=== PATIENT | male | born 1950 | race Caucasian/White ===

== ENCOUNTER 2024-08-18 09:31 | Outpatient (OUT) | payer MEDICARE, SELFPAY ==
--- NOTE | 2024-08-18 10:00 | CA_ITS ---
Patient Name: MINNIE FARIAS MR#: [id number] : 1950 Exam Date: 08/18/2024 Ordering Doctor: DR STEVE MAGALLANES M.D. ECHOCARDIOGRAM REPORT PROCEDURE: CA ECHO DOPPLER COMPLETE INDICATIONS: Atrial fibrillation, CABGx3, cardiac stent,COPD, hypertension, diabetes COMPARISON: None. DESCRIPTION: COMPLETE ECHOCARDIOGRAM Real-time transthoracic echocardiography with 2D, M-mode, spectral and color flow Doppler performed. QUALITY: Technical quality was good. LEFT VENTRICLE: Normal chamber size. Mild concentric left ventricular hypertrophy. Normal systolic function. LV EF: Normal left ventricular ejection fraction, (>55%). DIASTOLIC: Not adequately assessed due to heart rhythm. ATRIAL SEPTUM: Visually appears intact. LEFT ATRIUM: Severe dilatation. RIGHT ATRIUM: Severe dilatation. RIGHT VENTRICLE: Normal chamber size. Normal right ventricular systolic function. TRICUSPID VALVE: Normal mobility and thickness. No stenosis with trivial regurgitation. Doppler studies reveal mildly (35-45) elevated right sided pressures. RVSP 43 mmHg MITRAL VALVE: Normal mobility and thickness. Mild mitral annular calcification. Trivial mitral regurgitation. AORTIC VALVE: Normal trileaflet appearance. Thickened aortic valve. Normal leaflet mobility. No evidence of aortic valve stenosis. Mild aortic regurgitation. AORTIC ROOT: Normal diameter and appearance. Ascending aorta is normal in size. PULMONIC VALVE: Normal thickness and mobility. No stenosis. Trivial regurgitation. PERICARDIUM: No evidence of pericardial effusion. IVC: IVC is mildly dilated with 50% inspiratory collapse. PLEURA: CONCLUSION: 1. Mild concentric left ventricular hypertrophy with normal systolic function. Estimated LVEF is 60 to 65%. 2. Normal right ventricular size and systolic function. 3. Severe biatrial dilatation. 4. No significant valvular dysfunction. 5. Mildly elevated right-sided pressures. Adult Echocardiography Procedure Report Left Ventricle LVEDD (3.7 - 5.6 cm): 4.39 cm LVESD (2.2 - 4.0 cm): 3.10 cm LVIVS thickness (0.6 - 1.2 cm): 1.50 cm LVPW thickness (0.5 - 1.0 cm): 1.16 cm e': 0.98 m/s LVOT Max Gradient: 1.27 mm[Hg], 1.42 mm[Hg] LVOT Area (cm2): 0.58 m/s Peak Velocity (LVOT): 0.56 m/s, 0.60 m/s LVOT Diameter 2.12 cm Left Atrium LA Volume Index (2D A2C): 52.27 ml/m2 Left Atrium Systolic Dimension: 5.39 cm Mitral Valve Right Ventricle Aorta AO Root Diam: 3.50 cm Ascending Ao Diam: 2.90 cm Aortic Valve AoV Area (Peak Chau): 2.01 cm2, 1.83 cm2, 2.21 cm2 Peak Velocity(Antegrade Flow): 1.08 m/s, 0.95 m/s Peak Gradient(Antegrade Flow): 4.70 mm[Hg], 3.58 mm[Hg] Tricuspid Valve Peak Velocity (Regurgitant Flow): 2.90 m/s, 2.73 m/s, 3.24 m/s Pulmonic Valve Peak Velocity: 0.83 m/s Peak Gradient: 3.03 mm[Hg], 2.55 mm[Hg] Right Atrium Right Atrium Systolic Pressure: 73.02 ml, 73.02 ml Dictated by: Steve Magallanes M.D. on 08/18/2024 at 18:30 Approved by: Steve Magallanes M.D. on 08/18/2024 at 18:37
== END 2024-08-18 09:32 | disposition home or self-care (01) ==
LOC: CARD 09:34
PROVIDERS: PCP Internal Medicine; Visit Provider Internal Medicine Interventional Cardiology
DX: I25.10 Atherosclerotic heart disease of native coronary artery without angina pectoris (principal); I48.21 Permanent atrial fibrillation
CPT/HCPCS: 93306

== ENCOUNTER 2024-12-21 11:05 | Inpatient (IN) | payer MEDICARE, SELFPAY ==
[2024-12-21] VITALS (48 sets, daily range): BP systolic 113–149; BP diastolic 43–87; PULSE 71–107; TEMP 36.4–36.6; O2SAT 91–96; BMI 27.4; BMI 27.7
--- OUTSIDE RECORDS SUMMARY | 2024-12-21 11:26 | XMS_ITS | CCD ---
Author Organization [facility] Care Team Providers Care Taping Foreman Name Role Phone Matt Koenig Unavailable MARCUS, DR SLADE Attending Unavailable VALONE, DR SLADE Admitting Unavailable VALONE, DR SLADE Consulting Unavailable VALONE, DR SLADE Primary Care Unavailable KASSIDY, DR KRIS Michaud Consulting Unavailable VALONE, DR SLADE Primary Care Unavailable MARCY, JESUS Admitting Unavailable MARCYJESUS BRANTLEY Attending Unavailable JESUS VIDAL Consulting Unavailable MARCY, JESUS Consulting Unavailable VALONE, DR SLADE Primary Care Unavailable MARCY, JESUS Admitting Unavailable JESUS VIDAL Attending Unavailable HAY, DR RODRIGUEZ Admitting Unavailable VALONE, DR SLADE Primary Care Unavailable HAY, DR RODRIGUEZ Attending Unavailable HAY, DR RODRIGUEZ Consulting Unavailable SCHREIBMAN, FINESSE Consulting Unavailable VALONE, DR SLADE Attending Unavailable VALONE, DR SLADE Consulting Unavailable VALONE, DR SLADE Primary Care Unavailable VALONE, DR SLADE Admitting Unavailable ZIEBER, DR FRANCISCO JAVIER Vaughn Consulting Unavailable MOUKARBRIVERA, DR WILSON Consulting Unavailable VALONE, DR LSADE Primary Care Unavailable KASSIDY, DR KRIS Michaud Consulting Unavailable OLEMYLES, MATT Admitting Unavailable OLEXA, MATT Attending Unavailable OLEXA, MATT Consulting Unavailable MOUKARBSTEVE STAFFORD Attending Unavailable MARCY, JESUS Attending Unavailable Medications Current Medications Medication Drug Class(es) Dates Sig (Normalized) Sig (Original) Albuterol (2 sources) beta2-Adrenergic Agonist ProAir HFA Active amLODIPine 5 mg oral tablet (2 sources) Dihydropyridine Calcium Channel Krzysztof take 1 tablet by mouth every twenty-four hours amLODIPine Besylate 5 MG 1 tablet Orally Once a day Active atorvastatin 40 mg oral tablet (2 sources) HMG-CoA Reductase Inhibitor take 1 tablet by mouth every twenty-four hours Atorvastatin Calcium 40 MG 1 tablet Orally Once a day Active canagliflozin / metFORMIN (2 sources) Biguanide, Sodium-Glucose Cotransporter 2 Inhibitor Invokamet Active carvedilol 12.5 mg oral tablet (2 sources) alpha-Adrenergic Krzysztof, beta-Adrenergic Krzysztof take 1 tablet by mouth every twelve hours Carvedilol 12.5 MG 1 tablet with food Orally Twice a day Active Cinnamon Preparation (2 sources) Non-Standardized Food Allergenic Extract Cinnamon Active clopidogrel 75 mg oral tablet (2 sources) P2Y12 Platelet Inhibitor take 1 tablet by mouth every twenty-four hours Clopidogrel Bisulfate 75 MG 1 tablet Orally Once a day Active Digoxin (2 sources) Cardiac Glycoside Digoxin Active dulaglutide (2 sources) GLP-1 Receptor Agonist Trulicity Active ezetimibe (2 sources) Dietary Cholesterol Absorption Inhibitor Ezetimibe Active guaiFENesin (2 sources) guaiFENesin Acti ve lansoprazole 30 mg delayed release oral capsule (2 sources) Proton Pump Inhibitor take 1 capsule by mouth every twenty-four hours Lansoprazole 30 MG 1 capsule before a meal Orally Once a day Active montelukast 10 mg oral tablet (2 sources) Leukotriene Receptor Antagonist take 1 tablet by mouth every twenty-four hours Montelukast Sodium 10 MG 1 tablet Orally Once a day Active Multi For Him (2 sources) Multi For Him Active Olmesartan Medoxomil-HCTZ (2 sources) Olmesartan Medoxomil-HCTZ Active rivaroxaban 20 mg oral tablet (2 sources) Factor Xa Inhibitor take 1 tablet by mouth every twenty-four hours Xarelto 20 MG 1 tablet with food Orally Once a day Active sildenafil (2 sources) Phosphodiesterase 5 Inhibitor Sildenafil Citrate Active Spiriva HandiHaler (2 sources) Spiriva HandiHal er Active Zinc (2 sources) Zinc Active Problems Active Problems Problem Classification Problem Date Documented Date Episodic/Chronic Cardiac dysrhythmias (1 source) Unspecified atrial fibrillation; Translations: [UNSPECIFIED ATRIAL FIBRILLATION] Onset: 10-02-2021 Chronic Chronic obstructive pulmonary disease and bronchiectasis (1 source) Chronic obstructive pulmonary disease, unspecified; Translations: [COPD UNSPECIFIED] Onset: 10-02-2021 Chronic Congestive heart failure; nonhypertensive (1 source) Chronic systolic (congestive) heart failure; Translations: [CHRONIC SYSTOLIC HEART FAILURE] Onset: 11-09-2021 Chronic Coronary atherosclerosis and other heart disease (3 sources) Atherosclerotic heart disease of [place] coronary artery without angina pectoris; Translations: [ASHD [place] W/O ANGINA PECTORIS] Onset: 10-02-2021 Chronic Coronary atherosclerosis and other heart disease (3 sources) Presence of aortocoronary bypass graft; Translations: [PRESENCE AORTOCORONARY BYPASS GRAFT] Onset: 10-02-2021 Episodic Disorders of lipid metabolism (3 sources) Pure hypercholesterolemia, unspecified; Translations: [Mixed hyperlipidemia] Onset: 10-02-2021 Chronic Essential hypertension (3 sources) Essential (primary) hypertension; Translations: [ESSENTIAL PRIMARY HYPERTENSION] Onset: 10-02-2021 Chronic Heart valve disorders (1 source) Nonrheumatic mitral (valve) insufficiency; Translations: [NONRHEUMATIC MITRAL INSUFFICIENCY] Onset: 04-26-2022 Chronic Other circulatory disease (4 sources) Other specified peripheral vascular diseases; Translations: [OTH SPEC PERIPHERAL VASC DISEASES] Onset: 04-18-2022 Chronic Other circulatory disease (2 sources) Disorder of arteries and arterioles, unspecified; Translations: [Disorder of arteries and arterioles, unspecified] Onset: 03-12-2023 Chronic Other lower respiratory disease (4 sources) Other forms of dyspnea; Translations: [OTHER FORMS OF DYSPNEA] Onset: 04-23-2022 Episodic Unclassified (2 sources) Permanent atrial fibrillation; Translations: [Permanent atrial fibrillation] Onset: 03-12-2023 Past or Other Problems Problem Classification Problem Date Documented Da te Episodic/Chronic Crushing injury or internal injury (2 sources) Crushing injury of left ring finger, initial encounter; Translations: [Crushing injury of left ring finger, subsequent encounter] Onset: 10-03-2021 Resolved: 10-10-2021 Episodic E Codes: Other specified and classifiable (1 source) Caught, crushed, jammed, or pinched between moving objects, initial encounter; Translations: [CAUGHT CRUSH/PINCH BTWN MOV OBJ INT] Onset: 10-02-2021 Episodic Fracture of upper limb (10 sources) Nondisplaced fracture of distal phalanx of right ring finger, initial encounter for closed fracture; Translations: [Nondisplaced fracture of distal phalanx of right ring finger, subsequent encounter for fracture with routine healing] Onset: 09-30-2021 Resolved: 10-10-2021 Episodic Open wounds of extremities (2 sources) Laceration without foreign body of left ring finger with damage to nail, initial encounter; Translations: [Laceration without foreign body of left ring finger with damage to nail, subsequent encounter] Onset: 10-03-2021 Resolved: 10-10-2021 Episodic Other aftercare (1 source) Encounter for removal of sutures Onset: 10-10-2021 Resolved: 10-10-2021 Episodic Other aftercare (1 source) senior care (current) use of anticoagulants; Translations: [[facility] CURRNT USE ANTICOAGULANTS] Onset: 10-02-2021 Episodic Other aftercare (1 source) Other halfway (current) drug therapy; Translations: [OTH RADIO MECHANIC CURRENT DRUG THERAPY] Onset: 10-02-2021 Episodic Other liver diseases (4 sources) Hepatomegaly, not elsewhere classified; Translations: [HEPATOMEGALY NEC] Onset: 11-03-2021 Episodic Screening and history of mental health and substance abuse codes (5 sources) Personal history of nicotine dependence; Translations: [PERSONAL HISTORY OF NICOTINE DEPEND] Onset: 09-19-2021 Episodic Results Test Name Value Interpretation Reference Range Facility 36on 08-21-2024 36 Regarding echo from 08/18/2024: MD Blanca Cueto MA His echo was ok, follow up in 1 year. [facility] Office Visiton 08-10-2024 Follow-up visit [id number] Minnie Jason 1950 M Date Provider Department Center 08/10/2024 367-STEVE BRICEÑO [facility] Family History Problem Relation Age of Onset Atrial fibrillation Brother Heart failure Brother Coronary artery disease Brother Family Status - Relation Status Age at Brother Level of Service:74281 OR OFFICE/OUTPATIENT ESTABLISHED MOD MDM 30 MIN [facility] 37on 04-21-2024 37 *Stop taking ezetimibe (Zetia) - this is a LDL lowering medication. Repeat cholesterol levels in 3 months. *Your blood pressure was elevated today. Goal is <130/90. Start doing routine exercises 2-3 days a week and increase to 5 days a week. Recommend moderate intensity exercise for a goal of 30 minutes. Will see if this helps your blood pressure. Follow-up in 3 months. If no improvement with blood pressure, will further discuss increasing a blood pressure medication. [facility] Follow-Upon 04-21-2024 Follow-Up [id number] Minnie Jason 1950 M Date Provider Department Center 04/21/2024 MargauxJoniJESUS VIDAL SINDY Rasmussen Family History Problem Relation Age of Onset Atrial fibrillation Brother Heart failure Brother Coronary artery disease Brother Family Status - Relation Status Age at Brother Level of Service:73899 OR OFFICE/OUTPATIENT ESTABLISHED MOD MDM 30 MIN Reason for Visit and Comments: Coronary Artery Disease [187] Atrial Fibrillation [80] Hypertension [911584] Hyperlipidemia [182] Peripheral Vascular Disease [458] Normal [facility] ECHOCARDIO M/2D COMPLETEon 0 04-23-2022 ECHOCARDIO M/2D COMPLETE Patient: MINNIE JASON. Exam Date: 04/23/2022 : 1950 Gender:M Ordering : JESUS VIDAL Admission #: [id number] Family : DR YANY VELAZQUEZ D.O. Order #: [id number] CLICK HERE TO VIEW EXAM ECHOCARDIOGRAM REPORT PROCEDURE: CARDIO PULMONARY ECHOCARDIO M/2D COMP INDICATIONS: Dyspnea on exertion, CABG x 3, PTCA, COPD, hypertension COMPARISON: None. DESCRIPTION: COMPLETE ECHOCARDIOGRAM Real-time transthoracic echocardiography with 2D, M-mode, spectral and color flow Doppler performed. QUALITY: Technical quality was good. LEFT VENTRICLE: Normal chamber size. Mild concentric left ventricular hypertrophy. LV EF: Normal left ventricular ejection fraction, (>55%). DIASTOLIC: Not adequately assessed due to heart rhythm. ATRIAL SEPTUM: Visually appears intact. LEFT ATRIUM: Moderate dilatation. RIGHT ATRIUM: Moderate dilatation. RIGHT VENTRICLE: Borderline dilatation. Normal systolic function. TRICUSPID VALVE: Normal mobility and thickness. No stenosis with trivial regurgitation. No evidence of pulmonary hypertension. RVSP 23 mmHg MITRAL VALVE: Normal mobility and thickness. No evidence of mitral valve stenosis. Mild mitral annular calcification. Mild mitral regurgitation. AORTIC VALVE: Normal trileaflet appearance. Mildly calcified aortic valve. Normal leaflet mobility. No evidence of aortic valve stenosis. No aortic regurgitation. AORTIC ROOT: Normal diameter and appearance. Ascending aorta is normal in size. PULMONIC VALVE: Normal thickness and mobility. No stenosis. Trivial regurgitation. PERICARDIUM: No evidence of pericardial effusion. IVC: Collapses with inspirations. PLEURA: CONCLUSION: 1. Mild concentric left ventricular hypertrophy with normal systolic function. LVEF is 55 to 60%. 2. Normal right ventricular systolic function. 3. Mild mitral regurgitation. 4. Normal right-sided pressures. 5. No pericardial effusion. Adult Echocardiography Procedure Report Left Ventricle LVEDD (3.7 - 5.6 cm): 4.43 cm LVESD (2.2 - 4.0 cm): 3.19 cm LVIVS thickness (0.6 - 1.2 cm): 1.29 cm LVPW thickness (0.5 - 1.0 cm): 1.27 cm LVOT Area (cm2): 3.80 cm2 LVOT Diameter 2.20 cm Left Ventricular Ejection Fraction: 55-60 % Left Atrium LA Volume Index (2D A2C): 47.50 ml/m2 Left Atrium Systolic Dimension: 5.10 cm Left Atrium Systolic Area(A2C): 26.10 cm2 Left Atrium Systolic Area(A4C): 25.80 cm2 Left Atrium Systolic Volume(A2C): 14727 mm3 Left Atrium Systolic Volume(A4C): 33162 mm3 Mitral Valve Mitral Valve E-Wave Peak Velocity: 86.40 cm/s Mitral Valve E-Wave Peak Velocity: 111.00 cm/s Right Ventricle Aorta AO Root Diam: 3.20 cm Aortic Valve AoV Area (Peak Chau): 2.07 cm2 Peak Velocity(Antegrade Flow): 98.90 cm/s Peak Gradient(Antegrade Flow): 4 mm[Hg] Tricuspid Valve Pulmonic Valve Peak Velocity: 81.40 cm/s Peak Gradient: 3 mm[Hg] Right Atrium Dictated by: Steve Briceño M.D. on 04/23/2022 at 12:51 Approved by: Steve Briceño M.D. on 04/23/2022 at 12:53 Normal [facility] BUNon 11-03-2021 Urea nitrogen [Mass/Vol] 14.0 mg/dL Normal 9.0-20.0 [facility] Comment on above: Performed By: #### C JACQUELIN BUN #### [facility] [address] [place] [address] Dr. Ruben Caldera CREATININEon 11-03-2021 Creatinine [Mass/Vol] 0.93 mg/dL Normal 0.66-1.25 [facility] Comment on above: Performed By: #### C PA ROPER #### [facility] [address] [place], [place] [address] Dr. Ruben Caldera EGFR-AF CYPRIOT >60 Normal >=60 [facility] Comment on above: Performed By: #### C JACQUELIN, BUN #### [facility] [address] [place], [place] [address] Dr. Ruben Caldera EGFR-NON AF CYPRIOT >60 Normal >=60 [facility] Comment on above: Performed By: #### C JACQUELIN, BUN #### [facility] [address] [place], [place] [address] ABDOMEN WO/W CONon 2021 CT ABDOMEN WO/W CON EXAMINATION: CT ABDOMEN WO/W CON HISTORY: Liver mass COMPARISON: 09/19/2021 CT chest TECHNIQUE: Axial, Coronal, and Sagittal images were created without and with non-ionic intravenous contrast material. Dose reduction techniques were achieved by using automated exposure control and/or adjustment of mA and/or kV according to patient size and/or use of iterative reconstruction technique. Images acquired precontrast, early arterial, portal venous and delayed FINDINGS: LUNG BASES: Stable wedge-shaped opacity identified in the right lung base with associated bronchiectasis and peribronchial thickening. Coronary atherosclerosis LIVER: Innumerable hypodensities scattered throughout both hepatic lobes demonstrate no significant postcontrast enhancement. Cysts are favored. BILIARY: No visible dilatation or calcification. PANCREAS: No lesion, fluid collection, ductal dilatation, or atrophy. SPLEEN: No enlargement or focal lesion. ADRENALS: No mass or enlargement. KIDNEYS: No mass, obstruction, or calcification. BOWEL/MESENTERY: No visible mass, obstruction, or bowel wall thickening. AORTA/VASCULAR: No aortic aneurysm. Extensive atherosclerosis RETROPERITONEUM: No mass or adenopathy. ABDOMINAL WALL: No mass or hernia. BONES: No bony lesion or fracture. OTHER: Negative. IMPRESSION: Innumerable hypodensities scattered throughout the liver, simple cysts are favored Extensive aortic atherosclerosis Electronically authenticated by: KRIS YI Date: 2021-11-03 13:47 Normal [facility] XR FINGER MIN 2 VIEWSon 12-0 XR FINGER MIN 2 VIEWS EXAM: XR FINGER MIN 2 VIEWS HISTORY: The patient is a 71-year-old male with crush injury of the right fourth distal phalanx. COMPARISON: None. FINDINGS: There is a nondisplaced transverse fracture of the midshaft of the ring finger distal phalanx. This fracture does not extend to the articular surface. No other acute or ununited fractures are seen within the ring finger. The widths and alignment of all of the ring finger joints are maintained. IMPRESSION: Nondisplaced extra-articular fracture of the ring finger distal phalanx. Electronically authenticated by: FINESSE AMEZCUA Date: 2021-09-30 22:21 Normal [facility] CT LUNG CANCER SCREENINGon 11-19-2020 CT LUNG CANCER SCREENING EXAMINATION: CT LUNG CANCER SCREENING HISTORY: Nicotine dependence COMPARISON: No relevant comparison available. TECHNIQUE: Axial, Coronal, and Sagittal images were created without the administration of IV contrast material. Dose reduction techniques were achieved by using automated exposure control and/or adjustment of mA and/or kV according to patient size and/or use of iterative reconstruction technique. FINDINGS: LUNGS: Within the medial posterior right costophrenic angle is a 1.9 x 1.8 cm irregular opacity with fibrous stranding versus scarring extending cephalad approximately 13.4 cm on the posterior wall near the level of the major fissure. Small wispy opacity within the anterior aspect of the right lower lobe adjacent the diaphragm. Mild bronchiectasis within the lung bases. PLEURA: No mass, effusion, or pneumothorax. VASCULATURE: No abnormality. CRISTINE: No mass or pathologic adenopathy. MEDIASTINUM: No mass or pathologic adenopathy. CARDIAC: No enlargement, pericardial thickening, or significant calcification. AORTA: No aneurysm or dissection. CHEST WALL: No mass or axillary adenopathy BONES: No bone lesion or fracture. LIMITED ABDOMEN: Numerous approximately 1 cm hypodensities scattered throughout the visible liver. OTHER: Negative. IMPRESSION: 1. LUNG SCREENING: Lung-RADS Category 4A- Suspicious. Findings for which additional diagnostic testing and/ or tissue sampling is recommended. 3 month LDCT; PET/CT may be used when there is a >= 8 mm solid component. 2. Findings within the right lung base may represent scarring, infiltrate/consolidat ion, or neoplasm. 3. Multiple approximately 1 cm liver lesions inadequately evaluated on today's study; hemangiomas versus cysts versus metastatic disease. Consider CT imaging of the abdomen and pelvis without and with IV contrast. Electronically authenticated by: FRANCISCO JAVIER PATEL Date: 2021-09-19 17:18 Normal [facility] Cardiovascular Lab Reporton 05-11-2020 Cardiovascular Lab Report [facility] Patient Name: Minnie Jason MR #: [id number] Department of Physician: Steve Briceño M.D. Division of Service Date: 05/10/2020 Cardiology Birthdate: 1950 Adult Cardiovascular Room #: [address] [place] [address] Cardiovascular Laboratory Report INDICATION: The patient is a 69-year-old man, known to have a complex medical history including peripheral vascular disease with prior angiography confirming complete occlusion of his left common iliac artery. He has lifestyle limiting claudication that have failed conservative management. Because of that, he was referred for intervention after a long discussion with him regarding risks and benefits. PROCEDURES: 1. Access into the right and left common femoral arteries under ultrasound guidance. 2. Limited right and left common femoral angiography. 3. Bilateral lower extremity angiography. 4. Aortoiliac angiography with runoff. 5. Successful crossing of occluded left common iliac artery with reduction of the occlusion to 0% by balloon dilatation and stenting with an Omnilink Elite 7 x 59 mm stent post dilated to 8 mm. 6. Reduction of 80% left external iliac artery stenosis to 0% by balloon angioplasty and covering of the angioplasty segment with the same common iliac artery stent. METHODS: Procedure was explained to the patient with risks and benefits. He signed informed consent. He was brought to recyclable materials sorter in a fasting state. Both groin areas were prepped and draped in usual fashion. Using micropuncture technique and ultrasound guidance, access was obtained in right and left common femoral arteries respectively and inner cannula angiography was performed and access was upsized to a 5-Northern Irish x 11 cm sheath in each of those vessels after confirming adequate location of the access site. Bilateral lower extremity angiography was performed down to the level of the foot on each side through injections via the access catheters. A 5-Northern Irish Uni-Flush catheter was advanced to the distal abdominal aorta and aortoiliac angiography with runoff was performed via power injection of contrast and digital subtraction angiography. Additional angiography was performed in the contra caudal view focusing on the left external and common iliac arteries. Heparin was administered intravenously and therapeutic ACT confirmed during the rest of the procedure and additional heparin given as needed. Over regular wires access was upsized on each side to a 6-Northern Irish x 30 cm flexor sheath on the right and a 6-Northern Irish x 13 cm flexor sheath on the left. The 5-Northern Irish Uni-Flush catheter was advanced again into the distal abdominal aorta. Using an angled Glidewire mounted on a NaviCross catheter, the occlusion in the left common iliac artery was crossed and NaviCross catheter was advanced to the abdominal aorta and intra-aortic position was confirmed by measurement of pressures, retrieval of blood and via injections of contrast in multiple views. The catheter was then used to advance an exchange length Magic Torque wire, which was advanced to the aortic arch. At this time, we advanced a space and storage clerk 6 mm x 80 mm balloon and used to perform balloon angioplasty in the left common iliac artery and left external iliac artery. This was inflated repeatedly at 10 atmospheres. Additional balloon angioplasty in the left common iliac artery was performed using a space and storage clerk 8 x 40 mm balloon inflated at 10 atmospheres. Angiography was performed showing recanalization of the vessel with residual significant stenosis. Therefore, an Omnilink Elite 7 x 59 mm stent was advanced and deployed extending from the ostium of the left common iliac artery and into the proximal segment of the left external iliac artery. This was deployed at 11 atmospheres following which post dilatation was performed using the 8 mm x 40 mm space and storage clerk balloon inflated in the left common iliac artery segment of the stent at 12 atmospheres. Angiography through the left common femoral sheath showed excellent result with reduction of the stenosis in the left common iliac artery and proximal left external iliac artery to 0% with no evidence of dissection or perforation. There was still flow in the left internal iliac artery. However, it was reduced. Measurement of pressures indicated no evidence of gradient from the mid left external iliac artery to the level of the aorta. The left access sheath was pulled back to the level of distal left external iliac artery with measurement of pressures showing evidence of residual 10 to 15 mm gradient. Angiography was performed confirming the previously found moderate stenoses in the left external iliac artery. Those were left for medical management at this time. The procedure was concluded. The access sheaths we (more content not included)... Normal [facility] Vital Signs Date Time Vital Sign Value Performing Clinician Faci lity 10-03-2021 15:30-0500 Body height 172.72 cm Matt Hendricksxa Other [employer] Other 10-03-2021 15:30-0500 Body mass index (BMI) [Ratio] 30.13 kg/m2 Matt Hendricksxa Other [employer] Other 10-03-2021 15:30-0500 Body weight 89.9 kg Matt Hendricksxa Other [employer] Other Encounters Encounter Date Encounter Type Care Provider Facility Start: 08-10-2024 End[facility]-21-[facility]24 End: 04-21-2024 ambulatory [facility] Start: 04-23-2022 End: 04-24-[address] YANY VELAZQUEZ Facility:[facility] Start: 04-18-2022 End: 04-19-2022 ambulatory JESUS VIDAL Facility:[facility] Start: 11-03-2021 End: 11-04-[address] YANY VELAZQUEZ Facility:[facility] Start: 10-10-2021 End: 10-11-[address] YANY VELAZQUEZ [facility] [employer] Other Start: 10-10-2021 Postop follow up vis it related to original px Matt Eladioxa [facility] Start: 10-03-2021 End: 10-03-2021 ambulatory Matt Koenig Other [employer] Other Start: 10-03-2021 [facility] visit new patient Matt Hendricksxa [facility] [place] Start: 09-30-2021 End: 10-01-[address] MICHAEL MIXON Facility:[facility] Start: 09-19-2021 End: 09-20-[address] YANY VELAZQUEZ Facility:[facility] Payers Date Payer Category Payer Medicare [id number] 1961 Medicare [id number] 1950 Unknown [id number] 1950 Unknown [id number] 1950 Unknown [id number] 2.16.84 [id number] 1950 Unknown [id number] 2.16.84 [id number] 1950 Unknown [id number] 2.16.84 [id number] 1950 Unknown [id number] 2.16.84 [id number] Social History Date Type Detail Facility Sex Assigned At [employer] Other Progress note 08-10-2024 Note Date & Type Note Facility 08-10-2024 Note [facility] Subjective Minnie Jason is a 74 y.o. year old male patient being seen for 4 month follow up PAD, CAD, chronic afib, and hypertension. Denies chest pain, palpitations, and bleeding on Xarelto. SOB and claudication remain unchanged. No labs/imaging since last visit in March 2024. 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 (CMS/HCC) Primary cardiomyopathy (CMS/HCC) Pulmonary hypertension, mild (CMS/HCC) Type 2 diabetes mellitus (CMS/HCC) Peripheral vascular disease (CMS/HCC) Hx of CABG Family History Problem Relation Name Age of Onset Atrial fibrillation Brother Heart failure Brother Coronary artery disease Brother Social History Tobacco Use Smoking status: Former Types: Cigarettes Smokeless tobacco: Never Substance Use Topics Alcohol use: Not Currently HPI Minnie is seen in follow up. He is a 74 yo man with history of: 1. Permanent atrial fibrillation on anticoagulation. 2. CAD s/p CABG in 2008 3. Hypertension 4. hyperlipidemia on atorvastatin 5. COPD. 6. PAD s/p Omnilink Elite stent x2 to LLE 04/2020, severe PAD also noted in RLE. Today he reports that his main limitation is from his shortness of breath related to COPD. He has no chest pain. He reports that his lower extremity claudication has been stable over the years and is not significantly limiting him. He is not interested in interventions to his peripheral vascular disease. No bleeding with Xarelto and Plavix. Review of Systems Cardiovascular: Positive for claudication and dyspnea on exertion. All other systems reviewed and are negative. Objective Visit Vitals BP 116/62 (BP Location: Left arm, Patient Position: Sitting) Pulse 80 Ht 1.727 m (5' 8 ) Wt 82.6 kg (182 lb) SpO2 95% BMI 27.67 kg/m??? Smoking Status Former BSA 1.99 m??? Physical Exam Constitutional: Appearance: He is well-developed. He is not ill-appearing. HENT: Head: Normocephalic and atraumatic. Nose: Nose normal. Eyes: General: No scleral icterus. Pupils: Pupils are equal, round, and reactive to light. Neck: Thyroid: No thyromegaly. Vascular: No JVD. Cardiovascular: Rate and Rhythm: Normal rate. Rhythm irregularly irregular. Pulses: Radial pulses are 2+ on the right side and 2+ on the left side. Heart sounds: Normal heart sounds. No murmur heard. No friction rub. No gallop. Pulmonary: Effort: Pulmonary effort is normal. No respiratory distress. Breath sounds: Normal breath sounds. No wheezing or rales. Chest: Chest wall: No tenderness. Abdominal: General: Bowel sounds are normal. There is no distension. Palpations: Abdomen is soft. Tenderness: There is no abdominal tenderness. Musculoskeletal: General: No swelling. Cervical back: Neck supple. Skin: General: Skin is warm and dry. Neurological: General: No focal deficit present. Mental Status: He is alert and oriented to person, place, and time. Psychiatric: Mood and Affect: Mood normal. Behavior: Behavior is cooperative. Judgment: Judgment normal. Allergies No Known Allergies Medications Current Outpatient Medications: albuterol 90 mcg/actuation inhaler, Inhale 2 puffs every 6 (six) hours if needed for wheezing., Disp: , Rfl: amLODIPine (Norvasc) 5 mg tablet, Take 5 mg by mouth in the morning., Disp: , Rfl: atorvastatin (Lipitor) 40 mg tablet, Take 40 mg by mouth at bedtime., Disp: , Rfl: Breztri Aerosphere 160-9-4.8 mcg/actuation HFA aerosol inhaler, , Disp: , Rfl: ktwiczqgpv-egghdcdq-vsloimyita (Breztri Aerosphere) 160-9-4.8 mcg/actuation HFA aerosol inhaler, Inhale., Disp: , Rfl: carvedilol (Coreg) 12.5 mg tablet, Take 25 mg by mouth with breakfast and with evening meal., Disp: , Rfl: clopidogrel (Plavix) 75 mg tablet, TAKE 1 TABLET DAILY, Disp: 90 tablet, Rfl: 3 digoxin (Lanoxin) 250 MCG tab;et, Take 1 tablet (0.25 mg) by mouth in the morning., Disp: 90 tablet, Rfl: 3 dulaglutide (Trulicity) 1.5 mg/0.5 mL pen injector, Trulicity 1.5 mg/0.5 mL subcutaneous pen injector, Disp: , Rfl: ezetimibe (Zetia) 10 mg tablet, Take 5 mg by mouth in the morning., Disp: , Rfl: finasteride (Proscar) 5 mg tablet, , Disp: , Rfl: lansoprazole (Prevacid) [address] capsule, Take 60 mg by mouth before breakfast., Disp: , Rfl: magnesium oxide (Mag-Ox) 400 mg tablet, 400 mg in the morning., Disp: , Rfl: montelukast (Singulair) 10 mg tablet, montelukast 10 mg tablet, Disp: , Rfl: olmesartan (BENIcar) 40 mg tablet, Take 40 mg by mouth in the morning., Disp: , Rfl: rivaroxaban (Xarelto) 20 mg tablet, once daily as direct (more content not included)... [facility] Progress note 04-21-2024 Note Date & Type Note Facility 04-21-2024 Note Patient here for 1 y ear follow up PAD, CAD, permanent afib, and hypertension. He had routine labs w/ lipid panel last month. Denies chest pain, palpitations, lightheadedness/syncope, and bleeding on Xarelto. Says his VALENTIN and claudication are the same as they were at last visit. Says he's been cutting Zetia in half because his cholesterol numbers are low. He's not taking Farxiga, and his carvedilol is double what it was at last visit. Review of Systems Cardiovascular: Positive for claudication and dyspnea on exertion. All other systems reviewed and are negative. [facility] Progress note 04-21-2024 Note Date & Type Note Facility 04-21-2024 Note Cardiovascular Medic [facility] SUBJECTIVE Chief Complaint Patient presents with Coronary Artery Disease Atrial Fibrillation Hypertension Hyperlipidemia Peripheral Vascular Disease Minnie Jason is a 73 y.o. male here for routine follow-up. HPI PMHx: 1. Atrial fibrillation on anticoagulation with Xarelto 2. CAD s/p CABG in 2008 and PCI in 2018 to LAD and OM, [employer] RCA 3. Hypertension 4. Hyperlipidemia on atorvastatin 5. COPD 6. PAD s/p Omnilink Elite stent x2 to LLE 04/2020, severe PAD also noted in RLE 04/21/2024 He states he has been feeling well since last seen. No current routine exercise. BP is mildly elevated today. He gets BLE fatigue and pain with walking longer distances and improves with rest. - This is unchanged for him. His VALENTIN is stable. Denies c/o CP, orthopnea, PND, LE edema, dizziness/LH, palpitations, syncope. 03/12/2023 He had his top teeth pulled 2 weeks ago and still on soft food diet, pending getting a partial denture piece. He denies any changes since last seen. His VALENTIN is unchanged. He gets BLE fatigue and pain with walking longer distances and improves with rest. Planning to go to [place] this summer to visit son. 03/27/22 He is unsure of his BP at home. He was switched from Pradaxa to Xarelto. C/o bilateral leg fatigue with short exertion. His sx's are primarily in his hips and upper thighs. He gets muscle fatigue if he walks more than 100 ft, improves with rest. He c/o worsened VALENTIN compared to a few years ago. He feels this is attributed to his COPD. 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 He recently resumed walking routinely on his treadmill, he had stopped for a period of time d/t bilateral greater toe pain which was thought to be attributed to a fungal infection. He denies CP, dyspnea at rest, orthopnea, PND, LE edema, dizziness/LH, palpitations. 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 (CMS/HCC) Primary cardiomyopathy (CMS/HCC) Pulmonary hypertension, mild (CMS/HCC) Type 2 diabetes mellitus (CMS/HCC) Peripheral vascular disease (CMS/HCC) Hx of CABG Past Medical History: Diagnosis Date Abnormal ECG Arrhythmia Atrial fibrillation ([facility]/HCC) CHF (congestive heart failure) ([facility]/HCC) COPD (chronic obstructive pulmonary disease) (CMS/HCC) Coronary artery disease Diabetes mellitus (CMS/HCC) GERD (gastroesophageal reflux disease) Heart valve disease Hyperlipidemia Hypertension PAD (peripheral artery disease) (CMS/HCC) Primary cardiomyopathy (CMS/HCC) PVD (peripheral vascular disease) ([facility]) Family History Problem Relation Name Age of Onset Atrial fibrillation Brother Heart failure Brother Coronary artery disease Brother Social History Tobacco Use Smoking status: Former Types: Cigarettes Smokeless tobacco: Never Substance Use Topics Alcohol use: Not Currently No Known Allergies ROS Cardiovascular: Positive for claudication and dyspnea on exertion. All other systems reviewed and are negative. OBJECTIVE Visit Vitals BP 140/82 (BP Location: Right arm, Patient Position: Sitting) Pulse 70 Ht 1.727 m (5' 8 ) Wt 83.5 kg (184 lb) SpO2 95% BMI 27.98 kg/m??? Smoking Status Former BSA 2 m??? Medications: Current Outpatient Medications: amLODIPine (Norvasc) 5 mg tablet, Take 5 mg by mouth in the morning., Disp: , Rfl: atorvastatin (Lipitor) 40 mg tablet, Take 40 mg by mouth at bedtime., Disp: , Rfl: Breztri Aerosphere 160-9-4.8 mcg/actuation HFA aerosol inhaler, , Disp: , Rfl: carvedilol (Coreg) 12.5 mg tablet, Take 25 mg by mouth with breakfast and with evening meal., Disp: , Rfl: clopidogrel (Plavix) 75 mg tablet, TAKE 1 TABLET DAILY, Disp: 90 tablet, Rfl: 3 digoxin (Lanoxin) 250 MCG tab;et, Take 1 tablet (250 mcg) by mouth once daily as directed., Disp: 90 tablet, Rfl: 3 dulaglutide (Trulicity) 1.5 mg/0.5 mL pen injector, Trulicity 1.5 mg/0.5 mL subcutaneous pen injector, Disp: , Rfl: ezetimibe (Zetia) 10 mg tablet, Take 5 mg by mouth in the morning., Disp: , Rfl: finasteride (Proscar) 5 mg tablet, , Disp: , Rfl: lansoprazole (Prevacid) [address] capsule, Take 60 mg by mouth before breakfast., Disp: , Rfl: montelukast (Singulair) 10 mg tablet, montelukast 10 mg tablet, Disp: , Rfl: olmesartan (BENIcar) 40 mg tablet, Take 40 mg by mouth in the morning., Disp: , Rfl: rivaroxaban (Xarelto) 20 mg tablet, once daily as directed., Disp: , Rfl: sildenafil (Viagra) 100 mg tablet, , Disp: , Rfl: tamsulosin (Flomax) 0.4 mg 24 hr capsule, , Disp: , Rfl: albuterol 90 mcg/actu (more content not included)... [facility] Clinical Note 10-10-2021 Note Date & Type Note Facility 10-10-2021 Note PROCEDURE: XR HAND R T MIN 3V COMPARISON: 09/30/2021 HISTORY: Fracture of distal phalanx of finger FINDINGS: BONES:Again demonstrated is a complex nondisplaced nonangulated extra-articular fracture at the base and diaphysis of the fourth distal phalanx. No dislocation. The fracture plane is less evident consistent with sclerotic healing. SOFT TISSUES:Soft tissue swelling fourth distal finger EFFUSION:None visible. OTHER: Negative. IMPRESSION: Stable healing extra-articular fracture of the fourth distal phalanx Electronically authenticated by: KRIS YI Date: 2021-10-10 14:09 [facility] Evaluation note 10-10-2021 Note Date & Type Note Facility 10-10-2021 Evaluation note Encounter Date Diagnosis Assessment Notes Sep, Nondisplaced fracture of distal phalanx of right ring finger, subsequent encounter for fracture with routine healing (ICD-10 - S62.664D) Sep, Laceration without foreign body of left ring finger with damage to nail, subsequent encounter (ICD-10 - S61.315D) Sep, Crushing injury of left ring finger, subsequent encounter (ICD-10 - S67.195D) Sep, Encounter for removal of sutures (ICD-10 - Z48.02) Patient is progressing well from injury. Sutures removed today under clean conditions, patient tolerated well. Instructed on gentle motion exercises of the finger. Again discussed that patient will likely lose the nail as time goes. Call with questions/conc erns. [employer] Other Evaluation note 10-03-2021 Note Date & Type Note Facility 10-03-2021 Evaluation note Encounter Date Diagnosis Assessment Notes Sep, Closed nondisplaced fracture of distal phalanx of right ring finger, initial encounter (ICD-10 - S62.664A) Radiographs reviewed with patient and as a distal phalanx fracture of the right ring finger with associated laceration. Instructed on splinting during any activity where it may be bumped, but may remove splint and dressing while at rest. Applied and instructed on nonstick dressing application. Discussed nail will likely fall off due to trauma and may grow back irregular. Instructed on gentle motion of the finger when out of splint to decrease stiffness. We will leave sutures intact for 1 more week. Call with questions/con cerns. Sep, Crushing injury of left ring finger, initial encounter (ICD-10 - S67.195A) Sep, Laceration of left ring finger without foreign body with damage to nail, initial encounter (ICD-10 - S61.315A) [employer] Other History general Narrative - Reported Note Date & Type Note Facility History general Narrative - Reported Type Medical History type II diabetes Medical History COPD Medical History afib Medical History artery disease Surgical History triple bypass 2009 Surgical History hernia repair 2014 Surgical History heart stent 2019 Surgical History illiac stent 2019 Hospitalization History See Above [employer] Other Summary Purpose Family History No Family History Records FoundNo Family History Records FoundNo Family History Records Found Advance Directives No Advanced Directives Records FoundNo Advanced Directives Records FoundNo Advanced Directives Records Found Additional Source Comments (unrecognized sect ion and content) No Status Records FoundNo Status Records FoundNo Status Records Found INFORMATION SOURCE (unrecogn ized section and content) DATE CREATED AUTHOR 02/15/2021 [facility] DATE CREATED AUTHOR AUTHOR'S ORGANIZ ATION 04/27/2022 [facility] DATE CREATED AUTHOR AUTHOR'S ORGANIZ ATION 08/23/2024 [facility] REASON FOR VISIT (unrecogniz ed section and content) Right Ring Finger1 WK RECHEC K SUTURE REMOVAL FOR RECORDS PERTAINING TO PATIENTS WHO ARE OR HAVE BEEN ENROLLED IN A CHEMICAL DEPENDENCY/SUBSTANCEABUSE PROGRAM, SOME INFORMATION MAY BE OMITTED. This clinical summary was aggregated from multiple sources. Caution should be exercised in using it in the provision of clinical care. This summary normalizes information from multiple sources, and as a consequence, information in this document may materially change the coding, format and clinical context of patient data. In addition, data may be omitted in some cases. CLINICAL DECISIONS SHOULD BE BASED ON THE PRIMARY CLINICAL RECORDS. [employer] [facility] provides no warranty or guarantee of the accuracy or completeness of information in this document.
--- NOTE | 2024-12-21 11:34 | ECG_ITS ---
[facility] Test Date: 2024-12-21 Pat Name: MINNIE FARIAS Department: Room: - Gender: Male Case Management Associate: : 1950 Requested By: [id number] Order Number: [id number] Reading MD: MARTHA ARREDONDO Measurements Intervals [place] Rate: 71 P: -[id number] CA: -[id number] QRS: 67 QRSD: 88 T: 68 QT: 360 QTc: 383 Interpretive Statements [id number] Atrial fibrillation with aberrant conduction, or ventricular premature complexes 3433 Septal myocardial infarction, probably old 9150 abnormal ECG No previous ECG available for comparison Electronically Signed On 12-21-2024 20:26:27 EST by MARTHA ARREDONDO
[2024-12-21] MEDS: METHYLPREDNISOLONE SOD SUCC PF 125 MG/2 ML VIAL IVP (11:52)
[2024-12-21 12:15] LABS: Hematocrit 36.8 % (42.0-54.0); Hemoglobin 12.1 g/dL (14.0-18.0); Mean Corpuscular HGB Conc 32.9 g/dL (29.9-35.2); Mean Corpuscular Hemoglobin 28.1 pg (25.9-34.0); Mean Corpuscular Volume 85.6 fL (80.0-94.0); Mean Platelet Volume 9.9 fL (9.5-13.5); Platelet Count 288 10^3/uL (150-450); Red Cell Distribution Width 15.7 % (11.0-15.0); White Blood Count 27.7 10^3/uL (4.0-11.0)
[2024-12-21 12:33] LABS: Alanine Aminotransferase 137 U/L (16-63); Albumin Globulin Ratio 0.5; Alkaline Phosphatase 144 U/L (46-116); Anion Gap 14.5; Aspartate Amino Transferase 59 U/L (15-37); Bilirubin Total 1.1 mg/dL (0.2-1.0); Calcium 8.3 mg/dL (8.5-10.1); Carbon Dioxide 24.7 mmol/L (21.0-32.0); Chloride 96 mmol/L (98-107); Estimated GFR (African America >60 (>=60 mL/min/1.73m^2); Estimated GFR (Non-African Ame >60 (>=60 mL/min/1.73m^2); Globulin 4.4 g/dL; Glucose 174 mg/dL (74-106); Potassium 5.2 mmol/L (3.5-5.1); Sodium 130 mmol/L (136-145); Total Protein 6.4 g/dL (6.4-8.2); Troponin I High Sensitivity 8.4 pg/mL (4.0-76.1)
[2024-12-21 12:56] LABS: Band Neutrophils Absolute 0.8 10^3/uL (0.0-0.3); Lymphocytes Absolute Manual 1.38 10^3/uL (1.20-3.80); Monocytes Absolute Manual 1.93 10^3/uL (0.30-0.80); Segmented Neut Absolute Manual 23.54 10^3/uL (1.4-6.5)
[2024-12-21 13:31] LABS: Lactate/Lactic Acid 1.4 mmol/L (0.4-2.0)
[2024-12-21] MEDS: CEFTRIAXONE 1,000 MG in 0.9 % SODIUM CHLORIDE 50 ML 100 MG IV (14:03)
[2024-12-21 14:11] LABS: Digoxin 1.7 ng/mL (0.9-2.0)
[2024-12-21] MEDS: AZITHROMYCIN 500 MG in 0.9 % SODIUM CHLORIDE 250 ML 250 MG IV (14:32)
--- NOTE | 2024-12-21 14:52 | ED_ITS ---
HPI - SOB/Dyspnea General Chief Complaint: Shortness of Breath/Dyspnea Stated Complaint: SOB SWOLLEN LEGS Time Seen by Provider: 12/21/24 11:32 Source: patient Mode of arrival: Wheelchair Limitations: no limitations History of Present Illness HPI Narrative: The patient have history of A-fib on digoxin in addition to Xarelto is coming to the ER with shortness of breath that been getting worse for the last few weeks although he admits that for the last few days it got worse more than before, also has been dealing with bilateral leg edema that according to him has been evaluated by his primary care and they took him off amlodipine and decrease his digoxin The patient also was provided with steroid and antibiotic mostly doxycycline by his primary care for the last few days with no improvement of his shortness of breath Patient shortness of breath mostly on exertion but also can happen at rest he does have a history of COPD as he recently was placed on nebulizer treatment Related Data Home Medications ?Medication ?Instructions ?Recorded ?Confirmed albuterol sulfate 90 mcg/actuation 2 puff inhalation QID 12/21/24 12/21/24 aerosol inhaler amlodipine 5 mg tablet 5 mg PO DAILY 12/21/24 12/21/24 atorvastatin 40 mg tablet 40 mg PO DAILY 12/21/24 12/21/24 budesonide 160 mcg-glycopyr 9 2 inh inhalation BID 12/21/24 12/21/24 mcg-formot 4.8 mcg/actuation HFA inhaler (Breztri Aerosphere) carvedilol 25 mg tablet 25 mg PO BID 12/21/24 12/21/24 clopidogrel 75 mg tablet 75 mg PO DAILY 12/21/24 12/21/24 digoxin 250 mcg (0.25 mg) tablet 0.25 mg PO DAILY 12/21/24 12/21/24 ezetimibe 10 mg tablet 5 mg PO DAILY 12/21/24 12/21/24 finasteride 5 mg tablet 5 mg PO DAILY 12/21/24 12/21/24 lansoprazole 30 mg capsule,delayed 30 mg PO BID 12/21/24 12/21/24 release montelukast 10 mg tablet 10 mg PO DAILY 12/21/24 12/21/24 olmesartan 40 mg tablet 40 mg PO DAILY 12/21/24 12/21/24 rivaroxaban 20 mg tablet (Xarelto) 20 mg PO DAILY 12/21/24 12/21/24 tamsulosin 0.4 mg capsule 0.4 mg PO DAILY 12/21/24 12/21/24 Allergies Allergy/AdvReac Type Severity Reaction Status Date / Time No Known Drug Allergies Allergy Verified 12/21/24 11:21 Review of Systems ROS Status of ROS 10 or more systems reviewed and unremark able except as noted in history and below Exam Narrative Exam Narrative: Nurses notes and vital signs reviewed and patient is not hypoxic. General: Well-appearing and in no apparent distress. Skin: Warm, dry, no pallor noted. No rash. Head: Normocephalic, atraumatic. Neck: Supple, non-tender. Eye: Pupils are equal, round and EOMI. No scleral icterus. Ears, Nose, Mouth, and Throat: TM are clear, no nasal mucosal hypertrophy. Oral mucosa is moist, no posterior oropharynx erythema, uvula is mid-line Cardiovascular: Regular Rate and Rhythm without murmur, gallop or rub. Respiratory: No accessory muscle use or respiratory distress. Lungs decreased air entry bilaterally Back: No midline thoracic or lumbar vertebral tenderness. No CVA tenderness Musculoskeletal: normal ROM, no calf or popliteal tenderness, 1+ pitting edema although there is some chronic changes GI: Abdomen is soft, non-distended. Normal bowel sounds. No masses appreciated. No tenderness to palpation. No rebound, guarding, or rigidity noted. Constitutional Vital Signs, click to edit/add: Last Vital Signs Temp 97.6 F 12/21/24 11:21 Pulse 87 12/21/24 14:20 Resp 19 12/21/24 14:20 BP 128/57 12/21/24 14:30 Pulse Ox 94 L 12/21/24 14:30 O2 Del Method Room Air, Nasal Cannula 12/21/24 11:45 O2 Flow Rate 2 12/21/24 11:45 Course Vital Signs Vital signs: Vital Signs Temperature 97.6 F 12/21/24 11:21 Pulse Rate 95 H 12/21/24 11:21 Respiratory Rate 22 H 12/21/24 11:21 Blood Pressure 119/43 L 12/21/24 11:21 Pulse Oximetry 91 L 12/21/24 11:21 Oxygen Delivery Method Room Air 12/21/24 11:21 Temperature 97.6 F 12/21/24 11:21 Pulse Rate 87 12/21/24 14:20 Respiratory Rate 19 12/21/24 14:20 Blood Pressure 128/57 12/21/24 14:30 Pulse Oximetry 94 L 12/21/24 14:30 Oxygen Delivery Method Room Air, Nasal Cannula 12/21/24 11:45 Oxygen Delivery Flow Rate 2 12/21/24 11:45 MDM - SOB/Dyspnea MDM Narrative Medical decision making narrative: The patient EKG showing A-fib with a heart rate of [address] elevation or depression CBC shows leukocytosis with a white blood cell of 27 Chemistry showing potassium of 5.2 and it will be repeated to make sure is not hemolyzed No acute kidney injury The patient digoxin level 1.7 The patient BNP was elevated but the chest x-ray showed no pulmonary edema at the moment he had a CT angio of the chest to make sure there is no PE and the patient was found to have multiple cavitating infection although neoplastic amadou gin cannot be ruled out The patient was noted to have hypoxemia with a pulse ox of 90% on room air and he was in 2 L saturating 94% Patient case was discussed with Dr. Horner right now there is pending flu test as the patient did had exposure to his who had influenza The patient will be admitted for further evaluation Lab Data Labs: Lab Results 12/21/24 Range/Units 11:45 WBC 27.7 H (4.0-11.0) 10^3/uL RBC 4.30 L (4.70-6.10) 10^6/uL Hgb 12.1 L (14.0-18.0) g/dL Hct 36.8 L (42.0-54.0) % MCV 85.6 (80.0-94.0) fL MCH 28.1 (25.9-34.0) pg MCHC 32.9 (29.9-35.2) g/dL RDW 15.7 H (11.0-15.0) % Plt Count 288 (150-450) 10^3/uL MPV 9.9 (9.5-13.5) fL Seg Neuts % (Manual) 85.0 H (43.0-75.0) Band Neutrophils % 3.0 (0-5) % Lymphocytes % (Manual) 5.0 L (20.5-60.0) % Monocytes % (Manual) 7.0 (1.7-12.0) % Eosinophils % (Manual) 0.0 L (0.9-7.0) % Basophils % (Manual) 0.0 L (0.2-2.0) % Neutrophils # (Manual) 23.54 H (1.4-6.5) 10^3/uL Band Neutrophils # 0.8 H (0.0-0.3) 10^3/uL Lymphocytes # (Manual) 1.38 (1.20-3.80) 10^3/uL Monocytes # (Manual) 1.93 H (0.30-0.80) 10^3/uL Eosinophils # (Manual) 0.00 (0.00-0.70) 10^3/uL Basophils # (Manual) 0.00 (0.00-0.10) 10^3/uL Sodium 130 L (136-145) mmol/L Potassium 5.2 H (3.5-5.1) mmol/L Chloride 96 L (98-107) mmol/L Carbon Dioxide 24.7 (21.0-32.0) mmol/L Anion Gap 14.5 BUN 30.0 H (7.0-18.0) mg/dL Creatinine 0.91 (0.70-1.30) mg/dL Est GFR ( Amer) >60 (>=60 mL/min/1.73m^2) Est GFR (Non-Af Amer) >60 (>=60 mL/min/1.73m^2) BUN/Creatinine Ratio 33.0 Glucose 174 H (74-106) mg/dL Lactate 1.4 (0.4-2.0) mmol/L Calcium 8.3 L (8.5-10.1) mg/dL Total Bilirubin 1.1 H (0.2-1.0) mg/dL AST 59 H (15-37) U/L ALT 137 H (16-63) U/L Alkaline Phosphatase 144 H (46-116) U/L Troponin I High Sens 8.4 (4.0-76.1) pg/mL NT-Pro-B Natriuret Pep 2063.0 H* (<=1800.0) pg/mL Total Protein 6.4 (6.4-8.2) g/dL Albumin 2.0 L (3.4-5.0) g/dL Globulin 4.4 g/dL Albumin/Globulin Ratio 0.5 Digoxin 1.7 (0.9-2.0) ng/mL Discharge Plan Discharge Chief Complaint: Shortness of Breath/Dyspnea Clinical Impression: Multifocal pneumonia, Hypoxemia Patient Disposition: Admitted As Inpatient Time of Disposition Decision: 14:52
[2024-12-21 15:06] LABS: Influenza Virus A Antigen Negative; Influenza Virus B Antigen Negative; Internal Control Within Normal Limits; SARS-CoV-2 Ag NEGATIVE (NEGATIVE)
[2024-12-21 15:38] LABS: Potassium 4.9 mmol/L (3.5-5.1)
--- NOTE | 2024-12-21 16:01 | US_ITS ---
The [address] [address] Patient Name: MINNIE FARIAS MRN: [id number] date: 1950 Sex: M Assigned Patient Location: MS Current Patient Location: [place] Accession/Order Number: [id number] Exam Date: 12/21/2024 19:04 Report Date: 12/21/2024 19:06 At the request of: MELINDA SWENSON DO Procedure: US right upper quadrant EXAMINATION TYPE: US right upper quadrant DATE OF EXAM ORDERED: 12/21/2024 6:37 PM HISTORY: elevated LFT's COMPARISON: NONE TECHNIQUE: Realtime imaging limited to the right upper quadrant was performed. FINDINGS: The gallbladder appears within normal limits without evidence of cholelithiasis. The gallbladder wall measures 2 mm in thickness. The common bile duct measures 2 mm in diameter. No intrahepatic or extrahepatic biliary dilatation is seen. The liver demonstrates multiple anechoic simple cystic structures are more prominent in the left lobe. Hepatopedal flow is noted in the main portal vein. Partial visualization of the right kidney reveals no gross hydronephrosis. Partial visualization of the pancreas reveals no abnormality. US/US right upper quadrant IMPRESSION: No sonographic evidence of acute cholecystitis. No intrahepatic or extrahepatic biliary ductal dilatation. Multiple hepatic cysts are noted. Impression dictated by: Steve Mejía M.D.12/21/2024 7:06 PM Dictation Location: [place] [address] Electronically authenticated by: [id number] Y Date: 12/21/2024 19:06
--- NOTE | 2024-12-21 16:04 | P.HP_ITS ---
HPI H&P: HPI History of Present Illness Chief complaint: SOB SWOLLEN LEGS Multifocal pneumonia hypoxemia Narrative: Patient is a 74 y.o white male with past medical history of Afib on Xarelto, diastolic heart failure, COPD, BPH, GERD, HTN, who presented to the ER with increased shortness of breath. Worse over the last 2-3 days. He has known COPD and was treated with prednisone and doxycycline by his PCP. He also notes he has been having some bilateral leg swelling and PCP recently decreased amlodipine, and digoxin. His has been sick with the flu. ER findings: WBC's 27, Hb 12.1, K 5.2, Na 130, Cr 0.91, BUN 30, AST 59, ALT 137, Alk phos 144, ProBNP 2063, flu and covid testing negative. CTA of the chest showed Cavitary Pneumonia per ER. Patient was placed on Zithromax and Rocephin and admitted for further plan of care. He reports he does not see a biodiesel processing technician. His PCP prescribes his inhalers. He has been sick for about 2-3 weeks. Has tried and failed outpatient treatment. He denies fever and chills, increased sob and cough that is productive. He also notes slight swelling in his ankles. He follows with [facility] cardiology. He denies having any diagnosed liver issues or lung cancer. I also discussed advanced directives with the patient, he wishes to be a DNRCCA. Paper was signed and order placed to reflect this. Opioid HPI Opioid Management Most Recent Pain and Opioid Data: No Data to Display Review of Systems ROS Narrative ROS: a complete review of systems were reviewed with patient and are positive as below or listed in History of Chief Complaint. General: no fever, chills, night sweats Head: no headache, trauma, visual changes, nausea or vomiting Skin: no reported rashes, itching or sores Eyes: no blurriness of vision Ears: no reported hearing loss, vertigo, earache, or tinnitus Throat: no sore throat, hoarseness, swelling of neck, or tongue pain Heart: no chest pain Lungs: shortness of breath and cough GI: no diarrhea or vomiting/nausea, lack of appetite Urinary: no urinary urgency, frequency or pain Neuro: no numbness or tingling HEM: no bleeding issues or bruising ENDO: no thyroid problems Psych: no anxiety or depression [facility] Medical History (Updated 12/21/24 @ 16:16 by Anastasia Horner DO) Type 2 diabetes mellitus ?E11.9 - Type 2 diabetes mellitus without complications (ICD-10) Hyperlipidemia associated with type 2 diabetes mellitus ?E11.69 - Type 2 diabetes mellitus with other specified complication (ICD-10) ?E78.5 - Hyperlipidemia, unspecified (ICD-10) Primary hypertension ?I10 - Essential (primary) hypertension (ICD-10) COPD (chronic obstructive pulmonary disease) ?J44.9 - Chronic obstructive pulmonary disease, unspecified (ICD-10) Chronic diastolic (congestive) heart failure ?I50.32 - Chronic diastolic (congestive) heart failure (ICD-10) GERD without esophagitis ?K21.9 - Gastro-esophageal reflux disease without esophagitis (ICD-10) Chronic a-fib ?I48.20 - Chronic atrial fibrillation, unspecified (ICD-10) Meds Home Medications and Allergies Home Medications ?Medication ?Instructions ?Recorded ?Confirmed ?Type albuterol sulfate 90 mcg/actuation 2 puff inhalation QID 12/21/24 12/21/24 History aerosol inhaler amlodipine 5 mg tablet 5 mg PO DAILY 12/21/24 12/21/24 History atorvastatin 40 mg tablet 40 mg PO DAILY 12/21/24 12/21/24 History budesonide 160 mcg-glycopyr 9 2 inh inhalation BID 12/21/24 12/21/24 History mcg-formot 4.8 mcg/actuation HFA inhaler (Breztri Aerosphere) carvedilol 12.5 mg tablet 12.5 mg PO BID 12/21/24 12/21/24 History clopidogrel 75 mg tablet 75 mg PO DAILY 12/21/24 12/21/24 History digoxin 250 mcg (0.25 mg) tablet 0.25 mg PO DAILY 12/21/24 12/21/24 History dulaglutide 1.5 mg/0.5 mL 1.5 mg subcut QWEEK 12/21/24 12/21/24 History [facility] ezetimibe 10 mg tablet 5 mg PO DAILY 12/21/24 12/21/24 History finasteride 5 mg tablet 5 mg PO DAILY 12/21/24 12/21/24 History lansoprazole 30 mg capsule,delayed 30 mg PO BID 12/21/24 12/21/24 History release montelukast 10 mg tablet 10 mg PO DAILY 12/21/24 12/21/24 History olmesartan 40 mg tablet 40 mg PO DAILY 12/21/24 12/21/24 History rivaroxaban 20 mg tablet (Xarelto) 20 mg PO DAILY 12/21/24 12/21/24 History tamsulosin 0.4 mg capsule 0.4 mg PO DAILY 12/21/24 12/21/24 History Allergies Allergy/AdvReac Type Severity Reaction Status Date / Time No Known Drug Allergies Allergy Verified 12/21/24 11:21 Exam Narrative Exam Narrative: General: Patient is alert, and oriented to person, place and time with normal affect, proper hygiene Skin: no visible rashes, or ulcers Head: atraumatic, acephalic Eyes: PERRLA, no nystagmus present, conjunctiva clear, no scleral icterus Ears:normal gross auditory acuity Heart: Normal rate and rhythm, no murmurs/rubs/gallops Lungs: audible wheezes bilaterally Abdomen: Normal audible bowel sounds, no distension, No palpable masses, no organomegaly, no rebound/guarding/ or rigidity Musculoskeletal: muscle atrophy noted, ROM is limited due to being in hospital bed, swelling limited to ankles Neuro: CN II-X grossly intact Constitutional Vital Signs, click to edit/add: Last Vital Signs Temp 97.6 F 12/21/24 11:21 Pulse 75 12/21/24 15:20 Resp 18 12/21/24 15:01 BP 134/68 12/21/24 15:16 Pulse Ox 94 L 12/21/24 15:20 O2 Del Method Room Air, Nasal Cannula 12/21/24 11:45 O2 Flow Rate 2 12/21/24 11:45 Results Labs Labs: Short CBC 12/21/24 Range/Units 11:45 WBC 27.7 H (4.0-11.0) 10^3/uL Hgb 12.1 L (14.0-18.0) g/dL Hct 36.8 L (42.0-54.0) % Plt Count 288 (150-450) 10^3/uL BMP 12/21/24 12/21/24 11:45 15:07 Sodium 130 L Potassium 5.2 H 4.9 Chloride 96 L Carbon Dioxide 24.7 BUN 30.0 H Creatinine 0.91 Glucose 174 H Calcium 8.3 L Liver Function 12/21/24 Range/Units 11:45 Total Bilirubin 1.1 H (0.2-1.0) mg/dL AST 59 H (15-37) U/L ALT 137 H (16-63) U/L Alkaline Phosphatase 144 H (46-116) U/L Albumin 2.0 L (3.4-5.0) g/dL Assessment and Plan Assessment and Plan (1) Multifocal pneumonia: Assessment and Plan: flu and covid testing negative, awaiting read from CTA of the chest. Given Azith, and rocephin but given the cavitary nature per ER physician of the CTA, I will start Zosyn and Vancomycin. Blood and sputum cultures pending. Would also consult Dr. James of pulmonary if available tomorrow. start OPEP, duonebs, pulmicort. (2) Acute hypoxic respiratory failure: Assessment and Plan: secondary to #1, currently requiring 2 L NC (3) LFT elevation: Assessment and Plan: will check US of the RUQ. AST 59, ALT 137 (4) Acute on chronic heart failure: Assessment and Plan: last echo from 07/2024 reviewed. continue coreg, will give lasix 20mg IVP daily. monitor I&O's, daily weights and fluid restriction 1.5 L Qualifiers: Heart failure type: diastolic Qualified Code(s): I50.33 - Acute on chronic diastolic (congestive) heart failure (5) COPD (chronic obstructive pulmonary disease): Assessment and Plan: continue duonebs, added Solu Medrol 40mg q6 hours Qualifiers: COPD type: unspecified COPD Qualified Code(s): J44.9 - Chronic obstructive pulmonary disease, unspecified (6) Chronic a-fib: Assessment and Plan: continue coreg, Xarelto (7) GERD without esophagitis: Assessment and Plan: continue PPI (8) Primary hypertension: Assessment and Plan: continue home meds (9) Hyperlipidemia associated with type 2 diabetes mellitus: Assessment and Plan: continue atorvastatin (10) Type 2 diabetes mellitus: Assessment and Plan: accucheck qac, hs with SSI if needed while on steroids. Qualifiers: Diabetes mellitus complication status: without complication Diabetes mellitus prison insulin use: without buttermaker continuous churn use Qualified Code(s): E11.9 - Type 2 diabetes mellitus without complications Plan Patient is a full code continue Xacristianato Patient is inpatient status and is expected to cross 2 midnights for hospital necessary care to treat his pneumonia.
[2024-12-21 16:33] LABS: Bilirubin Urine NEGATIVE (NEGATIVE); Blood Urine NEGATIVE (NEGATIVE); Clarity Urine CLEAR (CLEAR); Color Urine YELLOW (YELLOW); Glucose Urine UA NEGATIVE (NEGATIVE); Ketones Urine TRACE mg/dL (NEGATIVE); Leukocyte Esterase Urine NEGATIVE (NEGATIVE); Nitrite Urine NEGATIVE (NEGATIVE); Protein Urine TRACE mg/dL (NEG/TRACE); Urobilinogen Urine 0.2 EU/dL (0.2-1.0); pH Urine 5.5 (5.0-9.0)
[2024-12-21 16:40] LABS: Bacteria Urine TRACE #/HPF (NONE SEEN); Cast Seen? NONE SEEN #/LPF (NONE SEEN); Crystals Seen? None Seen #/HPF (None Seen); Mucus Urine NONE SEEN (NONE SEEN); RBC Urine 0-2 #/HPF (0-2); Squamous Epithelial Cell Urine FEW #/LPF (NONE/RARE); Urine Culture Indicated NO; WBC Urine 0-2 #/HPF (NONE SEEN)
--- OUTSIDE RECORDS SUMMARY | 2024-12-21 17:13 | XMS_ITS | CCD ---
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 [facility] Office Visiton 08-10-2024 Follow-up visit [id number] Minnie Jason 1950 M Date Provider Department Center 08/10/2024 367-STEVE BRICEÑO [facility] Family History Problem Relation Age of Onset Atrial fibrillation Brother Heart failure Brother Coronary artery disease Brother Family Status - Relation Status Age at Brother Level of Service:82919 [place] OFFICE/OUTPATIENT ESTABLISHED MOD MDM 30 MIN [facility] 37on 04-21-2024 37 *Stop taking ezetimibe (Zetia) [...] further discuss increasing a blood pressure medication. [facility] Follow-Upon 04-21-2024 Follow-Up [id number] Minnie Jason 1950 M Date Provider Department Center 04/21/2024 MargauxJoniJESUS VIDAL SINDY Rasmussen Family History Problem Relation Age of Onset Atrial fibrillation Brother Heart failure Brother Coronary artery disease Brother Family Status - Relation Status Age at Brother Level of Service:82417 NC OFFICE/OUTPATIENT ESTABLISHED MOD MDM 30 MIN Reason for Visit and Comments: Coronary Artery Disease [187] Atrial Fibrillation [80] Hypertension [771042] Hyperlipidemia [182] Peripheral Vascular Disease [458] Normal [facility] ECHOCARDIO M/2D COMPLETEon 0 04-23-2022 ECHOCARDIO M/2D COMPLETE Patient: MINNIE JASON. Exam Date: 04/23/2022 : 1950 Gender:M Ordering : JESUS VIDAL Admission #: [id number] Family : DR YANY VELAZQUEZ D.O. Order #: [id number] CLICK HERE TO VIEW EXAM ECHOCARDIOGRAM REPORT [...] Area(A4C): 25.80 cm2 Left Atrium Systolic Volume(A2C): 20073 mm3 Left Atrium Systolic Volume(A4C): 28554 mm3 Mitral Valve Mitral Valve E-Wave Peak [...] M.D. on 04/23/2022 at 12:53 Normal [facility] BUNon 11-03-2021 Urea nitrogen [Mass/Vol] 14.0 mg/dL Normal 9.0-20.0 [facility] Comment on above: Performed By: #### C JACQUELIN BUN #### [facility] [address] [place] [address] Dr. Ruben Caldera CREATININEon 11-03-2021 Creatinine [Mass/Vol] 0.93 mg/dL Normal 0.66-1.25 [facility] Comment on above: Performed By: #### C PA ROPER #### [facility] [address] [place], [place] [address] Dr. Ruben Caldera EGFR-AF KENYAN >60 Normal >=60 [facility] Comment on above: Performed By: #### C JACQUELIN, BUN #### [facility] [address] [place], [place] [address] Dr. Ruben Caldera EGFR-NON AF KENYAN >60 Normal >=60 [facility] Comment on above: Performed By: #### C JACQEULIN, BUN #### [facility] [address] [place], [place] [address] ABDOMEN WO/W CONon [...] KRIS YI Date: 2021-11-03 13:47 Normal [facility] XR FINGER MIN 2 VIEWSon 12-0 [...] by: FINESSE AMEZCUA Date: 2021-09-30 22:[address] [facility] [address] LUNG CANCER SCREENINGon 11-19-2020 CT [...] JAVIER PATEL Date: 2021-09-19 17:18 Normal [facility] Cardiovascular Lab Reporton 05-11-[address] [facility] Patient Name: Minnie Jason MR #: [id number] Department of Physician: Steve Briceño M.D. Division of Service Date: 05/10/2020 Cardiology Birthdate: 1950 Adult Cardiovascular Room #: [address] [place] [address] Cardiovascular Laboratory Report INDICATION: The patient is [...] signed informed consent. He was brought to receiver/laborer in a fasting state. Both groin areas were prepped and draped in usual fashion. Using micropuncture technique and ultrasound guidance, access was obtained in right and left common femoral arteries respectively and inner cannula angiography was performed and access was upsized to a 5-Liberian x 11 cm sheath in each of those vessels after confirming adequate location of the access site. Bilateral lower extremity angiography was performed down to the level of the foot on each side through injections via the access catheters. A 5-Liberian Uni-Flush catheter was advanced to the distal [...] was upsized on each side to a 6-Liberian x 30 cm flexor sheath on the right and a 6-Liberian x 13 cm flexor sheath on the left. The 5-Liberian Uni-Flush catheter was advanced again into the [...] arch. At this time, we advanced a material flow analyst 6 mm x 80 mm balloon and used to perform balloon angioplasty in the left common iliac artery and left external iliac artery. This was inflated repeatedly at 10 atmospheres. Additional balloon angioplasty in the left common iliac artery was performed using a material flow analyst 8 x 40 mm balloon inflated at [...] using the 8 mm x 40 mm material flow analyst balloon inflated in the left common iliac [...] we (more content not included)... Normal [facility] Vital Signs Date Time Vital Sign Value Performing Clinician Faci lity 10-03-2021 15:30-0500 Body height 172.72 cm Matt Hendricksxa Other [facility] Other 10-03-2021 15:30-0500 Body mass index (BMI) [Ratio] 30.13 kg/m2 Matt Hendricksxa Other [facility] Other 10-03-2021 15:30-0500 Body weight 89.9 kg Matt Hendricksxa Other [facility] Other Encounters Encounter Date Encounter Type Care Provider Facility Start: 08-10-2024 End: [facility]: 04-21-2024 End: 04-21-2024 ambulatory [facility] Start: 04-23-2022 End: 04-24-[address] YANY VELAZQUEZ Facility:[facility] Start: 04-18-2022 End: 04-19-2022 ambulatory JESUS VIDAL Facility:[facility] Start: 11-03-2021 End: 11-04-[address] YANY VELAZQUEZ Facility:[facility] Start: 10-10-2021 End: 10-11-[address] YANY VELAZQUEZ [facility] Other Start: 10-10-2021 Postop follow up vis it related to original px Matt Eladioxa [facility] Start: 10-03-2021 End: 10-03-2021 ambulatory Matt Koenig Other [facility] Other Start: 10-03-2021 [facility] visit new patient Matt Hendricksxa [facility] Start: 09-30-2021 End: 10-01-[address] MICHAEL MIXON Facility:[facility] Start: 09-19-2021 End: 09-20-[address] YANY VELAZQUEZ Facility:[facility] Payers Date Payer Category Payer Medicare [id number] 1961 Medicare [id number] 1950 Unknown [id number] 2.16.84 [id number] 1950 Unknown [id number] 2.16.84 [id number] 1950 Unknown [id number] 2.16.84 [id number] 1950 Unknown [id number] 2.16.84 [id number] 1950 Unknown [id number] 2.16.84 [id number] 1950 Unknown [id number] 2.16.84 [id number] Social History Date Type Detail Facility Sex Assigned At [facility] Other Progress note 08-10-2024 Note Date & Type Note Facility 08-10-2024 Note [place] [facility] Subjective Minnie Jason is a [...] HFA aerosol inhaler, , Disp: , Rfl: [id number] (Breztri Aerosphere) 160-9-4.8 mcg/actuation HFA aerosol inhaler, [...] daily as direct (more content not included)... [facility] Progress note 04-21-2024 Note Date & Type [...] All other systems reviewed and are negative. [facility] Progress note 04-21-2024 Note Date & Type Note Facility 04-21-2024 Note [address] [facility] SUBJECTIVE Chief Complaint Patient presents with Coronary Artery Disease Atrial Fibrillation Hypertension Hyperlipidemia Peripheral Vascular Disease Minnie Jason is a 73 y.o. male here for routine follow-up. HPI PMHx: 1. Atrial fibrillation on anticoagulation with Xarelto 2. 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 Hypertension 4. Hyperlipidemia on atorvastatin [...] improves with rest. Planning to go to [place] this summer to visit son. 03/27/22 He [...] Diagnosis Date Abnormal ECG Arrhythmia Atrial fibrillation ([facility]/HCC) CHF (congestive heart failure) ([facility]/HCC) COPD (chronic obstructive pulmonary disease) (CMS/HCC) Coronary artery disease Diabetes mellitus (CMS/HCC) GERD (gastroesophageal reflux disease) Heart valve disease Hyperlipidemia Hypertension PAD (peripheral artery disease) (CMS/HCC) Primary cardiomyopathy (CMS/HCC) PVD (peripheral vascular disease) ([facility]) Family History Problem Relation Name Age of [...] albuterol 90 mcg/actu (more content not included)... [facility] Clinical Note 10-10-2021 Note Date & Type [...] authenticated by: KRIS YI Date: 2021-10-10 14:09 [facility] Evaluation note 10-10-2021 Note Date & [...] as time goes. Call with questions/conc erns. [facility] Other Evaluation note 10-03-2021 Note Date & [...] to nail, initial encounter (ICD-10 - S61.315A) [facility] Other History general Narrative - Reported Note Date & Type Note Facility History general Narrative - Reported Type Medical History type II diabetes Medical History COPD Medical History afib Medical History artery disease Surgical History triple bypass 2009 Surgical History hernia repair 2014 Surgical History heart stent 2019 Surgical History illiac stent 2019 Hospitalization History See Above [facility] Other Summary Purpose Family History No Family History Records FoundNo Family History Records FoundNo Family History Records Found Advance Directives No Advanced Directives Records FoundNo Advanced Directives Records FoundNo Advanced Directives Records Found Additional Source Comments (unrecognized sect ion and content) No Status Records FoundNo Status Records FoundNo Status Records Found INFORMATION SOURCE (unrecogn ized section and content) DATE CREATED AUTHOR 02/15/2021 [facility] DATE CREATED AUTHOR AUTHOR'S ORGANIZ ATION 04/27/2022 [facility] DATE CREATED AUTHOR AUTHOR'S ORGANIZ ATION 08/23/2024 [facility] REASON FOR VISIT (unrecogniz ed section and [...] BE BASED ON THE PRIMARY CLINICAL RECORDS. [facility]. provides no warranty or guarantee of the accuracy or completeness of information in this document.
[2024-12-21] MEDS: METHYLPREDNISOLONE SOD SUCC PF 40 MG/ML VIAL IVP ×2 (17:29→23:19)
[2024-12-21] MEDS: VANCOMYCIN HCL 1,000 MG in 0.9 % SODIUM CHLORIDE 250 ML 250 MG IV (17:29)
[2024-12-21] MEDS: 0.9 % SODIUM CHLORIDE 250 ML 10 ML IV (17:30)
[2024-12-21] MEDS: IPRATROPIUM/ALBUTEROL SULFATE 3 ML AMPUL.NEB IH ×2 (17:33→22:10)
[2024-12-21] MEDS: PIPERACILLIN SODIUM/TAZOBACTAM 3.375 GM in 0.9 % SODIUM CHLORIDE 50 ML IV (18:54)
[2024-12-21] MEDS: ATORVASTATIN CALCIUM 40 MG TABLET PO (21:53)
[2024-12-21] MEDS: OMEPRAZOLE 40 MG CAPSULE.DR PO (21:53)
[2024-12-21] MEDS: CARVEDILOL 12.5 MG TABLET PO (21:53)
[2024-12-21] MEDS: INSULIN ASPART 300 UNIT/3 ML PEN SUBQ (22:00)
[2024-12-21] MEDS: MONTELUKAST SODIUM 10 MG TABLET PO (22:01)
[2024-12-21 22:08] LABS: Glucometer 276 mg/dL (74-106)
[2024-12-21] MEDS: BUDESONIDE 0.5 MG/2 ML AMPULE NEB IH (22:10)
[2024-12-22] VITALS (23 sets, daily range): BP systolic 121–134; BP diastolic 59–75; PULSE 50–93; TEMP 36.2–36.5; O2SAT 88–97
[2024-12-22] MEDS: PIPERACILLIN SODIUM/TAZOBACTAM 3.375 GM in 0.9 % SODIUM CHLORIDE 50 ML IV ×3 (01:06→18:09)
[2024-12-22] MEDS: IPRATROPIUM/ALBUTEROL SULFATE 3 ML AMPUL.NEB IH ×4 (04:32→23:05)
[2024-12-22] MEDS: VANCOMYCIN HCL 1,000 MG in 0.9 % SODIUM CHLORIDE 250 ML 250 MG IV ×2 (05:01→17:01)
[2024-12-22] MEDS: METHYLPREDNISOLONE SOD SUCC PF 40 MG/ML VIAL IVP ×3 (05:01→21:02)
[2024-12-22 06:46] LABS: Basophils Percent Auto 0.2 % (0.2-2.0); Eosinophils Percent Auto 0.1 % (0.9-7.0); Hematocrit 35.3 % (42.0-54.0); Hemoglobin 11.5 g/dL (14.0-18.0); Immature Granulocytes Abs Auto 1.41 10^3/uL (0.00-0.03); Immature Granulocytes Pct Auto 7.2 % (0.0-0.5); Lymphocytes Absolute Auto 0.7 10^3/uL (1.2-3.8); Lymphocytes Percent Auto 3.8 % (20.5-60.0); Mean Corpuscular HGB Conc 32.6 g/dL (29.9-35.2); Mean Corpuscular Hemoglobin 27.8 pg (25.9-34.0); Mean Corpuscular Volume 85.5 fL (80.0-94.0); Mean Platelet Volume 9.5 fL (9.5-13.5); Monocytes Percent Auto 4.9 % (1.7-12.0); Neutrophils Absolute Auto 16.5 10^3/uL (1.4-6.5); Neutrophils Percent Auto 83.8 % (43.0-75.0); Platelet Count 274 10^3/uL (150-450); Red Blood Count 4.13 10^6/uL (4.70-6.10); Red Cell Distribution Width 15.8 % (11.0-15.0); White Blood Count 19.7 10^3/uL (4.0-11.0)
[2024-12-22 07:12] LABS: Alanine Aminotransferase 112 U/L (16-63); Albumin Globulin Ratio 0.4; Albumin Level 1.7 g/dL (3.4-5.0); Alkaline Phosphatase 121 U/L (46-116); Anion Gap 12.1; Aspartate Amino Transferase 43 U/L (15-37); BUN Creatinine Ratio 36.6; Bilirubin Total 0.8 mg/dL (0.2-1.0); Carbon Dioxide 24.4 mmol/L (21.0-32.0); Chloride 100 mmol/L (98-107); Estimated GFR (African America >60 (>=60 mL/min/1.73m^2); Estimated GFR (Non-African Ame >60 (>=60 mL/min/1.73m^2); Globulin 4.1 g/dL; Glucose 186 mg/dL (74-106); Potassium 4.5 mmol/L (3.5-5.1); Sodium 132 mmol/L (136-145); Total Protein 5.8 g/dL (6.4-8.2)
[2024-12-22] MEDS: EZETIMIBE 10 MG TABLET 5 MG PO (08:18)
[2024-12-22] MEDS: LOSARTAN POTASSIUM 25 MG TABLET 75 MG PO (08:18)
[2024-12-22] MEDS: GUAIFENESIN 200 MG/DEXTROMETHORPHAN 20 MG 10 ML UNIT DOSE CUP PO (08:18)
[2024-12-22] MEDS: FINASTERIDE 5 MG TABLET PO (08:18)
[2024-12-22] MEDS: AMLODIPINE BESYLATE 5 MG TABLET PO (08:18)
[2024-12-22] MEDS: DIGOXIN 125 MCG TABLET 250 MCG PO (08:18)
[2024-12-22] MEDS: TAMSULOSIN HCL 0.4 MG CAPSULE PO (08:19)
[2024-12-22] MEDS: CLOPIDOGREL BISULFATE 75 MG TABLET PO (08:19)
[2024-12-22] MEDS: OMEPRAZOLE 40 MG CAPSULE.DR PO ×2 (08:19→17:01)
[2024-12-22] MEDS: CARVEDILOL 12.5 MG TABLET PO ×2 (08:19→21:02)
[2024-12-22] MEDS: INSULIN ASPART 300 UNIT/3 ML PEN SUBQ ×3 (08:19→21:04)
[2024-12-22] MEDS: RIVAROXABAN 10 MG TABLET 20 MG PO (08:19)
--- NOTE | 2024-12-22 09:13 | P.PN_ITS ---
Progress Note: Subjective Subjective Interval history: Patient resting comfortably in bed this morning. Still short of breath with exertion. Still requiring oxygen 2L via NC to maintain saturations >90%. Discussed RUQ ultrasound findings with patient and at bedside. Dr. James, quality assurance test program manager has already seen and evaluated patient this morning. No other issues or complaints. Exam Narrative Exam Narrative: General: Patient is alert, and oriented to person, place and time with normal affect, proper hygiene Skin: no visible rashes, or ulcers Head: atraumatic, acephalic Eyes: PERRLA, no nystagmus present, conjunctiva clear, no scleral icterus Ears:normal gross auditory acuity Heart: Normal rate and rhythm, no murmurs/rubs/gallops Lungs: audible wheezes bilaterally Abdomen: Normal audible bowel sounds, no distension, No palpable masses, no organomegaly, no rebound/guarding/ or rigidity Musculoskeletal: muscle atrophy noted, ROM is limited due to being in hospital bed, swelling limited to ankles Neuro: CN II-X grossly intact Constitutional Vital Signs, click to edit/add: Last Vital Signs Temp 97.1 F L 12/22/24 08:00 Pulse 78 12/22/24 08:00 Resp 20 12/22/24 08:00 BP 123/59 12/22/24 08:00 Pulse Ox 93 L 12/22/24 08:37 O2 Del Method Nasal Cannula 12/22/24 08:37 O2 Flow Rate 2 12/22/24 08:37 Progress Note: Objective Labs Labs: Short CBC 12/21/24 12/22/24 Range/Units 11:45 06:34 WBC 27.7 H 19.7 H (4.0-11.0) 10^3/uL Hgb 12.1 L 11.5 L (14.0-18.0) g/dL Hct 36.8 L 35.3 L (42.0-54.0) % Plt Count 288 274 (150-450) 10^3/uL BMP 12/21/24 12/21/24 12/22/24 11:45 15:07 06:34 Sodium 130 L 132 L Potassium 5.2 H 4.9 4.5 Chloride 96 L 100 Carbon Dioxide 24.7 24.4 BUN 30.0 H 30.0 H Creatinine 0.91 0.82 Glucose 174 H 186 H Calcium 8.3 L 8.0 L Liver Function 12/21/24 12/22/24 Range/Units 11:45 06:34 Total Bilirubin 1.1 H 0.8 (0.2-1.0) mg/dL AST 59 H 43 H (15-37) U/L ALT 137 H 112 H (16-63) U/L Alkaline Phosphatase 144 H 121 H (46-116) U/L Albumin 2.0 L 1.7 L (3.4-5.0) g/dL Urine 12/21/24 Range/Units 16:00 Urine Color Yellow (YELLOW) Urine Clarity Clear (CLEAR) Urine pH 5.5 (5.0-9.0) Ur Specific [place] 1.010 (1.005-1.025) Urine Protein Trace (NEG/TRACE) mg/dL Urine Glucose (UA) Negative (NEGATIVE) mg/dL Progress Note: A&P Assessment and Plan (1) Multifocal pneumonia: Assessment and Plan: Zosyn and Vancomycin. Blood and sputum cultures pending. I appreciate input from Dr. James of pulmonary continue, OPEP, connie, pulmicort. (2) Severe sepsis: Assessment and Plan: secondary to #1, resolved (3) Acute hypoxic respiratory failure: Assessment and Plan: secondary to #1, continues to require NC oxygen (4) LFT elevation: Assessment and Plan: DMITRI ultrasound negative for acute pathology, LFT s improving, Hepatic cysts present; this finding was discussed with patient and (5) Acute on chronic heart failure: Assessment and Plan: Start lasix 20mg IV daily. Monitor I&O's, recheck ECHO 07/2024, no need to r epeat at this time. Qualifiers: Heart failure type: diastolic Qualified Code(s): I50.33 - Acute on chronic diastolic (congestive) heart failure (6) COPD (chronic obstructive pulmonary disease): Assessment and Plan: continue duonebs, and Solu Medrol 40mg q6 hours Qualifiers: COPD type: unspecified COPD Qualified Code(s): J44.9 - Chronic obstructive pulmonary disease, unspecified (7) Chronic a-fib: Assessment and Plan: continue coreg, Xarelto (8) GERD without esophagitis: Assessment and Plan: continue PPI (9) Primary hypertension: Assessment and Plan: continue home meds (10) Hyperlipidemia associated with type 2 diabetes mellitus: Assessment and Plan: continue atorvastatin (11) Type 2 diabetes mellitus: Assessment and Plan: accucheck qac, hs with SSI if needed while on steroids. Qualifiers: Diabetes mellitus complication status: without complication Diabetes mellitus skilled nursing insulin use: without intermediate project manager use Qualified Code(s): E11.9 - Type 2 diabetes mellitus without complications Plan Patient is a full code continue Xarelto
--- NOTE | 2024-12-22 09:59 | P.PLCN_ITS ---
History of Present Illness History of Present Illness Consult date: 12/22/24 Requesting physician: Anastasia Horner Reason for consult: pneumonia Chief complaint: SOB SWOLLEN LEGS Multifocal pneumonia hypoxemia Narrative: 74yo male presented to [facility] with worsening dyspnea over the past several weeks, markedly increased over the last 2-3 days. Main complaint is SOB, accompanied by edema. He saw his PCP a few days prior with the complaints, who prescribed him prednisone and doxycycline - he did not improve. He denied any fevers, chills, sweats, or hemoptysis. He arrived to the ER with HR 95 and RR 22. Chest CTA noted multifocal pneumonia with several cavitary lesions (RLL & HEAVEN) - I personally reviewed the imaging. He was initially started on Rocephin + Zithromax, but it was changed to Zosyn + Vancomycin by the hospitalist. Today, the patient states his breathing has improved some, though he continues to have VALENTIN. Lower extremity edema has decreased. WBC has also decreased from 27.7k to 19.7k. Nursing attempted to wean him off O2 this AM, but he was 88% on RA at rest. He remains on supplemental O2 @ 2L/min at this time. He is a former smoker, quit ~16 years ago. He is currently on Breztri. He does not have a tattoo identifier. Review of Systems ROS Status of ROS 10 or more systems reviewed and unremark able except as noted in history and below [facility] Medical History (Updated 12/21/24 @ 16:16 by Anastasia Horner, DO) Type 2 diabetes mellitus ?E11.9 - Type 2 diabetes mellitus without complications (ICD-10) Hyperlipidemia associated with type 2 diabetes mellitus ?E11.69 - Type 2 diabetes mellitus with other specified complication (ICD-10) ?E78.5 - Hyperlipidemia, unspecified (ICD-10) Primary hypertension ?I10 - Essential (primary) hypertension (ICD-10) COPD (chronic obstructive pulmonary disease) ?J44.9 - Chronic obstructive pulmonary disease, unspecified (ICD-10) Chronic diastolic (congestive) heart failure ?I50.32 - Chronic diastolic (congestive) heart failure (ICD-10) GERD without esophagitis ?K21.9 - Gastro-esophageal reflux disease without esophagitis (ICD-10) Chronic a-fib ?I48.20 - Chronic atrial fibrillation, unspecified (ICD-10) Social History Highest level of school completed/degree received: Bachelor's degree Little interest or pleasure in doing things: not at all Feeling down, depressed, or hopeless: not at all Meds Home Medications and Allergies Home Medications ?Medication ?Instructions ?Recorded ?Confirmed ?Type albuterol sulfate 90 mcg/actuation 2 puff inhalation QID 12/21/24 12/21/24 History aerosol inhaler amlodipine 5 mg tablet 5 mg PO DAILY 12/21/24 12/21/24 History atorvastatin 40 mg tablet 40 mg PO DAILY 12/21/24 12/21/24 History budesonide 160 mcg-glycopyr 9 2 inh inhalation BID 12/21/24 12/21/24 History mcg-formot 4.8 mcg/actuation HFA inhaler (Breztri Aerosphere) carvedilol 12.5 mg tablet 12.5 mg PO BID 12/21/24 12/21/24 History clopidogrel 75 mg tablet 75 mg PO DAILY 12/21/24 12/21/24 History digoxin 250 mcg (0.25 mg) tablet 0.25 mg PO DAILY 12/21/24 12/21/24 History dulaglutide 1.5 mg/0.5 mL 1.5 mg subcut QWEEK 12/21/24 12/21/24 History subcutaneous pen injector (Trulicity) ezetimibe 10 mg tablet 5 mg PO DAILY 12/21/24 12/21/24 History finasteride 5 mg tablet 5 mg PO DAILY 12/21/24 12/21/24 History lansoprazole 30 mg capsule,delayed 30 mg PO BID 12/21/24 12/21/24 History release montelukast 10 mg tablet 10 mg PO DAILY 12/21/24 12/21/24 History olmesartan 40 mg tablet 40 mg PO DAILY 12/21/24 12/21/24 History rivaroxaban 20 mg tablet (Xarelto) 20 mg PO DAILY 12/21/24 12/21/24 History tamsulosin 0.4 mg capsule 0.4 mg PO DAILY 12/21/24 12/21/24 History Allergies Allergy/AdvReac Type Severity Reaction Status Date / Time No Known Drug Allergies Allergy Verified 12/21/24 11:21 Exam Constitutional Vital Signs, click to edit/add: Last Vital Signs Temp 97.1 F L 12/22/24 08:00 Pulse 79 12/22/24 09:56 Resp 20 12/22/24 08:00 BP 123/59 12/22/24 08:00 Pulse Ox 93 L 12/22/24 08:37 O2 Del Method Nasal Cannula 12/22/24 08:37 O2 Flow Rate 2 12/22/24 08:37 Other: Sitting up in bed, does not have any respiratory distress HENMT Other: Wearing nasal cannula Mallampati III No candidiasis Chest Other: Normal to inspection Respiratory Other: Diminished breath sounds. Mild crackles bilaterally in the mid-posterior thorax. Very faint expiratory wheeze in the bases. Cardio Other: Irregularly irregular GI Other: Normal to inspection Extremity Other: Trace BLE edema Neuro Other: No tremor Psych Other: Alert Results Laboratory Findings Abnormal lab findings: Abnormal Labs 12/21/24 12/21/24 12/21/24 11:45 16:00 21:57 WBC 27.7 H RBC 4.30 L Hgb 12.1 L Hct 36.8 L RDW 15.7 H Neut % (Auto) Lymph % (Auto) Eos % (Auto) Neut # (Auto) Lymph # (Auto) [place] # (Auto) Abs Immat Gran (auto) Seg Neuts % (Manual) 85.0 H Lymphocytes % (Manual) 5.0 L Eosinophils % (Manual) 0.0 L Basophils % (Manual) 0.0 L Imm/Tot Granulo (auto) Neutrophils # (Manual) 23.54 H Band Neutrophils # 0.8 H Monocytes # (Manual) 1.93 H Sodium 130 L Potassium 5.2 H Chloride 96 L BUN 30.0 H Glucose 174 H Calcium 8.3 L Total Bilirubin 1.1 H AST 59 H ALT 137 H Alkaline Phosphatase 144 H NT-Pro-B Natriuret Pep 2063.0 H* Total Protein Albumin 2.0 L Urine Ketones Trace A Urine WBC 0-2 A Ur Squamous Epith Cells Few A Urine Bacteria Trace A POC Glucose 276 H 12/22/24 06:34 WBC 19.7 H RBC 4.13 L Hgb 11.5 L Hct 35.3 L RDW 15.8 H Neut % (Auto) 83.8 H Lymph % (Auto) 3.8 L Eos % (Auto) 0.1 L Neut # (Auto) 16.5 H Lymph # (Auto) 0.7 L [place] # (Auto) 1.0 H Abs Immat Gran (auto) 1.41 H Seg Neuts % (Manual) Lymphocytes % (Manual) Eosinophils % (Manual) Basophils % (Manual) Imm/Tot Granulo (auto) 7.2 H Neutrophils # (Manual) Band Neutrophils # Monocytes # (Manual) Sodium 132 L Potassium Chloride BUN 30.0 H Glucose 186 H Calcium 8.0 L Total Bilirubin AST 43 H ALT 112 H Alkaline Phosphatase 121 H NT-Pro-B Natriuret Pep Total Protein 5.8 L Albumin 1.7 L Urine Ketones Urine WBC Ur Squamous Epith Cells Urine Bacteria POC Glucose Assessment and Plan Assessment and Plan (1) Multifocal pneumonia: Assessment and Plan: 1. Pneumonia, present on admission: Bilateral, with cavitary lesions in the RLL and HEAVEN. Influenza and COVID-19 negative. No risk factors for TB. Sputum sample obtained, but results are pending. Clinical suspicion is for Staph. Patient was originally started on Rocephin & Zithromax, but changed to vancomyc in & Zosyn - I agree with this change and is what I would have recommended to cover Staph. Continue with current antibiotic regimen until C&S are completed. Given the cavitary nature of the nodules, will need to have close F/U with repeat chest CT in ~1 month. He is a former smoker, so there remains the risk of malignancy (though his clinical presentation is that of sepsis). He was counseled that they could either resolve, decrease in size, remain unchanged, or develop into a large cavity. He voiced understanding. 2. Severe sepsis. Secondary to #1. Presented with SIRS (WBC 27.7k, HR 95, RR 22) along with acute respiratory failure with hypoxia. WBC has decreased to 19.7k today despite being on IV Solumedrol - this suggests a response to treatment. Patient also voices improvement, feeling less fatigue. Continue to monitor closely. 3. Acute respiratory failure with hypoxia. Consequence of the above (#1 & #2), along with AECOPD & AECHF. He is not on supplemental O2 @ home. SpO2 88% @ rest on room air this morning. Patient was counseled there is a possibility that he may require supplemental O2 @ discharge; if this is the case, I anticipate it would be short term as this was aggravated by an acute illness (pneumonia). 4. Acute exacerbation of COPD. On Breztri @ home. No tattoo identifier. Currently on DuoNeb and Pulmicort nebs, and SoluMedrol. Continue current regimen for now. 5. Acute exacerbation of chronic diastolic congestive heart failure. Minor contributor to symptoms. Last echocardiogram 08/18/2024 noted EF 60-65% and unable to assess diastology d/t underlying atrial fibrillation. Edema appears to have improved some. Steroids unfortunately can contribute to edema, so will need to monitor. 6. Other secondary pulmonary hypertension. Echocardiogram 08/18/2024 noted RVSP 43mmHg. May be secondary to group II (cardiac) +/- group III (pulmonary). Treatment in this case is treating the underlying conditions. 7. Hypoalbuminemia. Albumin on admission was 2, today is 1.7. Malnutrition? Low albumin decreases intravascular oncotic pressure, increasing leaching of fluid into the interstitium, contributing to edema. Defer further management/treatment to hospitalist. 8. Atrial fibrillation, chronic. On anticoagulation. No evidence of rapid ventricular response so far. 9. History of tobacco abuse. Quit smoking ~16 years ago, outside range of current LDCT screening criteria. Plan Patient is a full code continue Xarelto Patient is inpatient status and is expected to cross 2 midnights for hospital necessary care to treat his pneumonia.
[2024-12-22] MEDS: BUDESONIDE 0.5 MG/2 ML AMPULE NEB IH ×2 (10:34→23:05)
--- NOTE | 2024-12-22 10:36 | SWNOTE1 ---
Important Message from [employer] reviewed and discussed with patient. Pt. verbalized understanding and signed the form. Original given to patient and copy placed in patient?s chart.
--- NOTE | 2024-12-22 10:36 | SWNOTE1 ---
SW met with pt to discuss dc needs. Pt lives at home with his . Pt is active and independent, does not use any DME. Pt still drives. Pt denies any discharge needs at this time. Pt is on oxygen at hospital, no 02 at home. SW to follow as needed.
--- NOTE | 2024-12-22 11:30 | CM.NOTE ---
Rounds made with Dr. Horner, pt requiring oxygen at this time and having SOB with minimal exertion. Dr. James will also consult with pt for further recommendations. No discharge today.
[2024-12-22] MEDS: FUROSEMIDE 20 MG/2 ML VIAL IVP (14:02)
[2024-12-22 17:08] LABS: Glucometer 258 mg/dL (74-106)
[2024-12-22] MEDS: MONTELUKAST SODIUM 10 MG TABLET PO (21:02)
[2024-12-22] MEDS: ATORVASTATIN CALCIUM 40 MG TABLET PO (21:02)
[2024-12-22 21:10] LABS: Glucometer 183 mg/dL (74-106)
[2024-12-23] VITALS (21 sets, daily range): BP systolic 130–170; BP diastolic 68–91; PULSE 48–95; TEMP 36.3–37.1; O2SAT 94–96
[2024-12-23] MEDS: 0.9 % SODIUM CHLORIDE 250 ML 10 ML IV ×2 (01:13→16:54)
[2024-12-23] MEDS: PIPERACILLIN SODIUM/TAZOBACTAM 3.375 GM in 0.9 % SODIUM CHLORIDE 50 ML IV ×3 (01:13→18:06)
[2024-12-23] MEDS: METHYLPREDNISOLONE SOD SUCC PF 40 MG/ML VIAL IVP ×2 (02:55→10:13)
--- NOTE | 2024-12-23 04:40 | ECG_ITS ---
[facility] Test Date: 2024-12-23 Pat Name: MINNIE FARIAS Department: Room: [facility] Gender: Male [employer] Operation: : 1950 Requested By: YANY VELAZQUEZ Order Number: [id number] Reading MD: MARTHA ARREDONDO Measurements Intervals [place] Rate: 83 P: SD: QRS: 23 QRSD: 102 T: 41 QT: 355 QTc: 417 Interpretive Statements Atrial fibrillation with aberrancy or PVC SEPTAL MYOCARDIAL INFARCTION [40+ ms Q WAVE IN V1/V2], OF INDETERMINATE AGE WARNING: DATA QUALITY MAY AFFECT INTERPRETATION Electronically Signed On 12-23-2024 6:52:59 EST by MARTHA ARREDONDO
[2024-12-23] MEDS: VANCOMYCIN HCL 1,000 MG in 0.9 % SODIUM CHLORIDE 250 ML 200 MG IV (04:47)
[2024-12-23] MEDS: IPRATROPIUM/ALBUTEROL SULFATE 3 ML AMPUL.NEB IH ×3 (05:08→22:20)
[2024-12-23 06:11] LABS: Basophils Percent Auto 0.3 % (0.2-2.0); Hematocrit 36.4 % (42.0-54.0); Hemoglobin 11.6 g/dL (14.0-18.0); Immature Granulocytes Abs Auto 1.55 10^3/uL (0.00-0.03); Immature Granulocytes Pct Auto 9.9 % (0.0-0.5); Lymphocytes Absolute Auto 0.7 10^3/uL (1.2-3.8); Lymphocytes Percent Auto 4.3 % (20.5-60.0); Mean Corpuscular HGB Conc 31.9 g/dL (29.9-35.2); Mean Corpuscular Hemoglobin 27.6 pg (25.9-34.0); Mean Corpuscular Volume 86.7 fL (80.0-94.0); Mean Platelet Volume 9.6 fL (9.5-13.5); Monocytes Absolute Auto 0.9 10^3/uL (0.3-0.8); Monocytes Percent Auto 5.4 % (1.7-12.0); Neutrophils Absolute Auto 12.5 10^3/uL (1.4-6.5); Neutrophils Percent Auto 80.1 % (43.0-75.0); Platelet Count 286 10^3/uL (150-450); Red Cell Distribution Width 15.9 % (11.0-15.0); White Blood Count 15.6 10^3/uL (4.0-11.0)
[2024-12-23 06:32] LABS: Troponin I High Sensitivity 6.9 pg/mL (4.0-76.1)
[2024-12-23 06:49] LABS: Alanine Aminotransferase 170 U/L (16-63); Albumin Globulin Ratio 0.5; Alkaline Phosphatase 129 U/L (46-116); Aspartate Amino Transferase 82 U/L (15-37); BUN Creatinine Ratio 32.6; Bilirubin Total 0.7 mg/dL (0.2-1.0); Calcium 8.2 mg/dL (8.5-10.1); Carbon Dioxide 26.2 mmol/L (21.0-32.0); Chloride 100 mmol/L (98-107); Estimated GFR (African America >60 (>=60 mL/min/1.73m^2); Estimated GFR (Non-African Ame >60 (>=60 mL/min/1.73m^2); Globulin 3.9 g/dL; Glucose 243 mg/dL (74-106); Magnesium 2.1 mg/dL (1.8-2.4); Potassium 4.2 mmol/L (3.5-5.1); Sodium 132 mmol/L (136-145); Total Protein 5.9 g/dL (6.4-8.2)
[2024-12-23 07:04] LABS: Vancomycin Random 33.7 ug/mL
--- NOTE | 2024-12-23 07:48 | PM.PN ---
Progress Note: Subjective Subjective Interval history: Patient resting comfortably in bed this morning. Still short of breath with exertion. Still requiring oxygen 2L via NC to maintain saturations >90%. patient's at bedside. No other issues or complaints. Exam Narrative Exam Narrative: General: Patient is alert, and oriented to person, place and time with normal affect, proper hygiene Skin: no visible rashes, or ulcers Head: atraumatic, acephalic Eyes: PERRLA, no nystagmus present, conjunctiva clear, no scleral icterus Ears: normal gross auditory acuity Heart: Normal rate and rhythm, no murmurs/rubs/gallops Lungs: audible wheezes bilaterally, more air movement today Abdomen: Normal audible bowel sounds, no distension, No palpable masses, no organomegaly, no rebound/guarding/ or rigidity Musculoskeletal: muscle atrophy noted, ROM is limited due to being in hospital bed, swelling limited to ankles Neuro: CN II-X grossly intact Constitutional Vital Signs, click to edit/add: Last Vital Signs Temp 97.3 F L 12/23/24 03:27 Pulse 95 H 12/23/24 05:33 Resp 18 12/23/24 05:08 BP 130/76 12/23/24 03:27 Pulse Ox 96 12/23/24 05:08 O2 Del Method Nasal Cannula 12/23/24 05:08 O2 Flow Rate 2 12/23/24 05:08 Progress Note: Objective Labs Labs: Short CBC 12/23/24 Range/Units 05:47 WBC 15.6 H (4.0-11.0) 10^3/uL Hgb 11.6 L (14.0-18.0) g/dL Hct 36.4 L (42.0-54.0) % Plt Count 286 (150-450) 10^3/uL BMP 12/23/24 05:47 Sodium 132 L Potassium 4.2 Chloride 100 Carbon Dioxide 26.2 BUN 31.0 H Creatinine 0.95 Glucose 243 H Calcium 8.2 L Liver Function 12/23/24 Range/Units 05:47 Total Bilirubin 0.7 (0.2-1.0) mg/dL AST 82 H (15-37) U/L ALT 170 H (16-63) U/L Alkaline Phosphatase 129 H (46-116) U/L Albumin 2.0 L (3.4-5.0) g/dL Progress Note: A&P Assessment and Plan (1) Multifocal pneumonia: Assessment and Plan: Zosyn and Vancomycin. Blood and sputum cultures pending;connie CIFUENTES pulmicort (2) Severe sepsis: Assessment and Plan: secondary to #1, resolved (3) Acute hypoxic respiratory failure: Assessment and Plan: secondary to #1, continues to require NC oxygen (4) LFT elevation: Assessment and Plan: LFT s improving, Hepatic cysts present; will check acute hepatitis panel (5) Acute on chronic heart failure: Assessment and Plan: lasix 20mg IV daily. Monitor I&O's, ECHO 07/2024, no need to repeat at this time. Qualifiers: Heart failure type: diastolic Qualified Code(s): I50.33 - Acute on chronic diastolic (congestive) heart failure (6) COPD (chronic obstructive pulmonary disease): Assessment and Plan: continue duonebs, and Solu Medrol 40mg q6 hours will decrease frequency to q8 hours Qualifiers: COPD type: unspecified COPD Qualified Code(s): J44.9 - Chronic obstructive pulmonary disease, unspecified (7) Chronic a-fib: Assessment and Plan: continue coreg, Xarelto (8) GERD without esophagitis: Assessment and Plan: continue PPI (9) Primary hypertension: Assessment and Plan: continue home meds (10) Hyperlipidemia associated with type 2 diabetes mellitus: Assessment and Plan: continue atorvastatin (11) Type 2 diabetes mellitus: Assessment and Plan: accucheck qac, hs with SSI if needed while on steroids. Qualifiers: Diabetes mellitus complication status: without complication Diabetes mellitus care home insulin use: without care home use Qualified Code(s): E11.9 - Type 2 diabetes mellitus without complications Plan Patient is a full code continue Xarelto
[2024-12-23] MEDS: INSULIN ASPART 300 UNIT/3 ML PEN SUBQ ×3 (08:45→21:22)
[2024-12-23] MEDS: FINASTERIDE 5 MG TABLET PO (08:46)
[2024-12-23] MEDS: LOSARTAN POTASSIUM 25 MG TABLET 75 MG PO (08:46)
[2024-12-23] MEDS: FUROSEMIDE 20 MG/2 ML VIAL IVP (08:46)
[2024-12-23] MEDS: OMEPRAZOLE 40 MG CAPSULE.DR PO ×2 (08:46→16:39)
[2024-12-23] MEDS: RIVAROXABAN 10 MG TABLET 20 MG PO (08:46)
[2024-12-23] MEDS: DIGOXIN 125 MCG TABLET 250 MCG PO (08:47)
[2024-12-23] MEDS: EZETIMIBE 10 MG TABLET 5 MG PO (08:47)
[2024-12-23] MEDS: AMLODIPINE BESYLATE 5 MG TABLET PO (08:47)
[2024-12-23] MEDS: CARVEDILOL 12.5 MG TABLET PO ×2 (08:47→20:30)
[2024-12-23] MEDS: CLOPIDOGREL BISULFATE 75 MG TABLET PO (08:47)
[2024-12-23] MEDS: TAMSULOSIN HCL 0.4 MG CAPSULE PO (08:47)
[2024-12-23] MEDS: BUDESONIDE 0.5 MG/2 ML AMPULE NEB IH ×2 (10:05→22:20)
--- NOTE | 2024-12-23 11:00 | CM.NOTE ---
Rounds made with Dr. Horner, no discharge today. Pt remains on oxygen, RN will attempt to wean pt as tolerated. Dr. James also will see pt again today for follow-up. Continue IV antibiotics and breathing tx.
[2024-12-23 11:49] LABS: Glucometer 157 mg/dL (74-106)
--- NOTE | 2024-12-23 13:40 | CM.NOTE ---
Assisted pt with setting up Jeanne on telephone for medical information per request.
[2024-12-23 16:36] LABS: Glucometer 183 mg/dL (74-106)
[2024-12-23] MEDS: VANCOMYCIN HCL 1,000 MG in 0.9 % SODIUM CHLORIDE 250 ML 250 MG IV (16:54)
[2024-12-23] MEDS: METHYLPREDNISOLONE SOD SUCC PF 125 MG/2 ML VIAL 40 MG IVP (18:06)
--- NOTE | 2024-12-23 18:28 | PM.PLPN ---
Progress Note: A&P Assessment and Plan (1) Multifocal pneumonia: Assessment and Plan: 1. Pneumonia, present on admission: Bilateral, with cavitary lesions in the RLL and HEAVEN. No identified agent so far. Still concerned for Staph. Would recommend vancomycin if discharged for total 2 weeks treatment, but no PICC available. Reluctantly would then recommend Zyvox 600mg BID for total 2 weeks treatment along with Augmentin. Will need [address] w/o contrast to document improvement. 2. Severe sepsis. Secondary to #1. Slow improvement. 3. Acute respiratory failure with hypoxia. Remains hypoxic, winded with activity. Discussed likely discharge home on O2 but anticipate he will eventually be weaned to baseline RA. 4. Acute exacerbation of COPD. On Breztri @ home. 5. Acute exacerbation of chronic diastolic congestive heart failure. M 6. Other secondary pulmonary hypertension. Echocardiogram 08/18/2024 noted RVSP 43mmHg. 7. Hypoalbuminemia. 8. Atrial fibrillation, chronic. On anticoagulation. 9. History of tobacco abuse. Quit smoking ~16 years ago, outside range of current LDCT screening criteria. Plan Spoke to both patient and Dr. Clarita Horner about this plan of care. Subjective Subjective Interval history: Patient doing about the same. No significant change. Still VALENTIN to bathroom. Not expectorating much. No cultures resulted yet. Exam Constitutional Vital Signs, click to edit/add: Last Vital Signs Temp 98.8 F 12/23/24 16:00 Pulse 81 12/23/24 18:00 Resp 18 12/23/24 16:00 BP 142/91 H 12/23/24 16:00 Pulse Ox 96 12/23/24 16:00 O2 Del Method Nasal Cannula 12/23/24 16:00 O2 Flow Rate 2 12/23/24 16:00 Other: In bed, no distress HENWV Other: Wearing nasal cannula Mallampati III No candidiasis Chest Other: Normal to inspection Respiratory Other: Diminished breath sounds. Mild crackles posteriorly. No wheezes today. Cardio Other: Irregularly irregular GI Other: Normal to inspection Extremity Other: Trace BLE edema Neuro Other: No tremor Psych Other: Alert
[2024-12-23 20:18] LABS: Glucometer 147 mg/dL (74-106)
[2024-12-23] MEDS: ATORVASTATIN CALCIUM 40 MG TABLET PO (21:17)
[2024-12-23] MEDS: MONTELUKAST SODIUM 10 MG TABLET PO (21:17)
[2024-12-24] VITALS (13 sets, daily range): BP systolic 148–168; BP diastolic 62–99; PULSE 59–98; TEMP 36.3–36.5; O2SAT 92–96
[2024-12-24] MEDS: METHYLPREDNISOLONE SOD SUCC PF 125 MG/2 ML VIAL 40 MG IVP ×2 (01:47→09:59)
[2024-12-24] MEDS: PIPERACILLIN SODIUM/TAZOBACTAM 3.375 GM in 0.9 % SODIUM CHLORIDE 50 ML IV ×2 (02:41→10:04)
[2024-12-24] MEDS: IPRATROPIUM/ALBUTEROL SULFATE 3 ML AMPUL.NEB IH ×2 (04:49→10:46)
[2024-12-24] MEDS: VANCOMYCIN HCL 1,000 MG in 0.9 % SODIUM CHLORIDE 250 ML 250 MG IV (05:36)
[2024-12-24 06:16] LABS: Hematocrit 40.6 % (42.0-54.0); Hemoglobin 12.6 g/dL (14.0-18.0); Mean Corpuscular Hemoglobin 27.2 pg (25.9-34.0); Mean Corpuscular Volume 87.5 fL (80.0-94.0); Mean Platelet Volume 9.7 fL (9.5-13.5); Platelet Count 333 10^3/uL (150-450); Red Blood Count 4.64 10^6/uL (4.70-6.10); Red Cell Distribution Width 15.9 % (11.0-15.0); White Blood Count 16.1 10^3/uL (4.0-11.0)
[2024-12-24 06:35] LABS: Alanine Aminotransferase 175 U/L (16-63); Albumin Globulin Ratio 0.5; Albumin Level 2.2 g/dL (3.4-5.0); Alkaline Phosphatase 122 U/L (46-116); Anion Gap 10.1; Aspartate Amino Transferase 54 U/L (15-37); BUN Creatinine Ratio 30.7; Bilirubin Total 0.9 mg/dL (0.2-1.0); Calcium 8.3 mg/dL (8.5-10.1); Carbon Dioxide 28.3 mmol/L (21.0-32.0); Chloride 98 mmol/L (98-107); Estimated GFR (African America >60 (>=60 mL/min/1.73m^2); Estimated GFR (Non-African Ame >60 (>=60 mL/min/1.73m^2); Globulin 4.2 g/dL; Glucose 202 mg/dL (74-106); Magnesium 1.9 mg/dL (1.8-2.4); Potassium 4.4 mmol/L (3.5-5.1); Sodium 132 mmol/L (136-145); Total Protein 6.4 g/dL (6.4-8.2)
--- NOTE | 2024-12-24 07:01 | P.PLPN_ITS ---
Progress Note: A&P Assessment and Plan (1) Multifocal pneumonia: Assessment and Plan: 1. Pneumonia, present on admission: Bilateral, with cavitary lesions in the RLL and HEAVEN. No growth on any source. I am unable to R/O MRSA. No PICC available, so I would recommend discharge home on Augmentin and Zyvox to complete a total of 14-day course of antibiotics. He needs a non-contrast chest CT to be done in 1 month to document cavitary nodules - whether they have improved, are stable, or worse. There is a risk that one nodule could be neoplasm (especially with smoking history), hence he requires close chest CT F/U. He may F/U with me in the pulmonary clinic after the chest CT is done (in ~1 month or when I have availability after the chest CT is completed). 2. Severe sepsis. Secondary to #1. Improved. 3. Acute respiratory failure with hypoxia. Better this AM - on RA @ rest. Ord ered ambulatory pulse ox evaluation. 4. Acute exacerbation of COPD. Restart home Breztri after discharge. Counseled patient to rinse/gargle after use. 5. Oral candidiasis. Secondary to steroids and antibiotics. Rx nystatin swish & swallow QID x 10 days. 6. Acute exacerbation of chronic diastolic congestive heart failure. 7. Other secondary pulmonary hypertension. Echocardiogram 08/18/2024 noted RVSP 43mmHg. 8. Hypoalbuminemia. 9. Atrial fibrillation, chronic. On anticoagulation. 10. History of tobacco abuse. Quit smoking ~16 years ago, outside range of current LDCT screening criteria. Subjective Subjective Interval history: Patient states he is feeling a little better. He is reclined in bed, on RA with SpO2 92%. Reviewed cultures - no significant growth of anything. Clinically seems to be improving. Discussed discharge planning, such as antibiotics & assessment for home O2. Exam Constitutional Vital Signs, click to edit/add: Last Vital Signs Temp 97.3 F L 12/24/24 04:00 Pulse 94 H 12/24/24 05:45 Resp 18 12/24/24 04:49 BP 158/99 H 12/24/24 04:00 Pulse Ox 92 L 12/24/24 04:49 O2 Del Method Room Air 12/24/24 04:49 O2 Flow Rate 2 12/23/24 23:24 Other: In bed, no distress HENMT Other: Wearing nasal cannula Mallampati III Patient has developed oral candidiasis posterior soft palate and tonsillar fossa Chest Other: Normal to inspection Respiratory Other: Slightly more breath sounds today. Decreased crackles. No wheees. Cardio Other: Irregularly irregular GI Other: Normal to inspection Extremity Other: Trace BLE edema Neuro Other: No tremor Psych Other: Alert
[2024-12-24 07:02] LABS: Band Neutrophils Absolute 0.3 10^3/uL (0.0-0.3); Lymphocytes Absolute Manual 1.28 10^3/uL (1.20-3.80); Monocytes Absolute Manual 0.64 10^3/uL (0.30-0.80); Segmented Neut Absolute Manual 13.84 10^3/uL (1.4-6.5)
[2024-12-24] MEDS: OMEPRAZOLE 40 MG CAPSULE.DR PO (07:50)
[2024-12-24 08:30] LABS: Glucometer 212 mg/dL (74-106)
[2024-12-24] MEDS: INSULIN ASPART 300 UNIT/3 ML PEN SUBQ ×2 (08:43→11:30)
[2024-12-24] MEDS: CARVEDILOL 12.5 MG TABLET PO (08:46)
[2024-12-24] MEDS: AMLODIPINE BESYLATE 5 MG TABLET PO (08:46)
[2024-12-24] MEDS: CLOPIDOGREL BISULFATE 75 MG TABLET PO (08:47)
[2024-12-24] MEDS: DIGOXIN 125 MCG TABLET 250 MCG PO (08:48)
[2024-12-24] MEDS: EZETIMIBE 10 MG TABLET 5 MG PO (08:49)
[2024-12-24] MEDS: FINASTERIDE 5 MG TABLET PO (08:50)
[2024-12-24] MEDS: FUROSEMIDE 20 MG/2 ML VIAL IVP (08:51)
[2024-12-24] MEDS: LOSARTAN POTASSIUM 25 MG TABLET 75 MG PO (08:52)
[2024-12-24] MEDS: RIVAROXABAN 10 MG TABLET 20 MG PO (08:53)
[2024-12-24] MEDS: TAMSULOSIN HCL 0.4 MG CAPSULE PO (08:53)
--- NOTE | 2024-12-24 09:19 | P.DS_ITS ---
DS: Providers Provider Date of admission: 12/21/24 16:47 Primary care physician: YANY VELAZQUEZ DO Attending physician on admission: Anastasia Horner Consults: 12/21/24 15:59 Consult to Pulmonology Routine Consulting Provider: Nicolás James Reason for consultation: Cavitary Pneumonia, hypoxia Has provider been notified: No Discharging clinician: Anastasia Horner DS: Diagnosis Discharge Diagnosis (1) Multifocal pneumonia: DS: Summary Hospital Course Hospital Course: Patient is a 74 y.o white male with past medical history of Afib on Xarelto, diastolic heart failure, COPD, BPH, GERD, HTN, who presented to the ER with i ncreased shortness of breath. Worse over the last 2-3 days. He has known COPD and was treated with prednisone and doxycycline by his PCP. He also notes he has been having some bilateral leg swelling and PCP recently decreased amlodipine, and digoxin. His has been sick with the flu. ER findings: WBC's 27, Hb 12.1, K 5.2, Na 130, Cr 0.91, BUN 30, AST 59, ALT 137, Alk phos 144, ProBNP 2063, flu and covid testing negative. CTA of the chest showed Cavitary Pneumonia. Patient was placed on Zithromax and Rocephin and admitted for further plan of care. He reports he does not see a political research scientist. His PCP prescribes his inhalers. He has been sick for about 2-3 weeks. Has tried and failed outpatient treatment. He denies fever and chills, increased sob and cough that is productive. He also notes slight swelling in his ankles. He follows with [facility] cardiology. He denies having any diagnosed liver issues or lung cancer. I changed antibiotics on morning of admission to Zosyn and Vancomycin given Cavitary pneumonia. Blood and sputum cultures pending are still pending at the time of discharge. Pulmonary was consulted, and Dr. James will follow patient as outpatient and he will have CT chest w/o contrast in 1 month. He had respiratory failure with hypoxia but at the time of discharge was ambulating and saturating well on room air. Patient has a nebulizer machine and I have prescribed duonebs for him. He may continue treatments q6 hours for next 3-4 days then as needed. He has albuterol inhaler to use for break through and he will resume Breztri. For his pneumonia, he will be on Augmentin 875mg BID x 14 days, Zyvox 600mg BID x 14 days; new thrush will be treated with nystatin. Prednisone 20mg BID x 7 days and I have also given him Lasix 20mg daily to take as needed for swelling while on the prednisone. He has follow up's. He is to return to the ER with any worsening signs or symptoms. WBC's 16.1, Cr 0.88. I have also sent for acute hepatitis panel that is pending, LFT's still elevated but feel it's from illness. Ultrasound was negative except for hepatic cysts. Status at Discharge Functional status at discharge: independent ambulation Overall status at discharge: patient is progressing back to baseline Time Spent with Patient Time attestation: Total time spent providing and/or coordinating discharge services: Time spent: greater than 30 minutes Exam Narrative Exam Narrative: General: Patient is alert, and oriented to person, place and time with normal affect, proper hygiene Skin: no visible rashes, or ulcers Head: atraumatic, acephalic Eyes: PERRLA, no nystagmus present, conjunctiva clear, no scleral icterus Ears: normal gross auditory acuity Heart: Normal rate and rhythm, no murmurs/rubs/gallops Lungs: audible wheezes bilaterally, more air movement today Abdomen: Normal audible bowel sounds, no distension, No palpable masses, no organomegaly, no rebound/guarding/ or rigidity Musculoskeletal: muscle atrophy noted, ROM is limited due to being in hospital bed, swelling limited to ankles Neuro: CN II-X grossly intact Constitutional Vital Signs, click to edit/add: Last Vital Signs Temp 97.5 F L 12/24/24 08:04 Pulse 71 12/24/24 08:04 Resp 18 12/24/24 08:04 BP 168/62 H 12/24/24 08:04 Pulse Ox 93 L 12/24/24 08:04 O2 Del Method Room Air 12/24/24 08:04 O2 Flow Rate 2 12/23/24 23:24 DS: Data Data Completed and Pending Labs on day of discharge: Labs from last 24 hours 12/24/24 12/24/24 12/23/24 08:27 05:33 20:11 WBC 16.1 H RBC 4.64 L Hgb 12.6 L Hct 40.6 L MCV 87.5 MCH 27.2 MCHC 31.0 RDW 15.9 H Plt Count 333 MPV 9.7 Seg Neuts % (Manual) 86.0 H Band Neutrophils % 2.0 Lymphocytes % (Manual) 8.0 L Monocytes % (Manual) 4.0 Eosinophils % (Manual) 0.0 L Basophils % (Manual) 0.0 L Neutrophils # (Manual) 13.84 H Band Neutrophils # 0.3 Lymphocytes # (Manual) 1.28 Monocytes # (Manual) 0.64 Eosinophils # (Manual) 0.00 Basophils # (Manual) 0.00 Sodium 132 L Potassium 4.4 Chloride 98 Carbon Dioxide 28.3 Anion Gap 10.1 BUN 27.0 H Creatinine 0.88 Est GFR ( Amer) >60 Est GFR (Non-Af Amer) >60 BUN/Creatinine Ratio 30.7 Glucose 202 H Calcium 8.3 L Magnesium 1.9 Total Bilirubin 0.9 AST 54 H ALT 175 H Alkaline Phosphatase 122 H Total Protein 6.4 Albumin 2.2 L Globulin 4.2 Albumin/Globulin Ratio 0.5 POC Glucose 212 H 147 H 12/23/24 12/23/24 16:34 11:36 WBC RBC Hgb Hct MCV MCH MCHC RDW Plt Count MPV Seg Neuts % (Manual) Band Neutrophils % Lymphocytes % (Manual) Monocytes % (Manual) Eosinophils % (Manual) Basophils % (Manual) Neutrophils # (Manual) Band Neutrophils # Lymphocytes # (Manual) Monocytes # (Manual) Eosinophils # (Manual) Basophils # (Manual) Sodium Potassium Chloride Carbon Dioxide Anion Gap BUN Creatinine Est GFR ( Amer) Est GFR (Non-Af Amer) BUN/Creatinine Ratio Glucose Calcium Magnesium Total Bilirubin AST ALT Alkaline Phosphatase Total Protein Albumin Globulin Albumin/Globulin Ratio POC Glucose 183 H 157 H Preliminary micro results at discharge 12/22/24 05:00 Lower Respiratory Culture - Preliminary Sputum - Expectorated Sputum 12/21/24 14:00 Blood Culture Result 2 - Preliminary Blood - Left Antecubital NO GROWTH AT 36-48 HOURS. FINAL TO FOLLOW. 12/21/24 11:45 Blood Culture Result 1 - Preliminary Blood - Right Antecubital NO GROWTH AT 36-48 HOURS. FINAL TO FOLLOW. Discharge Plan Discharge Disposition: Home, Self-Care Discharge Medications: New nystatin 100,000 unit/mL Suspension 500,000 unit PO QID 14 Days Qty: 280 0RF ipratropium-albuterol 0.5 mg-3 mg(2.5 mg base)/3 mL Solution For Nebulization 3 ml inhalation Q6H 30 Days Qty: 180 0RF Rx Instructions: please dispense 1 box furosemide [Lasix] 20 mg tablet 20 mg PO DAILY PRN (Reason: edema) Qty: 7 0RF Rx Instructions: Take as needed for edema while taking prednisone prednisone 20 mg tablet 20 mg PO BID 7 Days Qty: 14 0RF linezolid [Zyvox] 600 mg tablet 600 mg PO BID 14 Days Qty: 28 0RF amoxicillin-pot clavulanate 875-125 mg tablet 1 tab PO BID 14 Days Qty: 28 0RF Continued amlodipine 5 mg tablet 5 mg PO DAILY atorvastatin 40 mg tablet 40 mg PO DAILY digoxin 250 mcg (0.25 mg) tablet 0.25 mg PO DAILY clopidogrel 75 mg tablet 75 mg PO DAILY ezetimibe 10 mg tablet 5 mg PO DAILY finasteride 5 mg tablet 5 mg PO DAILY lansoprazole 30 mg capsule,delayed release(DR/EC) 30 mg PO BID montelukast 10 mg tablet 10 mg PO DAILY tamsulosin 0.4 mg capsule 0.4 mg PO DAILY olmesartan 40 mg tablet 40 mg PO DAILY Xarelto 20 mg tablet 20 mg PO DAILY Breztri Aerosphere 160-9-4.8 mcg/actuation HFA aerosol inhaler 2 inh INHALATION BID albuterol sulfate 90 mcg/actuation HFA aerosol inhaler 2 puff INHALATION QID carvedilol 12.5 mg tablet 12.5 mg PO BID Trulicity 1.5 mg/0.5 mL pen injector 1.5 mg SUBCUT QWEEK Activity: increase activity as tolerated Diet: advance to your usual diet Print Language: [place] Patient Instructions: Hypoxia (ED), Pneumonia (DC) Forms: Portal Instructions Follow Up Appointments: December 31 @ 3:15pm with Dr. Velazquez [phone] January 20 @ 9:15am with Dr. James at [facility] [phone] Chest Without contrast-Central Scheduling will contact patient about scheduling
--- NOTE | 2024-12-24 10:13 | PC.NURSE ---
Patient tolerated exercise without oxygen. SpO2 did not drop below 92% on room air.
[2024-12-24] MEDS: BUDESONIDE 0.5 MG/2 ML AMPULE NEB IH (10:46)
[2024-12-24 11:26] LABS: Glucometer 157 mg/dL (74-106)
[2024-12-24] MEDS: NYSTATIN 500,000 UNIT/5 ML ORAL.SUSP 500000 UNIT PO (11:36)
--- NOTE | 2024-12-24 12:05 | CM.NOTE ---
Rounds made with Dr. Horner. Dr. Horner reviews plan of care. Plan for discharge today. Follow up with Pulmonlogist-Dr. James in approx one month after CT completed. Follow up with PCP in one week. Verbalizes understanding.
--- NOTE | 2024-12-24 13:28 | SWNOTE1 ---
Pt weaned off oxygen and does not qualify for home 02 at this time. Pt is discharging today.
[2024-12-25 05:07] LABS: HBsAg Screen Negative (Negative); HCV Ab Non Reactive (Non Reactive); Hep A Ab, IgM Negative (Negative); Hep B Core Ab, IgM Negative (Negative)
--- NOTE | 2024-12-25 10:27 | CM.DCFOLLOWU ---
Person spoke with: patient How are you feeling? not too bad, was coughing a lot on phone during assessment on phone How is your pain? none Did you understand your discharge instructions? yes Do you have any questions about your discharge instructions?no Were you given any prescriptions at discharge? yes Were you able to get your prescriptions filled? yes Do you understand how to take your medications as ordered?yes Do you have any questions about your follow up appointment and do you plan to keep your follow up appointment? no questions, reviewed follow ups with patient Is there anything else that you would like to discuss? no Questions/Comments/Concerns/Other: none
--- NOTE | 2024-12-28 11:37 | CM.NOTE ---
Faxed final sputum culture to Dr. Vences.
== END 2024-12-24 14:23 | disposition home or self-care (01) | DRG 871 ==
LOC: ER 14:52 → MS 17:04
PROVIDERS: Internal Medicine; Admitting Provider Family Medicine; Emergency Provider Emergency Medicine; PCP Internal Medicine; Visit Provider Family Medicine
DX: A41.52 Sepsis due to Pseudomonas (principal); I50.33 Acute on chronic diastolic (congestive) heart failure; J18.9 Pneumonia, unspecified organism; J96.00 Acute respiratory failure, unspecified whether with hypoxia or hypercapnia; J44.0 Chronic obstructive pulmonary disease with (acute) lower respiratory infection; J44.1 Chronic obstructive pulmonary disease with (acute) exacerbation; I48.20 Chronic atrial fibrillation, unspecified; B37.0 Candidal stomatitis; R65.20 Severe sepsis without septic shock; Z87.891 Personal history of nicotine dependence; I11.0 Hypertensive heart disease with heart failure; I27.20 Pulmonary hypertension, unspecified; E88.09 Other disorders of plasma-protein metabolism, not elsewhere classified; R91.8 Other nonspecific abnormal finding of lung field; Z79.01 Long term (current) use of anticoagulants; K21.9 Gastro-esophageal reflux disease without esophagitis; N40.0 Benign prostatic hyperplasia without lower urinary tract symptoms; R79.89 Other specified abnormal findings of blood chemistry; E78.5 Hyperlipidemia, unspecified; E11.9 Type 2 diabetes mellitus without complications; Z79.85 Long-term (current) use of injectable non-insulin antidiabetic drugs; Z79.899 Other long term (current) drug therapy; Z66 Do not resuscitate; B37.7 Candidal sepsis
CPT/HCPCS: 36415; 71045; 71275; 76705; 80053; 80074; 80162; 80202; 81001; 82948; 83605; 83735; 83880; 84132; 84484; 85007; 85025; 85027; 87040; 87070; 87106; 87150; 87186; 87205; 87804; 87811; 93005; 94640; 94667; 94668; 94761; 96365; 96367; 96375; 99285; J0456; J0696; J1940; J2543; J2919; J3370; Q9967

== ENCOUNTER 2024-12-26 02:52 | Emergency (ER) | payer MEDICARE, SELFPAY ==
[2024-12-26] VITALS (10 sets, daily range): BP systolic 109–113; BP diastolic 66–67; PULSE 72–82; TEMP 36.3–36.7; O2SAT 93–96; BMI 27.4
--- OUTSIDE RECORDS SUMMARY | 2024-12-26 03:00 | XMS_ITS | CCD ---
Author Organization [facility] Care Team Providers Care Clinical Data Specialist Name Role Phone Matt Koenig Unavailable MARCUS, DR SLADE Attending Unavailable VALONE, DR SLADE Admitting Unavailable VALONE, DR SLADE Consulting Unavailable VALONE, DR SLADE Primary Care Unavailable KASSIDY, DR KRIS Michaud Consulting Unavailable VALONE, DR SLADE Primary Care Unavailable MACRY, JESUS Admitting Unavailable MARCYJESUS BRANTLEY Attending Unavailable [...] disease (3 sources) Atherosclerotic heart disease of [place] coronary artery without angina pectoris; Translations: [ASHD CAPITAN GRANDE BAND CA W/O ANGINA PECTORIS] Onset: 10-02-2021 Chronic [...] senior care (current) use of anticoagulants; Translations: [YARD SPOTTER CURRNT USE ANTICOAGULANTS] Onset: 10-02-2021 Episodic Other aftercare (1 source) Other retirement (current) drug therapy; Translations: [OTH YARD SPOTTER CURRENT DRUG THERAPY] Onset: 10-02-2021 Episodic Other [...] was ok, follow up in 1 year. [facility] Office Visiton 08-10-2024 Follow-up visit [id number] Minnie Jason 1950 M Date Provider Department Center 08/10/2024 367-STEVE BRICEÑO [facility] Family History Problem Relation Age of Onset Atrial fibrillation Brother Heart failure Brother Coronary artery disease Brother Family Status - Relation Status Age at Brother Level of Service:94316 OK OFFICE/OUTPATIENT ESTABLISHED MOD MDM 30 MIN [facility] 37on 04-21-2024 37 *Stop taking ezetimibe (Zetia) [...] further discuss increasing a blood pressure medication. [facility] Follow-Upon 04-21-2024 Follow-Up [id number] Minnie Jason 1950 M Date Provider Department Center 04/21/2024 MargauxJoniJESUS VIDAL SINDY Rasmussen Family History Problem Relation Age of Onset Atrial fibrillation Brother Heart failure Brother Coronary artery disease Brother Family Status - Relation Status Age at Brother Level of Service:33162 OK OFFICE/OUTPATIENT ESTABLISHED MOD MDM 30 MIN Reason for Visit and Comments: Coronary Artery Disease [187] Atrial Fibrillation [80] Hypertension [267722] Hyperlipidemia [182] Peripheral Vascular Disease [458] Normal [facility] ECHOCARDIO M/2D COMPLETEon 0 04-23-2022 ECHOCARDIO M/2D COMPLETE Patient: MINNIE JASON. Exam Date: 04/23/2022 : 1950 Gender:M Ordering : JESUS VIDAL Admission #: [id number] Family : DR YANY VELAZQUEZ D.O. Order #: [id number] CLICK HERE TO VIEW EXAM ECHOCARDIOGRAM REPORT [...] Area(A4C): 25.80 cm2 Left Atrium Systolic Volume(A2C): 64245 mm3 Left Atrium Systolic Volume(A4C): 65795 mm3 Mitral Valve Mitral Valve E-Wave Peak [...] M.D. on 04/23/2022 at 12:53 Normal [facility] BUNon 11-03-2021 Urea nitrogen [Mass/Vol] 14.0 mg/dL Normal 9.0-20.0 [facility] Comment on above: Performed By: #### C JACQUELIN BUN #### [facility] [address] [place] [address] Dr. Ruben Caldera CREATININEon 11-03-2021 Creatinine [Mass/Vol] 0.93 mg/dL Normal 0.66-1.25 [facility] Comment on above: Performed By: #### C PA ROPER #### [facility] [address], [place] [address] Dr. Ruben Caldera EGFR-AF ANGUILLAN >60 Normal >=60 [facility] Comment on above: Performed By: #### C JACQUELIN, BUN #### [facility] [address] [place], [place] [address] Dr. Ruben Caldera EGFR-NON AF ANGUILLAN >60 Normal >=60 [facility] Comment on above: Performed By: #### C JACQUELIN, BUN #### [facility] [address] [place], [place] [address] ABDOMEN WO/W CONon [...] KRIS YI Date: 2021-11-03 13:47 Normal [facility] XR FINGER MIN 2 VIEWSon [...] by: FINESSE AMEZCUA Date: 2021-09-30 22:[address] [facility] [address] LUNG CANCER SCREENINGon 11-19-2020 CT [...] JAVIER PATEL Date: 2021-09-19 17:18 Normal [facility] Cardiovascular Lab Reporton 05-11-2020 Cardiovascular Lab Report [facility] Patient Name: Minnie Jason MR #: [id number] Department of Physician: Steve Briceño M.D. Division of Service Date: 05/10/2020 Cardiology Birthdate: 1950 Adult Cardiovascular Room #: [address] [place] [address] Cardiovascular Laboratory Report INDICATION: The patient is [...] signed informed consent. He was brought to computer lab para professional in a fasting state. Both groin areas were prepped and draped in usual fashion. Using micropuncture technique and ultrasound guidance, access was obtained in right and left common femoral arteries respectively and inner cannula angiography was performed and access was upsized to a 5-Greenlandic x 11 cm sheath in each of those vessels after confirming adequate location of the access site. Bilateral lower extremity angiography was performed down to the level of the foot on each side through injections via the access catheters. A 5-Greenlandic Uni-Flush catheter was advanced to the distal [...] was upsized on each side to a 6-Greenlandic x 30 cm flexor sheath on the right and a 6-Greenlandic x 13 cm flexor sheath on the left. The 5-Greenlandic Uni-Flush catheter was advanced again into the [...] arch. At this time, we advanced a job training supervisor 6 mm x 80 mm balloon and used to perform balloon angioplasty in the left common iliac artery and left external iliac artery. This was inflated repeatedly at 10 atmospheres. Additional balloon angioplasty in the left common iliac artery was performed using a job training supervisor 8 x 40 mm balloon inflated at [...] using the 8 mm x 40 mm job training supervisor balloon inflated in the left common iliac [...] Body height 172.72 cm Matt Hendricksxa Other [facility] Other 10-03-2021 15:30-0500 Body mass index (BMI) [Ratio] 30.13 kg/m2 Matt Hendricksxa Other [facility] Other 10-03-2021 15:30-0500 Body weight 89.9 kg Matt Hendricksxa Other [facility] Other Encounters Encounter Date Encounter Type Care Provider Facility Start: 08-10-2024 End: [facility] Start: 04-21-2024 End: 04-21-2024 ambulatory [facility] Start: 04-23-2022 End: 04-24-[address] YANY VELAZQUEZ Facility:[facility] Start: 04-18-2022 End: 04-19-2022 ambulatory JESUS VIDAL Facility:[facility] Start: 11-03-2021 End: 11-04-[address] YANY VELAZQUEZ Facility:[facility] Start: 10-10-2021 End: 10-11-[address] YANY VELAZQUEZ [facility] [employer] Other Start: 10-10-2021 Postop follow up vis it related to original px Matt Eladioxa [facility] Start: 10-03-2021 End: 10-03-2021 ambulatory Matt Koenig Other [facility] Other Start: 10-03-2021 [facility] visit new patient Matt Hendricksxa [facility] Start: 09-30-2021 End: 10-01-[address] MICHAEL MIXON Facility:[facility] Start: 09-19-2021 End: 09-20-[address] YANY VELAZQUEZ Facility:[facility] Payers Date Payer Category Payer Medicare [id number] 1961 Medicare [id number] 1950 Unknown [id number] 2.16.84 [id number] 1950 Unknown [id number] 2.16.84 [id number] 1950 Unknown [id number] 2.16.84 [id number] 1950 Unknown [id number] 2.16.84 [id number] 1950 Unknown [id number] 2.16.84 [id number] 1950 Unknown [id number] 2.16.84 [id number] Social History Date Type Detail Facility Sex Assigned At [facility] Other Progress note 08-10-2024 Note Date & Type Note Facility 08-10-2024 Note PA Cardiology - [facility] Subjective Minnie Jason is a 74 [...] HFA aerosol inhaler, , Disp: , Rfl: ktuyupnbyx-tkjolxjr-pzlceixqpn (Breztri Aerosphere) 160-9-4.8 mcg/actuation HFA aerosol inhaler, [...] Type Note Facility 04-21-2024 Note Cardiovascular Medic [facility] SUBJECTIVE Chief Complaint Patient presents with Coronary Artery Disease Atrial Fibrillation Hypertension Hyperlipidemia Peripheral Vascular Disease Minnie Jason is a 73 y.o. male here for routine follow-up. HPI PMHx: 1. Atrial fibrillation on anticoagulation with Xarelto 2. CAD s/p CABG in 2008 and PCI in 2018 to LAD and OM, CAKE [employer]ER RCA 3. Hypertension 4. Hyperlipidemia on [...] improves with rest. Planning to go to [place] this summer to visit son. 03/27/22 He [...] Diagnosis Date Abnormal ECG Arrhythmia Atrial fibrillation ([facility]/HCC) CHF (congestive heart failure) ([facility]/HCC) COPD (chronic obstructive pulmonary disease) (CMS/HCC) Coronary artery disease Diabetes mellitus (CMS/HCC) GERD (gastroesophageal reflux disease) Heart valve disease Hyperlipidemia Hypertension PAD (peripheral artery disease) (CMS/HCC) Primary cardiomyopathy (CMS/HCC) PVD (peripheral vascular disease) ([facility]) Family History Problem Relation Name Age of [...] authenticated by: KRIS YI Date: 2021-10-10 14:09 [facility] Evaluation note 10-10-2021 Note Date & [...] as time goes. Call with questions/conc erns. [facility] Other Evaluation note 10-03-2021 Note Date & [...] to nail, initial encounter (ICD-10 - S61.315A) [facility] Other History general Narrative - Reported Note Date & Type Note Facility History general Narrative - Reported Type Medical History type II diabetes Medical History COPD Medical History afib Medical History artery disease Surgical History triple bypass 2009 Surgical History hernia repair 2014 Surgical History heart stent 2019 Surgical History illiac stent 2019 Hospitalization History See Above [facility] Other Summary Purpose Family History No Family History Records FoundNo Family History Records FoundNo Family History Records Found Advance Directives No Advanced Directives Records FoundNo Advanced Directives Records FoundNo Advanced Directives Records Found Additional Source Comments (unrecognized sect ion and content) No Status Records FoundNo Status Records FoundNo Status Records Found INFORMATION SOURCE (unrecogn ized section and content) DATE CREATED AUTHOR 02/15/2021 [facility] DATE CREATED AUTHOR AUTHOR'S ORGANIZ ATION 04/27/2022 [facility] DATE CREATED AUTHOR AUTHOR'S ORGANIZ ATION 08/23/2024 [facility] REASON FOR VISIT (unrecogniz ed section [...] BE BASED ON THE PRIMARY CLINICAL RECORDS. [employer] [facility]. provides no warranty or guarantee of the accuracy or completeness of information in this document.
--- NOTE | 2024-12-26 03:20 | ECG_ITS ---
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
--- NOTE | 2024-12-26 03:20 | ED.SOB1 ---
HPI - SOB/Dyspnea General Chief Complaint: Shortness of Breath/Dyspnea Stated Complaint: sob Time Seen by Provider: 12/26/24 02:55 Source: family Mode of arrival: walk-in Limitations: no limitations History of Present Illness HPI Narrative: The patient is a 74-year-old male who was just admitted to the hospital almost 5 days ago when he was getting evaluated for bilateral cavitary lesions and pneumonia, the patient was discharged home yesterday, he started having some difficulty breathing that he noted when he was at home more than when he was in the hospital, the patient denies any fever or chills he denies any nausea or vomiting but he had no appetite, he denies any chest pain but he feels sometimes he feel tight The patient has been using his nebulizer treatment but not every 6 hours and he does not think that the nebulizer is working that he have at home Related Data Home Medications ?Medication ?Instructions ?Recorded ?Confirmed albuterol sulfate 90 mcg/actuation 2 puff inhalation QID 12/21/24 12/26/24 aerosol inhaler amlodipine 5 mg tablet 5 mg PO DAILY 12/21/24 12/26/24 atorvastatin 40 mg tablet 40 mg PO DAILY 12/21/24 12/26/24 budesonide 160 mcg-glycopyr 9 2 inh inhalation BID 12/21/24 12/26/24 mcg-formot 4.8 mcg/actuation HFA inhaler (Breztri Aerosphere) carvedilol 12.5 mg tablet 12.5 mg PO BID 12/21/24 12/26/24 clopidogrel 75 mg tablet 75 mg PO DAILY 12/21/24 12/26/24 digoxin 250 mcg (0.25 mg) tablet 0.25 mg PO DAILY 12/21/24 12/26/24 dulaglutide 1.5 mg/0.5 mL 1.5 mg subcut QWEEK 12/21/24 12/26/24 subcutaneous pen injector ([facility]) ezetimibe 10 mg tablet 5 mg PO DAILY 12/21/24 12/26/24 finasteride 5 mg tablet 5 mg PO DAILY 12/21/24 12/26/24 lansoprazole 30 mg capsule,delayed 30 mg PO BID 12/21/24 12/26/24 release montelukast 10 mg tablet 10 mg PO DAILY 12/21/24 12/26/24 olmesartan 40 mg tablet 40 mg PO DAILY 12/21/24 12/26/24 rivaroxaban 20 mg tablet (Xarelto) 20 mg PO DAILY 12/21/24 12/26/24 tamsulosin 0.4 mg capsule 0.4 mg PO DAILY 12/21/24 12/26/24 Previous Rx's ?Medication ?Instructions ?Recorded amoxicillin 875 mg-potassium 1 tab PO BID 14 days #28 tabs 12/24/24 clavulanate 125 mg tablet furosemide 20 mg tablet (Lasix) 20 mg PO DAILY PRN edema #7 tabs 12/24/24 ipratropium 0.5 mg-albuterol 3 mg 3 ml inhalation Q6H 30 days #180 mL 12/24/24 (2.5 mg base)/3 mL nebulization soln linezolid 600 mg tablet (Zyvox) 600 mg PO BID 14 days #28 tabs 12/24/24 nystatin 100,000 unit/mL oral 500,000 unit (5 mL) PO QID 14 days 12/24/24 suspension #280 mL prednisone 20 mg tablet 20 mg PO BID 7 days #14 tabs 12/24/24 Allergies Allergy/AdvReac Type Severity Reaction Status Date / Time No Known Drug Allergies Allergy Verified 12/26/24 03:05 Review of Systems ROS Status of ROS 10 or more systems reviewed and unremarkable except as noted in history and below [facility] Medical History (Updated 12/26/24 @ 04:19 by Charlette Prater MD) Type 2 diabetes mellitus ?E11.9 - Type 2 diabetes mellitus without complications (ICD-10) Hyperlipidemia associated with type 2 diabetes mellitus ?E11.69 - Type 2 diabetes mellitus with other specified complication (ICD-10) ?E78.5 - Hyperlipidemia, unspecified (ICD-10) Primary hypertension ?I10 - Essential (primary) hypertension (ICD-10) COPD (chronic obstructive pulmonary disease) ?J44.9 - Chronic obstructive pulmonary disease, unspecified (ICD-10) Chronic diastolic (congestive) heart failure ?I50.32 - Chronic diastolic (congestive) heart failure (ICD-10) GERD without esophagitis ?K21.9 - Gastro-esophageal reflux disease without esophagitis (ICD-10) Chronic a-fib ?I48.20 - Chronic atrial fibrillation, unspecified (ICD-10) Social History Highest level of school completed/degree received: Bachelor's degree Little interest or pleasure in doing things: not at all Feeling down, depressed, or hopeless: not at all Exam Narrative Exam Narrative: Nurses notes and vital signs reviewed and patient is not hypoxic. General: Well-appearing and in no apparent distress. Skin: Warm, dry, no pallor noted. No rash. Head: Normocephalic, atraumatic. Neck: Supple, non-tender. Eye: Pupils are equal, round and EOMI. No scleral icterus. Cardiovascular: Irregular rate and Rhythm without murmur, gallop or rub. Respiratory: Bilateral distant breathing sounds and rhonchi with wheezing heard in the right side. Back: No midline thoracic or lumbar vertebral tenderness. No CVA tenderness Musculoskeletal: normal ROM, no calf or popliteal tenderness, 2+ pitting edema bilaterally to the level of the knee GI: Abdomen is soft, non-distended. Normal bowel sounds. No masses appreciated. No tenderness to palpation. No rebound, guarding, or rigidity noted. Constitutional Vital Signs, click to edit/add: Last Vital Signs Temp 97.4 F L 12/26/24 03:00 Pulse 72 12/26/24 03:40 Resp 15 12/26/24 03:40 BP 113/66 12/26/24 03:02 Pulse Ox 94 L 12/26/24 03:39 O2 Del Method Room Air 12/26/24 03:39 Course Vital Signs Vital signs: Vital Signs Pulse Oximetry 95 12/26/24 02:59 Temperature 97.4 F L 12/26/24 03:00 Pulse Rate 72 12/26/24 03:40 Respiratory Rate 15 12/26/24 03:40 Blood Pressure 113/66 12/26/24 03:02 Pulse Oximetry 94 L 12/26/24 03:39 Oxygen Delivery Method Room Air 12/26/24 03:39 MDM - SOB/Dyspnea MDM Narrative Medical decision making narrative: The patient today does not need any oxygen which is a lot better than the last time he was here as he was here as he was hypoxemic exam and needing oxygen The patient other than wheezing he does have some bilateral edema but that is a chronic issue for him as well that might have increased mildly The patient chest x-ray shows improvement of the infiltrate CBC shows leukocytosis which could be reactive as he is taking steroid The chemistry shows improvement of his symptoms as well and BNP up is much improved with no elevation in the troponin The patient was provided with a breathing treatment after which she was feeling better he was instructed about the fact that he need to use an at least 4 times a day The patient was provided with a new nebulizer machine mask as well as prescription for the new nebulizer machine The patient to come back to the ER in case of any new symptoms of concern The current evaluation showed that the patient improved compared to the last time he was here and that he just need to continue breathing treatment The patient is to follow up with primary care physician in next 2-3 days or to return to the emergency department should any of the signs or symptoms worsen or new symptoms develop. The patient agrees with the following Diagnosis and Treatment plan and the patient will be discharged home. Lab Data Labs: Lab Results 12/26/24 Range/Units 03:10 WBC 19.6 H (4.0-11.0) 10^3/uL RBC 4.43 L (4.70-6.10) 10^6/uL Hgb 12.4 L (14.0-18.0) g/dL Hct 38.4 L (42.0-54.0) % MCV 86.7 (80.0-94.0) fL MCH 28.0 (25.9-34.0) pg MCHC 32.3 (29.9-35.2) g/dL RDW 15.2 H (11.0-15.0) % Plt Count 271 (150-450) 10^3/uL MPV 9.7 (9.5-13.5) fL Seg Neuts % (Manual) 90.0 H (43.0-75.0) Lymphocytes % (Manual) 4.0 L (20.5-60.0) % Monocytes % (Manual) 3.0 (1.7-12.0) % Eosinophils % (Manual) 0.0 L (0.9-7.0) % Basophils % (Manual) 0.0 L (0.2-2.0) % Metamyelocytes % 2.0 Myelocytes % 1.0 Neutrophils # (Manual) 17.64 H (1.4-6.5) 10^3/uL Lymphocytes # (Manual) 0.78 L (1.20-3.80) 10^3/uL Monocytes # (Manual) 0.58 (0.30-0.80) 10^3/uL Eosinophils # (Manual) 0.00 (0.00-0.70) 10^3/uL Basophils # (Manual) 0.00 (0.00-0.10) 10^3/uL Metamyelocytes # 0.39 Myelocytes # 0.19 PT 14.1 H (9.0-11.6) sec INR 1.37 Sodium 132 L (136-145) mmol/L Potassium 4.1 (3.5-5.1) mmol/L Chloride 98 (98-107) mmol/L Carbon Dioxide 27.6 (21.0-32.0) mmol/L Anion Gap 10.5 BUN 23.0 H (7.0-18.0) mg/dL Creatinine 1.01 (0.70-1.30) mg/dL Est GFR ( Amer) >60 (>=60 mL/min/1.73m^2) Est GFR (Non-Af Amer) >60 (>=60 mL/min/1.73m^2) BUN/Creatinine Ratio 22.8 Glucose 158 H (74-106) mg/dL Calcium 8.2 L (8.5-10.1) mg/dL Total Bilirubin 1.2 H (0.2-1.0) mg/dL AST 31 (15-37) U/L ALT 127 H (16-63) U/L Alkaline Phosphatase 103 (46-116) U/L Troponin I High Sens 15.0 (4.0-76.1) pg/mL NT-Pro-B Natriuret Pep 1374.0 (<=1800.0) pg/mL Total Protein 6.0 L (6.4-8.2) g/dL Albumin 2.1 L (3.4-5.0) g/dL Globulin 3.9 g/dL Albumin/Globulin Ratio 0.5 Discharge Plan Discharge Chief Complaint: Shortness of Breath/Dyspnea Clinical Impression: Multifocal pneumonia, COPD exacerbation Patient Disposition: Home, Self-Care Time of Disposition Decision: 04:19 Condition: Good Prescriptions / Home Meds: No Action amlodipine 5 mg tablet 5 mg PO DAILY atorvastatin 40 mg tablet 40 mg PO DAILY digoxin 250 mcg (0.25 mg) tablet 0.25 mg PO DAILY clopidogrel 75 mg tablet 75 mg PO DAILY ezetimibe 10 mg tablet 5 mg PO DAILY finasteride 5 mg tablet 5 mg PO DAILY lansoprazole 30 mg capsule,delayed release(DR/EC) 30 mg PO BID montelukast 10 mg tablet 10 mg PO DAILY tamsulosin 0.4 mg capsule 0.4 mg PO DAILY olmesartan 40 mg tablet 40 mg PO DAILY Xarelto 20 mg tablet 20 mg PO DAILY Breztri Aerosphere 160-9-4.8 mcg/actuation HFA aerosol inhaler 2 inh INHALATION BID albuterol sulfate 90 mcg/actuation HFA aerosol inhaler 2 puff INHALATION QID carvedilol 12.5 mg tablet 12.5 mg PO BID Trulicity 1.5 mg/0.5 mL pen injector 1.5 mg SUBCUT QWEEK nystatin 100,000 unit/mL Suspension 500,000 unit PO QID 14 Days Qty: 280 0RF ipratropium-albuterol 0.5 mg-3 mg(2.5 mg base)/3 mL Solution For Nebulization 3 ml inhalation Q6H 30 Days Qty: 180 0RF Rx Instructions: please dispense 1 box furosemide [Lasix] 20 mg tablet 20 mg PO DAILY PRN (Reason: edema) Qty: 7 0RF Rx Instructions: Take as needed for edema while taking prednisone prednisone 20 mg tablet 20 mg PO BID 7 Days Qty: 14 0RF linezolid [Zyvox] 600 mg tablet 600 mg PO BID 14 Days Qty: 28 0RF amoxicillin-pot clavulanate 875-125 mg tablet 1 tab PO BID 14 Days Qty: 28 0RF Print Language: Portuguese Instructions: COPD (Chronic Obstructive Pulmonary Disease) (DC) Referrals: YANY VELAZQUEZ DO [Primary Care Provider] - 1 week
[2024-12-26 03:35] LABS: Hematocrit 38.4 % (42.0-54.0); Hemoglobin 12.4 g/dL (14.0-18.0); Mean Corpuscular HGB Conc 32.3 g/dL (29.9-35.2); Mean Corpuscular Volume 86.7 fL (80.0-94.0); Mean Platelet Volume 9.7 fL (9.5-13.5); Platelet Count 271 10^3/uL (150-450); Red Blood Count 4.43 10^6/uL (4.70-6.10); Red Cell Distribution Width 15.2 % (11.0-15.0); White Blood Count 19.6 10^3/uL (4.0-11.0)
[2024-12-26] MEDS: IPRATROPIUM/ALBUTEROL SULFATE 3 ML AMPUL.NEB IH ×2 (03:36→04:29)
[2024-12-26 03:48] LABS: INR 1.37; Prothrombin Time 14.1 sec (9.0-11.6)
[2024-12-26 03:57] LABS: Lymphocytes Absolute Manual 0.78 10^3/uL (1.20-3.80); Metamyelocytes Absolute Manual 0.39; Monocytes Absolute Manual 0.58 10^3/uL (0.30-0.80); Myelocytes Absolute Manual 0.19; Segmented Neut Absolute Manual 17.64 10^3/uL (1.4-6.5)
[2024-12-26 03:58] LABS: Alanine Aminotransferase 127 U/L (16-63); Albumin Globulin Ratio 0.5; Albumin Level 2.1 g/dL (3.4-5.0); Alkaline Phosphatase 103 U/L (46-116); Anion Gap 10.5; Aspartate Amino Transferase 31 U/L (15-37); BUN Creatinine Ratio 22.8; Bilirubin Total 1.2 mg/dL (0.2-1.0); Calcium 8.2 mg/dL (8.5-10.1); Carbon Dioxide 27.6 mmol/L (21.0-32.0); Chloride 98 mmol/L (98-107); Estimated GFR (African America >60 (>=60 mL/min/1.73m^2); Estimated GFR (Non-African Ame >60 (>=60 mL/min/1.73m^2); Globulin 3.9 g/dL; Glucose 158 mg/dL (74-106); Potassium 4.1 mmol/L (3.5-5.1); Sodium 132 mmol/L (136-145)
--- NOTE | 2024-12-26 04:03 | PC.NURSE ---
this patient requesting top sit at the edge of the bed, so this patient facing his and talking to her, patient updated that we ar just waitingon aasharad of the test results to com back. this patient voices no concerns and [id number] signs of distress
--- NOTE | 2024-12-26 06:42 | PC.NURSE ---
i gave this patient verbal and written discharge orders along with 1 Rx, and this patient voices yes to understanding these. at time of discharge this patient voices no concerns and shows no signs of distress
== END 2024-12-26 04:15 | disposition home or self-care (01) ==
PROVIDERS: Emergency Provider Emergency Medicine; PCP Internal Medicine
DX: J18.9 Pneumonia, unspecified organism (principal); J44.0 Chronic obstructive pulmonary disease with (acute) lower respiratory infection; J44.1 Chronic obstructive pulmonary disease with (acute) exacerbation; R06.02 Shortness of breath; Z87.01 Personal history of pneumonia (recurrent)
CPT/HCPCS: 36415; 71045; 80053; 83880; 84484; 85007; 85027; 85610; 93005; 94640; 99285

== ENCOUNTER 2025-01-15 12:46 | Outpatient (OUT) | payer MEDICARE, SELFPAY ==
--- NOTE | 2025-01-15 12:54 | CT_ITS ---
The [address] [address] Patient Name: MINNIE FARIAS MRN: [id number] date: 1950 Sex: M Assigned Patient Location: CT Current Patient Location: CT Accession/Order Number: [id number] Exam Date: 01/15/2025 14:26 Report Date: 01/15/2025 14:29 At the request of: MELINDA SWENSON DO Procedure: CT chest wo con CT CHEST WITHOUT IV CONTRAST: CLINICAL HISTORY: cavity lesion, pneumonia COMPARISON: CT chest 11/20/2024 TECHNIQUE: Spiral images were obtained through the chest without IV contrast. This CT exam was performed using one or more following dose reduction techniques: Automated exposure control, adjustment of the mA and/or kV according to patient size, or use of iterative reconstruction technique. FINDINGS: Mediastinum:Thoracic ribs is moderate calcification without aneurysm. Pulmonary trunk appears nondilated. No paravertebral effusion. No lymphadenopathy. The esophagus is grossly unremarkable. Lungs:Trace right-sided pleural effusion with consolidative changes involving the right lower lobe with associated mucous plugging. Emphysema. No pneumothorax or left-sided pleural effusion. Scattered areas of lung scarring. The degree of consolidations involving both lungs appear to have improved since the prior study. Abd:Multiple presumed liver cysts, some of which are too small for accurate characterization. No acute process. Soft tissues/Bones: No acute process. Osseous structures demonstrate degenerative change. CT/CT chest wo con IMPRESSION: The degree of bilateral consolidations have improved since the prior CT study from 11/20/2024 with residual consolidation involving the right lower lobe with mucus plugging. There also appears to be a trace right pleural effusion. Continued CT follow-up is recommended to ensure complete resolution. Impression dictated by: Grayson Morrow Jr., D.O.01/15/2025 2:29 PM Dictation Location: [place] [address] Electronically authenticated by: [id number] Y Date: 01/15/2025 14:29
== END 2025-01-15 12:47 | disposition home or self-care (01) ==
LOC: CT 12:46
PROVIDERS: PCP Internal Medicine; Visit Provider Family Medicine
DX: R91.8 Other nonspecific abnormal finding of lung field (principal); J18.9 Pneumonia, unspecified organism
CPT/HCPCS: 71250

== ENCOUNTER 2025-02-19 08:46 | Outpatient (OUT) | payer MEDICARE, SELFPAY ==
[2025-02-19 09:03] LABS: Hemoglobin 10.5 g/dL (14.0-18.0)
--- NOTE | 2025-02-19 09:40 | RT_ITS ---
[facility] Test Date: 2025-02-19 Pat Name: MINNIE FARIAS Department: Room: - Gender: Male Technical Program Manager: Maurisio Hannah RRT : 1950 Requested By: Nicolás James Order Number: [id number] Reading MD: Nicolás James Interpretive Statements Pulmonary function testing was completed according to ATS criteria. Findings were considered accurate and reproducible. Both pre- and post-bronchodilator values utilized for spirometry. Unable to access reported prior PFT. Spirometry (based on pre-bronchodilator values): -FEV1/FVC: Reduced @ 55% -FEV1: Moderately reduced @ 61% -FVC: Normal @ 80% -There is a positive bronchodilator response in FVC. Lung volumes by plethysmography (based on pre-bronchodilator values): -RV: Increased @ 192% -TLC: Increased @ 122% Diffusion capacity: -DLCO: Mild reduction @ 73% when corrected for Hb 10.5g/dL Impressions: -Spirometry suggests moderate obstruction with a positive bronchodilator response. An elevated RV and TLC suggest air trapping and hyperinflation respectively. There is a mildly reduced diffusion capacity. Overall study is compatible COPD with a bronchodilator response vs. asthma-COPD overlap. Clinical correlation required. Electronically Signed On 02-22-2025 16:02:45 EDT by Nicolás James
[2025-02-19] MEDS: ALBUTEROL SULFATE 2.5 MG/3 ML VIAL NEB IH (09:41)
== END 2025-02-19 08:47 | disposition home or self-care (01) ==
LOC: CARD 08:46
PROVIDERS: PCP Internal Medicine; Visit Provider Internal Medicine
DX: J44.9 Chronic obstructive pulmonary disease, unspecified (principal)
CPT/HCPCS: 36415; 85018; 94060; 94726; 94729

== ENCOUNTER 2025-03-22 16:50 | Inpatient (IN) | payer MEDICARE, SELFPAY ==
--- OUTSIDE RECORDS SUMMARY | 2025-01-27 15:07 | XMS_ITS ---
Author Organization OH[facility] Care Team Providers Care Nutrition Educator Name Role Phone JESUS GREWAL Attending Unavailable STEVE BRICEÑO Attending Unavailable YANY VELAZQUEZ JR Primary Care Unavailable ELLA VÁZQUEZ Admitting Unavailable ELLA VÁZQUEZ Attending Unavailable LETTY TOSCANO Consulting Unavailable JENNIFER DENISE Referring Unavailable YANY VELAZQUEZ JR Primary Care Unavailable YANY VELAZQUEZ JR Referring Unavailable YANY VELAZQUEZ JR Primary Care Unavailable YANY VELAZQUEZ JR Referring Unavailable YANY VELAZQUEZ JR Primary Care Unavailable Purpose PROBLEMS DATE TYPE CONDITION / CODE ATTENDING STATUS [facility] 01/20/2025 Unknown Essential (prima ry) hypertension / I10(ICD-10) NA Active [facility] 01/07/2025 Unknown Other fecal abnormalities / R19.5(ICD-10) ELLA VÁZQUEZ [facility] 01/06/2025 Unknown Pneumonia, unspecified organism / J18.9(ICD-10) ELLA VÁZQUEZ [facility] 01/06/2025 Unknown Iron deficiency anemia, unspecified / D50.9(ICD-10) ELLA VÁZQUEZ [facility] 01/06/2025 Unknown Hemorrhage of an us and rectum / K62.5(ICD-10) ELLA VÁZQUEZ [facility] 01/06/2025 Unknown Other symptoms a nd signs involving emotional state / R45.89(ICD-10) ELLA VÁZQUEZ [facility] 01/06/2025 Unknown Hypomagnesemia / E83.42(ICD-10) ELLA VÁZQUEZ [facility] 01/06/2025 Unknown Weakness / R53.1(ICD-10) ELLA VÁZQUEZ [facility] 01/06/2025 Unknown Fatigue / FREETEXT(AOF) ELLA VÁZQUEZ [facility] 01/06/2025 Unknown EMS / UNK(Unknown) ELLA VÁZQUEZ [facility] 03/12/2023 Admitting Diagnosis Permanent atrial fibrillation / I48.21(ICD-10) [facility] Admitting Diagnosis 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) [facility] 03/12/2023 Admitting Diagnosis Disorder of arteries and arterioles, 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) [facility] 03/12/2023 Admitting Diagnosis Essential (primary) hypertension / I10(ICD-10) [facility] 08/10/2024 Admitting Diagnosis 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) [facility] 03/12/2023 Admitting Diagnosis Mixed hyperlipidemia / E78.2(ICD-10) JESUS GREWAL [facility] PROCEDURES No Procedure Records Found VITAL SIGNS No Vital Signs Records Found RESULTS CBC AND AUTO DIFF Collected: 01/27/2025 3:06 PM Stat us: COMPLETED Source: [facility] TYPE CODE TESTS RESULT OUT OF RANGE REFERENCE UNITS LAB WBC(LOINC) WBC COUNT 13.1 High 4.0-11.0 X10E9/L LAB RBC(LOINC) RBC COUNT 3.57 Low 4.10-5.70 X10E12/L LAB HGB(LOINC) HEMOGLOBIN 10.1 Low 13.0-17.0 g/dL LAB HCT(LOINC) HEMATOCRIT 32.4 Low 39-49 % LAB MCV(LOINC) MCV 91 80-100 fL LAB MCH(LOINC) MCH 28.3 27-34 pg LAB MCHC(LOINC) MCHC 31.2 Low 32-36 g/dL LAB RDW(LOINC) RDW 22.4 High 11.5-15.0 % LAB PLTC(LOINC) PLATELET COUNT 306 150-450 X10E9 /L LAB MPV(LOINC) MPV 7.7 7-12 fL LAB MYEL(LOINC) MYELOCYTE 1.0 % LAB BAND(LOINC) BAND 1.0 % LAB NEUTM(LOINC) SEG NEUTROPHIL 85.0 % LAB LYMM(LOINC) LYMPHOCYTE 4.0 % LAB MONOM(LOINC) MONOCYTE 9.0 % LAB ANEUTM(LOINC) ABSOLUTE NEUTROPHILS 11.3 High 1.5-6.6 X10E9/L LAB ALYMM(LOINC) ABSOLUTE LYMPHOCYTE 0.5 Low 1.0-3.5 X10E9/L LAB AMONOM(LOINC) ABSOLUTE MONOCYTES 1.2 High 0-0.9 X10E9/L LAB ANISO(LOINC) ANISOCYTOSIS 2+ Abnormal NONE LAB POLY(LOINC) POLYCHROMASIA 1+ Abnormal NONE LAB VI(LOINC) VI 2+ Abnormal NONE LAB ELLP(LOINC) OVALOCYTE 1+ Abnormal NONE Performed By: #### CBCA #### [facility] ([id number]) [address] [facility] [address] [address], [address] [place] [address] CBC AND AUTO DIFF Collected: 01/20/2025 10:59 A M Status: COMPLETED Source: [facility] TYPE CODE TESTS RESULT OUT OF RANGE REFERENCE UNITS LAB WBC(LOINC) WBC COUNT 4.4 4.0-11.0 X10E9/L LAB RBC(LOINC) RBC COUNT 3.32 Low 4.10-5.70 X10E12/L LAB HGB(LOINC) HEMOGLOBIN 9.6 Low 13.0-17.0 g/dL LAB HCT(LOINC) HEMATOCRIT 29.5 Low 39-49 % LAB MCV(LOINC) MCV 89 80-100 fL LAB MCH(LOINC) MCH 28.9 27-34 pg LAB MCHC(LOINC) MCHC 32.6 32-36 g/dL LAB RDW(LOINC) RDW 20.7 High 11.5-15.0 % LAB PLTC(LOINC) PLATELET COUNT 491 High 150-450 X10E9 /L LAB MPV(LOINC) MPV 7.1 7-12 fL LAB NEUT(LOINC) % NEUTROPHILS 60.2 % LAB LYMP(LOINC) % LYMPHOCYTES 22.8 % LAB MONO(LOINC) % MONOCYTES 14.1 % LAB EOS(LOINC) % EOSINOPHILS 2.6 % LAB BASO(LOINC) % BASOPHILS 0.3 % LAB ANEUT(LOINC) ABSOLUTE NEUTROPHIL 2.6 1.5-6.6 X10E9/L LAB ALYMP(LOINC) ABSOLUTE LYMPHOCYTE 1.0 1.0-3.5 X10E9/L LAB AMONO(LOINC) ABSOLUTE MONOCYTE 0.6 0-0.9 X10E9/L LAB AEOS(LOINC) ABSOLUTE EOSINOPHIL 0.1 0.0-0.4 X10E9/L LAB ABASO(LOINC) ABSOLUTE BASOPHIL 0.0 0.0-0.2 X10E9/L Performed By: #### CBCA #### [facility] ([id number]) [address] [place] [address], [address] [place] [address] COMPLETE BLOOD COUNT Collected: 01/13/2025 1:19 PM Status: COMPLETED Source: [facility] TYPE CODE TESTS RESULT OUT OF RANGE REFERENCE UNITS LAB WBC(LOINC) WBC COUNT 3.7 Low 4.0-11.0 X10E9/L LAB RBC(LOINC) RBC COUNT 3.48 Low 4.10-5.70 X10E12/L LAB HGB(LOINC) HEMOGLOBIN 9.5 Low 13.0-17.0 g/dL LAB HCT(LOINC) HEMATOCRIT 28.8 Low 39-49 % LAB MCV(LOINC) MCV 83 80-100 fL LAB MCH(LOINC) MCH 27.4 27-34 pg LAB MCHC(LOINC) MCHC 33.1 32-36 g/dL LAB RDW(LOINC) RDW 16.4 High 11.5-15.0 % LAB PLTC(LOINC) PLATELET COUNT 187 150-450 X10E9 /L LAB MPV(LOINC) MPV 7.9 7-12 fL Performed By: #### CBC, 2 3-9 #### [facility] ([id number]) [address] [facility] [address], [address] [place] [address] MAGNESIUM Collected: 01/13/2025 1:19 PM S tatus: COMPLETED Source: [facility] TYPE CODE TESTS RESULT OUT OF RANGE REFERENCE UNITS LAB MG(LOINC) MAGNESIUM 1.6 Low 1.8-2.6 mg/dL Performed By: #### CBC, 1911 3-9 #### [facility] ([id number]) [address] [facility], [address] [place] [address] MAGNESIUM Collected: 01/10/2025 2:04 PM S tatus: COMPLETED Source: [facility] TYPE CODE TESTS RESULT OUT OF RANGE REFERENCE UNITS LAB MG(LOINC) MAGNESIUM 1.9 1.8-2.6 mg/dL Performed By: #### 99600-5 # ### [facility] ([id number]) [address] [place] [address], [place] [address] BEDSIDE GLUCOSE LAB Collected: 01/10/2025 12:41 PM Status: COMPLETED Source: [facility] TYPE CODE TESTS RESULT OUT OF RANGE REFERENCE UNITS LAB BEDG(LOINC) BEDSIDE GLUCOSE LAB 115 High 65-99 mg/dL XR CHEST 1 VW Observed: 01/10/2025 9:09 AM Status: COMPLETED Source: [facility] XR CHEST 1 VW Clinical History: Pneumonia. Portable Upright chest: 01/10/2025 Comparison: 01/06/2025 Findings: A single portable view of the chest was obtained. The cardiac silhouette is enlarged with aortic tortuosity. The patient is post sternotomy. There is strandy density in the retrocardiac lung bases. No pneumothorax or pleural effusion is present. IMPRESSION: Basilar opacities compatible with scarring or atelectasis Finalized by Brendan Rinaldi MD on 01/10/2025 9:13 AM BEDSIDE GLUCOSE LAB Collected: 01/10/2025 8:09 AM Status: COMPLETED Source: [facility] TYPE CODE TESTS RESULT OUT OF RANGE REFERENCE UNITS LAB BEDG(LOINC) BEDSIDE GLUCOSE LAB 102 High 65-99 mg/dL COMPREHENSIVE METABOLIC PANEL Collected: 2024 4:46 AM Status: COMPLETED Source: [facility] TYPE CODE TESTS RESULT OUT OF RANGE REFERENCE UNITS LAB NA(LOINC) SODIUM 131 Low 134-146 mmol/L LAB K(LOINC) POTASSIUM 3.8 3.5-5.0 mmol/L LAB CL(LOINC) CHLORIDE 103 98-109 mmol/L LAB CO2(LOINC) CARBON DIOXIDE 23 22-32 mmol/L LAB AGAP(LOINC) ANION GAP 5 5-15 mmol/L LAB BUN(LOINC) BLOOD UREA NITROGEN 7 5-27 mg/dL LAB CRET(LOINC) CREATININE 0.61 Low 0.70-1.20 mg/dL Result Comment: METHOD TRACE ABLE TO IDMS STANDARD LAB GLU(LOINC) GLUCOSE 105 High 65-99 mg/dL LAB CA(LOINC) CALCIUM 7.7 Low 8.5-10.5 mg/dL LAB TP(LOINC) TOTAL PROTEIN 4.9 Low 6.0-8.0 g/dL LAB ALB(LOINC) ALBUMIN 2.8 Low 3.2-5.3 g/dL LAB ALK(LOINC) ALKALINE PHOSPHATASE 62 39-130 U/L LAB AST(LOINC) AST 27 0-41 U/L LAB ALT1(LOINC) ALT 43 High 0-40 U/L LAB TBIL(LOINC) BILIRUBIN,TOTAL 0.9 0.3-1.2 mg/d L LAB EGFR(LOINC) eGFR (CKD-EPI) NON-RACE DEPENDENT >90 >59 ml/min/1 .73sq.m Result Comment: Reported eGFR is based on the CKD-EPI 2020 equation that does not use a race coefficient. Performed By: #### CMP, CBC, 15989-1 #### [facility] ([id number]) [address] [place] [address], [place] [address] COMPLETE BLOOD COUNT Collected: 01/10/2025 4:46 AM Status: COMPLETED Source: [facility] TYPE CODE TESTS RESULT OUT OF RANGE REFERENCE UNITS LAB WBC(LOINC) WBC COUNT 4.5 4.0-11.0 X10E9/L LAB RBC(LOINC) RBC COUNT 3.11 Low 4.10-5.70 X10E12/L LAB HGB(LOINC) HEMOGLOBIN 8.7 Low 13.0-17.0 g/dL LAB HCT(LOINC) HEMATOCRIT 25.2 Low 39-49 % LAB MCV(LOINC) MCV 81 80-100 fL LAB MCH(LOINC) MCH 28.0 27-34 pg LAB MCHC(LOINC) MCHC 34.6 32-36 g/dL LAB RDW(LOINC) RDW 15.3 High 11.5-15.0 % LAB PLTC(LOINC) PLATELET COUNT 71 Low 150-450 X10E9 /L LAB MPV(LOINC) MPV 7.8 7-12 fL Performed By: #### CMP, CBC, 39116-8 #### [facility] ([id number]) [address] [place] [address] MAGNESIUM Collected: 01/10/2025 4:46 AM S tatus: COMPLETED Source: [facility] TYPE CODE TESTS RESULT OUT OF RANGE REFERENCE UNITS LAB MG(LOINC) MAGNESIUM 1.7 Low 1.8-2.6 mg/dL Performed By: #### CMP, CBC, 45378-0 #### [facility] ([id number]) [address] [place] [address] BEDSIDE GLUCOSE LAB Collected: 01/09/2025 8:56 PM Status: COMPLETED Source: [facility] TYPE CODE TESTS RESULT OUT OF RANGE REFERENCE UNITS LAB BEDG(LOINC) BEDSIDE GLUCOSE LAB 118 High 65-99 mg/dL HGB Collected: 01/09/2025 8:16 PM S tatus: COMPLETED Source: [facility] TYPE CODE TESTS RESULT OUT OF RANGE REFERENCE UNITS LAB HGB(LOINC) HEMOGLOBIN 8.6 Low 13.0-17.0 g/dL LAB HCT(LOINC) HEMATOCRIT 25.2 Low 39-49 % Performed By: #### HH, 90763 -9 #### [facility] ([id number]) [address] [place] [address] MAGNESIUM Collected: 01/09/2025 8:16 PM S tatus: COMPLETED Source: [facility] TYPE CODE TESTS RESULT OUT OF RANGE REFERENCE UNITS LAB MG(LOINC) MAGNESIUM 1.9 1.8-2.6 mg/dL Performed By: #### , 35560 -9 #### [facility] ([id number]) [address] [place] [address] BEDSIDE GLUCOSE LAB Collected: 01/09/2025 5:45 PM Status: COMPLETED Source: [facility] TYPE CODE TESTS RESULT OUT OF RANGE REFERENCE UNITS LAB BEDG(LOINC) BEDSIDE GLUCOSE LAB 151 High 65-99 mg/dL BEDSIDE GLUCOSE LAB Collected: 01/09/2025 12:15 PM Status: COMPLETED Source: [facility] TYPE CODE TESTS RESULT OUT OF RANGE REFERENCE UNITS LAB BEDG(LOINC) BEDSIDE GLUCOSE LAB 118 High 65-99 mg/dL COMPREHENSIVE METABOLIC PANEL Collected: 2024 4:50 AM Status: COMPLETED Source: [facility] TYPE CODE TESTS RESULT OUT OF RANGE REFERENCE UNITS LAB NA(LOINC) SODIUM 130 Low 134-146 mmol/L LAB K(LOINC) POTASSIUM 3.9 3.5-5.0 mmol/L LAB CL(LOINC) CHLORIDE 102 98-109 mmol/L LAB CO2(LOINC) CARBON DIOXIDE 22 22-32 mmol/L LAB AGAP(LOINC) ANION GAP 6 5-15 mmol/L LAB BUN(LOINC) BLOOD UREA NITROGEN 10 5-27 mg/dL LAB CRET(LOINC) CREATININE 0.56 Low 0.70-1.20 mg/dL Result Comment: METHOD TRACE ABLE TO IDMS STANDARD LAB GLU(LOINC) GLUCOSE 116 High 65-99 mg/dL LAB CA(LOINC) CALCIUM 7.4 Low 8.5-10.5 mg/dL LAB TP(LOINC) TOTAL PROTEIN 4.8 Low 6.0-8.0 g/dL LAB ALB(LOINC) ALBUMIN 2.6 Low 3.2-5.3 g/dL LAB ALK(LOINC) ALKALINE PHOSPHATASE 58 39-130 U/L LAB AST(LOINC) AST 23 0-41 U/L LAB ALT1(LOINC) ALT 36 0-40 U/L LAB TBIL(LOINC) BILIRUBIN,TOTAL 0.8 0.3-1.2 mg/d L LAB EGFR(LOINC) eGFR (CKD-EPI) NON-RACE DEPENDENT >90 >59 ml/min/1 .73sq.m Result Comment: Reported eGFR is based on the CKD-EPI 2020 equation that does not use a race coefficient. Performed By: #### JUVENAL, 01-03, CBC #### [facility] ([id number]) [address] [place] [address] MAGNESIUM Collected: 01/09/2025 4:50 AM S tatus: COMPLETED Source: [facility] TYPE CODE TESTS RESULT OUT OF RANGE REFERENCE UNITS LAB MG(LOINC) MAGNESIUM 1.8 1.8-2.6 mg/dL Performed By: #### JUVENAL, 01-03, CBC #### [facility] ([id number]) [address] [place] [address] COMPLETE BLOOD COUNT Collected: 01/09/2025 4:50 AM Status: COMPLETED Source: [facility] TYPE CODE TESTS RESULT OUT OF RANGE REFERENCE UNITS LAB WBC(LOINC) WBC COUNT 3.8 Low 4.0-11.0 X10E9/L LAB RBC(LOINC) RBC COUNT 2.69 Low 4.10-5.70 X10E12/L LAB HGB(LOINC) HEMOGLOBIN 7.6 Low 13.0-17.0 g/dL LAB HCT(LOINC) HEMATOCRIT 22.1 Low 39-49 % LAB MCV(LOINC) MCV 82 80-100 fL LAB MCH(LOINC) MCH 28.3 27-34 pg LAB MCHC(LOINC) MCHC 34.5 32-36 g/dL LAB RDW(LOINC) RDW 15.4 High 11.5-15.0 % LAB PLTC(LOINC) PLATELET COUNT 64 Low 150-450 X10E9 /L LAB MPV(LOINC) MPV 7.7 7-12 fL Performed By: #### JUVENAL, 1912 3-9, CBC #### [facility] ([id number]) [address] [place] [address] POTASSIUM Collected: 01/08/2025 9:25 PM S tatus: COMPLETED Source: [facility] TYPE CODE TESTS RESULT OUT OF RANGE REFERENCE UNITS LAB K(LOINC) POTASSIUM 4.0 3.5-5.0 mmol/L Performed By: #### 2823-3, 1 9123-9 #### [facility] ([id number]) [address] [place] [address] MAGNESIUM Collected: 01/08/2025 9:25 PM S tatus: COMPLETED Source: [facility] TYPE CODE TESTS RESULT OUT OF RANGE REFERENCE UNITS LAB MG(LOINC) MAGNESIUM 1.9 1.8-2.6 mg/dL Performed By: #### 2823-3, 1 9123-9 #### [facility] ([id number]) [address] [place] [address] BEDSIDE GLUCOSE LAB Collected: 01/08/2025 9:12 PM Status: COMPLETED Source: [facility] TYPE CODE TESTS RESULT OUT OF RANGE REFERENCE UNITS LAB BEDG(LOINC) BEDSIDE GLUCOSE LAB 136 High 65-99 mg/dL BEDSIDE GLUCOSE LAB Collected: 01/08/2025 6:39 PM Status: COMPLETED Source: [facility] TYPE CODE TESTS RESULT OUT OF RANGE REFERENCE UNITS LAB BEDG(LOINC) BEDSIDE GLUCOSE LAB 112 High 65-99 mg/dL HGB Collected: 01/08/2025 4:57 PM S tatus: COMPLETED Source: [facility] TYPE CODE TESTS RESULT OUT OF RANGE REFERENCE UNITS LAB HGB(LOINC) HEMOGLOBIN 8.2 Low 13.0-17.0 g/dL LAB HCT(LOINC) HEMATOCRIT 25.2 Low 39-49 % Performed By: #### HH #### [facility] ([id number]) [address] [place] [address] SURGICAL PATHOLOGY Collected: 11:07 AM Status: COMPLETED Source: [facility] TYPE CODE TESTS RESULT OUT OF RANGE REFERENCE UNITS LAB [id number]&rpt Surgical Pathology Result Comment: [facility] [address] [place] [address] Surgical Pathology Consultation Patient Name:MINNIE JASON:1950 (Age: 74)Gender:MTaken:01/08/2025Reported:01/14/2025Physician(s):Letty Toscano D.O. ([phone])Copy To: Rec. #:[id number]: #[id number] Final Pathologic Diagnosis 1. Stomach, prepyloric, biopsy: Junctional mucosa with mild reactive changes. No histological evidence of H. pylori infection on routine stain. 2. Stomach, cardia, biopsy: Gastric mucosa with hyperplastic changes. 3. Transverse colon, polypectomy: Tubular adenoma. Report Electronically Signed Out rg/01/14/2025Ronadwoa Stanton MD Interpretation performed at [facility], [address] [place] [address], License number: [id number]. Clinical History Occult blood positive stool R19.5. Gross Description 1. Received in formalin labeled DINORA, prepyloric biopsy is a light campos soft tissue bit, 0.4 cm. The specimen is filtered and entirely submitted in a single cassette. (1, ns, [id number],m3) DM. 2. Received in formalin labeled DINORA, cardia biopsy are two light campos soft tissue bits, 0.2 cm each. The specimen is filtered and entirely submitted in a single cassette. (1, ns, [id number],m3) DM. 3. Received in formalin labeled DINORA, transverse colon polyp is a light campos soft tissue bit, 0.3 cm. The specimen is filtered and entirely submitted in a single cassette. (1, ns, [id number],m3) DM. dm/01/09/2025GR Specimen(s) Received 1: Pre-pyloric biopsy 2: Cardia biopsy 3: Transverse colon polyp x2 Fee Codes(s): 1; 25265 2; 55949 3; 82737 COMPREHENSIVE METABOLIC PANEL Collected: 2024 4:22 AM Status: COMPLETED Source: [facility] TYPE CODE TESTS RESULT OUT OF RANGE REFERENCE UNITS LAB NA(LOINC) SODIUM 131 Low 134-146 mmol/L LAB K(LOINC) POTASSIUM 3.6 3.5-5.0 mmol/L LAB CL(LOINC) CHLORIDE 102 98-109 mmol/L LAB CO2(LOINC) CARBON DIOXIDE 21 Low 22-32 mmol/L LAB AGAP(LOINC) ANION GAP 8 5-15 mmol/L LAB BUN(LOINC) BLOOD UREA NITROGEN 19 5-27 mg/dL LAB CRET(LOINC) CREATININE 0.54 Low 0.70-1.20 mg/dL Result Comment: METHOD TRACE ABLE TO IDMS STANDARD LAB GLU(LOINC) GLUCOSE 104 High 65-99 mg/dL LAB CA(LOINC) CALCIUM 8.0 Low 8.5-10.5 mg/dL LAB TP(LOINC) TOTAL PROTEIN 5.5 Low 6.0-8.0 g/dL LAB ALB(LOINC) ALBUMIN 3.0 Low 3.2-5.3 g/dL LAB ALK(LOINC) ALKALINE PHOSPHATASE 65 39-130 U/L LAB AST(LOINC) AST 26 0-41 U/L LAB ALT1(LOINC) ALT 45 High 0-40 U/L LAB TBIL(LOINC) BILIRUBIN,TOTAL 1.0 0.3-1.2 mg/d L LAB EGFR(LOINC) eGFR (CKD-EPI) NON-RACE DEPENDENT >90 >59 ml/min/1 .73sq.m Result Comment: Reported eGFR is based on the CKD-EPI 2020 equation that does not use a race coefficient. Performed By: #### CMP, CBC, 35640-1 #### [facility] ([id number]) [address] [place] [address], [place] [address] COMPLETE BLOOD COUNT Collected: 01/08/2025 4:22 AM Status: COMPLETED Source: [facility] TYPE CODE TESTS RESULT OUT OF RANGE REFERENCE UNITS LAB WBC(LOINC) WBC COUNT 5.5 4.0-11.0 X10E9/L LAB RBC(LOINC) RBC COUNT 3.17 Low 4.10-5.70 X10E12/L LAB HGB(LOINC) HEMOGLOBIN 9.0 Low 13.0-17.0 g/dL LAB HCT(LOINC) HEMATOCRIT 25.9 Low 39-49 % LAB MCV(LOINC) MCV 82 80-100 fL LAB MCH(LOINC) MCH 28.4 27-34 pg LAB MCHC(LOINC) MCHC 34.8 32-36 g/dL LAB RDW(LOINC) RDW 15.5 High 11.5-15.0 % LAB PLTC(LOINC) PLATELET COUNT 83 Low 150-450 X10E9 /L LAB MPV(LOINC) MPV 7.6 7-12 fL Performed By: #### CMP, CBC, 28415-3 #### [facility] ([id number]) [address] [place] [address] MAGNESIUM Collected: 01/08/2025 4:22 AM S tatus: COMPLETED Source: [facility] TYPE CODE TESTS RESULT OUT OF RANGE REFERENCE UNITS LAB MG(INC) MAGNESIUM 1.6 Low 1.8-2.6 mg/dL Performed By: #### CMP, CBC, 86745-1 #### [facility] ([id number]) [address] [place] [address] BEDSIDE GLUCOSE LAB Collected: 01/07/2025 9:49 PM Status: COMPLETED Source: [facility] TYPE CODE TESTS RESULT OUT OF RANGE REFERENCE UNITS LAB BEDG([facility]) BEDSIDE GLUCOSE LAB 103 High 65-99 mg/dL BEDSIDE GLUCOSE LAB Collected: 01/07/2025 6:07 PM Status: COMPLETED Source: [facility] TYPE CODE TESTS RESULT OUT OF RANGE REFERENCE UNITS LAB BEDG([facility]) BEDSIDE GLUCOSE LAB 109 High 65-99 mg/dL HGB Collected: 01/07/2025 5:29 PM S tatus: COMPLETED Source: [facility] TYPE CODE TESTS RESULT OUT OF RANGE REFERENCE UNITS LAB HGB(INC) HEMOGLOBIN 9.1 Low 13.0-17.0 g/dL LAB HCT(LOINC) HEMATOCRIT 26.2 Low 39-49 % Performed By: #### HH #### [facility] ([id number]) [address] [place] [address], [place] [address] BEDSIDE GLUCOSE LAB Collected: 01/07/2025 11:55 AM Status: COMPLETED Source: [facility] TYPE CODE TESTS RESULT OUT OF RANGE REFERENCE UNITS LAB BEDG(LOINC) BEDSIDE GLUCOSE LAB 123 High 65-99 mg/dL BEDSIDE GLUCOSE LAB Collected: 01/07/2025 10:22 AM Status: COMPLETED Source: [facility] TYPE CODE TESTS RESULT OUT OF RANGE REFERENCE UNITS LAB BEDG(LOINC) BEDSIDE GLUCOSE LAB 113 High 65-99 mg/dL COMPLETE BLOOD COUNT Collected: 01/07/2025 3:38 AM Status: COMPLETED Source: [facility] TYPE CODE TESTS RESULT OUT OF RANGE REFERENCE UNITS LAB WBC(LOINC) WBC COUNT 4.5 4.0-11.0 X10E9/L LAB RBC(LOINC) RBC COUNT 3.17 Low 4.10-5.70 X10E12/L LAB HGB(LOINC) HEMOGLOBIN 8.9 Low 13.0-17.0 g/dL LAB HCT(LOINC) HEMATOCRIT 26.1 Low 39-49 % LAB MCV(LOINC) MCV 83 80-100 fL LAB MCH(LOINC) MCH 28.0 27-34 pg LAB MCHC(LOINC) MCHC 34.0 32-36 g/dL LAB RDW(LOINC) RDW 15.9 High 11.5-15.0 % LAB PLTC(LOINC) PLATELET COUNT 101 Low 150-450 X10E9 /L LAB MPV(LOINC) MPV 7.5 7-12 fL Performed By: #### CBC, CMP, 89766-0, 05599-4, 1988-5, 51325-6 #### [facility] ([id number]) [address] [place] [address] #### 13328-1, FEPR, 2276-4 #### [facility] ([id number]) [address] [facility], [address] [place] [address] COMPREHENSIVE METABOLIC PANEL Collected: 2024 3:38 AM Status: COMPLETED Source: [facility] TYPE CODE TESTS RESULT OUT OF RANGE REFERENCE UNITS LAB NA(LOINC) SODIUM 132 Low 134-146 mmol/L LAB K(LOINC) POTASSIUM 4.1 3.5-5.0 mmol/L LAB CL(LOINC) CHLORIDE 103 98-109 mmol/L LAB CO2(LOINC) CARBON DIOXIDE 24 22-32 mmol/L LAB AGAP(LOINC) ANION GAP 5 5-15 mmol/L LAB BUN(LOINC) BLOOD UREA NITROGEN 21 5-27 mg/dL LAB CRET(LOINC) CREATININE 0.65 Low 0.70-1.20 mg/dL Result Comment: METHOD TRACE ABLE TO IDMS STANDARD LAB GLU(LOINC) GLUCOSE 95 65-99 mg/dL LAB CA(LOINC) CALCIUM 7.6 Low 8.5-10.5 mg/dL LAB TP(LOINC) TOTAL PROTEIN 5.0 Low 6.0-8.0 g/dL LAB ALB(LOINC) ALBUMIN 2.8 Low 3.2-5.3 g/dL LAB ALK(LOINC) ALKALINE PHOSPHATASE 59 39-130 U/L LAB AST(LOINC) AST 19 0-41 U/L LAB ALT1(LOINC) ALT 40 0-40 U/L LAB TBIL(LOINC) BILIRUBIN,TOTAL 0.8 0.3-1.2 mg/d L LAB EGFR(LOINC) eGFR (CKD-EPI) NON-RACE DEPENDENT >90 >59 ml/min/1 .73sq.m Result Comment: Reported eGFR is based on the CKD-EPI 2020 equation that does not use a race coefficient. Performed By: #### UNIQUE, CMP, 03077-8, 49991-2, 1987-5, 26657-3 #### [facility] ([id number]) [address] [place] [address], [place] [address] #### 00829-4, FEPR, 2276-4 #### [facility] ([id number]) [address] [place] [address], [address] [place] [address] MAGNESIUM Collected: 01/07/2025 3:38 AM S tatus: COMPLETED Source: [facility] TYPE CODE TESTS RESULT OUT OF RANGE REFERENCE UNITS LAB MG(LOINC) MAGNESIUM 1.9 1.8-2.6 mg/dL Performed By: #### CBC, CMP, 76945-4, 90013-4, 1987-, 96326-9 #### [facility] ([id number]) [address] [place] [address] #### 46179-5, FEPR, 6-4 #### [facility] ([id number]) [facility], [address] [address] BRN NATRIURETIC PEP Collected: 01/07/2025 3:38 AM Status: COMPLETED Source: [facility] TYPE CODE TESTS RESULT OUT OF RANGE REFERENCE UNITS LAB BNP(LOINC) BRN NATRIURETIC PEP 86 <100.0 pg/mL Performed By: #### CBC, CMP, 68154-5, 04015-6, 1988-02, 64744-0 #### [facility] ([id number]) [address] [place] [address] #### 31982-4, FEPR, 6-4 #### [facility] ([id number]) [address] [place] [address] C REACTIVE PROTEIN Collected: 01/07/2025 3:38 A M Status: COMPLETED Source: [facility] TYPE CODE TESTS RESULT OUT OF RANGE REFERENCE UNITS LAB CRP(LOINC) C REACTIVE PROTEIN <0.5 0.000-0.744 mg/dL Performed By: #### CBC, CMP, 92030-7, 67667-3, 1988-02, 63519-0 #### [facility] ([id number]) [address] [place] [address] #### 79340-5, FEPR, 2276-4 #### [facility] ([id number]) [address] [place] [address] PROCALCITONIN Collected: 01/07/2025 3:38 AM Status: COMPLETED Source: [facility] TYPE CODE TESTS RESULT OUT OF RANGE REFERENCE UNITS LAB PCAL(LOINC) PROCALCITONIN <0.05 <0.05 ng/mL Result Comment: NOTE <0.50 ng/mL - Low risk of severe sepsis and/or septic shock. <2.00 ng/mL - Recommend retesting within 6-24 hours. >2.00 ng/mL - High risk of sepsis and/or septic shock. Performed By: #### CBC, CMP, 04126-6, 62015-8, 1988-02, 08963-1 #### [facility] ([id number]) [address] [place] [address] #### 21050-4, FEPR, 4 #### [facility] ([id number]) [address] [place] [address], [address] [place] [address] DIGOXIN Collected: 01/07/2025 3:38 AM S tatus: COMPLETED Source: [facility] TYPE CODE TESTS RESULT OUT OF RANGE REFERENCE UNITS LAB DIGO(LOINC) DIGOXIN 1.3 0.8-2.0 ng/mL Performed By: #### UNIQUE, CMP, 32729-1, 88459-9, 1988-02, 51595-3 #### [facility] ([id number]) [address] [place] [address] #### 42135-1, FEPR, 2276-01 #### [facility] ([id number]) [address] [place] [address], [address] [place] [address] IRON PROFILE Collected: 3:38 AM Status: COMPLETED Source: [facility] TYPE CODE TESTS RESULT OUT OF RANGE REFERENCE UNITS LAB FE(LOINC) IRON 196 50-212 ug/dL LAB TIBC(LOINC) IRON BINDING 263 250-425 ug/dL LAB SAT(LOINC) IRON SATURATION 74 High 20-50 % SATURATION Performed By: #### CBC, CMP, 10181-7, 57334-5, 1988-02, 00013-0 #### [facility] ([id number]) [address] [place] [address] #### 40111-1, FEPR, 4 #### [facility] ([id number]) [address] [facility], [address] [place] [address] FERRITIN Collected: 01/07/2025 3:38 AM S tatus: COMPLETED Source: [facility] TYPE CODE TESTS RESULT OUT OF RANGE REFERENCE UNITS LAB FERR(LOINC) FERRITIN 197 24-336 ng/mL Performed By: #### CBC, CMP, 85950-9, 46203-6, 1988-5, 76949-0 #### [facility] ([id number]) [address] [place] [address] #### 26373-5, FEPR, 2276-4 #### [facility] ([id number]) [address] [place] [address], [address] [place] [address] URN MACROSCOPIC CHRISTOPH Collected: 01/06/2025 7:06 PM Status: COMPLETED Source: [facility] TYPE CODE TESTS RESULT OUT OF RANGE REFERENCE UNITS LAB SPGRN(LOINC) SPECIFIC GRAVITY CHRISTOPH 1.020 1.003-1.035 LAB LESTN(LOINC) LEUKOCYTE ESTERASE CHRISTOPH Negative (qualifier value) NEG LAB NITN(LOINC) NITRITE CHRISTOPH Negative (qualifier value) NEG LAB PHURN(LOINC) PH CHRISTOPH 6.5 5.0-8.5 LAB PRURN(LOINC) PROTEIN CHRISTOPH Trace Abnormal NEG mg/dL LAB GLURN(LOINC) GLUCOSE CHRISTOPH >=1000 Abnormal NEG mg/dL LAB KETN(LOINC) KETONES CHRISTOPH 15 Abnormal NEG mg/dL LAB UROBN(LOINC) UROBILINOGEN CHRISTOPH 0.2 <1.1 eu/dL LAB BILEN(LOINC) BILIRUBIN CHRISTOPH Negative (qualifier value) NEG LAB BLURN(LOINC) BLOOD/HGB CHRISTOPH Trace Abnormal NEG Performed By: #### NUM #### [facility] ([id number]) [address] [place] [address] 1 HOUR TROP I, HIGH SENSITIVITY Collected: 12/26 5:34 PM Status: COMPLETED Source: [facility] TYPE CODE TESTS RESULT OUT OF RANGE REFERENCE UNITS LAB TNIHS1(LOINC) 1 HOUR TROP I, HIGH SENSITIVITY 19 <21 ng/L Performed By: #### 83533-9 # ### [facility] ([id number]) [address] [facility] [place], [place] [address] XR CHEST 1 VW Observed: 01/06/2025 5:17 PM Status: COMPLETED Source: [facility] XR CHEST 1 VW XR CHEST 1 VW History: Cough. Weakness One view study. Comparison: None Impression: * Airspace disease or infiltrate has developed in the inferior right lung field. This may represent pneumonia in the appropriate setting. Sternotomy wires are noted. The cardiac silhouette size is at the upper limits of normal. Vasculature suggest pulmonary hypertension. There is no pneumothorax. No large effusion. After treatment follow-up imaging is advised. Finalized by Renetta Meng MD on 01/06/2025 5:56 PM CBC AND AUTO DIFF Collected: 01/06/2025 4:31 PM Status: COMPLETED Source: [facility] TYPE CODE TESTS RESULT OUT OF RANGE REFERENCE UNITS LAB WBC(LOINC) WBC COUNT 7.1 4.0-11.0 X10E9/L LAB RBC(LOINC) RBC COUNT 3.16 Low 4.10-5.70 X10E12/L LAB HGB(LOINC) HEMOGLOBIN 8.9 Low 13.0-17.0 g/dL LAB HCT(LOINC) HEMATOCRIT 26.2 Low 39-49 % LAB MCV(LOINC) MCV 83 80-100 fL LAB MCH(LOINC) MCH 28.1 27-34 pg LAB MCHC(LOINC) MCHC 34.0 32-36 g/dL LAB RDW(LOINC) RDW 15.7 High 11.5-15.0 % LAB PLTC(LOINC) PLATELET COUNT 104 Low 150-450 X10E9 /L LAB MPV(LOINC) MPV 7.3 7-12 fL LAB NEUT(LOINC) % NEUTROPHILS 84.4 % LAB LYMP(LOINC) % LYMPHOCYTES 9.3 % LAB MONO(LOINC) % MONOCYTES 5.4 % LAB EOS(LOINC) % EOSINOPHILS 0.5 % LAB BASO(LOINC) % BASOPHILS 0.4 % LAB ANEUT(LOINC) ABSOLUTE NEUTROPHIL 6.0 1.5-6.6 X10E9/L LAB ALYMP(LOINC) ABSOLUTE LYMPHOCYTE 0.7 Low 1.0-3.5 X10E9/L LAB AMONO(LOINC) ABSOLUTE MONOCYTE 0.4 0-0.9 X10E9/L LAB AEOS(LOINC) ABSOLUTE EOSINOPHIL 0.0 0.0-0.4 X10E9/L LAB ABASO(LOINC) ABSOLUTE BASOPHIL 0.0 0.0-0.2 X10E9/L Performed By: #### CBCA, 895 79-7, [facility], 05858-1 #### [facility] ([id number]) [address] [place] [address] TROPONIN I, HIGH SENSITIVITY Collected: 4:31 PM Status: COMPLETED Source: [facility] TYPE CODE TESTS RESULT OUT OF RANGE REFERENCE UNITS LAB TNIHS(INC) TROPONIN I, HIGH SENSITIVITY 17 <21 ng/L Performed By: #### CBCA, 895 79-7, [facility], 57886-6 #### [facility] ([id number]) [address] [place] [address] COMPREHENSIVE METABOLIC PANEL Collected: 2024 4:31 PM Status: COMPLETED Source: [facility] TYPE CODE TESTS RESULT OUT OF RANGE REFERENCE UNITS LAB NA(LOINC) SODIUM 130 Low 134-146 mmol/L LAB K(LOINC) POTASSIUM 4.5 3.5-5.0 mmol/L LAB CL(LOINC) CHLORIDE 104 98-109 mmol/L LAB CO2(LOINC) CARBON DIOXIDE 23 22-32 mmol/L LAB AGAP(LOINC) ANION GAP 3 Low 5-15 mmol/L LAB BUN(LOINC) BLOOD UREA NITROGEN 21 5-27 mg/dL LAB CRET(LOINC) CREATININE 0.70 0.70-1.20 mg/dL Result Comment: METHOD TRACE ABLE TO IDMS STANDARD LAB GLU(LOINC) GLUCOSE 167 High 65-99 mg/dL LAB CA(LOINC) CALCIUM 7.6 Low 8.5-10.5 mg/dL LAB TP(LOINC) TOTAL PROTEIN 5.2 Low 6.0-8.0 g/dL LAB ALB(LOINC) ALBUMIN 2.7 Low 3.2-5.3 g/dL LAB ALK(LOINC) ALKALINE PHOSPHATASE 61 39-130 U/L LAB AST(LOINC) AST 23 0-41 U/L LAB ALT1(LOINC) ALT 44 High 0-40 U/L LAB TBIL(LOINC) BILIRUBIN,TOTAL 0.9 0.3-1.2 mg/d L LAB EGFR(LOINC) eGFR (CKD-EPI) NON-RACE DEPENDENT >90 >59 ml/min/1 .73sq.m Result Comment: Reported eGFR is based on the CKD-EPI 2020 equation that does not use a race coefficient. Performed By: #### JOAQUIN, 895 79-7, [facility], 13270-5 #### [facility] ([id number]) [address] [place] [address]28[address] MAGNESIUM Collected: 01/06/2025 4:31 PM S tatus: COMPLETED Source: [facility] TYPE CODE TESTS RESULT OUT OF RANGE REFERENCE UNITS LAB MG(LOINC) MAGNESIUM 1.9 1.8-2.6 mg/dL Performed By: #### CBCA, 895 79-7, [facility], 97942-2 #### [facility] ([id number]) [address] [place] [address] SARS/FLU A+B/RSV BY NAAT/MOLECULAR Observed: 01/06/2025 4:30 PM Status: COMPLETED Source: [facility] FLU A PCR Negative (qualifier value) FLU B PCR Negative (qualifier value) RSV by PCR Negative (qualifier value) SARS CoV 2 Not detected (qualifier value) NOTE The Xpert Xpress SARS-CoV-2/Flu/RSV Plus test is a rapid, multiplexed real-time RT-PCR test intended for the simultaneous qualitative detection and differentiation of SARS-CoV-2, influenza A, influenza B and respiratory syncytial virus (RSV) viral RNA from individuals suspected of respiratory viral infection consistent with COVID-19 by their healthcare provider. This test has not been validated in asymptomatic patients. The Xpert Xpress SARS-CoV-2 test is intended for use by qualified and trained operators who are performing tests using either VHT or A.P.Pharmaity systems and is limited to laboratories that meet the CLIA requirements to perform high and moderate complexity tests. The Xpert Xpress SARS-CoV-2/Flu/RSV Plus is only for use under the Food and Drug Administration's Emergency Use Authorization. Results are for the simultaneous detection and differentiation of SARS-CoV-2, influenza A, influenza B and RSV nucleic acids in clinical specimens. SARS-CoV-2, influenza A, influenza B and RSV RNA identified by this test are generally detectable in upper respiratory samples during the acute phase of infection. Positive results are indicative of the presence of the identified virus, but do not rule out bacterial infection or co-infection with other pathogens not detected by this test. Clinical correlation with patient history and other diagnostic information is necessary to determine patient infection status. The agent detected may not be the definite cause of disease. Negative results do not preclude SARS-CoV-2, influenza A, influenza B and RSV infection and should not be used as the sole basis for treatment or other patient management decisions. Negative results must be combined with clinical observations, patient history and epidemiological information. An Invalid result may occur with specimen-associated inhibition unable to be resolved with specimen repeat. Fact Sheet for Healthcare Providers: https://www.fda.gov/media/057219/download Fact Sheet for Patients: https://www.fda.gov/media/842890/download Performed By: #### COVFLR ## ## [facility] ([id number]) [address] [place] [address], [place] [address] 36 Observed: 08/21/2024 12:38 PM Status: COMPLETED Source: [facility] Regarding echo from 08/18/20 24: MD Blanca Cueto MA His echo was ok, follow up in 1 year. PROGRESS Observed: 08/10/2024 11:45 AM Status: COMPLETED Source: [facility] Cardiology - [facility] Subjective Minnie Jason is a 74 y.o. [...] HFA aerosol inhaler, , Disp: , Rfl: ksxbfhtobm-scbiqlre-dpvyxlynfx (Breztri Aerosphere) 160-9-4.8 mcg/actuation HFA aerosol inhaler, [...] once daily as directed., Disp: , Rfl: tamsulosin (Flomax) 0.4 mg 24 hr capsule, , Disp: , Rfl: sildenafil (Viagra) 100 mg tablet, , Disp: , Rfl: Recent Labs No visits with results within 6 Month(s) from this visit. Latest known visit with results is: Legacy Encounter on 06/02/2019 Component Date Value Ventricular Rate 06/02/2019 67 Atrial Rate 06/02/2019 416 QRS DURATION 06/02/2019 84 QT Interval 06/02/2019 380 QTC CALCULATION(BEZET) 06/02/2019 401 R-Delbarton 06/02/2019 85 T Wave [place] 06/02/2019 56 Diagnosis 06/02/2019 Value:Atrial fibrillation Low voltage QRS limb leads Septal infarct (cited on or before 21-APR-2019) Abnormal ECG When compared with ECG of 14-MAY-2019 21:29, No significant change was found Confirmed by Shirin NAZARIO, L.S. (2) on 06/02/2019 4:29:37 PM 03/25/2024 CBC - unremarkable Chol 85, trig 101, HDL 41, LDL 25 AST 22, ALT 29 Cr 0.95, eGFR 83 Hgb A1c 5.8 Labs 02/28/2022: Hemoglobin 15.9, platelets 256, WBC 12.6 lipids: Cholesterol 101, trig 119, HDL 42, LDL 38 creatinine 0.9, GFR 90 BNP 110 Imaging and other tests ABIs 04/19/2022 -significant right inflow (femoral artery or above) arterial disease with moderate hemodynamic impairment of the right lower extremity at rest (right PT 0.66) -significant left femoropopliteal arterial disease with mild hemodynamic impairment of the left lower extremity at rest (left PT 0.80) ECHO (04/23/2022) Mild concentric left ventricular hypertrophy with normal systolic function. LVEF is 55 to 60%. Normal right ventricular systolic function. Mild mitral regurgitation. Normal right-sided pressures. No pericardial effusion. Echocardiogram in December 2013 showed hyperdynamic LV function with akinesia of the basal inferior segment and mildly elevated right sided pressures, with no valvular abnormalities. ECG 06/10/2015 showed AF with controlled rate of 77 bpm. There is an old septal infarct. (comparable to prior ECGs). Stress test 04/21/2019: There is a medium-size moderate intensity perfusion defect seen at stress from mid to basal inferior wall suggestive of mild to moderate ischemia. Normal wall motion with ejection fraction of 69 percent. [address] depression developed in leads 2, 3, aVF, V4, V5 and V6. Cardiac catheterization 04/23/2019: 1. Severe 3-vessel coronary artery disease. 2. Occluded 3/3 bypass grafts (occluded MADRID to LAD, occluded radial to OM, occluded saphenous venous graft to PDA). 3. 90% stenosis in the second obtuse marginal branch. 4. 70% mid LAD stenosis. 5. 100% occlusion of the right coronary artery with retrograde filling of the distal vessel via collateral circulation from the circumflex vessel. 6. Occluded left external iliac artery. 05/14/2019: PCI to OM with a synergy JACQUES 06/02/2019: mid LAD synergy JACQUES with balloon to the ostium of the diagonal branch. Peripheral intervention 05/10/2020: 1. 100% occlusion of the left common iliac artery reduced to 0% by an Omnilink Elite 7 x 59 mm stent. 2. 80% stenosis in the proximal left external iliac artery reduced to 0% by the same Omnilink Elite 7 x 59 mm stent. 3. Patent right common iliac and external iliac arteries. 4. Severe diffuse disease in the right mid to distal superficial femoral artery that is calcific. 5. Wgfw-no-bivvwlpg disease in the left superficial femoral artery. 6. Occluded anterior tibial arteries bilaterally. 7. Patent posterior tibial and peroneal arteries bilaterally. Assessment/Plan Diagnoses and all orders for this visit: Permanent atrial fibrillation (CMS/HCC) - Transthoracic echo (TTE) complete; Future Coronary artery disease involving [place] coronary artery of [place] heart without angina pectoris - Transthoracic echo (TTE) complete; Future Peripheral arterial occlusive disease (CMS/HCC) Essential hypertension Mixed hyperlipidemia History of coronary artery bypass surgery Comments: 2009 His AF is chronic and under rate control. 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 I will check an echocardiogram to follow-up on ventricular function given permanent atrial fibrillation. CAD: Status post bypass surgery, cardiac catheterization in 2019 showed occluded bypass grafts, status post stenting of the OM and LAD. [employer] RCA - medical therapy for now, if in the future he has symptoms then we can consider revascularization. Continue Plavix, statin and ezetimibe. PAD: Status post left iliac stenting. He has chronic claudication. I discussed with him the possibility of intervention. He is not bothered by his chronic claudication and he feels that his main limitation is from COPD. He does not have rest pain or ulcers in the feet. Continue medical therapy with Plavix and statin therapy. His recent lipid profile shows LDL at target. Follow up in about 1 year (around 08/10/2025). Steve Briceño MD OFFICE VISIT Observed: 08/10/2024 11:45 AM Status: COMPLETED Source: [facility] [id number] Minnie Jason M Date Provider Department Center 08/10/2024 [facility]-STEVE BRICEÑO CARD [facility] Family History Problem Relation Age of Onset Atrial fibrillation Brother Heart failure Brother Coronary artery disease Brother Family Status - Relation Status Age at Brother Level of Service:[address] [place] OFFICE/OUTPATIENT ESTABLISHED MOD MDM 30 MIN PROGRESS Observed: 04/21/2024 11:40 AM Status: COMPLETED Source: [facility] Patient here for 1 year foll ow up PAD, CAD, permanent afib, and hypertension. [...] All other systems reviewed and are negative. 37 Observed: 04/21/2024 11:40 AM Status: COMPLETED Source: [facility] *Stop taking ezetimibe (Zeti a) - this is a LDL lowering medication. [...] further discuss increasing a blood pressure medication. FOLLOW-UP Observed: 04/21/2024 11:40 AM Status: COMPLETED Source: [facility] [id number] Minnie Jason M Date Provider Department Center 04/21/2024 JESUS FREEMAN [facility] Family History Problem Relation Age of Onset Atrial fibrillation Brother Heart failure Brother Coronary artery disease Brother Family Status - Relation Status Age at Brother Level of Service:[address]1986 [place] OFFICE/OUTPATIENT ESTABLISHED MOD MDM 30 MIN Reason for Visit and Comments: Coronary Artery Disease [187] Atrial Fibrillation [80] Hypertension [611035] Hyperlipidemia [182] Peripheral Vascular Disease [458] PROGRESS Observed: 04/21/2024 11:40 AM Status: COMPLETED Source: [facility] Cardiovascular Medicine [facility] SUBJECTIVE Chief Complaint Patient presents with Coronary Artery Disease Atrial Fibrillation Hypertension Hyperlipidemia Peripheral Vascular Disease Minnie Jason is a 73 y.o. male here for routine follow-up. HPI PMHx: 1. Atrial fibrillation on anticoagulation with Xarelto 2. CAD s/p CABG in 2008 and PCI in 2018 to LAD and OM, [employer] RCA 3. Hypertension 4. Hyperlipidemia on atorvastatin [...] palpitations. 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 ([facility]/HCC) Primary cardiomyopathy ([facility]/HCC) Pulmonary hypertension, mild ([facility]/HCC) Type 2 diabetes mellitus ([facility]/HCC) Peripheral vascular disease ([facility]/HCC) Hx of CABG Past Medical History: Diagnosis Date Abnormal ECG Arrhythmia Atrial fibrillation ([facility]/HCC) CHF (congestive heart failure) ([facility]/HCC) COPD (chronic obstructive pulmonary disease) ([facility]/HCC) Coronary artery disease Diabetes mellitus ([facility]/HCC) GERD (gastroesophageal reflux disease) Heart valve disease Hyperlipidemia Hypertension PAD (peripheral artery disease) ([facility]/HCC) Primary cardiomyopathy ([facility]/HCC) PVD (peripheral vascular disease) ([facility]) Family History Problem Relation Name Age of [...] capsule, , Disp: , Rfl: albuterol 90 mcg/actuation inhaler, Inhale 2 puffs every 6 (six) hours if needed for wheezing., Disp: , Rfl: beobobpqtb-hhwwxvsr-wjezagfacn (Breztri Aerosphere) 160-9-4.8 mcg/actuation HFA aerosol inhaler, Inhale., Disp: , Rfl: Physical Exam Constitutional: Appearance: Normal appearance. He is normal weight. HENT: Head: Normocephalic and atraumatic. Right Ear: External ear normal. Left Ear: External ear normal. Eyes: Extraocular Movements: Extraocular movements intact. Pupils: Pupils are equal, round, and reactive to light. Neck: Vascular: No carotid bruit. Cardiovascular: Rate and Rhythm: Normal rate and regular rhythm. Pulses: Radial pulses are 2+ on the right side and 2+ on the left side. Posterior tibial pulses are 1+ on the right side and 2+ on the left side. Heart sounds: Normal heart sounds. Pulmonary: Effort: Pulmonary effort is normal. Breath sounds: Normal breath sounds. Abdominal: General: Bowel sounds are normal. Palpations: Abdomen is soft. Musculoskeletal: General: Normal range of motion. Cervical back: Neck supple. Right lower leg: No edema. Left lower leg: No edema. Skin: General: Skin is warm and dry. Neurological: General: No focal deficit present. Mental Status: He is alert and oriented to person, place, and time. Psychiatric: Mood and Affect: Mood normal. Behavior: Behavior normal. Thought Content: Thought content normal. Judgment: Judgment normal. Labs: Legacy Encounter on 06/02/2019 Component Date Value Ref Range Status Ventricular Rate 06/02/2019 67 BPM Final Atrial Rate 06/02/2019 416 BPM Final QRS DURATION 06/02/2019 84 ms Final QT Interval 06/02/2019 380 ms Final QTC CALCULATION(BEZET) 06/02/2019 401 ms Final R-Delbarton 06/02/2019 85 degrees Final T Wave [place] 06/02/2019 56 degrees Final Diagnosis 06/02/2019 Final Value:Atrial fibrillation Low voltage QRS limb leads Septal infarct (cited on or before 21-APR-2019) Abnormal ECG When compared with ECG of 14-MAY-2019 21:29, No significant change was found Confirmed by Shirin NAZARIO, L.S. (2) on 06/02/2019 4:29:37 PM 03/25/2024 CBC - unremarkable Chol 85, trig 101, HDL 41, LDL 25 AST 22, ALT 29 Cr 0.95, eGFR 83 Hgb A1c 5.8 Labs 02/28/2022: Hemoglobin 15.9, platelets 256, WBC 12.6 lipids: Cholesterol 101, trig 119, HDL 42, LDL 38 creatinine 0.9, GFR 90 BNP 110 Testing/Procedures: ABIs 04/19/2022 -significant right inflow (femoral artery or above) arterial disease with moderate hemodynamic impairment of the right lower extremity at rest (right PT 0.66) -significant left femoropopliteal arterial disease with mild hemodynamic impairment of the left lower extremity at rest (left PT 0.80) ECHO (04/23/2022) Peripheral intervention 05/10/2020: 1. 100% occlusion of the left common iliac artery reduced to 0% by an Omnilink Elite 7 x 59 mm stent. 2. 80% stenosis in the proximal left external iliac artery reduced to 0% by the same Omnilink Elite 7 x 59 mm stent. 3. Patent right common iliac and external iliac arteries. 4. Severe diffuse disease in the right mid to distal superficial femoral artery that is calcific. 5. Awgw-gp-virkrkex disease in the left superficial femoral artery. 6. Occluded anterior tibial arteries bilaterally. 7. Patent posterior tibial and peroneal arteries bilaterally. Stress test 04/21/2019: There is a medium-size moderate intensity perfusion defect seen at stress from mid to basal inferior wall suggestive of mild to moderate ischemia. Normal wall motion with ejection fraction of 69 percent. [address] depression developed in leads 2, 3, aVF, V4, V5 and V6. Cardiac catheterization 04/23/2019: 1. Severe 3-vessel coronary artery disease. 2. Occluded 3/3 bypass grafts (occluded MADRID to LAD, occluded radial to OM, occluded saphenous venous graft to PDA). 3. 90% stenosis in the second obtuse marginal branch. 4. 70% mid LAD stenosis. 5. 100% occlusion of the right coronary artery with retrograde filling of the distal vessel via collateral circulation from the circumflex vessel. 6. Occluded left external iliac artery. ASSESSMENT/PLAN: Diagnosis Plan 1. Coronary artery disease involving [place] coronary artery of [place] heart without angina pectoris 2. Mixed hyperlipidemia Lipid panel 3. Essential hypertension 4. Longstanding persistent atrial fibrillation (CMS/HCC) 5. Peripheral arterial occlusive disease (CMS/HCC) 6. Dyspnea on exertion 7. Hx of CABG #PAD -s/p left iliac occlusion crossing and stenting. -He has severe disease in the right SFA. -ABIs 03/2022 showed mild left and moderate right impairment. -His symptoms remain stable. -He is not currently doing routine exercise - I asked him to resume this. -Continue Plavix, Xarelto, statin #CAD s/p CABG in 2008 and PCI in 2018 to LAD and OM, [employer] RCA -He denies angina -Continue statin, plavix, carvedilol #HTN -Mildly elevated today -Discussed increasing medications vs diet/exercise. He would like to try diet/exercise first then will reassess in 3 months. -At this time will continue amlodipine 5mg daily, carvedilol 25mg BID, olmesartan 40mg daily #Chronic a.fib -Rate controlled -Continue BB, digoxin, and Xarelto (denies bleeding issues) #VALENTIN #COPD -Unchanged -ECHO 03/2022 unremarkable -He follows with PCP for management #HLD -LDL (02/2024): 25 -Continue atorvastatin 40mg daily. Will stop Ezetimibe. -Follow-up lipid panel in 3 months. #DM type II -On trulicity -Management per PCP Follow up in about 3 months (around 07/22/2024). Jesus Grewal NP [facility] ALLERGIES DATE TYPE / CODE NAME / CODE REACTION SEVERITY SOURCE Drug Class/[id number](SNO MED CT) NO KNOWN ALLERGIES [facility]/[id number]( SNOMED CT) NO KNOWN ALLERGIES [facility] ENCOUNTERS ADMIT/DISCHARGE ACCOUNT NUMBER ADMITTING ENCOUNTER CLASS LOCATION SOURCE 01/27/2025/01/28/20 [id number] Ambulatory Building:[facility] 01/20/2025/01/21/20 [id number] Ambulatory Building:[facility] 01/13/2025/01/14/20 [id number] Ambulatory Building:[facility] 01/06/2025/01/11/20 [id number] ELLA VÁZQUEZ Inpatient Encounter Building:[facility] : 203Bed: 01 [facility] 08/10/2024/08/10/20 [id number] Ambulatory Building:[facility] 04/21/2024/04/21/20 [id number] Ambulatory Building:[facility] FUNCTIONAL STATUS No Functional Status Records Found EQUIPMENT No Equipment Records Found PAYERS ENCOUNTER GUARANTOR PAYER SUBSCRIBER SOURCE 01/27/2025 MINNIE ESQUEDA: [address] [place], [place] [address]Vss: (HP) Primary Insurance:[employer] MEDICARE PLAN (PPO)Policy Number: [id number] Date:2023-10-28 MINNIE RIOSB: [id number] [place], [place] [address]Rgl: (HP) [facility] 01/20/2025 MINNIE ESQUEDA: [address] [place], [place] [address]Bus: (HP) Primary Insurance:[employer] MEDICARE PLAN (PPO)Policy Number: [id number] Date:2023-10-28 MINNIE ESQUEDA: [id number] [place], [place] [address]Emq: (HP) [facility] 01/13/2025 MINNIE ESQUEDA: [address] [place], [place] [address]Chk: (HP) Primary Insurance:[employer]ETNA MEDICARE PLAN (PPO)Policy Number: [id number] Date:2023-10-28 MINNIE ESQUEDA: [id number] [place], [place] [address]Ise: (HP) [facility] 01/06/2025 MINNIE ESQUEDA: [address] [place], [place] [address]Eky: (HP) Primary Insurance:[employer]ETNA MEDICARE PLAN (PPO)Policy Number: [id number] Date:2023-10-28 MINNIE ESQUEDA: [id number] [place], [place] [address]Spy: (HP) [facility] 08/10/2024 Primary Insuranc e:AETNA MEDICARE ADVANTAGEPolicy Number: [id number] Date:2021-10-28 MINNIE ESQUEDA: [id number] [place] [address] [facility] 04/21/2024 Primary Insuranc e:JAZMÍN MEDICARE ADVANTAGEPoly Number: [id number] Date:2021-10-28 MINNIE ESQUEDA: [id number] [place] [address] [facility] SOCIAL HISTORY No Social History Records Found FAMILY HISTORY No Family History Records Found No Status Records Found ADVANCE DIRECTIVES No Advanced Directives Records Found INFORMATION SOURCE DATE CREATED AUTHOR AUTHOR'S DUANE ATION 03/22/2025 FARAZ
--- OUTSIDE RECORDS SUMMARY | 2025-01-27 15:07 | XMS_ITS ---
Author Organization OHIP Care Team Providers Care Rockboard Lather Name Role Phone JESUS GREWAL Attending Unavailable [...] DATE TYPE CONDITION / CODE ATTENDING STATUS [facility] 01/20/2025 Unknown Essential (prima ry) hypertension / I10(ICD-10) NA Active [facility] 01/07/2025 Unknown Other fecal abnormalities / R19.5(ICD-10) ELLA VÁZQUEZ [facility] 01/06/2025 Unknown Pneumonia, unspecified organism / J18.9(ICD-10) ELLA VÁZQUEZ [facility] 01/06/2025 Unknown Iron deficiency anemia, unspecified / D50.9(ICD-10) ELLA VÁZQUEZ [facility] 01/06/2025 Unknown Hemorrhage of an us and rectum / K62.5(ICD-10) ELLA VÁZQUEZ [facility] 01/06/2025 Unknown Other symptoms a nd signs involving emotional state / R45.89(ICD-10) ELLA VÁZQUEZ [facility] 01/06/2025 Unknown Hypomagnesemia / E83.42(ICD-10) ELLA VÁZQUEZ [facility] 01/06/2025 Unknown Weakness / R53.1(ICD-10) ELLA VÁZQUEZ [facility] 01/06/2025 Unknown Fatigue / FREETEXT(AOF) ELLA VÁZQUEZ [facility] 01/06/2025 Unknown EMS / UNK(Unknown) ELLA VÁZQUEZ [facility] 03/12/2023 Admitting Diagnosis Permanent atrial fibrillation / I48.21(ICD-10) 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 03/12/2023 Admitting Diagnosis Disorder of arteries and arterioles, 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) [facility] 03/12/2023 Admitting Diagnosis Essential (primary) hypertension / I10(ICD-10) [facility] 08/10/2024 Admitting Diagnosis 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) NAVARRO [facility] 03/12/2023 Admitting Diagnosis Mixed hyperlipidemia / E78.2(ICD-10) JESUS GREWAL [facility] PROCEDURES No Procedure Records Found VITAL SIGNS No Vital Signs Records Found RESULTS CBC AND AUTO DIFF Collected: 01/27/2025 3:06 PM Stat us: COMPLETED Source: [facility] TYPE CODE TESTS RESULT OUT OF [...] Abnormal NONE Performed By: #### CBCA #### [facility] ([id number]) [address], [address] [place] [address] CBC AND AUTO DIFF Collected: 01/20/2025 10:59 A M Status: COMPLETED Source: [facility] TYPE CODE TESTS RESULT OUT OF [...] 0.0-0.2 X10E9/L Performed By: #### CBCA #### [facility] ([id number]) [address] [place] [address], [address] [place] [address] COMPLETE BLOOD COUNT Collected: 01/13/2025 1:19 PM Status: COMPLETED Source: [facility] TYPE CODE TESTS RESULT OUT OF [...] Performed By: #### CBC, 2 3-9 #### [facility] ([id number]) [address], [address] [place] [address] MAGNESIUM Collected: 01/13/2025 1:19 PM S tatus: COMPLETED Source: [facility] TYPE CODE TESTS RESULT OUT OF RANGE REFERENCE UNITS LAB MG(LOINC) MAGNESIUM 1.6 Low 1.8-2.6 mg/dL Performed By: #### CBC, 1911 3-9 #### [facility] ([id number]) [address], [address] [place] [address] MAGNESIUM Collected: 01/10/2025 2:04 PM S tatus: COMPLETED Source: [facility] TYPE CODE TESTS RESULT OUT OF RANGE REFERENCE UNITS LAB MG(LOINC) MAGNESIUM 1.9 1.8-2.6 mg/dL Performed By: #### 84675-9 # ### [facility] ([id number]) [address] [place] [address], [place] [address] BEDSIDE GLUCOSE LAB Collected: 01/10/2025 12:41 PM Status: COMPLETED Source: [facility] TYPE CODE TESTS RESULT OUT OF RANGE REFERENCE UNITS LAB BEDG(LOINC) BEDSIDE GLUCOSE LAB 115 High 65-99 mg/dL XR CHEST 1 VW Observed: 01/10/2025 9:09 AM Status: COMPLETED Source: [facility] XR CHEST 1 VW Clinical History: Pneumonia. [...] Collected: 01/10/2025 8:09 AM Status: COMPLETED Source: [facility] TYPE CODE TESTS RESULT OUT OF RANGE REFERENCE UNITS LAB BEDG(LOINC) BEDSIDE GLUCOSE LAB 102 High 65-99 mg/dL COMPREHENSIVE METABOLIC PANEL Collected: 2024 4:46 AM Status: COMPLETED Source: [facility] TYPE CODE TESTS RESULT OUT OF [...] race coefficient. Performed By: #### CMP, CBC, 71677-2 #### [facility] ([id number]) [address] [place] [address], [place] [address] COMPLETE BLOOD COUNT Collected: 01/10/2025 4:46 AM Status: COMPLETED Source: [facility] TYPE CODE TESTS RESULT OUT OF [...] 7-12 fL Performed By: #### CMP, CBC, 79080-3 #### [facility] ([id number]) [address] [place] [address] MAGNESIUM Collected: 01/10/2025 4:46 AM S tatus: COMPLETED Source: [facility] TYPE CODE TESTS RESULT OUT OF RANGE REFERENCE UNITS LAB MG(LOINC) MAGNESIUM 1.7 Low 1.8-2.6 mg/dL Performed By: #### CMP, CBC, 51252-3 #### [facility] ([id number]) [address] [place] [address] BEDSIDE GLUCOSE LAB Collected: 01/09/2025 8:56 PM Status: COMPLETED Source: [facility] TYPE CODE TESTS RESULT OUT OF RANGE REFERENCE UNITS LAB BEDG(LOINC) BEDSIDE GLUCOSE LAB 118 High 65-99 mg/dL HGB Collected: 01/09/2025 8:16 PM S tatus: COMPLETED Source: [facility] TYPE CODE TESTS RESULT OUT OF RANGE REFERENCE UNITS LAB HGB(LOINC) HEMOGLOBIN 8.6 Low 13.0-17.0 g/dL LAB HCT(LOINC) HEMATOCRIT 25.2 Low 39-49 % Performed By: #### HH, 98525 -9 #### [facility] ([id number]) [address] [place] [address] MAGNESIUM Collected: 01/09/2025 8:16 PM S tatus: COMPLETED Source: [facility] TYPE CODE TESTS RESULT OUT OF RANGE REFERENCE UNITS LAB MG(LOINC) MAGNESIUM 1.9 1.8-2.6 mg/dL Performed By: #### , 77835 -9 #### [facility] ([id number]) [address] [place] [address] BEDSIDE GLUCOSE LAB Collected: 01/09/2025 5:45 PM Status: COMPLETED Source: [facility] TYPE CODE TESTS RESULT OUT OF RANGE REFERENCE UNITS LAB BEDG(LOINC) BEDSIDE GLUCOSE LAB 151 High 65-99 mg/dL BEDSIDE GLUCOSE LAB Collected: 01/09/2025 12:15 PM Status: COMPLETED Source: [facility] TYPE CODE TESTS RESULT OUT OF RANGE REFERENCE UNITS LAB BEDG(LOINC) BEDSIDE GLUCOSE LAB 118 High 65-99 mg/dL COMPREHENSIVE METABOLIC PANEL Collected: 2024 4:50 AM Status: COMPLETED Source: [facility] TYPE CODE TESTS RESULT OUT OF [...] Performed By: #### JUVENAL, 01-03, CBC #### [facility] ([id number]) [address] [place] [address] MAGNESIUM Collected: 01/09/2025 4:50 AM S tatus: COMPLETED Source: [facility] TYPE CODE TESTS RESULT OUT OF RANGE REFERENCE UNITS LAB MG(LOINC) MAGNESIUM 1.8 1.8-2.6 mg/dL Performed By: #### JUVENAL, 01-03, CBC #### [facility] ([id number]) [address] [place] [address] COMPLETE BLOOD COUNT Collected: 01/09/2025 4:50 AM Status: COMPLETED Source: [facility] TYPE CODE TESTS RESULT OUT OF [...] By: #### JUVENAL, 1912 3-9, CBC #### [facility] ([id number]) [address] [place] [address] POTASSIUM Collected: 01/08/2025 9:25 PM S tatus: COMPLETED Source: [facility] TYPE CODE TESTS RESULT OUT OF RANGE REFERENCE UNITS LAB K(LOINC) POTASSIUM 4.0 3.5-5.0 mmol/L Performed By: #### 2823-3, 1 9123-9 #### [facility] ([id number]) [address] [place] [address] MAGNESIUM Collected: 01/08/2025 9:25 PM S tatus: COMPLETED Source: [facility] TYPE CODE TESTS RESULT OUT OF RANGE REFERENCE UNITS LAB MG(LOINC) MAGNESIUM 1.9 1.8-2.6 mg/dL Performed By: #### 2823-3, 1 9123-9 #### [facility] ([id number]) [address] [place] [address] BEDSIDE GLUCOSE LAB Collected: 01/08/2025 9:12 PM Status: COMPLETED Source: [facility] TYPE CODE TESTS RESULT OUT OF RANGE REFERENCE UNITS LAB BEDG(LOINC) BEDSIDE GLUCOSE LAB 136 High 65-99 mg/dL BEDSIDE GLUCOSE LAB Collected: 01/08/2025 6:39 PM Status: COMPLETED Source: [facility] TYPE CODE TESTS RESULT OUT OF RANGE REFERENCE UNITS LAB BEDG(LOINC) BEDSIDE GLUCOSE LAB 112 High 65-99 mg/dL HGB Collected: 01/08/2025 4:57 PM S tatus: COMPLETED Source: [facility] TYPE CODE TESTS RESULT OUT OF RANGE REFERENCE UNITS LAB HGB(LOINC) HEMOGLOBIN 8.2 Low 13.0-17.0 g/dL LAB HCT(LOINC) HEMATOCRIT 25.2 Low 39-49 % Performed By: #### HH #### [facility] ([id number]) [address] [place] [address] SURGICAL PATHOLOGY Collected: 11:07 AM Status: COMPLETED Source: [facility] TYPE CODE TESTS RESULT OUT OF RANGE REFERENCE UNITS LAB [id number]&rpt Surgical Pathology Result Comment: [facility] [address] [place] [address] Surgical Pathology Consultation Patient Name:MINNIE JASON:1950 (Age: 74)Gender:MTaken:01/08/2025Reported:01/14/2025Physician(s):Letty Toscano D.O. ([phone])Copy To: Rec. #:[id number]: #[id number] Final Pathologic Diagnosis 1. Stomach, prepyloric, biopsy: Junctional mucosa with mild reactive changes. No histological evidence of H. pylori infection on routine stain. 2. Stomach, cardia, biopsy: Gastric mucosa with hyperplastic changes. 3. Transverse colon, polypectomy: Tubular adenoma. Report Electronically Signed Out rg/01/14/2025Ronadwoa Stanton MD Interpretation performed at [facility], [address] [place] [address], License number: [id number]. Clinical History Occult blood positive stool R19.5. Gross Description 1. Received in formalin labeled DINORA, prepyloric biopsy is a light campos soft tissue bit, 0.4 cm. The specimen is filtered and entirely submitted in a single cassette. (1, ns, [id number],m3) DM. 2. Received in formalin labeled DINORA, cardia biopsy are two light campos soft tissue bits, 0.2 cm each. The specimen is filtered and entirely submitted in a single cassette. (1, ns, [id number],m3) DM. 3. Received in formalin labeled DINORA, transverse colon polyp is a light campos soft tissue bit, 0.3 cm. The specimen is filtered and entirely submitted in a single cassette. (1, ns, [id number],m3) DM. dm/01/09/2025GR Specimen(s) Received 1: Pre-pyloric biopsy 2: Cardia biopsy 3: Transverse colon polyp x2 Fee Codes(s): 1; 47718 2; 77550 3; 97802 COMPREHENSIVE METABOLIC PANEL Collected: 2024 4:22 AM Status: COMPLETED Source: [facility] TYPE CODE TESTS RESULT OUT OF [...] race coefficient. Performed By: #### CMP, CBC, 69725-4 #### [facility] ([id number]) [address] [place] [address], [place] [address] COMPLETE BLOOD COUNT Collected: 01/08/2025 4:22 AM Status: COMPLETED Source: [facility] TYPE CODE TESTS RESULT OUT OF [...] 7-12 fL Performed By: #### CMP, CBC, 04485-3 #### [facility] ([id number]) [address] [place] [address] MAGNESIUM Collected: 01/08/2025 4:22 AM S tatus: COMPLETED Source: [facility] TYPE CODE TESTS RESULT OUT OF RANGE REFERENCE UNITS LAB MG(INC) MAGNESIUM 1.6 Low 1.8-2.6 mg/dL Performed By: #### CMP, CBC, 48798-0 #### [facility] ([id number]) [address] [place] [address] BEDSIDE GLUCOSE LAB Collected: 01/07/2025 9:49 PM Status: COMPLETED Source: [facility] TYPE CODE TESTS RESULT OUT OF RANGE REFERENCE UNITS LAB BEDG([facility]) BEDSIDE GLUCOSE LAB 103 High 65-99 mg/dL BEDSIDE GLUCOSE LAB Collected: 01/07/2025 6:07 PM Status: COMPLETED Source: [facility] TYPE CODE TESTS RESULT OUT OF RANGE REFERENCE UNITS LAB BEDG([facility]) BEDSIDE GLUCOSE LAB 109 High 65-99 mg/dL HGB Collected: 01/07/2025 5:29 PM S tatus: COMPLETED Source: [facility] TYPE CODE TESTS RESULT OUT OF RANGE REFERENCE UNITS LAB HGB(INC) HEMOGLOBIN 9.1 Low 13.0-17.0 g/dL LAB HCT(LOINC) HEMATOCRIT 26.2 Low 39-49 % Performed By: #### HH #### [facility] ([id number]) [address] [place] [address], [place] [address] BEDSIDE GLUCOSE LAB Collected: 01/07/2025 11:55 AM Status: COMPLETED Source: [facility] TYPE CODE TESTS RESULT OUT OF RANGE REFERENCE UNITS LAB BEDG(LOINC) BEDSIDE GLUCOSE LAB 123 High 65-99 mg/dL BEDSIDE GLUCOSE LAB Collected: 01/07/2025 10:22 AM Status: COMPLETED Source: [facility] TYPE CODE TESTS RESULT OUT OF RANGE REFERENCE UNITS LAB BEDG(LOINC) BEDSIDE GLUCOSE LAB 113 High 65-99 mg/dL COMPLETE BLOOD COUNT Collected: 01/07/2025 3:38 AM Status: COMPLETED Source: [facility] TYPE CODE TESTS RESULT OUT OF [...] 7-12 fL Performed By: #### CBC, CMP, 75488-5, 00328-6, 1988-5, 87208-9 #### [facility] ([id number]) [address] [place] [address] #### 08610-9, FEPR, 2276-4 #### [facility] ([id number]) [address] [facility], [address] [place] [address] COMPREHENSIVE METABOLIC PANEL Collected: 2024 3:38 AM Status: COMPLETED Source: [facility] TYPE CODE TESTS RESULT OUT OF [...] race coefficient. Performed By: #### UNIQUE, CMP, 25837-6, 39897-7, 1987-5, 81114-9 #### [facility] ([id number]) [address] [place] [address], [place] [address] #### 38551-4, FEPR, 2276-4 #### [facility] ([id number]) [address] [place] [address], [address] [place] [address] MAGNESIUM Collected: 01/07/2025 3:38 AM S tatus: COMPLETED Source: [facility] TYPE CODE TESTS RESULT OUT OF RANGE REFERENCE UNITS LAB MG(LOINC) MAGNESIUM 1.9 1.8-2.6 mg/dL Performed By: #### CBC, CMP, 21690-6, 23639-4, 1987-, 83195-0 #### [facility] ([id number]) [address] [place] [address] #### 55509-2, FEPR, 6-4 #### [facility] ([id number]) [facility], [address] [address] BRN NATRIURETIC PEP Collected: 01/07/2025 3:38 AM Status: COMPLETED Source: [facility] TYPE CODE TESTS RESULT OUT OF RANGE REFERENCE UNITS LAB BNP(LOINC) BRN NATRIURETIC PEP 86 <100.0 pg/mL Performed By: #### CBC, CMP, 67061-6, 38204-3, 1988-02, 04164-5 #### [facility] ([id number]) [address] [place] [address] #### 73408-6, FEPR, 6-4 #### [facility] ([id number]) [address] [place] [address] C REACTIVE PROTEIN Collected: 01/07/2025 3:38 A M Status: COMPLETED Source: [facility] TYPE CODE TESTS RESULT OUT OF RANGE REFERENCE UNITS LAB CRP(LOINC) C REACTIVE PROTEIN <0.5 0.000-0.744 mg/dL Performed By: #### CBC, CMP, 65727-1, 43743-3, 1988-02, 65064-5 #### [facility] ([id number]) [address] [place] [address] #### 16813-7, FEPR, 2276-4 #### [facility] ([id number]) [address] [place] [address] PROCALCITONIN Collected: 01/07/2025 3:38 AM Status: COMPLETED Source: [facility] TYPE CODE TESTS RESULT OUT OF RANGE REFERENCE UNITS LAB PCAL(LOINC) PROCALCITONIN <0.05 <0.05 ng/mL Result Comment: NOTE <0.50 ng/mL - Low risk of severe sepsis and/or septic shock. <2.00 ng/mL - Recommend retesting within 6-24 hours. >2.00 ng/mL - High risk of sepsis and/or septic shock. Performed By: #### CBC, CMP, 88899-7, 74856-9, 1988-02, 25563-9 #### [facility] ([id number]) [address] [place] [address] #### 00193-0, FEPR, 4 #### [facility] ([id number]) [address] [place] [address], [address] [place] [address] DIGOXIN Collected: 01/07/2025 3:38 AM S tatus: COMPLETED Source: [facility] TYPE CODE TESTS RESULT OUT OF RANGE REFERENCE UNITS LAB DIGO(LOINC) DIGOXIN 1.3 0.8-2.0 ng/mL Performed By: #### UNIQUE, CMP, 88558-6, 47466-4, 1988-02, 71723-8 #### [facility] ([id number]) [address] [place] [address] #### 72081-2, FEPR, 2276-01 #### [facility] ([id number]) [address] [place] [address], [address] [place] [address] IRON PROFILE Collected: 3:38 AM Status: COMPLETED Source: [facility] TYPE CODE TESTS RESULT OUT OF RANGE REFERENCE UNITS LAB FE(LOINC) IRON 196 50-212 ug/dL LAB TIBC(LOINC) IRON BINDING 263 250-425 ug/dL LAB SAT(LOINC) IRON SATURATION 74 High 20-50 % SATURATION Performed By: #### CBC, CMP, 72842-7, 98150-7, 1988-02, 07051-5 #### [facility] ([id number]) [address] [place] [address] #### 41190-2, FEPR, 4 #### [facility] ([id number]) [address] [facility], [address] [place] [address] FERRITIN Collected: 01/07/2025 3:38 AM S tatus: COMPLETED Source: [facility] TYPE CODE TESTS RESULT OUT OF RANGE REFERENCE UNITS LAB FERR(LOINC) FERRITIN 197 24-336 ng/mL Performed By: #### CBC, CMP, 16502-0, 65350-0, 1988-5, 03730-6 #### [facility] ([id number]) [address] [place] [address] #### 41081-4, FEPR, 2276-4 #### [facility] ([id number]) [address] [place] [address], [address] [place] [address] URN MACROSCOPIC CHRISTOPH Collected: 01/06/2025 7:06 PM Status: COMPLETED Source: [facility] TYPE CODE TESTS RESULT OUT OF [...] Abnormal NEG Performed By: #### NUM #### [facility] ([id number]) [address] [place] [address] 1 HOUR TROP I, HIGH SENSITIVITY Collected: 12/26 5:34 PM Status: COMPLETED Source: [facility] TYPE CODE TESTS RESULT OUT OF RANGE REFERENCE UNITS LAB TNIHS1(LOINC) 1 HOUR TROP I, HIGH SENSITIVITY 19 <21 ng/L Performed By: #### 80613-6 # ### [facility] ([id number]) [address] [facility] [place], [place] [address] XR CHEST 1 VW Observed: 01/06/2025 5:17 PM Status: COMPLETED Source: [facility] XR CHEST 1 VW XR CHEST 1 [...] Collected: 01/06/2025 4:31 PM Status: COMPLETED Source: [facility] TYPE CODE TESTS RESULT OUT OF [...] X10E9/L Performed By: #### CBCA, 895 79-7, [facility], 84106-3 #### [facility] ([id number]) [address] [place] [address] TROPONIN I, HIGH SENSITIVITY Collected: 4:31 PM Status: COMPLETED Source: [facility] TYPE CODE TESTS RESULT OUT OF RANGE REFERENCE UNITS LAB TNIHS(INC) TROPONIN I, HIGH SENSITIVITY 17 <21 ng/L Performed By: #### CBCA, 895 79-7, [facility], 36574-0 #### [facility] ([id number]) [address] [place] [address] COMPREHENSIVE METABOLIC PANEL Collected: 2024 4:31 PM Status: COMPLETED Source: [facility] TYPE CODE TESTS RESULT OUT OF [...] coefficient. Performed By: #### JOAQUIN, 895 79-7, [facility], 84263-1 #### [facility] ([id number]) [address] [place] [address] MAGNESIUM Collected: 01/06/2025 4:31 PM S tatus: COMPLETED Source: [facility] TYPE CODE TESTS RESULT OUT OF RANGE REFERENCE UNITS LAB MG(LOINC) MAGNESIUM 1.9 1.8-2.6 mg/dL Performed By: #### CBCA, 895 79-7, [facility], 47408-5 #### [facility] ([id number]) [address] [place] [address] SARS/FLU A+B/RSV BY NAAT/MOLECULAR Observed: 01/06/2025 4:30 PM Status: COMPLETED Source: [facility] FLU A PCR Negative (qualifier value) FLU [...] operators who are performing tests using either [employer] or [employer] Systemsity systems and is limited to laboratories that [...] specimen repeat. Fact Sheet for Healthcare Providers: https://www.fda.gov/media/093405/download Fact Sheet for Patients: https://www.fda.gov/media/145207/download Performed By: #### COVFLR ## ## [facility] ([id number]) [address] [place] [address], [place] [address] 36 Observed: 08/21/2024 12:38 PM Status: COMPLETED Source: [facility] Regarding echo from 08/18/20 24: MD Blanca Cueto MA His echo was ok, follow up in 1 year. PROGRESS Observed: 08/10/2024 11:45 AM Status: COMPLETED Source: [facility] Cardiology - [facility] Subjective Minnie Jason is a 74 [...] HFA aerosol inhaler, , Disp: , Rfl: bcvtlukysj-sazdedfg-gdvxicubhx ([employer]) 160-9-4.8 mcg/actuation HFA aerosol inhaler, [...] Interval 06/02/2019 380 QTC CALCULATION(BEZET) 06/02/2019 401 R-[place] 06/02/2019 85 T Wave [place] 06/02/2019 56 Diagnosis 06/02/2019 Value:Atrial fibrillation Low [...] superficial femoral artery that is calcific. 5. Ozqd-lf-eyhggplc disease in the left superficial femoral artery. 6. Occluded anterior tibial arteries bilaterally. 7. Patent posterior tibial and peroneal arteries bilaterally. Assessment/Plan Diagnoses and all orders for this visit: Permanent atrial fibrillation (CMS/HCC) - Transthoracic echo (TTE) complete; Future Coronary artery disease involving nome coronary artery of nome heart without angina pectoris - Transthoracic echo (TTE) complete; Future Peripheral arterial occlusive disease (CMS/HCC) Essential hypertension Mixed hyperlipidemia History of coronary artery bypass surgery Comments: 2009 His AF is chronic and under rate control. 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 I will check an echocardiogram to follow-up on ventricular function given permanent atrial fibrillation. CAD: Status post bypass surgery, cardiac catheterization in 2019 showed occluded bypass grafts, status post stenting of the OM and LAD. 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, if [...] Observed: 08/10/2024 11:45 AM Status: COMPLETED Source: [facility] [id number] Minnie Jason M Date Provider Department Center 08/10/2024 [facility]-STEVE BRICEÑO CARD [facility] Family History Problem Relation Age of Onset Atrial fibrillation Brother Heart failure Brother Coronary artery disease Brother Family Status - Relation Status Age at Brother Level of Service:[id number] [place] OFFICE/OUTPATIENT ESTABLISHED MOD MDM 30 MIN PROGRESS Observed: 04/21/2024 11:40 AM Status: COMPLETED Source: [facility] Patient here for 1 year foll ow [...] Observed: 04/21/2024 11:40 AM Status: COMPLETED Source: [facility] *Stop taking ezetimibe (Zeti a) - this [...] Observed: 04/21/2024 11:40 AM Status: COMPLETED Source: [facility] [id number] Minnie Jason M Date Provider Department Center 04/21/2024 EJSUS FREEMAN [facility] Family History Problem Relation Age of Onset Atrial fibrillation Brother Heart failure Brother Coronary artery disease Brother Family Status - Relation Status Age at Brother Level of Service:[id number] [place] OFFICE/OUTPATIENT ESTABLISHED MOD MDM 30 MIN Reason for Visit and Comments: Coronary Artery Disease [187] Atrial Fibrillation [80] Hypertension [332254] Hyperlipidemia [182] Peripheral Vascular Disease [458] PROGRESS Observed: 04/21/2024 11:40 AM Status: COMPLETED Source: [facility] Cardiovascular Medicine [facility] SUBJECTIVE Chief Complaint Patient presents with Coronary Artery Disease Atrial Fibrillation Hypertension Hyperlipidemia Peripheral Vascular Disease Minnie Jason is a 73 y.o. male here for routine follow-up. HPI PMHx: 1. Atrial fibrillation on anticoagulation with Xarelto 2. 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 Hypertension 4. Hyperlipidemia on atorvastatin [...] improves with rest. Planning to go to [place] this summer to visit son. 03/27/22 He [...] palpitations. 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 ([facility]/HCC) Primary cardiomyopathy ([facility]/HCC) Pulmonary hypertension, mild ([facility]/HCC) Type 2 diabetes mellitus ([facility]/HCC) Peripheral vascular disease ([facility]/HCC) Hx of CABG Past Medical History: Diagnosis Date Abnormal ECG Arrhythmia Atrial fibrillation ([facility]/HCC) CHF (congestive heart failure) ([facility]/HCC) COPD (chronic obstructive pulmonary disease) ([facility]/HCC) Coronary artery disease Diabetes mellitus ([facility]/HCC) GERD (gastroesophageal reflux disease) Heart valve disease Hyperlipidemia Hypertension PAD (peripheral artery disease) ([facility]/HCC) Primary cardiomyopathy ([facility]/HCC) PVD (peripheral vascular disease) ([facility]) Family History Problem Relation Name Age of [...] if needed for wheezing., Disp: , Rfl: sgcmedgurv-waaodflq-pjcuxtfdjy (Breztri Aerosphere) 160-9-4.8 mcg/actuation HFA aerosol inhaler, [...] Final QTC CALCULATION(BEZET) 06/02/2019 401 ms Final R-[place] 06/02/2019 85 degrees Final T Wave [place] 06/02/2019 56 degrees Final Diagnosis 06/02/2019 Final [...] superficial femoral artery that is calcific. 5. Czht-ls-vmczmbrz disease in the left superficial femoral artery. [...] Diagnosis Plan 1. Coronary artery disease involving nome coronary artery of nome heart without angina pectoris 2. 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 He would like to try diet/exercise first then will reassess in 3 months. -At this time will continue amlodipine 5mg daily, carvedilol 25mg BID, olmesartan 40mg daily #Chronic a.fib -Rate controlled -Continue BB, digoxin, and Xarelto (denies bleeding issues) #VAELNTIN #COPD -Unchanged -ECHO 03/2022 unremarkable -He follows with PCP for management #HLD -LDL (02/2024): 25 -Continue atorvastatin 40mg daily. Will stop Ezetimibe. -Follow-up lipid panel in 3 months. #DM type II -On trulicity -Management per PCP Follow up in about 3 months (around 07/22/2024). Jesus Grewal NP [facility] ALLERGIES DATE TYPE / CODE NAME / CODE REACTION SEVERITY SOURCE Drug Class/064719422(SNO MED CT) NO KNOWN ALLERGIES [facility] SYSTEMIC/008257660( SNOMED CT) NO KNOWN ALLERGIES [facility] ENCOUNTERS ADMIT/DISCHARGE ACCOUNT NUMBER ADMITTING ENCOUNTER CLASS LOCATION SOURCE 01/27/2025/01/28/20 [id number] Ambulatory Building:[facility] 01/20/2025/01/21/20 [id number] Ambulatory Building:[facility] 01/13/2025/01/14/20 [id number] Ambulatory Building:[facility] 01/06/2025/01/11/20 [id number] ELLA VÁZQUEZ Inpatient Encounter Building[facility] 203Bed: 01 [facility] 08/10/2024/08/10/20 [id number] Ambulatory Building:[facility] 04/21/2024/04/21/20 [id number] Ambulatory Building:[facility] FUNCTIONAL STATUS No Functional Status Records Found EQUIPMENT No Equipment Records Found PAYERS ENCOUNTER GUARANTOR PAYER SUBSCRIBER SOURCE 01/27/2025 MINNIE ESQUEDA: [address] [place], [place] [address]Gyz: (HP) Primary Insurance:[employer] MEDICARE PLAN (PPO)Policy Number: [id number] Date:2023-10-28 MINNIE RIOSB: [id number] [place], [place] [address]Wjw: (HP) [facility] 01/20/2025 MINNIE ESQUEDA: [address] [place], [place] [address]Lvy: (HP) Primary Insurance:AETNA MEDICARE PLAN (PPO)Policy Number: [id number] Date:2023-10-28 MINNIE ESQUEDA: [id number] [place], [place] [address]Yey: (HP) [facility] 01/13/2025 MINNIE ESQUEDA: [address] [place], [place] [address]Gtw: (HP) Primary Insurance:AETNA MEDICARE PLAN (PPO)Policy Number: [id number] Date:2023-10-28 MINNIE ESQUEDA: [id number] [place], [place] [address]Iur: (HP) [facility] 01/06/2025 MINNIE ESQUEDA: [address] [place], [place] [address]Fkx: (HP) Primary Insurance:AETNA MEDICARE PLAN (PPO)Policy Number: [id number] Date:2023-10-28 MINNIE ESQUEDA: [id number] [place], [place] [address]Hdy: (HP) [facility] 08/10/2024 Primary Insuranc e:AETNA MEDICARE ADVANTAGEPolicy Number: [id number] Date:2021-10-28 MINNIE ESQUEDA: [id number] [place] [address] [facility] 04/21/2024 Primary Insuranc e:JAZMÍN MEDICARE ADVANTAGEPoly Number: [id number] Date:2021-10-28 MINNIE ESQUEDA: [id number] [place] [address] [facility] SOCIAL HISTORY No Social History Records Found FAMILY HISTORY No Family History Records Found No Status Records Found ADVANCE DIRECTIVES No Advanced Directives Records Found INFORMATION SOURCE DATE CREATED AUTHOR AUTHOR'S DUANE ATION 03/22/2025 FARAZ
[2025-03-22] VITALS (19 sets, daily range): BP systolic 77–145; BP diastolic 50–77; PULSE 63–150; TEMP 36.9; O2SAT 87–97; BMI 25.8
--- NOTE | 2025-03-22 | XR_ITS ---
The [address] [address] Patient Name: MINNIE FARIAS MRN: [id number] date: 1950 Sex: M Assigned Patient Location: ER Current Patient Location: ER Accession/Order Number: [id number] Exam Date: 03/22/2025 17:50 Report Date: 03/22/2025 17:51 At the request of: CECILE CHAN MD Procedure: XR chest 1V XR chest 1V 03/22/2025 5:39 PM SIGNS AND SYMPTOMS: ^SOB ^Y PROTOCOL: Frontal radiograph of the chest COMPARISON: 01/15/2025 FINDINGS: The trachea is midline. Sternotomy wires overlie the mediastinum. Atherosclerotic changes are present in the thoracic aorta. The heart and mediastinal structures are within normal limits. Right perihilar airspace opacity is noted. There is also subtle opacity near the left heart border. The bony thorax is intact. XR/XR chest 1V IMPRESSION: Right perihilar airspace opacity is noted. There is also subtle opacity near the left heart border. This may represent pneumonia. Impression dictated by: Steve Mejía M.D. 03/22/2025 5:51 PM Dictation Location: [place] [address] Electronically authenticated by: [id number] Y Date: 03/22/2025 17:51
--- NOTE | 2025-03-22 17:16 | ECG_ITS ---
[facility] Test Date: 2025-03-22 Pat Name: MINNIE FARIAS Department: Room: - Gender: Male Patient Partner: : 1950 Requested By: 1030 Order Number: [id number] Reading MD: STEVE BRICEÑO M.D. Measurements Intervals [place] Rate: 109 P: -19225 MI: -83176 QRS: 32 QRSD: 76 T: 56 QT: 316 QTc: 380 Interpretive Statements 31896 Atrial fibrillation with rapid ventricular response with aberrant conduction, or ventricular premature complexes 2420 RSR (QR) in lead V1/V2, consistent with right ventricular conduction delay 7300 Indeterminate axis 9140 abnormal rhythm ECG Compared to ECG 12/26/2024 03:01:50 Ventricular premature complex(es) now present Myocardial infarct finding no longer present ST (T wave) deviation no longer present Electronically Signed On 03-22-2025 22:19:03 EDT by STEVE BRICEÑO M.D.
--- NOTE | 2025-03-22 17:16 | ED.GENADUL1 ---
HPI HPI - General Adult General Chief complaint: Shortness of Breath/Dyspnea Stated complaint: SOB Time Seen by Provider: 03/22/25 17:14 Source: patient and family Mode of arrival: Wheelchair Limitations: no limitations History of Present Illness HPI narrative: 74-year-old male presents for difficulty breathing. He has been coughing up some yellow phlegm and his symptoms started last night he says. Earlier in the year he had pneumonia. No fever or vomiting. He has a history of COPD and quit smoking about 10 years ago. Related Data Home Medications ?Medication ?Instructions ?Recorded ?Confirmed albuterol sulfate 90 mcg/actuation 2 puff inhalation QID 12/21/24 12/26/24 aerosol inhaler amlodipine 5 mg tablet 5 mg PO DAILY 12/21/24 12/26/24 atorvastatin 40 mg tablet 40 mg PO DAILY 12/21/24 12/26/24 budesonide 160 mcg-glycopyr 9 2 inh inhalation BID 12/21/24 12/26/24 mcg-formot 4.8 mcg/actuation HFA inhaler (Breztri Aerosphere) carvedilol 12.5 mg tablet 12.5 mg PO BID 12/21/24 12/26/24 clopidogrel 75 mg tablet 75 mg PO DAILY 12/21/24 12/26/24 digoxin 250 mcg (0.25 mg) tablet 0.25 mg PO DAILY 12/21/24 12/26/24 dulaglutide 1.5 mg/0.5 mL 1.5 mg subcut QWEEK 12/21/24 12/26/24 subcutaneous pen injector (Trulicity) ezetimibe 10 mg tablet 5 mg PO DAILY 12/21/24 12/26/24 finasteride 5 mg tablet 5 mg PO DAILY 12/21/24 12/26/24 lansoprazole 30 mg capsule,delayed 30 mg PO BID 12/21/24 12/26/24 release montelukast 10 mg tablet 10 mg PO DAILY 12/21/24 12/26/24 olmesartan 40 mg tablet 40 mg PO DAILY 12/21/24 12/26/24 rivaroxaban 20 mg tablet (Xarelto) 20 mg PO DAILY 12/21/24 12/26/24 tamsulosin 0.4 mg capsule 0.4 mg PO DAILY 12/21/24 12/26/24 Previous Rx's ?Medication ?Instructions ?Recorded amoxicillin 875 mg-potassium 1 tab PO BID 14 days #28 tabs 12/24/24 clavulanate 125 mg tablet furosemide 20 mg tablet (Lasix) 20 mg PO DAILY PRN edema #7 tabs 12/24/24 ipratropium 0.5 mg-albuterol 3 mg 3 ml inhalation Q6H 30 days #180 mL 12/24/24 (2.5 mg base)/3 mL nebulization soln linezolid 600 mg tablet (Zyvox) 600 mg PO BID 14 days #28 tabs 12/24/24 nystatin 100,000 unit/mL oral 500,000 unit (5 mL) PO QID 14 days 12/24/24 suspension #280 mL prednisone 20 mg tablet 20 mg PO BID 7 days #14 tabs 12/24/24 Allergies Allergy/AdvReac Type Severity Reaction Status Date / Time No Known Drug Allergies Allergy Verified 03/22/25 17:12 Opioid HPI Opioid Management Most Recent Opioid Data: Last ORT Total Score 3 12/21/24, 17:19 Last ORT Risk Category Low Risk 12/21/24, 17:19 Review of Systems ROS Narrative A ten point review of systems is negative except as noted above. [facility] Medical History (Updated 03/22/25 @ 18:44 by Angelito Taylor MD) Type 2 diabetes mellitus ?E11.9 - Type 2 diabetes mellitus without complications (ICD-10) Hyperlipidemia associated with type 2 diabetes mellitus ?E11.69 - Type 2 diabetes mellitus with other specified complication (ICD-10) ?E78.5 - Hyperlipidemia, unspecified (ICD-10) Primary hypertension ?I10 - Essential (primary) hypertension (ICD-10) COPD (chronic obstructive pulmonary disease) ?J44.9 - Chronic obstructive pulmonary disease, unspecified (ICD-10) Chronic diastolic (congestive) heart failure ?I50.32 - Chronic diastolic (congestive) heart failure (ICD-10) GERD without esophagitis ?K21.9 - Gastro-esophageal reflux disease without esophagitis (ICD-10) Chronic a-fib ?I48.20 - Chronic atrial fibrillation, unspecified (ICD-10) Social History Highest level of school completed/degree received: Bachelor's degree Little interest or pleasure in doing things: not at all Feeling down, depressed, or hopeless: not at all Exam Narrative Exam Narrative: Nurses note and vital signs reviewed and patient is not hypoxic. General: The patient appears somewhat dyspneic. Skin: Warm, dry, no pallor noted. There is no rash noted. Head: Normocephalic, atraumatic Eye: Normal conjunctiva, no drainage Ears, Nose, Mouth, and Throat: oral mucosa is moist. Nares patent. Cardiovascular: Regular Rate and Rhythm Respiratory: Bilateral rhonchi present with upper airway noises well. Back: non-tender GI: Soft and nontender Musculoskeletal: The patient has no evidence of calf tenderness, no pitting edema, symmetrical pulses noted bilaterally Neurological: A&O, normal speech Psychiatric: Cooperative Constitutional Vital Signs, click to edit/add: Last Vital Signs Pulse 103 H 03/22/25 18:00 Resp 34 H 03/22/25 18:00 BP 102/50 03/22/25 17:34 Pulse Ox 96 03/22/25 18:00 O2 Del Method Nasal Cannula 03/22/25 17:25 O2 Flow Rate 3 03/22/25 17:25 Course Vital Signs Vital signs: Vital Signs Pulse Rate 150 H 03/22/25 17:06 Respiratory Rate 32 H 03/22/25 17:06 Blood Pressure 145/77 H 03/22/25 17:06 Pulse Oximetry 87 L 03/22/25 17:06 Oxygen Delivery Method Room Air 03/22/25 17:06 Pulse Rate 103 H 03/22/25 18:00 Respiratory Rate 34 H 03/22/25 18:00 Blood Pressure 102/50 03/22/25 17:34 Pulse Oximetry 96 03/22/25 18:00 Oxygen Delivery Method Nasal Cannula 03/22/25 17:25 Oxygen Delivery Flow Rate 3 03/22/25 17:25 Medical Decision Making MDM Narrative Medical decision making narrative: Right middle lobe pneumonia is identified with elevated WBC. COVID and influenza are negative. Lactic acid is elevated and repeat is pending. He was given IV antibiotics after blood cultures were obtained and he is being admitted. Treatment diagnosis and disposition were discussed with the patient and his family. Differential Diagnosis Differential Diagnosis: Pneumonia, URI, COVID, influenza, COPD exacerbation Lab Data Lab results reviewed: Yes I reviewed the patient's lab results Labs: Lab Results 03/22/25 03/22/25 Range/Units 17:16 17:25 WBC 27.8 H (4.0-11.0) 10^3/uL RBC 4.22 L (4.70-6.10) 10^6/uL Hgb 11.6 L (14.0-18.0) g/dL Hct 37.0 L (42.0-54.0) % MCV 87.7 (80.0-94.0) fL MCH 27.5 (25.9-34.0) pg MCHC 31.4 (29.9-35.2) g/dL RDW 15.3 H (11.0-15.0) % Plt Count 264 (150-450) 10^3/uL MPV 9.2 L (9.5-13.5) fL Seg Neuts % (Manual) 72.0 (43.0-75.0) Band Neutrophils % 23.0 H (0-5) % Lymphocytes % (Manual) 2.0 L (20.5-60.0) % Monocytes % (Manual) 3.0 (1.7-12.0) % Eosinophils % (Manual) 0.0 L (0.9-7.0) % Basophils % (Manual) 0.0 L (0.2-2.0) % Neutrophils # (Manual) 20.01 H (1.4-6.5) 10^3/uL Band Neutrophils # 6.4 H (0.0-0.3) 10^3/uL Lymphocytes # (Manual) 0.55 L (1.20-3.80) 10^3/uL Monocytes # (Manual) 0.83 H (0.30-0.80) 10^3/uL Eosinophils # (Manual) 0.00 (0.00-0.70) 10^3/uL Basophils # (Manual) 0.00 (0.00-0.10) 10^3/uL Anisocytosis 1+ Ovalocytes 1+ Sodium 140 (136-145) mmol/L Potassium 4.2 (3.5-5.1) mmol/L Chloride 100 (98-107) mmol/L Carbon Dioxide 23.1 (21.0-32.0) mmol/L Anion Gap 21.1 BUN 27.0 H (7.0-18.0) mg/dL Creatinine 2.08 H (0.70-1.30) mg/dL Est GFR ( Amer) 38 L (>=60 mL/min/1.73m^2) Est GFR (Non-Af Amer) 31 L (>=60 mL/min/1.73m^2) BUN/Creatinine Ratio 13.0 Glucose 107 H (74-106) mg/dL Lactate 5.5 H* (0.4-2.0) mmol/L Calcium 8.4 L (8.5-10.1) mg/dL Total Bilirubin 1.4 H (0.2-1.0) mg/dL Direct Bilirubin 0.3 H (0.0-0.2) mg/dL AST 27 (15-37) U/L ALT 27 (16-63) U/L Alkaline Phosphatase 50 (46-116) U/L Troponin I High Sens 28.7 (4.0-76.1) pg/mL Total Protein 6.6 (6.4-8.2) g/dL Albumin 3.1 L (3.4-5.0) g/dL Globulin 3.5 g/dL Albumin/Globulin Ratio 0.9 Influenza Type A Ag Negative Influenza Type B Ag Negative Imaging Data Chest x-ray: Radiologist's impression: ITS Impressions Chest X-Ray 03/22/25 00:00 IMPRESSION: Right perihilar airspace opacity is noted. There is also subtle opacity near the left heart border. This may represent pneumonia. Impression dictated by: Steve Mejía M.D. 03/22/2025 5:51 PM Dictation Location: [place] [address] Electronically authenticated by: [id number] Y Date: 03/22/2025 17:51 ECG Data Attestation: I personally reviewed and interpreted this ECG as follows: (EKG on my interpretation shows atrial fibrillation with artifact) Discharge Plan Discharge Chief Complaint: Shortness of Breath/Dyspnea Clinical Impression: Right middle lobe pneumonia Patient Disposition: Admitted As Inpatient Time of Disposition Decision: 18:44 Condition: Fair
[2025-03-22] MEDS: ALBUTEROL SULFATE 2.5 MG/3 ML VIAL NEB IH (17:25)
[2025-03-22 17:30] LABS: Hemoglobin 11.6 g/dL (14.0-18.0); Mean Corpuscular HGB Conc 31.4 g/dL (29.9-35.2); Mean Corpuscular Hemoglobin 27.5 pg (25.9-34.0); Mean Corpuscular Volume 87.7 fL (80.0-94.0); Mean Platelet Volume 9.2 fL (9.5-13.5); Platelet Count 264 10^3/uL (150-450); Red Blood Count 4.22 10^6/uL (4.70-6.10); Red Cell Distribution Width 15.3 % (11.0-15.0); White Blood Count 27.8 10^3/uL (4.0-11.0)
[2025-03-22] MEDS: METHYLPREDNISOLONE SOD SUCC PF 125 MG/2 ML VIAL IVP (17:43)
[2025-03-22 17:46] LABS: Anion Gap 21.1
[2025-03-22 17:47] LABS: Influenza Virus A Antigen Negative; Influenza Virus B Antigen Negative; Internal Control Within Normal Limits
[2025-03-22 17:48] LABS: Alanine Aminotransferase 27 U/L (16-63); Albumin Globulin Ratio 0.9; Albumin Level 3.1 g/dL (3.4-5.0); Alkaline Phosphatase 50 U/L (46-116); Aspartate Amino Transferase 27 U/L (15-37); Bilirubin Direct 0.3 mg/dL (0.0-0.2); Bilirubin Total 1.4 mg/dL (0.2-1.0); Calcium 8.4 mg/dL (8.5-10.1); Carbon Dioxide 23.1 mmol/L (21.0-32.0); Chloride 100 mmol/L (98-107); Estimated GFR (African America 38 (>=60 mL/min/1.73m^2); Estimated GFR (Non-African Ame 31 (>=60 mL/min/1.73m^2); Globulin 3.5 g/dL; Glucose 107 mg/dL (74-106); Potassium 4.2 mmol/L (3.5-5.1); Sodium 140 mmol/L (136-145); Total Protein 6.6 g/dL (6.4-8.2); Troponin I High Sensitivity 28.7 pg/mL (4.0-76.1)
[2025-03-22 17:50] LABS: Anisocytosis 1+; Band Neutrophils Absolute 6.4 10^3/uL (0.0-0.3); Lymphocytes Absolute Manual 0.55 10^3/uL (1.20-3.80); Monocytes Absolute Manual 0.83 10^3/uL (0.30-0.80); Segmented Neut Absolute Manual 20.01 10^3/uL (1.4-6.5)
[2025-03-22 17:51] LABS: Ovalocytes 1+
[2025-03-22] MEDS: CEFTRIAXONE 1,000 MG in 0.9 % SODIUM CHLORIDE 50 ML 100 MG IV (17:58)
--- NOTE | 2025-03-22 18:11 | PC.NURSE ---
Pulse ox. on arrival 87% on room air. Oxygen applied at 2 LPM/NC. and pulse ox. up to 93%.
[2025-03-22 18:21] LABS: Lactate/Lactic Acid 5.5 mmol/L (0.4-2.0)
[2025-03-22] MEDS: AZITHROMYCIN 500 MG in 0.9 % SODIUM CHLORIDE 250 ML 250 MG IV (18:50)
[2025-03-22 20:36] LABS: Lactate/Lactic Acid 3.7 mmol/L (0.4-2.0)
[2025-03-22 21:06] LABS: Digoxin 0.4 ng/mL (0.9-2.0)
[2025-03-23] VITALS (22 sets, daily range): BP systolic 94–123; BP diastolic 55–80; PULSE 61–103; TEMP 36.5–37.3; O2SAT 91–99
[2025-03-23 00:04] LABS: Glucometer 128 mg/dL (74-106)
[2025-03-23] MEDS: 0.9 % SODIUM CHLORIDE 1,000 ML 125 ML IV (01:26)
[2025-03-23 05:15] LABS: Hematocrit 34.9 % (42.0-54.0); Hemoglobin 10.9 g/dL (14.0-18.0); Mean Corpuscular HGB Conc 31.2 g/dL (29.9-35.2); Mean Corpuscular Hemoglobin 27.1 pg (25.9-34.0); Mean Corpuscular Volume 86.8 fL (80.0-94.0); Mean Platelet Volume 9.4 fL (9.5-13.5); Platelet Count 241 10^3/uL (150-450); Red Blood Count 4.02 10^6/uL (4.70-6.10); Red Cell Distribution Width 15.2 % (11.0-15.0); White Blood Count 23.2 10^3/uL (4.0-11.0)
[2025-03-23 05:35] LABS: Alanine Aminotransferase 26 U/L (16-63); Albumin Globulin Ratio 0.8; Albumin Level 2.8 g/dL (3.4-5.0); Alkaline Phosphatase 46 U/L (46-116); Anion Gap 16.1; Aspartate Amino Transferase 20 U/L (15-37); BUN Creatinine Ratio 20.9; Bilirubin Total 0.8 mg/dL (0.2-1.0); Calcium 8.1 mg/dL (8.5-10.1); Carbon Dioxide 25.9 mmol/L (21.0-32.0); Chloride 100 mmol/L (98-107); Estimated GFR (African America 43 (>=60 mL/min/1.73m^2); Estimated GFR (Non-African Ame 35 (>=60 mL/min/1.73m^2); Globulin 3.4 g/dL; Glucose 122 mg/dL (74-106); Sodium 138 mmol/L (136-145); Total Protein 6.2 g/dL (6.4-8.2)
[2025-03-23] MEDS: CARVEDILOL 12.5 MG TABLET PO ×2 (08:08→22:12)
[2025-03-23] MEDS: ATORVASTATIN CALCIUM 40 MG TABLET PO (08:08)
[2025-03-23] MEDS: TAMSULOSIN HCL 0.4 MG CAPSULE PO (08:08)
[2025-03-23] MEDS: FINASTERIDE 5 MG TABLET PO (08:08)
[2025-03-23] MEDS: EZETIMIBE 10 MG TABLET 5 MG PO (08:08)
[2025-03-23] MEDS: PANTOPRAZOLE SODIUM 40 MG TABLET.DR PO (08:08)
[2025-03-23] MEDS: MONTELUKAST SODIUM 10 MG TABLET PO (08:09)
[2025-03-23] MEDS: CLOPIDOGREL BISULFATE 75 MG TABLET PO (08:09)
[2025-03-23] MEDS: METHYLPREDNISOLONE SOD SUCC PF 40 MG/ML VIAL 60 MG IVP (08:09)
[2025-03-23] MEDS: DIGOXIN 125 MCG TABLET PO (09:17)
--- NOTE | 2025-03-23 10:23 | SWNOTE1 ---
SW met with pt in room. Pt is independent at home with . Does not use oxygen or have any services coming into home. Pt is on oxygen at hospital and there is possible need for home oxygen. SW to follow as needed.
--- NOTE | 2025-03-23 10:25 | SWNOTE1 ---
Important Message from [employer] reviewed and discussed with patient. Pt. verbalized understanding and signed the form. Original given to patient and copy placed in patient?s chart.
[2025-03-23] MEDS: BUDESONIDE 0.5 MG/2 ML AMPULE NEB IH ×2 (10:57→20:00)
[2025-03-23] MEDS: ALBUTEROL SULFATE 2.5 MG/3 ML VIAL NEB IH ×3 (10:57→20:00)
--- NOTE | 2025-03-23 11:12 | PM.HP ---
HPI H&P: HPI History of Present Illness Chief complaint: SOB, RML PNEUMONIA Narrative: 74 y/o male with history of COPD to ER with SOB and cough for several days. Chest tight and hard to take deep breath. SOB with minimal exertion. Frequent cough productive yellow sputum. To ER and SpO2 87% on room air. WBC elevated at 27.8 and lactate elevated. Chest x-ray with RML pneumonia. Started IV fluids and antibiotics then admitted for treatment. Initially on rocephin and zithromax but changed to rocephin and levaquin due to history of pseudomonas pneumonia. Opioid HPI Opioid Management Most Recent Pain and Opioid Data: Last Pain Assessment 03/22/25, 21:51 Last ORT Total Score 0 03/22/25, 20:17 Last ORT Risk Category Low Risk 03/22/25, 20:17 Review of Systems ROS Constitutional Denies: fever, chills or fatigue Cardiovascular Denies: chest pain, palpitations or edema Respiratory Reports: shortness of breath, cough, wheezing and change in phlegm color Gastrointestinal Denies: abdominal pain, nausea, vomiting or diarrhea Genitourinary Denies: painful urination PFSH PFS Medical History (Updated 03/23/25 @ 11:20 by Joaquin Ruby MD) Multifocal pneumonia ?J18.9 - Pneumonia, unspecified organism (ICD-10) LFT elevation ?R79.89 - Other specified abnormal findings of blood chemistry (ICD-10) Type 2 diabetes mellitus ?E11.9 - Type 2 diabetes mellitus without complications (ICD-10) Hyperlipidemia associated with type 2 diabetes mellitus ?E11.69 - Type 2 diabetes mellitus with other specified complication (ICD-10) ?E78.5 - Hyperlipidemia, unspecified (ICD-10) COPD (chronic obstructive pulmonary disease) ?J44.9 - Chronic obstructive pulmonary disease, unspecified (ICD-10) GERD without esophagitis ?K21.9 - Gastro-esophageal reflux disease without esophagitis (ICD-10) Surgical History (Updated 03/22/25 @ 20:08 by Lori Moore) H/O heart bypass surgery ?Z95.1 - Presence of aortocoronary bypass graft (ICD-10) Family History (Updated 03/22/25 @ 20:09 by Lori Moore) Father Family history of CHF (congestive heart failure) Family history of myocardial infarction Mother Family history of hypertension Brother Family history of hypertension Social History (Updated 03/22/25 @ 20:10 by Lori Moore) Within the past year, how often did you have a drink containing alcohol: never Score interpretation: A score less than 4 is consistent with normal alcohol consumption. Smoking status: Former smoker Non-prescribed substance use: denies use Previous occupational history: Retried Highest level of school completed/degree received: Bachelor's degree Are you now , , , , never or living with a partner: In a typical week, how many times do you talk on the telephone with family, friends, or neighbors: 3 or more times per week How often do you get together with friends or relatives: 3 or more times per week How often do you attend lutheran or mosque services: 4 or more times per year Little interest or pleasure in doing things: not at all Feeling down, depressed, or hopeless: not at all Feel stressed/tense/nervous/anxious/difficulty sleeping: not at all Meds Home Medications and Allergies Home Medications ?Medication ?Instructions ?Recorded ?Confirmed ?Type albuterol sulfate 90 mcg/actuation 2 puff inhalation QID PRN 12/21/24 03/23/25 History aerosol inhaler shortness of breath or wheezing atorvastatin 40 mg tablet 40 mg PO DAILY 12/21/24 03/22/25 History budesonide 160 mcg-glycopyr 9 2 inh inhalation BID 12/21/24 03/22/25 History mcg-formot 4.8 mcg/actuation HFA inhaler (Breztri Aerosphere) clopidogrel 75 mg tablet 75 mg PO DAILY 12/21/24 03/22/25 History ezetimibe 10 mg tablet 5 mg PO DAILY 12/21/24 03/22/25 History finasteride 5 mg tablet 5 mg PO DAILY 12/21/24 03/22/25 History lansoprazole 30 mg capsule,delayed 30 mg PO BID 12/21/24 03/22/25 History release montelukast 10 mg tablet 10 mg PO DAILY 12/21/24 03/22/25 History rivaroxaban 20 mg tablet (Xarelto) 20 mg PO DAILY 12/21/24 03/22/25 History tamsulosin 0.4 mg capsule 0.4 mg PO DAILY 12/21/24 03/22/25 History ammonium lactate 12 % topical cream 1 applic topical HS PRN dry skin 03/22/25 03/22/25 History carvedilol 12.5 mg tablet 12.5 mg PO BID 03/22/25 03/22/25 History dapagliflozin propanediol 10 mg 10 mg PO DAILY 03/22/25 03/22/25 History tablet (Farxiga) dexamethasone 2 mg tablet 2 mg PO Q24H 03/22/25 03/22/25 History digoxin 250 mcg (0.25 mg) tablet 0.125 mg PO DAILY 03/22/25 03/22/25 History doxycycline monohydrate 100 mg 100 mg PO Q12H 03/22/25 03/22/25 History tablet ensifentrine 3 mg/2.5 mL 2.5 ml inhalation BID 03/22/25 03/22/25 History suspension for nebulization (Ohtuvayre) ferrous sulfate PO 03/22/25 History ketoconazole 2 % topical cream 1 applic topical BID 03/22/25 03/22/25 History olmesartan 40 mg tablet 20 mg PO DAILY 03/22/25 03/22/25 History pantoprazole 40 mg tablet,delayed 40 mg PO DAILY 03/22/25 03/22/25 History release Allergies Allergy/AdvReac Type Severity Reaction Status Date / Time No Known Drug Allergies Allergy Verified 03/22/25 17:12 Exam Constitutional Vital Signs, click to edit/add: Last Vital Signs Temp 98.0 F 03/23/25 07:52 Pulse 75 03/23/25 11:11 Resp 16 03/23/25 11:11 BP 123/80 03/23/25 07:52 Pulse Ox 93 L 03/23/25 11:11 O2 Del Method Nasal Cannula 03/23/25 11:11 O2 Flow Rate 1 03/23/25 11:11 Documenting provider has reviewed patient's vital signs: yes Common normals: no apparent distress, oriented x3 and alert HENMT Common normals: normocephalic Eye Common normals: PERRL and EOMs intact bilaterally Respiratory Effort & inspection: labored Auscultation: wheezes expiratory wheezes and diminished lung sounds Cardio Common normals: regular rate, no gallops, no murmurs and no rub Rhythm: abnormal rhythm irregularly irregular GI Common normals: Normal to inspection, nondistended, normoactive bowel sounds present and non-tender Extremity Common normals: no pedal edema Results Labs Labs: Short CBC 03/22/25 03/23/25 Range/Units 17:16 04:53 WBC 27.8 H 23.2 H (4.0-11.0) 10^3/uL Hgb 11.6 L 10.9 L (14.0-18.0) g/dL Hct 37.0 L 34.9 L (42.0-54.0) % Plt Count 264 241 (150-450) 10^3/uL BMP 03/22/25 03/23/25 17:16 04:53 Sodium 140 138 Potassium 4.2 4.0 Chloride 100 100 Carbon Dioxide 23.1 25.9 BUN 27.0 H 39.0 H Creatinine 2.08 H 1.87 H Glucose 107 H 122 H Calcium 8.4 L 8.1 L Liver Function 03/22/25 03/23/25 Range/Units 17:16 04:53 Total Bilirubin 1.4 H 0.8 (0.2-1.0) mg/dL Direct Bilirubin 0.3 H (0.0-0.2) mg/dL AST 27 20 (15-37) U/L ALT 27 26 (16-63) U/L Alkaline Phosphatase 50 46 (46-116) U/L Albumin 3.1 L 2.8 L (3.4-5.0) g/dL Assessment and Plan Assessment and Plan (1) Right middle lobe pneumonia: Qualifiers: Pneumonia type: due to unspecified organism Qualified Code(s): J18.9 - Pneumonia, unspecified organism (2) Sepsis: Qualifiers: Sepsis type: sepsis due to unspecified organism Sepsis acute organ dysfunction status: with acute organ dysfunction Severe sepsis acute organ dysfunction type: acute respiratory failure Acute respiratory failure type: with hypoxia Severe sepsis shock status: without septic shock Qualified Code(s): A41.9 - Sepsis, unspecified organism; R65.20 - Severe sepsis without septic shock; J96.01 - Acute respiratory failure with hypoxia (3) COPD exacerbation: (4) Acute hypoxic respiratory failure: (5) History of Pseudomonas pneumonia: (6) Type 2 diabetes mellitus with hyperglycemia: Qualifiers: Diabetes mellitus penitentiary insulin use: without long wall shear operator use Qualified Code(s): E11.65 - Type 2 diabetes mellitus with hyperglycemia (7) Primary hypertension: (8) Chronic diastolic (congestive) heart failure: (9) Chronic a-fib: Plan Presented with pneumonia and had sepsis on admission as evidenced by elevated WBC, lactic acidosis, hypoxia, and source of infection. Did not give 30mL/Kg fluid bolus due to history of CHF but gave IV fluids overnight. Saline lock IV and encourage oral intake. Continue antibiotics, steroids, and breathing treatments. Wean O2 as tolerated. Start PT/OT for weakness. Plan on at least a 2 mignight stay for inpatient medically necessary services.
--- NOTE | 2025-03-23 11:19 | CM.NOTE ---
Rounds made with Dr. Ruby. Dr. Ruby reviews changes to plan of care with Melody Eren. No plan for discharge today.
[2025-03-23] MEDS: INSULIN ASPART 300 UNIT/3 ML PEN SUBQ ×3 (12:31→22:13)
[2025-03-23] MEDS: LEVOFLOXACIN IN DEXTROSE 5 % 750 MG/150 ML PREMIX 100 MG IV (12:31)
[2025-03-23 12:40] LABS: Glucometer 160 mg/dL (74-106)
--- NOTE | 2025-03-23 15:03 | SWNOTE1 ---
SW looked over PT/OT notes and recommendation of home health. SW spoke to pt and in room about home health recommendation. SW explained what home health is and how it works. Pt voiced he would like to think about it. SW advised that this can be set up prior to discharge from hospital. If pt decides to go home without home health, SW advised he will have to reach out to his PCP for set up. Pt voiced understanding.
[2025-03-23] MEDS: RIVAROXABAN 10 MG TABLET 20 MG PO (16:38)
[2025-03-23 16:44] LABS: Glucometer 197 mg/dL (74-106)
[2025-03-23] MEDS: CEFTRIAXONE 1,000 MG in 0.9 % SODIUM CHLORIDE 50 ML 100 MG IV (17:07)
[2025-03-23 22:12] LABS: Glucometer 174 mg/dL (74-106)
[2025-03-24] VITALS (21 sets, daily range): BP systolic 119–153; BP diastolic 65–77; PULSE 53–105; TEMP 36.3–36.6; O2SAT 91–97
[2025-03-24] MEDS: ALBUTEROL SULFATE 2.5 MG/3 ML VIAL NEB IH ×4 (04:00→20:01)
[2025-03-24 05:23] LABS: Basophils Percent Auto 0.1 % (0.2-2.0); Hemoglobin 10.9 g/dL (14.0-18.0); Immature Granulocytes Pct Auto 1.6 % (0.0-0.5); Lymphocytes Absolute Auto 0.3 10^3/uL (1.2-3.8); Lymphocytes Percent Auto 1.7 % (20.5-60.0); Mean Corpuscular HGB Conc 32.1 g/dL (29.9-35.2); Mean Corpuscular Hemoglobin 27.1 pg (25.9-34.0); Mean Corpuscular Volume 84.6 fL (80.0-94.0); Mean Platelet Volume 9.6 fL (9.5-13.5); Monocytes Absolute Auto 1.2 10^3/uL (0.3-0.8); Monocytes Percent Auto 6.3 % (1.7-12.0); Neutrophils Absolute Auto 16.7 10^3/uL (1.4-6.5); Neutrophils Percent Auto 90.3 % (43.0-75.0); Platelet Count 219 10^3/uL (150-450); Red Blood Count 4.02 10^6/uL (4.70-6.10); Red Cell Distribution Width 14.9 % (11.0-15.0); White Blood Count 18.5 10^3/uL (4.0-11.0)
[2025-03-24 05:38] LABS: Alanine Aminotransferase 25 U/L (16-63); Albumin Globulin Ratio 0.7; Albumin Level 2.4 g/dL (3.4-5.0); Alkaline Phosphatase 58 U/L (46-116); Anion Gap 14.9; Aspartate Amino Transferase 17 U/L (15-37); BUN Creatinine Ratio 52.6; Bilirubin Total 0.5 mg/dL (0.2-1.0); Calcium 8.4 mg/dL (8.5-10.1); Carbon Dioxide 24.8 mmol/L (21.0-32.0); Chloride 102 mmol/L (98-107); Estimated GFR (African America >60 (>=60 mL/min/1.73m^2); Estimated GFR (Non-African Ame >60 (>=60 mL/min/1.73m^2); Globulin 3.6 g/dL; Glucose 168 mg/dL (74-106); Potassium 3.7 mmol/L (3.5-5.1); Sodium 138 mmol/L (136-145)
[2025-03-24] MEDS: METHYLPREDNISOLONE SOD SUCC PF 40 MG/ML VIAL 60 MG IVP (09:49)
[2025-03-24] MEDS: ATORVASTATIN CALCIUM 40 MG TABLET PO (09:49)
[2025-03-24] MEDS: MONTELUKAST SODIUM 10 MG TABLET PO (09:49)
[2025-03-24] MEDS: TAMSULOSIN HCL 0.4 MG CAPSULE PO (09:49)
[2025-03-24] MEDS: PANTOPRAZOLE SODIUM 40 MG TABLET.DR PO (09:49)
[2025-03-24] MEDS: EZETIMIBE 10 MG TABLET 5 MG PO (09:49)
[2025-03-24] MEDS: FINASTERIDE 5 MG TABLET PO (09:50)
[2025-03-24] MEDS: INSULIN ASPART 300 UNIT/3 ML PEN SUBQ ×4 (09:50→22:23)
[2025-03-24] MEDS: CARVEDILOL 12.5 MG TABLET PO ×2 (09:50→22:21)
[2025-03-24] MEDS: DIGOXIN 125 MCG TABLET PO (09:50)
[2025-03-24] MEDS: CLOPIDOGREL BISULFATE 75 MG TABLET PO (09:51)
--- NOTE | 2025-03-24 10:26 | PM.PN ---
Progress Note: Subjective Subjective Interval history: Patient improved this am. Weaned off oxygen and normal SpO2 on room air. Less SOB with exertion. Mild cough and sputum. Strength improving and ambulating around room. Mild SOB with exertion but overall improved. WBC decreased and afebrile. Normal appetite and no emesis or diarrhea. No chest pain or palpitations. Exam Constitutional Vital Signs, click to edit/add: Last Vital Signs Temp 97.4 F L 03/24/25 08:09 Pulse 105 H 03/24/25 10:00 Resp 17 03/24/25 08:09 BP 129/76 03/24/25 08:09 Pulse Ox 93 L 03/24/25 08:09 O2 Del Method Room Air 03/24/25 08:09 O2 Flow Rate 2 03/23/25 20:32 Documenting provider has reviewed patient's vital signs: yes Common normals: no apparent distress, oriented x3 and alert HENMT Common normals: normocephalic Eye Common normals: PERRL and EOMs intact bilaterally Respiratory Auscultation: crackles (Bibasilar crackles ) Cardio Common normals: regular rate, regular rhythm, no gallops, no murmurs and no rub GI Common normals: Normal to inspection, nondistended, normoactive bowel sounds present and non-tender Extremity Common normals: no pedal edema Progress Note: Objective Labs Labs: Short CBC 03/24/25 Range/Units 05:18 WBC 18.5 H (4.0-11.0) 10^3/uL Hgb 10.9 L (14.0-18.0) g/dL Hct 34.0 L (42.0-54.0) % Plt Count 219 (150-450) 10^3/uL BMP 03/24/25 05:18 Sodium 138 Potassium 3.7 Chloride 102 Carbon Dioxide 24.8 BUN 60.0 H Creatinine 1.14 Glucose 168 H Calcium 8.4 L Liver Function 03/24/25 Range/Units 05:18 Total Bilirubin 0.5 (0.2-1.0) mg/dL AST 17 (15-37) U/L ALT 25 (16-63) U/L Alkaline Phosphatase 58 (46-116) U/L Albumin 2.4 L (3.4-5.0) g/dL Progress Note: A&P Assessment and Plan (1) Right middle lobe pneumonia: Qualifiers: Pneumonia type: due to unspecified organism Qualified Code(s): J18.9 - Pneumonia, unspecified organism (2) Sepsis: Qualifiers: Sepsis type: sepsis due to unspecified organism Sepsis acute organ dysfunction status: with acute organ dysfunction Severe sepsis acute organ dysfunction type: acute respiratory failure Acute respiratory failure type: with hypoxia Severe sepsis shock status: without septic shock Qualified Code(s): A41.9 - Sepsis, unspecified organism; R65.20 - Severe sepsis without septic shock; J96.01 - Acute respiratory failure with hypoxia (3) COPD exacerbation: (4) Acute hypoxic respiratory failure: (5) Acute kidney injury: (6) History of Pseudomonas pneumonia: (7) Type 2 diabetes mellitus with hyperglycemia: Qualifiers: Diabetes mellitus halfway insulin use: 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 Continue PT/OT for weakness. Monitor labs and vitals. If continues to improve likely home in next 1-2 days.
--- NOTE | 2025-03-24 10:28 | CM.NOTE ---
Rounds made with Dr. Ruby, no discharge today. Continues antibiotics, IV steroids, and breathing tx. Possible discharge to home tomorrow.
[2025-03-24] MEDS: BUDESONIDE 0.5 MG/2 ML AMPULE NEB IH ×2 (10:46→20:01)
[2025-03-24 11:10] LABS: Glucometer 149 mg/dL (74-106)
--- NOTE | 2025-03-24 11:46 | PT.DAILY ---
Physical Therapy Daily Note PT Daily Note/Assess Start: 03/24/25 11:43 Freq: Status: Active Protocol: Document 03/24/25 11:43 ISAURA (Rec: 03/24/25 11:46 ISAURA [id number]) Physical Therapy Daily Note/Assessment Time In/Time Out Time In 10:50 Time Out 11:00 Pain In Pain N/A Pain Out Pain N/A Subjective Subjective Pt sitting in BS chair upon arrival. On 2L O2. Agrees to PT. Therapeutic Exercise Time Therapeutic Exercise 5 Minutes (minutes) Therapeutic Exercise 0 Units Therapeutic Exercise Treatment Therapeutic Exercise Standing ex complete at sink with Bilat UE support - Treatment HR, marches, HS curls, hip abduction, and hip flexion 10x ea. Seated therapeutic rest break after completion. Therapeutic Activity Time Therapeutic Activity 5 Minutes (minutes) Therapeutic Activity 1 Units Therapeutic Activity Treatment Chair Transfer Modified Independent Ability Therapeutic Activity Sit>stand Elisabeth with O2 lines. Pt amb 15'x2 to and from Comments sink for standing ex without AD, SUP. Seated rest between standing ex and amb. Spo2 95% after standing ex . Pt amb 120' without AD, SUP. Spo2 93% upon completion . Total Physical Therapy Time Total Therapy 10 Minutes Total Physical 1 Therapy Units Summary Daily Note Summary Improved gait endurance. Min drop in sats with amb to 93%.
--- NOTE | 2025-03-24 11:55 | CM.NOTE ---
Discussed with pt about HH services, pt still unsure about HH services. Pt still awaiting to speak with his .
--- NOTE | 2025-03-24 13:59 | CM.NOTE ---
Talked with pt and regarding HH services, at this time pt requests for outpatient PT. Pt is not home bound.
[2025-03-24 16:32] LABS: Glucometer 155 mg/dL (74-106)
[2025-03-24] MEDS: RIVAROXABAN 10 MG TABLET 20 MG PO (17:40)
[2025-03-24] MEDS: CEFTRIAXONE 1,000 MG in 0.9 % SODIUM CHLORIDE 50 ML 100 MG IV (17:41)
[2025-03-24] MEDS: KETOCONAZOLE 15 APPLIC TUBE TOPICAL (22:22)
[2025-03-24 22:24] LABS: Glucometer 218 mg/dL (74-106)
[2025-03-25] VITALS (9 sets, daily range): BP systolic 110–152; BP diastolic 51–82; PULSE 53–93; TEMP 36.3–36.9; O2SAT 93–95
[2025-03-25] MEDS: ALBUTEROL SULFATE 2.5 MG/3 ML VIAL NEB IH (05:17)
[2025-03-25 05:22] LABS: Basophils Percent Auto 0.1 % (0.2-2.0); Hematocrit 33.4 % (42.0-54.0); Hemoglobin 10.4 g/dL (14.0-18.0); Immature Granulocytes Abs Auto 0.04 10^3/uL (0.00-0.03); Immature Granulocytes Pct Auto 0.3 % (0.0-0.5); Lymphocytes Absolute Auto 0.4 10^3/uL (1.2-3.8); Lymphocytes Percent Auto 2.7 % (20.5-60.0); Mean Corpuscular HGB Conc 31.1 g/dL (29.9-35.2); Mean Corpuscular Hemoglobin 26.5 pg (25.9-34.0); Mean Platelet Volume 9.4 fL (9.5-13.5); Monocytes Absolute Auto 0.8 10^3/uL (0.3-0.8); Monocytes Percent Auto 5.9 % (1.7-12.0); Neutrophils Absolute Auto 12.9 10^3/uL (1.4-6.5); Platelet Count 233 10^3/uL (150-450); Red Blood Count 3.93 10^6/uL (4.70-6.10); Red Cell Distribution Width 14.9 % (11.0-15.0); White Blood Count 14.2 10^3/uL (4.0-11.0)
[2025-03-25 05:51] LABS: Alanine Aminotransferase 32 U/L (16-63); Albumin Globulin Ratio 0.6; Albumin Level 2.4 g/dL (3.4-5.0); Alkaline Phosphatase 65 U/L (46-116); Anion Gap 13.9; Aspartate Amino Transferase 20 U/L (15-37); BUN Creatinine Ratio 57.7; Bilirubin Total 0.4 mg/dL (0.2-1.0); Calcium 9.1 mg/dL (8.5-10.1); Chloride 101 mmol/L (98-107); Estimated GFR (African America >60 (>=60 mL/min/1.73m^2); Estimated GFR (Non-African Ame >60 (>=60 mL/min/1.73m^2); Globulin 3.7 g/dL; Glucose 180 mg/dL (74-106); Potassium 3.9 mmol/L (3.5-5.1); Sodium 137 mmol/L (136-145); Total Protein 6.1 g/dL (6.4-8.2)
[2025-03-25 07:45] LABS: Glucometer 194 mg/dL (74-106)
[2025-03-25] MEDS: DIGOXIN 125 MCG TABLET PO (08:16)
[2025-03-25] MEDS: METHYLPREDNISOLONE SOD SUCC PF 40 MG/ML VIAL 60 MG IVP (08:16)
[2025-03-25] MEDS: ATORVASTATIN CALCIUM 40 MG TABLET PO (08:16)
[2025-03-25] MEDS: MONTELUKAST SODIUM 10 MG TABLET PO (08:16)
[2025-03-25] MEDS: PANTOPRAZOLE SODIUM 40 MG TABLET.DR PO (08:17)
[2025-03-25] MEDS: CLOPIDOGREL BISULFATE 75 MG TABLET PO (08:17)
[2025-03-25] MEDS: KETOCONAZOLE 15 APPLIC TUBE TOPICAL (08:17)
[2025-03-25] MEDS: EZETIMIBE 10 MG TABLET 5 MG PO (08:17)
[2025-03-25] MEDS: TAMSULOSIN HCL 0.4 MG CAPSULE PO (08:17)
[2025-03-25] MEDS: CARVEDILOL 12.5 MG TABLET PO (08:17)
[2025-03-25] MEDS: INSULIN ASPART 300 UNIT/3 ML PEN SUBQ (08:17)
[2025-03-25] MEDS: FINASTERIDE 5 MG TABLET PO (08:17)
--- NOTE | 2025-03-25 10:56 | P.DS_ITS ---
DS: Providers Provider Date of admission: 03/22/25 19:56 Primary care physician: YANY VELAZQUEZ DO Consults: 03/23/25 09:00 Occupational Therapy Eval and Treat Routine Reason for consultation: Weakness Has provider been notified: No Physical Therapy Eval and Treat Routine Reason for consultation: Weakness Has provider been notified: No DS: Diagnosis Discharge Diagnosis (1) Right middle lobe pneumonia: Qualifiers: Pneumonia type: due to unspecified organism Qualified Code(s): J18.9 - Pneumonia, unspecified organism (2) Sepsis: Qualifiers: Sepsis type: sepsis due to unspecified organism Sepsis acute organ dysfunction status: with acute organ dysfunction Severe sepsis acute organ dysfunction type: acute respiratory failure Acute respiratory failure type: with hypoxia Severe sepsis shock status: without septic shock Qualified Code(s): A41.9 - Sepsis, unspecified organism; R65.20 - Severe sepsis without septic shock; J96.01 - Acute respiratory failure with hypoxia (3) COPD exacerbation: (4) Acute hypoxic respiratory failure: (5) Acute kidney injury: (6) History of Pseudomonas pneumonia: (7) Type 2 diabetes mellitus with hyperglycemia: Qualifiers: Diabetes mellitus fpc insulin use: 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 74 y/o male with history of COPD to ER with SOB and cough for several days. Chest tight and hard to take deep breath. SOB with minimal exertion. Frequent cough productive yellow sputum. To ER and SpO2 87% on room air. WBC elevated at 27.8 and lactate elevated. Chest x-ray with RML pneumonia. Started IV fluids and antibiotics then admitted for treatment. Hospital course: Initially on rocephin and zithromax but changed to rocephin and levaquin due to history of pseudomonas pneumonia. Started solu-medrol and duoneb for COPD. Resumed home medication. Initially with hypoxia but able to wean off of oxygen. Gradually improved. Maintained normal SpO2 on room air. Started PT/OT for weakness. Breathing improved and less SOB with exertion. Mild cough. Ambulating around room without difficulty. Discharged home in stable condition. Will complete antibiotics and steroids as directed. Resume home medication without change. Arranged for outpatient PT. Follow up with PCP in 1-2 weeks. Time Spent with Patient Time attestation: Total time spent providing and/or coordinating discharge services: Time spent: greater than 30 minutes Exam Constitutional Vital Signs, click to edit/add: Last Vital Signs Temp 97.4 F L 03/25/25 07:46 Pulse 84 03/25/25 09:54 Resp 17 03/25/25 07:46 BP 144/82 H 03/25/25 07:46 Pulse Ox 93 L 03/25/25 07:46 O2 Del Method Room Air 03/25/25 07:46 O2 Flow Rate 1 03/25/25 00:00 Documenting provider has reviewed patient's vital signs: yes Common normals: no apparent distress, oriented x3 and alert HENMT Common normals: normocephalic Eye Common normals: PERRL and EOMs intact bilaterally Respiratory Common normals: normal respiratory effort and clear to auscultation bilaterally Cardio Common normals: regular rate, no gallops, no murmurs and no rub Rhythm: abnormal rhythm irregularly irregular GI Common normals: Normal to inspection, nondistended, normoactive bowel sounds present and non-tender Extremity Common normals: no pedal edema DS: Data Data Completed and Pending Labs on day of discharge: Labs from last 24 hours 03/25/25 03/25/25 03/24/25 07:43 05:06 22:22 WBC 14.2 H RBC 3.93 L Hgb 10.4 L Hct 33.4 L MCV 85.0 MCH 26.5 MCHC 31.1 RDW 14.9 Plt Count 233 MPV 9.4 L Neut % (Auto) 91.0 H Lymph % (Auto) 2.7 L Esmeralda % (Auto) 5.9 Eos % (Auto) 0.0 L Baso % (Auto) 0.1 L Neut # (Auto) 12.9 H Lymph # (Auto) 0.4 L Esmeralda # (Auto) 0.8 Eos # (Auto) 0.0 Baso # (Auto) 0.0 Abs Immat Gran (auto) 0.04 H Imm/Tot Granulo (auto) 0.3 Sodium 137 Potassium 3.9 Chloride 101 Carbon Dioxide 26.0 Anion Gap 13.9 BUN 45.0 H Creatinine 0.78 Est GFR ( Amer) >60 Est GFR (Non-Af Amer) >60 BUN/Creatinine Ratio 57.7 Glucose 180 H Calcium 9.1 Total Bilirubin 0.4 AST 20 ALT 32 Alkaline Phosphatase 65 Total Protein 6.1 L Albumin 2.4 L Globulin 3.7 Albumin/Globulin Ratio 0.6 POC Glucose 194 H 218 H 03/24/25 03/24/25 16:31 11:09 WBC RBC Hgb Hct MCV MCH MCHC RDW Plt Count MPV Neut % (Auto) Lymph % (Auto) Esmeralda % (Auto) Eos % (Auto) Baso % (Auto) Neut # (Auto) Lymph # (Auto) Esmeralda # (Auto) Eos # (Auto) Baso # (Auto) Abs Immat Gran (auto) Imm/Tot Granulo (auto) Sodium Potassium Chloride Carbon Dioxide Anion Gap BUN Creatinine Est GFR ( Amer) Est GFR (Non-Af Amer) BUN/Creatinine Ratio Glucose Calcium Total Bilirubin AST ALT Alkaline Phosphatase Total Protein Albumin Globulin Albumin/Globulin Ratio POC Glucose 155 H 149 H Preliminary micro results at discharge 03/22/25 17:16 Blood Culture Result 2 - Preliminary Blood NO GROWTH AT 36-48 HOURS. FINAL TO FOLLOW. 03/22/25 17:15 Blood Culture Result 1 - Preliminary Blood NO GROWTH AT 36-48 HOURS. FINAL TO FOLLOW. Discharge Plan Discharge Disposition: Home, Self-Care Condition: Fair Discharge Medications: New levofloxacin 750 mg tablet 750 mg PO DAILY 7 Days Qty: 7 0RF cefdinir 300 mg capsule 300 mg PO BID 10 Days Qty: 20 0RF prednisone 10 mg tablet See Rx Instructions .ROUTE .COMPLEX Qty: 39 0RF Rx Instructions: 6 PO daily x 3 days, then 4 PO daily x 3 days, then 2 PO daily x 3 days, then 1 PO daily x 3 days Continued ammonium lactate 12 % cream 1 applic TOPICAL HS PRN (Reason: dry skin) dapagliflozin propanediol [Farxiga] 10 mg tablet 10 mg PO DAILY ketoconazole 2 % cream 1 applic TOPICAL BID pantoprazole 40 mg tablet,delayed release (DR/EC) 40 mg PO DAILY olmesartan 40 mg tablet 20 mg PO DAILY carvedilol 12.5 mg tablet 12.5 mg PO BID digoxin 250 mcg (0.25 mg) tablet 0.125 mg PO DAILY Ohtuvayre 3 mg/2.5 mL suspension for nebulization 2.5 ml inhalation BID ferrous sulfate [Iron (ferrous sulfate)] PO atorvastatin 40 mg tablet 40 mg PO DAILY clopidogrel 75 mg tablet 75 mg PO DAILY ezetimibe 10 mg tablet 5 mg PO DAILY finasteride 5 mg tablet 5 mg PO DAILY lansoprazole 30 mg capsule,delayed release(DR/EC) 30 mg PO BID montelukast 10 mg tablet 10 mg PO DAILY tamsulosin 0.4 mg capsule 0.4 mg PO DAILY Xarelto 20 mg tablet 20 mg PO DAILY Breztri Aerosphere 160-9-4.8 mcg/actuation HFA aerosol inhaler 2 inh INHALATION BID albuterol sulfate 90 mcg/actuation HFA aerosol inhaler 2 puff INHALATION QID PRN (Reason: shortness of breath or wheezing) Held dexamethasone 2 mg tablet 2 mg PO Q24H Hold Instructions: Hold until done with prednisone Discontinued doxycycline monohydrate 100 mg tablet 100 mg PO Q12H Activity: resume usual activities as tolerated Diet: advance to your usual diet Print Language: Malaysian Forms: Portal Instructions Follow Up Appointments: March 29 @ 4:15pm with Dr. Velazquez [phone]
--- NOTE | 2025-03-25 11:23 | CM.NOTE ---
Called Dr. Vences's office for telephone order confirmation for outpatient PT. Dr. Ruby will not sign d/t not being PCP. Message left awaiting call back.
--- NOTE | 2025-03-25 11:31 | PT.DAILY ---
Physical Therapy Daily Note PT Daily Note/Assess Start: 03/24/25 11:43 Freq: Status: Active Protocol: Document 03/25/25 11:28 ISAURA (Rec: 03/25/25 11:31 ISAURA [id number]) Physical Therapy Daily Note/Assessment Time In/Time Out Time In 10:45 Time Out 11:00 Pain In Pain N/A Pain Out Pain N/A Subjective Subjective Sitting in BS chair upon arrival. Agrees to PT. Planned dc for today home with OP PT. Therapeutic Exercise Time Therapeutic Exercise 4 Minutes (minutes) Therapeutic Exercise 0 Units Therapeutic Exercise Treatment Therapeutic Exercise Standing sink ex complete 10x ea with SBA. SpO2 93% on Treatment room air. Therapeutic Activity Time Therapeutic Activity 5 Minutes (minutes) Therapeutic Activity 1 Units Therapeutic Activity Treatment Chair Transfer Independent Ability Therapeutic Activity Sit>stand IND. Pt amb 200' without AD, SUP. Pt returned Comments to room for standing ex .SPo2 93% with excretion on room air. Returned to BS chair upon completion with call light within reach and needs met. Total Physical Therapy Time Total Therapy 9 Minutes Total Physical 1 Therapy Units Summary Daily Note Summary Improved endurance and oxygen levels with activity today on room air. Planned dc home with orders for OP PT.
--- NOTE | 2025-03-25 11:38 | PT.DAILY ---
Physical Therapy Daily Note PT Daily Note/Assess Start: 03/24/25 11:43 Freq: Status: Active Protocol: Document 03/25/25 11:28 ISAURA (Rec: 03/25/25 11:31 ISAURA [id number]) Physical Therapy Daily Note/Assessment Time In/Time Out Time In 10:45 Time Out 11:00 Pain In Pain N/A Pain Out Pain N/A Subjective Subjective Sitting in BS chair upon arrival. Agrees to PT. Planned dc for today home with OP PT. Therapeutic Exercise Time Therapeutic Exercise 4 Minutes (minutes) Therapeutic Exercise 0 Units Therapeutic Exercise Treatment Therapeutic Exercise Standing sink ex complete 10x ea with SBA. SpO2 93% on Treatment room air. Therapeutic Activity Time Therapeutic Activity 5 Minutes (minutes) Therapeutic Activity 1 Units Therapeutic Activity Treatment Chair Transfer Independent Ability Therapeutic Activity Sit>stand IND. Pt amb 200' without AD, SUP. Pt returned Comments to room for standing ex .SPo2 93% with excretion on room air. Returned to BS chair upon completion with call light within reach and needs met. Total Physical Therapy Time Total Therapy 9 Minutes Total Physical 1 Therapy Units Summary Daily Note Summary Improved endurance and oxygen levels with activity today on room air. Planned dc home with orders for OP PT. Edit Result 03/25/25 11:28 ISAURA (Rec: 03/25/25 11:38 ISAURA [id number]) Physical Therapy Daily Note/Assessment Therapeutic Activity Treatment Therapeutic Activity Sit>stand IND. Pt amb 200' without AD, SUP. Pt returned Comments to room for standing ex .SPo2 93% with exertion on room air. Returned to BS chair upon completion with call light within reach and needs met.
--- NOTE | 2025-03-25 12:31 | CM.NOTE ---
No call back from Dr. Vences's office for outpatient PT order, updated pt and on outpatient PT order. states she will attempt to contact office when they arrive home, f/u appointment made for pt to see Dr. Vences. If unable to obtain outpatient PT order, pt will clarify at f/u appointment. Pt and both verbalize understanding.
--- NOTE | 2025-03-29 13:39 | CM.DCFOLLOWU ---
Person spoke with: Dillon How are you feeling? Much better How is your pain? No pain Did you understand your discharge instructions? Yes Do you have any questions about your discharge instructions? No Were you given any prescriptions at discharge? Yes Were you able to get your prescriptions filled? Yes Do you understand how to take your medications as ordered? Yes Do you have any questions about your follow up appointment and do you plan to keep your follow up appointment? I see Dr. Vences today, discussed with pt regarding outpatient PT. He will get order today from Dr. Vences instead of picking up order from hospital. Dr. Cottrell office returned call for outpt PT after pt discharged home. Is there anything else that you would like to discuss? No Questions/Comments/Concerns/Other:
== END 2025-03-25 11:44 | disposition home or self-care (01) | DRG 871 ==
LOC: ER 18:46 → MS 20:13
PROVIDERS: Registered Nurse; Admitting Provider Family Medicine; Emergency Provider Emergency Medicine; PCP Internal Medicine; Visit Provider Family Medicine
DX: A41.9 Sepsis, unspecified organism (principal); J18.9 Pneumonia, unspecified organism; J96.01 Acute respiratory failure with hypoxia; J44.0 Chronic obstructive pulmonary disease with (acute) lower respiratory infection; J44.1 Chronic obstructive pulmonary disease with (acute) exacerbation; N17.9 Acute kidney failure, unspecified; I50.32 Chronic diastolic (congestive) heart failure; I48.20 Chronic atrial fibrillation, unspecified; R65.20 Severe sepsis without septic shock; Z87.01 Personal history of pneumonia (recurrent); E11.65 Type 2 diabetes mellitus with hyperglycemia; I11.0 Hypertensive heart disease with heart failure; Z79.01 Long term (current) use of anticoagulants; E78.5 Hyperlipidemia, unspecified; K21.9 Gastro-esophageal reflux disease without esophagitis; Z95.1 Presence of aortocoronary bypass graft; Z87.891 Personal history of nicotine dependence; Z79.899 Other long term (current) drug therapy; Z79.85 Long-term (current) use of injectable non-insulin antidiabetic drugs
CPT/HCPCS: 36415; 71045; 80048; 80053; 80076; 80162; 82948; 83605; 84484; 85007; 85025; 85027; 87040; 87804; 93005; 94640; 94667; 94668; 94761; 96365; 96367; 96375; 97161; 97165; 97530; 97535; 99285; J0456; J0696; J2919

== ENCOUNTER 2025-04-12 15:26 | Outpatient (RCR) | payer MEDICARE, SELFPAY | END 2025-05-21 10:15 | disposition home or self-care (01) | LOC: PT 15:26 | PROVIDERS: PCP Internal Medicine; Visit Provider Internal Medicine | DX: R53.1 Weakness (principal); R42 Dizziness and giddiness | CPT/HCPCS: 97110; 97161 ==

== ENCOUNTER 2025-07-28 09:18 | Outpatient (OUT) | payer MEDICARE, SELFPAY ==
--- OUTSIDE RECORDS SUMMARY | 2025-07-28 09:20 | XMS_ITS | Clinical Summary ---
Author Organization [facility] Address [address] [place] [address] Care Team Providers Care Junk Dealer Name Role Phone Ronan Vences MD Primary Care Provider Social History Tobacco Use Types Packs/Day Years Used Date Smoking Tobacco: Never Assessed Sex and Gender Information Value Date Recorded Sex Assigned at Not on file Legal Sex Male 7:26 PM EDT Gender Identity Not on file Sexual Orientation Not on file Plan of Treatment Upcoming Encounters Date Type Department Care Team (Late st Contact Info) Description 07/28/2025 11:00 AM EDT Office Visit [facility] [address] [facility] [address] [place] [address] Horacio Satnana MD [address] [facility] [address] [place] [address] Health Maintenance Due Date Last Done Comments Pneumococcal Vaccine: 65+ Ye ars (1 of 1 - PCV) 1998 Influenza Vaccine (#1) 2025 Colonoscopy Discontinued 01/08/2025, 01/08/2025 Colorectal Cancer Screening Discontinued CT Colonography Discontinued FIT-DNA Discontinued FIT Discontinued FOBT Discontinued Sigmoidoscopy Discontinued Insurance [employer] MEDICARE ADVANTAGE Care Teams Junk Dealer Relationship Specialty Start Date End Date Ronan Vences MD [facility] [place] [address] PCP - General Internal Medicine 04/13/25
--- OUTSIDE RECORDS SUMMARY | 2025-07-28 09:20 | XMS_ITS | Clinical Summary ---
Author Organization [facility] Address [address] [place] [address] Care Team Providers Care Museum Registrar Name Role Phone Santos Rosales DO Primary Care Provider [phone] Allergies No known active allergies Medications aspirin 81 MG PO TABS take 1 Tab by mouth daily. Active rosuvastatin (CRESTOR) 5 MG PO TABS take 1 Tab by mouth daily. Active Ramipril 5 MG PO TABS take 1 Tab by mouth daily. Active Warfarin Sodium (COUMADIN PO) As directed. Act roberto carvedilol (COREG) 12.5 MG PO TABS take 1 Tab by mouth 2 times daily. Active digoxin 0.25 MG PO TABS take 1 Tab by mouth daily. Active montelukast (SINGULAIR) 10 MG PO TABSIndications :A-fib take 1 Tab by mouth daily. Active lansoprazole (PREVACID) 30 MG PO cap DRIndications:A -fib take 1 Cap by mouth daily. Active albuterol (VENTOLIN HFA) 108 (90 BASE) MCG/ACT IN AERSIndications :A-fib take 1 Puff by inhalation 2 times daily. Occasionally three times day Active B Complex Vitamins (VITAMIN B COMPLEX PO) take 1 Tab by mouth daily. Active Glucosamine-Cho ndroit-Vit C-Mn (GLUCOSAMINE CHONDR 1500 COMPLX PO) take 2 Tabs by mouth daily. Active Cinnamon 500 MG PO TABS take 3 Tabs by mouth daily. Active Vitamin E 1000 UNIT PO CAPS take 1 Cap by mouth daily. Active Calcium Carbonate-Vitam in D (CALCIUM + D) 600-200 MG-UNIT PO TABS take 1 Tab by mouth daily. Active Ascorbic Acid (VITAMIN C) 1000 MG PO TABS take 2 Tabs by mouth daily. Active Mcnabb-3 Fatty Acids (FISH OIL) 1000 MG PO CAPS take 3 Caps by mouth daily. Active Multiple Vitamin (MULTIVITAMIN PO) take 1 Tab by mouth daily. Active aspirin 81 MG PO TABS take 2 Tabs by mouth daily. Active Cholecalciferol (VITAMIN D3 PO) take 5,000 Units by mouth daily. Active Coenzyme Q10 (COQ-10) 200 MG PO CAPS take 2 Caps by mouth daily. Active Doxylamine Succinate, Sleep, (SLEEP AID PO) take 1 Tab by mouth At bedtime. Active Active Problems Problem Noted Date Diagnosed Date A-fib Overview (03/08/2010): ECHO 01/20/09 EF 58%, LA 3.8cm CAD (coronary artery disease) Mitral regurgitation Overview (03/08/2010): mild Pulmonary hypertension, mild Family History Medical History Relation Name Comments Heart Disease - Other Father Heart Disease - Other Mother Hypertension Mother Other - Specify Mother hx of migrai noah Heart Disease - Other Sister Relation Name Status Comments Father Mother Sister Social History Tobacco Use Types Packs/Day Years Used Date Smoking Tobacco: Former Cigarettes 0 02/25/1974 - 02/25/2009 Alcohol Use Standard Drinks/Week Comments No 0 (1 standard drink = 0.6 oz pur e alcohol) Sex and Gender Information Value Date Recorded Sex Assigned at Not on file Legal Sex Male 6:13 PM EST Gender Identity Not on file Sexual Orientation Not on file Last Filed Vital Signs Vital Sign Reading Time Taken Comments Blood Pressure 120/84 03/20/2010 12:50 PM EDT Pulse 73 03/20/2010 12:50 PM EDT Temperature - - Respiratory Rate 16 03/20/2010 12:50 PM EDT Oxygen Saturation - - Inhaled Oxygen Concentration - - Weight 82.1 kg (181 lb) 03/20/2010 12:50 PM EDT Height 172.7 cm (5' 8 ) 03/20/2010 12:50 PM EDT Body Mass Index 27.52 03/20/2010 12:50 PM EDT Plan of Treatment Health Maintenance Due Date Last Done Comments HEPATITIS C VIRUS SCREENING 1950 TETANUS 1950 TDAP (ADULT) 1967 COLORECTAL CANCER SCREENING DISCUSSION 1993 PNEUMOCOCCAL VACCINE SERIES (1 of 1 - PCV) 1998 ZOSTER (SHINGLES) VACCINE (1 of 2) 1998 RSV VACCINE (1 - 1-dose 75+ series) 2023 COVID-19 VACCINE (1 - 2023-2 5 season) 2025 INFLUENZA VACCINE (#1) 2025 HEP B VACCINE Aged Out No longer elig ible based on patient's age to complete this topic Care Teams Museum Registrar Relationship Specialty Start Date End Date Santos Rosales DO PCP - General 02/13/10
--- OUTSIDE RECORDS SUMMARY | 2025-07-28 09:20 | XMS_ITS | Patient Health Record ---
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 Name Role Phone Ronan Vences DO Primary Care Provider Unavail Nicolás Villafana Unavailable [phone] Allergies No Known Allergies Results Component Value Reference Range Notes [id number] SCREENIN G SWAB Reviewed date:01/28/2025 03:35:39 PM Interpretation: Performing Lab: Notes/Report: HEMOGLOBIN Reviewed date:02/22/2025 06:59:02 AM Interpretation: Performing Lab: Notes/Report: [facility] , Hemoglobin 10.5 14.0-18.0 g/dL Performing Lab: see note ML - [facility] LB RT pulmonary function test Reviewed date:02/23/2025 07:15:21 AM Interpretation: Performing Lab: Notes/Report: Source Facility: [facility]-[address] [place] [address] [place] [address] Respiratory Report Signed Patient: MINNIE JASON MR#: [id number] : 1950 Acct:[id number] Age/Sex: 74 / M ADM Date: 02/19/25 Loc: CARD Attending Dr: Nicolás James D.O. Ordering Physician: Nicolás James D.O. 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 Findings were considered accurate and reproducible. Both pre- and post-bronchodilator values utilized for spirometry. Unable to access reported prior PFT. Spirometry (based on pre-bronchodilator values): -FEV1/FVC: Reduced @ 55% -FEV1: Moderately reduced @ 61% -FVC: Normal @ 80% -There is a positive bronchodilator response in FVC. Lung volumes by plethysmography (based on pre-bronchodilator values): -RV: Increased @ 192% -TLC: Increased @ 122% Diffusion capacity: -DLCO: Mild reduction @ 73% when corrected for Hb 10.5g/dL Impressions: -Spirometry suggests moderate obstruction with a positive bronchodilator response. An elevated RV and TLC suggest air trapping and hyperinflation respectively. There is a mildly reduced diffusion capacity. Overall study is compatible COPD with a bronchodilator response vs. asthma-COPD overlap. Clinical correlation required. Electronically Signed On 02-22-2025 16:02:45 EDT by Nicolás James Dictated By: Nicolás James D.O. 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: Reason For Referral No Information Medications Medication SIG (Take, Route, Frequency, Duration) Notes Start Date End Date Status Clopidogrel Bisulfate 75 MG TAKE 1 TABLET DAILY Oral; Duration: 90 Days Active Pantoprazole Sodium 40 MG Oral; Duration: 30 Days Active dexAMETHasone 2 MG Oral; Duration: 20 Days Active Tamsulosin HCl 0.4 MG Oral; Duration: 90 Days Active Digoxin 250 MCG TAKE 1 TABLET EVERY MORNING Oral; Duration: 90 Days Active Xarelto 20 MG TAKE 1 TABLET DAILY DIRECTED Oral; Duration: 90 Days Active Doxycycline Monohydrate 100 MG Oral; Duration: 15 Days Acti ve Atorvastatin Calcium 40 MG TAKE 1 TABLET DAILY Oral; Duration: 90 Days Active Ipratropium-Albuterol 0.5-2.5 (3) MG/3ML Inhalation; Duration: 15 Days Active Breztri Aerosphere 160-9-4.8 MCG/ACT USE 2 INHALATIONS ORALLY TWICE DAILY Inhalation; Duration: 90 Days Active Linezolid 600 MG Oral; Duration: 14 Days Active Budesonide 0.5 MG/2ML 1 mL Inhalation Tw ice a day Active Montelukast Sodium 10 MG TAKE 1 TABLET D AILY Oral; Duration: 90 Days Active Carvedilol 12.5 MG TAKE 1 TABLET TWICE A DAY Oral; Duration: 90 Days Active Olmesartan Medoxomil 40 MG TAKE 1 TABLET DAILY Oral; Duration: 90 Days Active amLODIPine Besylate 5 MG TAKE 1 TABLET D AILY Oral; Duration: 90 Days Not-Taki ng Ezetimibe 10 MG Oral; Duration: 90 Days Active Nystatin 519708 UNIT/ML Mouth/Throat; Du ration: 21 Days Not-Taking Finasteride 5 MG TAKE 1 TABLET DAILY Oral; Duration: 90 Days Active Albuterol Sulfate HFA 108 (90 Base) MCG/ACT USE 2 INHALATIONS ORALLY 4 TIMES DAILY DIRECTED Inhalation; Duration: 90 Days Active hydrOXYzine HCl 25 MG Oral; Duration: 10 Days Active Immunizations Vaccine Route Administration Date Status Comme nts Arexvy Unknown 08/20/2023 Administered Flu, -historic- Novel H1N1-0 9, preservative free Unknown 11/28/2009 Administered Spikevax Moderna Syringe Pre -Filled 50 mcg/0.5 mL Unknown 08/04/2024 Administered ZOSTER (SHINGLES) VACCINE (HZV) Unknown 09/28/2020 Admi nistered Social History Tobacco Use: Social History Observation Description Date Details (start date - stop date) Former Smoker NA - NA Tobacco Control (Standard) Question Answer Notes Tobacco use: Former smoker How long has it been since y ou last smoked? Greater than 10 years Additional Findings: Tobacco non-user Ex -very heavy cigarette smoker (40+/day) Problems Problem Type SNOMED Code ICD Code Onset Dates Problem Status W/U Status Risk Notes Problem Chronic obstructive pulmonary disease (15270123) Chronic obstructive pulmonary disease, unspecified (J44.9) Active confirmed Problem Pneumonia (543589676) Other pneumonia, unspecified organism (J18.8) Active confirmed Problem Long-term current use of inhaled steroid (278023472) senior care (current) use of inhaled steroids (Z79.51) Active confirmed Problem COPD - Chronic obstructive pulmonary disease (69250175) COPD (chronic obstructive pulmonary disease) (J44.9) Active confirmed Problem Gastroesophageal reflux disease (790424005) GERD (gastroesophage al reflux disease) (K21.9) Active confirmed Problem Diabetes mellitus type 2 (disorder) (92133642) DM2 (diabetes mellitus, type 2) (E11.9) Active confirmed Problem Ex-tobacco user (finding) (338141515) History of tobacco abuse (Z87.891) Active confirmed Problem Primary hypertension (66751575) Primary hypertension (I10) Active confirmed Problem Secondary pulmonary hypertension (33830499) Other secondary pulmonary hypertension (I27.29) Active confirmed Vital Signs Heart Rate 80 /min 04/20/2025 Temperature 97.0 degrees Fahrenheit 04/20/2025 Respiratory Rate 18 /min 04/20/2025 Blood pressure diastolic 72 mm Hg 04/20/2025 Oximetry 97 % 04/20/2025 Height 68.0 in 04/20/2025 Blood pressure systolic 159 mm Hg 04/20/2025 Weight 167.6 lbs 04/20/2025 BMI 25.48 kg/m2 04/20/2025 Procedures Procedure Date Ordered Date Performed Result Body Sit e PFT (00745, 29003, 87292) 01/20/2025 02/19/2025 N/A Encounters Encounter Location Date Provider Diagnosis Pulmonary Medicine [place] [address] [place] [address] 12/24/2024 [facility] Pulmonary Medicine [place] [address] [place] [address] 04/20/2025 Nicolás [facility] Other pneumonia, unspecified organism J18.8 ; COPD (chronic obstructive pulmonary disease) J44.9 ; Candidal stomatitis B37.0 ; Other secondary pulmonary hypertension I27.29 ; History of tobacco abuse Z87.891 and senior care (current) use of inhaled steroids Z79.51 Pulmonary Medicine [place] [address] [place] [address] 01/20/2025 Nicolás James Other pneumonia, unspecified organism J18.8 ; COPD (chronic obstructive pulmonary disease) J44.9 ; Other secondary pulmonary hypertension I27.29 ; History of tobacco abuse Z87.891 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 However, there remains scattered areas that have not completely resolved, in addition to development of a new trace right pleural effusion. I recommended a 6-month chest CT F/U to document resolution of the above findings -he is a high risk patient for lung cancer given his history of tobacco abuse. Patient voiced agreement to the plan of care. 01/20/2025 COPD (chronic obstructive pulmonary disease) (ICD-10 - J44.9) Patient has been on Breztri long-term. He voices benefit from use, but remains symptomatic. He still has cough and dyspnea. He continues to use albuterol 3x/day. As he is already on triple inhaled therapy per disease ICS/LABA/LAMA), there are few additional options at this point. I feel that he would be a good candidate for Ohtuvayre. Explained that this is a novel fourth class of inhaled medication for COPD. Discussed that it is twice daily via nebulizer. Counseled patient on adverse effects including psychiatric. Patient voiced would like to proceed with this. He states he already has a nebulizer. Sjot-jv-posa was performed today regarding need for nebulizer and supplies. He requires a nebulizer to for administration of Ohtuvayre. Given ongoing symptoms, will check for alpha-1 antitrypsin (AAT) deficiency. Pamphlet discussing AAT causes, testing, and potential treatment was provided to the patient. Appropriate follow-up is dependent on identified genotype. As it has been nearly 15 years since his last PFT, I recommended repeating a PFT at this time. Explained that parison with prior study can indicate whether or not dyspnea is more pulmonary versus cardiac. Additionally, they can help qualify him for certain programs if deemed necessary such as pulmonary rehabilitation or referral to interventional pulmonology. 04/20/2025 Other pneumonia, unspecified organism (ICD-10 - J18.8) Recurrent RML pneumonia? (12/21/2024, 03/22/2025) Etiology unclear - immunodeficiency, chronic aspiration, DANILO? If it happens again, may require bronchoscopy for further evaluation. 04/20/2025 COPD (chronic obstructive pulmonary disease) (ICD-10 - J44.9) PFT 02/19/2025 notes marked decline across all parameters compared to 04/21/2025. AAT normal genotype. Ohtuvayre started, but stopped after hospitalization. Now on double dose of budesonide and developing candidiasis. Plan: -Stop budesonide -Use DuoNeb PRN -Restart Ohtuvayre BID (This is NOT a duplicate therapy, this is a brand new class of medication that is not in Breztri) -Continue Breztri 2 puffs BID -Continue using PEP Strongly recommend pulmonary rehabilitation, but cannot participate until he is done with physical therapy. Possible endobronchial valve candidate in the future. 04/20/2025 Candidal stomatitis (ICD-10 - B37.0) Stop budesonide nebs. Start nystatin swish & swallow. 01/20/2025 Other secondary pulmonary hypertension (ICD-10 - I27.29) Echocardiogram 08/18/2024 noted mildly elevated RVSP of 43 mmHg. This is likely a combination or group 2 and group 3. Treatment is generally treating underlying disorder. 01/20/2025 History of tobacco abuse (ICD-10 - Z87.891) Patient quit smoking in 2008. Has been to be on 15 years since stopping smoking, so he does not meet the current LDCT screening criteria. 04/20/2025 Other secondary pulmonary hypertension (ICD-10 - I27.29) Echocardiogram 08/18/2024 noted mildly elevated RVSP of 43 mmHg. This is likely a combination or group 2 and group 3. Treatment is generally treating underlying disorder. 04/20/2025 History of tobacco abuse (ICD-10 - Z87.891) This patient does not meet current LDCT criteria (e.g. age, time from cessation, # pack-years). 01/20/2025 senior care (current) use of inhaled steroids (ICD-10 - Z79.51) Patient was counseled to rinse & gargle with water after inhaled corticosteroid use. 04/20/2025 senior care (current) use of inhaled steroids (ICD-10 - Z79.51) Patient was counseled to rinse & gargle with water after inhaled corticosteroid use. Plan Of Treatment Future Test Test Name Order Date CT Chest w/o contrast 07/27/2025 Insurance Providers Payer Name Payer Address Payer Phone Subscriber Number Group Number Insured Name Patient Relationship to Insured Coverage Start Date Coverage End Date [employer] MEDICARE [address] EDDI BLANTON [id number] Minnie Jason Self - patient is the insured Medical (General) History Medical History History ICD Code Other pneumonia, unspecified organism J1 8.8 COPD (chronic obstructive pulmonary dise ase) J44.9 Chronic diastolic CHF (congestive heart failure) I50.32 Other secondary pulmonary hypertension I 27.29 Chronic atrial fibrillation I48.20 History of tobacco abuse Z87.891 Surgical History Surgery Date(Month/Year) cardiac catheterization vascular stents coronary artery bypass graft Hospitalization History Reason Date(Month/Year) Pneumonia-[facility] 01/06/2025 Multifocal Pneumonia[facility] 12/26/2024 Pneumonia[facility] 03/22/2025
--- NOTE | 2025-07-28 09:22 | CT_ITS ---
The [address] [address] Patient Name: MINNIE FARIAS MRN: [id number] date: 1950 Sex: M Assigned Patient Location: CT Current Patient Location: CT Accession/Order Number: [id number] Exam Date: 07/28/2025 09:23 Report Date: 07/28/2025 11:11 At the request of: KYLEE NATHAN DO Procedure: CT chest wo con CT CHEST WITHOUT CONTRAST COMPARISON: 01/15/2025 CLINICAL DATA: Shortness of breath. Follow-up pneumonia. Spiral images were obtained through the chest without contrast. Images were reviewed using both narrow and wide window settings. This CT exam was performed using one or more following dose reduction techniques: Automated exposure control, adjustment of the mA and/or kV according to patient size, or use of iterative reconstruction technique. There is prior median sternotomy. The heart is top normal in size. No pericardial effusion is present. Coronary disease is seen. There is atherosclerotic plaque at the aorta and proximal imaged great vessels. No aneurysm is noted. No enlarged lymph nodes are seen. There is mild degenerative change at the spine, predominantly in the cervicothoracic region. There is minor apical scarring. There are airspace lucencies and tiny subpleural blebs compatible with obstructive lung disease. There is a new small irregular pleural-based opacity at the posterior medial superior segment of the right lower lobe. There is also a small developing irregular opacity in the right infrahilar region extending anteriorly. Emanating from the right hilum to the posterior lateral right lower lobe is still an area of consolidation which is adjacent to an elevated right hemidiaphragm. This area is slightly smaller. There is a developing nodular component (axial image 62) measuring 12 mm in size. Additional tiny pulmonary nodules are present, greater on the right. Most are unchanged though there are a couple 3 and 4 mm nodules at the right lower lobe (axial images 71 and 73) which may be new. The right pleural effusion has resolved. There is no pneumothorax. Limited cuts through the upper abdomen again show multiple small hepatic hypodensities suggesting cysts. There is continued thickening of the right adrenal limbs and nodularity at the jose on the left. Additional atherosclerotic disease is present. CT/CT chest wo con IMPRESSION: OBSTRUCTIVE LUNG DISEASE. CHANGING PARENCHYMAL CHANGES AT THE RIGHT LOWER LOBE WITH IMPROVEMENT OF THE DOMINANT AREA ADJACENT TO THE HEMIDIAPHRAGM THOUGH THERE ARE A COUPLE AREAS WHICH ARE DEVELOPING. PULMONARY NODULARITY WITH POTENTIAL NEW AREAS AT THE RIGHT LOWER LOBE. RESOLUTION OF RIGHT PLEURAL EFFUSION SEEN ON THE PRIOR. MODERATE ATHEROSCLEROTIC DISEASE. Impression dictated by: Pattie Vazquez M.D. 07/28/2025 11:11 AM Dictation Location: [place] [address] Electronically authenticated by: [id number] Date: 07/28/2025 11:11
--- OUTSIDE RECORDS SUMMARY | 2025-07-28 10:48 | XMS_ITS ---
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 Name Role Phone CHANTE PRATHER Attending Unavailable YANY VELAZQUEZ JR Primary Care Unavailable ELLA VÁZQUEZ Admitting Unavailable ELLA VÁZQUEZ Attending Unavailable LETTY TOSCANO Consulting Unavailable JENNIFER DENISE Referring Unavailable YANY VELAZQUEZ JR Primary Care Unavailable YANY VELAZQUEZ JR Referring Unavailable YANY VELAZQUEZ JR Primary Care Unavailable YANY VELAZQUEZ JR Referring Unavailable YANY VELAZQUEZ JR Primary Care Unavailable STEVE BRICEÑO Attending Unavailable PROBLEMS DATE TYPE CONDITION / CODE ATTENDING STATUS [facility] 01/20/2025 Unknown Essential (prima ry) hypertension / I10(ICD-10) NA Active [facility] 01/07/2025 Unknown Other fecal abnormalities / R19.5(ICD-10) ELLA VÁZQUEZ [facility] 01/06/2025 Unknown Pneumonia, unspecified organism / J18.9(ICD-10) ELLA VÁZQUEZ [facility] 01/06/2025 Unknown Iron deficiency anemia, unspecified / D50.9(ICD-10) ELLA VÁZQUEZ [facility] 01/06/2025 Unknown Hemorrhage of an us and rectum / K62.5(ICD-10) ELLA VÁZQUEZ [facility] 01/06/2025 Unknown Other symptoms a nd signs involving emotional state / R45.89(ICD-10) [facility] Hypomagnesemia / E83.42(ICD-10) [facility] 01/06/2025 Unknown Weakness / R53.1(ICD-10) [facility] 01/06/2025 Unknown Fatigue / FREETEXT(AOF) [facility] 01/06/2025 Unknown EMS / UNK(Unknown) [facility] 03/12/2023 Admitting Diagnosis Permanent atrial fibrillation / I48.21(ICD-10) [facility] Admitting Diagnosis Atherosclerotic heart disease of [place] coronary artery without angina pectoris / I25.10(ICD-10) [facility] 03/12/2023 Admitting Diagnosis Disorder of arteries and arterioles, 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) [facility] 03/12/2023 Admitting Diagnosis Essential (primary) hypertension / I10(ICD-10) [facility] 03/12/2023 Admitting Diagnosis Mixed hyperlipidemia / E78.2(ICD-10) [facility] 08/10/2024 Admitting Diagnosis 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) [facility] PROCEDURES No Procedure Records Found RESULTS CBC AND AUTO DIFF Collected: 01/27/2025 3:06 PM Stat us: COMPLETED Source: [facility] TYPE CODE TESTS RESULT OUT OF RANGE [...] Abnormal NONE Performed By: #### CBCA #### [facility] ([id number]) [address] [facility], [address] [place] [address] CBC AND AUTO DIFF Collected: 01/20/2025 10:59 A M Status: COMPLETED Source: [facility] TYPE CODE TESTS RESULT OUT OF RANGE [...] 0.0-0.2 X10E9/L Performed By: #### CBCA #### [facility] ([id number]) [address] [place] [address], [address] [place] [address] COMPLETE BLOOD COUNT Collected: 01/13/2025 1:19 PM Status: COMPLETED Source: [facility] TYPE CODE TESTS RESULT OUT OF RANGE [...] 7.9 7-12 fL Performed By: #### CBC, 1911 3-9 #### [facility] ([id number]) [address] [place] [address], [address] [place] [address] MAGNESIUM Collected: 01/13/2025 1:19 PM S tatus: COMPLETED Source: [facility] TYPE CODE TESTS RESULT OUT OF RANGE REFERENCE UNITS LAB MG(LOINC) MAGNESIUM 1.6 Low 1.8-2.6 mg/dL Performed By: #### CBC, 1911 3-9 #### [facility] ([id number]) [address] [place] [address], [address] [place] [address] MAGNESIUM Collected: 01/10/2025 2:04 PM S tatus: COMPLETED Source: [facility] TYPE CODE TESTS RESULT OUT OF RANGE REFERENCE UNITS LAB MG(INC) MAGNESIUM 1.9 1.8-2.6 mg/dL Performed By: #### 98167-6 # ### [facility] ([id number]) [address] [place] [address], [place] [address] BEDSIDE GLUCOSE LAB Collected: 01/10/2025 12:41 PM Status: COMPLETED Source: [facility] TYPE CODE TESTS RESULT OUT OF RANGE REFERENCE UNITS LAB BEDG(INC) BEDSIDE GLUCOSE LAB 115 High 65-99 mg/dL XR CHEST 1 VW Observed: 01/10/2025 9:09 AM Status: COMPLETED Source: [facility] XR CHEST 1 VW Clinical History: Pneumonia. [...] Collected: 01/10/2025 8:09 AM Status: COMPLETED Source: [facility] TYPE CODE TESTS RESULT OUT OF RANGE REFERENCE UNITS LAB BEDG(LOINC) BEDSIDE GLUCOSE LAB 102 High 65-99 mg/dL COMPREHENSIVE METABOLIC PANEL Collected: 2024 4:46 AM Status: COMPLETED Source: [facility] TYPE CODE TESTS RESULT OUT OF RANGE [...] race coefficient. Performed By: #### CMP, CBC, 93417-7 #### [facility] ([id number]) [address] [place] [address] COMPLETE BLOOD COUNT Collected: 01/10/2025 4:46 AM Status: COMPLETED Source: [facility] TYPE CODE TESTS RESULT OUT OF RANGE [...] 7-12 fL Performed By: #### CMP, CBC, 32562-2 #### [facility] ([id number]) [address] [place] [address] MAGNESIUM Collected: 01/10/2025 4:46 AM S tatus: COMPLETED Source: [facility] TYPE CODE TESTS RESULT OUT OF RANGE REFERENCE UNITS LAB MG(LOINC) MAGNESIUM 1.7 Low 1.8-2.6 mg/dL Performed By: #### CMP, CBC, 56937-9 #### [facility] ([id number]) [address] [place] [address] BEDSIDE GLUCOSE LAB Collected: 01/09/2025 8:56 PM Status: COMPLETED Source: [facility] TYPE CODE TESTS RESULT OUT OF RANGE REFERENCE UNITS LAB BEDG(LOINC) BEDSIDE GLUCOSE LAB 118 High 65-99 mg/dL HGB Collected: 01/09/2025 8:16 PM S tatus: COMPLETED Source: [facility] TYPE CODE TESTS RESULT OUT OF RANGE REFERENCE UNITS LAB HGB(LOINC) HEMOGLOBIN 8.6 Low 13.0-17.0 g/dL LAB HCT(LOINC) HEMATOCRIT 25.2 Low 39-49 % Performed By: #### , 35056 -9 #### [facility] ([id number]) [address] [place] [address] MAGNESIUM Collected: 01/09/2025 8:16 PM S tatus: COMPLETED Source: [facility] TYPE CODE TESTS RESULT OUT OF RANGE REFERENCE UNITS LAB MG(LOINC) MAGNESIUM 1.9 1.8-2.6 mg/dL Performed By: #### , 93690 -9 #### [facility] ([id number]) [address] [place] [address] BEDSIDE GLUCOSE LAB Collected: 01/09/2025 5:45 PM Status: COMPLETED Source: [facility] TYPE CODE TESTS RESULT OUT OF RANGE REFERENCE UNITS LAB BEDG(LOINC) BEDSIDE GLUCOSE LAB 151 High 65-99 mg/dL BEDSIDE GLUCOSE LAB Collected: 01/09/2025 12:15 PM Status: COMPLETED Source: [facility] TYPE CODE TESTS RESULT OUT OF RANGE REFERENCE UNITS LAB BEDG(INC) BEDSIDE GLUCOSE LAB 118 High 65-99 mg/dL COMPREHENSIVE METABOLIC PANEL Collected: 2024 4:50 AM Status: COMPLETED Source: [facility] TYPE CODE TESTS RESULT OUT OF RANGE [...] a race coefficient. Performed By: #### CMP, 1912 3-9, CBC #### [facility] ([id number]) [address] [place] [address] MAGNESIUM Collected: 01/09/2025 4:50 AM S tatus: COMPLETED Source: [facility] TYPE CODE TESTS RESULT OUT OF RANGE REFERENCE UNITS LAB MG(INC) MAGNESIUM 1.8 1.8-2.6 mg/dL Performed By: #### CMP, 1912 3-9, CBC #### [facility] ([id number]) [address] [place] [address] COMPLETE BLOOD COUNT Collected: 01/09/2025 4:50 AM Status: COMPLETED Source: [facility] TYPE CODE TESTS RESULT OUT OF RANGE [...] MPV 7.7 7-12 fL Performed By: #### CMP, 1912 3-9, CBC #### [facility] ([id number]) [address] [place] [address] POTASSIUM Collected: 01/08/2025 9:25 PM S tatus: COMPLETED Source: [facility] TYPE CODE TESTS RESULT OUT OF RANGE REFERENCE UNITS LAB K(LOINC) POTASSIUM 4.0 3.5-5.0 mmol/L Performed By: #### 2823-3, 1 9123-9 #### [facility] ([id number]) [address] [place] [address] MAGNESIUM Collected: 01/08/2025 9:25 PM S tatus: COMPLETED Source: [facility] TYPE CODE TESTS RESULT OUT OF RANGE REFERENCE UNITS LAB MG(LOINC) MAGNESIUM 1.9 1.8-2.6 mg/dL Performed By: #### 2823-3, 1 9123-9 #### [facility] ([id number]) [address] [place] [address] BEDSIDE GLUCOSE LAB Collected: 01/08/2025 9:12 PM Status: COMPLETED Source: [facility] TYPE CODE TESTS RESULT OUT OF RANGE REFERENCE UNITS LAB BEDG(INC) BEDSIDE GLUCOSE LAB 136 High 65-99 mg/dL BEDSIDE GLUCOSE LAB Collected: 01/08/2025 6:39 PM Status: COMPLETED Source: [facility] TYPE CODE TESTS RESULT OUT OF RANGE REFERENCE UNITS LAB BEDG(LOINC) BEDSIDE GLUCOSE LAB 112 High 65-99 mg/dL HGB Collected: 01/08/2025 4:57 PM S tatus: COMPLETED Source: [facility] TYPE CODE TESTS RESULT OUT OF RANGE REFERENCE UNITS LAB HGB(LOINC) HEMOGLOBIN 8.2 Low 13.0-17.0 g/dL LAB HCT(LOINC) HEMATOCRIT 25.2 Low 39-49 % Performed By: #### HH #### [facility] ([id number]) [address] [place] [address] SURGICAL PATHOLOGY Collected: 11:07 AM Status: COMPLETED Source: [facility] TYPE CODE TESTS RESULT OUT OF RANGE REFERENCE UNITS LAB [id number]&rpt Surgical Pathology Result Comment: [facility] [address] [place] [address] Surgical Pathology Consultation Patient Name:MINNIE JASON:1950 (Age: 74)Gender:MTaken:01/08/2025Reported:01/14/2025Physician(s):Letty Toscano D.O. ([phone])Copy To: Rec. #:[id number]: #[id number] Final Pathologic Diagnosis 1. Stomach, prepyloric, biopsy: Junctional mucosa with mild reactive changes. No histological evidence of H. pylori infection on routine stain. 2. Stomach, cardia, biopsy: Gastric mucosa with hyperplastic changes. 3. Transverse colon, polypectomy: Tubular adenoma. Report Electronically Signed Out rg/01/14/2025Dennise Stanton MD Interpretation performed at [facility], [address] [place] [address], License number: [id number]. Clinical History Occult blood positive stool R19.5. Gross Description 1. Received in formalin labeled [place], prepyloric biopsy is a light campos soft tissue bit, 0.4 cm. The specimen is filtered and entirely submitted in a single cassette. (1, ns, [id number],m3) DM. 2. Received in formalin labeled [place], cardia biopsy are two light campos soft tissue bits, 0.2 cm each. The specimen is filtered and entirely submitted in a single cassette. (1, ns, [id number],m3) DM. 3. Received in formalin labeled [place], transverse colon polyp is a light campos soft tissue bit, 0.3 cm. The specimen is filtered and entirely submitted in a single cassette. (1, ns, [id number],m3) DM. dm/01/09/2025GR Specimen(s) Received 1: Pre-pyloric biopsy 2: Cardia biopsy 3: Transverse colon polyp x2 Fee Codes(s): 1; 93758 2; 40996 3; 73471 COMPREHENSIVE METABOLIC PANEL Collected: 2024 4:22 AM Status: COMPLETED Source: [facility] TYPE CODE TESTS RESULT OUT OF RANGE [...] Reported eGFR is based on the CKD-EPI 202 equation that does not use a race coefficient. Performed By: #### CMP, CBC, 12001-2 #### [facility] ([id number]) [address] [place] [address] [place] [address] COMPLETE BLOOD COUNT Collected: 01/08/2025 4:22 AM Status: COMPLETED Source: [facility] TYPE CODE TESTS RESULT OUT OF RANGE [...] RDW(LOINC) RDW 15.5 High 11.5-15.0 % LAB PLTC(INC) PLATELET COUNT 83 Low 150-450 X10E9 /L LAB MPV(INC) MPV 7.6 7-12 fL Performed By: #### CMP, CBC, 20239-4 #### [facility] ([id number]) [address] [place] [address] MAGNESIUM Collected: 01/08/2025 4:22 AM S tatus: COMPLETED Source: [facility] TYPE CODE TESTS RESULT OUT OF RANGE REFERENCE UNITS LAB MG([facility]) MAGNESIUM 1.6 Low 1.8-2.6 mg/dL Performed By: #### CMP, CBC, 51179-9 #### [facility] ([id number]) [address] [place] [address] BEDSIDE GLUCOSE LAB Collected: 01/07/2025 9:49 PM Status: COMPLETED Source: [facility] TYPE CODE TESTS RESULT OUT OF RANGE REFERENCE UNITS LAB BEDG([facility]) BEDSIDE GLUCOSE LAB 103 High 65-99 mg/dL BEDSIDE GLUCOSE LAB Collected: 01/07/2025 6:07 PM Status: COMPLETED Source: [facility] TYPE CODE TESTS RESULT OUT OF RANGE REFERENCE UNITS LAB BEDG([facility]) BEDSIDE GLUCOSE LAB 109 High 65-99 mg/dL HGB Collected: 01/07/2025 5:29 PM S tatus: COMPLETED Source: [facility] TYPE CODE TESTS RESULT OUT OF RANGE REFERENCE UNITS LAB HGB(INC) HEMOGLOBIN 9.1 Low 13.0-17.0 g/dL LAB HCT(LOINC) HEMATOCRIT 26.2 Low 39-49 % Performed By: #### HH #### [facility] ([id number]) [address] [place] [address] BEDSIDE GLUCOSE LAB Collected: 01/07/2025 11:55 AM Status: COMPLETED Source: [facility] TYPE CODE TESTS RESULT OUT OF RANGE REFERENCE UNITS LAB BEDG(LOINC) BEDSIDE GLUCOSE LAB 123 High 65-99 mg/dL BEDSIDE GLUCOSE LAB Collected: 01/07/2025 10:22 AM Status: COMPLETED Source: [facility] TYPE CODE TESTS RESULT OUT OF RANGE REFERENCE UNITS LAB BEDG(LOINC) BEDSIDE GLUCOSE LAB 113 High 65-99 mg/dL COMPLETE BLOOD COUNT Collected: 01/07/2025 3:38 AM Status: COMPLETED Source: [facility] TYPE CODE TESTS RESULT OUT OF RANGE [...] 7-12 fL Performed By: #### CBC, CMP, 48293-9, 77355-1, 1988-5, 74214-4 #### [facility] ([id number]) [address] [place] [address] #### 89113-8, FEPR, 2276-4 #### [facility] ([id number]) [address] [facility], [address] [place] [address] COMPREHENSIVE METABOLIC PANEL Collected: 2024 3:38 AM Status: COMPLETED Source: [facility] TYPE CODE TESTS RESULT OUT OF RANGE [...] use a race coefficient. Performed By: #### CBC, CMP, 15273-0, 67079-8, 1988-5, 81377-6 #### [facility] ([id number]) [address] [facility], [place] [address] #### 41494-7, FEPR, 2276-4 #### [facility] ([id number]) [address] [facility], [address] [place] [address] MAGNESIUM Collected: 01/07/2025 3:38 AM S tatus: COMPLETED Source: [facility] TYPE CODE TESTS RESULT OUT OF RANGE REFERENCE UNITS LAB MG(LOINC) MAGNESIUM 1.9 1.8-2.6 mg/dL Performed By: #### CBC, CMP, 60702-7, 72628-4, 1987-5, 76355-5 #### [facility] ([id number]) [address] [place] [address] #### 22544-1, FEPR, 2276-4 #### [facility] ([id number]) [address] [place] [address], [address] [place] [address] BRN NATRIURETIC PEP Collected: 01/07/2025 3:38 AM Status: COMPLETED Source: [facility] TYPE CODE TESTS RESULT OUT OF RANGE REFERENCE UNITS LAB BNP(LOINC) BRN NATRIURETIC PEP 86 <100.0 pg/mL Performed By: #### CBC, CMP, 11412-8, 01465-0, 1987-, 97211-8 #### [facility] ([id number]) [address] [place] [address] #### 10380-7, FEPR, 6-4 #### [facility] ([id number]) [address] [place] [address], [address] [address] C REACTIVE PROTEIN Collected: 01/07/2025 3:38 A M Status: COMPLETED Source: [facility] TYPE CODE TESTS RESULT OUT OF RANGE REFERENCE UNITS LAB CRP(LOINC) C REACTIVE PROTEIN <0.5 0.000-0.744 mg/dL Performed By: #### CBC, CMP, 70532-1, 67060-8, 1987-, 99154-7 #### [facility] ([id number]) [address] [place] [address] #### 36507-8, FEPR, 2276-4 #### [facility] ([id number]) [address] [place] [address], [address] [place] [address] PROCALCITONIN Collected: 01/07/2025 3:38 AM Status: COMPLETED Source: [facility] TYPE CODE TESTS RESULT OUT OF RANGE REFERENCE UNITS LAB PCAL(LOINC) PROCALCITONIN <0.05 <0.05 ng/mL Result Comment: NOTE <0.50 ng/mL - Low risk of severe sepsis and/or septic shock. <2.00 ng/mL - Recommend retesting within 6-24 hours. >2.00 ng/mL - High risk of sepsis and/or septic shock. Performed By: #### CBC, CMP, 02933-3, 61531-9, 1988-02, 72909-5 #### [facility] ([id number]) [address] [place] [address] #### 75894-6, FEPR, 2276-4 #### [facility] ([id number]) [address] [place] [address], [address] [place], [place] [address] DIGOXIN Collected: 01/07/2025 3:38 AM S tatus: COMPLETED Source: [facility] TYPE CODE TESTS RESULT OUT OF RANGE REFERENCE UNITS LAB DIGO(LOINC) DIGOXIN 1.3 0.8-2.0 ng/mL Performed By: #### CBC, CMP, 51797-2, 22682-2, 1988-02, 74210-9 #### [facility] ([id number]) [address] [place], [place] [address] #### 82577-1, FEPR, 6-4 #### [facility] ([id number]) [address] [place] [address], [address] [place] [address] IRON PROFILE Collected: 3:38 AM Status: COMPLETED Source: [facility] TYPE CODE TESTS RESULT OUT OF RANGE REFERENCE UNITS LAB FE(LOINC) IRON 196 50-212 ug/dL LAB TIBC(LOINC) IRON BINDING 263 250-425 ug/dL LAB SAT(LOINC) IRON SATURATION 74 High 20-50 % SATURATION Performed By: #### CBC, CMP, 34829-3, 51753-6, 1988-02, 04732-3 #### [facility] ([id number]) [address] [place] [address] #### 12824-1, FEPR, 6-4 #### [facility] ([id number]) [address] [facility], [address] [place] [address] FERRITIN Collected: 01/07/2025 3:38 AM S tatus: COMPLETED Source: [facility] TYPE CODE TESTS RESULT OUT OF RANGE REFERENCE UNITS LAB FERR(LOINC) FERRITIN 197 24-336 ng/mL Performed By: #### CBC, CMP, 06273-5, 47968-1, 1988-5, 78421-4 #### [facility] ([id number]) [address] [place] [address] #### 38142-9, FEPR, 2275- #### [facility] ([id number]) [facility] [facility], [address] [place] [address] URN MACROSCOPIC CHRISTOPH Collected: 01/06/2025 7:06 PM Status: COMPLETED Source: [facility] TYPE CODE TESTS RESULT OUT OF RANGE [...] Abnormal NEG Performed By: #### NUM #### [facility] ([id number]) [address] [place] [address] 1 HOUR TROP I, HIGH SENSITIVITY Collected: 12/26 5:34 PM Status: COMPLETED Source: [facility] TYPE CODE TESTS RESULT OUT OF RANGE REFERENCE UNITS LAB TNIHS1(LOINC) 1 HOUR TROP I, HIGH SENSITIVITY 19 <21 ng/L Performed By: #### 78210-5 # ### [facility] ([id number]) [address] [facility], [place] [address] XR CHEST 1 VW Observed: 01/06/2025 5:17 PM Status: COMPLETED Source: [facility] XR CHEST 1 VW XR CHEST 1 [...] Collected: 01/06/2025 4:31 PM Status: COMPLETED Source: [facility] TYPE CODE TESTS RESULT OUT OF RANGE [...] X10E9/L Performed By: #### CBCA, 895 79-7, CMP, 42869-6 #### [facility] ([id number]) [address] [place], [place] [address] TROPONIN I, HIGH SENSITIVITY Collected: 4:31 PM Status: COMPLETED Source: [facility] TYPE CODE TESTS RESULT OUT OF RANGE REFERENCE UNITS LAB TNIHS(LOINC) TROPONIN I, HIGH SENSITIVITY 17 <21 ng/L Performed By: #### CBCA, 895 79-7, CMP, 80159-9 #### [facility] ([id number]) [address] [place] [address] COMPREHENSIVE METABOLIC PANEL Collected: 2024 4:31 PM Status: COMPLETED Source: [facility] TYPE CODE TESTS RESULT OUT OF RANGE [...] coefficient. Performed By: #### JOAQUIN, 895 79-7, [facility], 65709-1 #### [facility] ([id number]) [address] [place] [address] MAGNESIUM Collected: 01/06/2025 4:31 PM S tatus: COMPLETED Source: [facility] TYPE CODE TESTS RESULT OUT OF RANGE REFERENCE UNITS LAB MG(LOINC) MAGNESIUM 1.9 1.8-2.6 mg/dL Performed By: #### JOAQUIN, 895 79-7, [facility], 44923-8 #### [facility] ([id number]) [address] [place] [address] SARS/FLU A+B/RSV BY NAAT/MOLECULAR Observed: 01/06/2025 4:30 PM Status: COMPLETED Source: [facility] FLU A PCR Negative (qualifier value) FLU [...] operators who are performing tests using either [employer] DX or [employer] Insight systems and is limited to laboratories that [...] specimen repeat. Fact Sheet for Healthcare Providers: https://www.fda.gov/media/496739/download Fact Sheet for Patients: https://www.fda.gov/media/356170/download Performed By: #### COVFLR ## ## [facility] ([id number]) [address] [place] [address] 36 Observed: 08/21/2024 12:38 PM Status: COMPLETED Source: [facility] Regarding echo from 08/18/20 24: MD Blanca Cueto MA His echo was ok, follow up in 1 year. OFFICE VISIT Observed: 08/10/2024 11:45 AM Status: COMPLETED Source: [facility] [id number] Minnie Jason M Date Provider Department Center 08/10/2024 [facility] Family History Problem Relation Age of Onset Atrial fibrillation Brother Heart failure Brother Coronary artery disease Brother Family Status - Relation Status Age at Brother Level of Service:22719 [place] OFFICE/OUTPATIENT ESTABLISHED MOD MDM 30 MIN PROGRESS Observed: 08/10/2024 11:45 AM Status: COMPLETED Source: [facility] Cardiology - [facility] Subjective Minnie Jason is a [...] HFA aerosol inhaler, , Disp: , Rfl: ipsgbzzwrl-uqtzdnqf-fqzysmdxvz ([employer]) 160-9-4.8 mcg/actuation HFA aerosol inhaler, [...] Interval 06/02/2019 380 QTC CALCULATION(BEZET) 06/02/2019 401 R-[place] 06/02/2019 85 T Wave [place] 06/02/2019 56 Diagnosis 06/02/2019 Value:Atrial fibrillation Low [...] superficial femoral artery that is calcific. 5. Vjcz-aq-sbgtnymo disease in the left superficial femoral artery. 6. Occluded anterior tibial arteries bilaterally. 7. Patent posterior tibial and peroneal arteries bilaterally. Assessment/Plan Diagnoses and all orders for this visit: Permanent atrial fibrillation (CMS/HCC) - Transthoracic echo (TTE) complete; Future Coronary artery disease involving [place] coronary artery of stockbridge heart without angina pectoris - Transthoracic echo (TTE) complete; Future Peripheral arterial occlusive disease (CMS/HCC) Essential hypertension Mixed hyperlipidemia History of coronary artery bypass surgery Comments: 2009 His AF is chronic and under rate control. 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 I will check an echocardiogram to follow-up on ventricular function given permanent atrial fibrillation. CAD: Status post bypass surgery, cardiac catheterization in 2019 showed occluded bypass grafts, status post stenting of the OM and LAD. [employer] RCA - medical therapy for now, if [...] 1 year (around 08/10/2025). Steve Briceño MD ALLERGIES DATE TYPE / CODE NAME / CODE REACTION SEVERITY SOURCE Drug Class/490862663(SNO MED CT) NO KNOWN ALLERGIES [facility] SYSTEMIC/782524294( SNOMED CT) NO KNOWN ALLERGIES [facility] ENCOUNTERS ADMIT/DISCHARGE ACCOUNT NUMBER ADMITTING ENCOUNTER CLASS LOCATION SOURCE 07/28/2025/07/28/20 [id number] Ambulatory Building:NO MS SWS ALL [facility] 01/27/2025/01/28/20 [id number] Ambulatory Building: M_LAB [facility] 01/20/2025/01/21/20 [id number] [facility] 01/13/2025/01/14/20 [id number] Ambulatory Building: M_[facility] 01/06/2025/01/11/20 [id number] ELLA VÁZQUEZ Inpatient Encounter Building:[facility] 203[facility] Center 08/10/2024/08/10/20 [id number] Ambulatory Building: [facility] PAYERS ENCOUNTER GUARANTOR PAYER SUBSCRIBER SOURCE 07/28/2025 MINNIE ESQUEDA: [address] [place], [place] [address]Der: (HP) Primary Insurance:[facility] MEDICARE ADVANTAGEPolicy Number: [id number] Date:2023-10-28 MINNIE ESQUEDA: [id number] [place] [address] [facility] 01/27/2025 MINNIE ESQUEDA: [address] [place] [place], [place] [address]Npx: (HP) Primary Insurance:[employer] MEDICARE PLAN (PPO)Policy Number: [id number] Date:2023-10-28 MINNIE ESQUEDA: [id number] [place], [place] [address]Hii: (HP) [facility] 01/20/2025 MINNIE RIOSB: [address] [place], [place] [address]Rsj: (HP) Primary Insurance:[employer] MEDICARE PLAN (PPO)Policy Number: [id number] Date:2023-10-28 MINNIE ESQUEDA: [id number] [place], [place] [address]Tla: (HP) [facility] 01/13/2025 MINNIE RIOSB: [address] [place] [address]Jtm: (HP) Primary Insurance:[employer] MEDICARE PLAN (PPO)Policy Number: [id number] Date:2023-10-28 MINNIE ESQUEDA: [id number] [facility] [place] [address]Cgj: () [facility] 01/06/2025 MINNIE ESQUEDA: [facility] [place] [address]Mbh: (HP) Primary Insurance:[facility] MEDICARE PLAN (PPO)Policy Number: [id number] Date:2023-10-28 MINNIE ESQUEDA: [id number] [facility], [place] [address]Fnh: () [facility] 08/10/2024 Primary Insurance:[facility] MEDICARE ADVANTAGEPolicy Number: [id number] Date:2021-10-28 MINNIE ESQUEDA: [id number] [place] [place] [address] [facility]
== END 2025-07-28 09:19 | disposition home or self-care (01) ==
LOC: CT 09:18
PROVIDERS: PCP Internal Medicine; Visit Provider Internal Medicine
DX: J18.8 Other pneumonia, unspecified organism (principal); J44.9 Chronic obstructive pulmonary disease, unspecified; R91.8 Other nonspecific abnormal finding of lung field
CPT/HCPCS: 71250

== ENCOUNTER 2025-07-28 12:05 | Outpatient (OUT) | payer MEDICARE, SELFPAY ==
[2025-07-28 12:43] LABS: Hematocrit 37.6 % (42.0-54.0); Hemoglobin 11.4 g/dL (14.0-18.0); Immature Granulocytes Abs Auto 0.06 10^3/uL (0.00-0.03); Immature Granulocytes Pct Auto 0.7 % (0.0-0.5); Lymphocytes Absolute Auto 1.2 10^3/uL (1.2-3.8); Mean Corpuscular HGB Conc 30.3 g/dL (29.9-35.2); Mean Corpuscular Hemoglobin 26.0 pg (25.9-34.0); Mean Corpuscular Volume 85.8 fL (80.0-94.0); Platelet Count 260 10^3/uL (150-450); Red Blood Count 4.38 10^6/uL (4.70-6.10); White Blood Count 8.2 10^3/uL (4.0-11.0)
[2025-08-02 19:08] LABS: Immunoglobulin A, Qn, Serum 255 mg/dL (61-437)
== END 2025-07-28 12:06 | disposition home or self-care (01) ==
LOC: LAB 12:07
PROVIDERS: PCP Internal Medicine
DX: J18.9 Pneumonia, unspecified organism (principal); J32.9 Chronic sinusitis, unspecified
CPT/HCPCS: 36415; 82784; 82785; 85025; 86317; 86581

== ENCOUNTER 2025-09-13 09:48 | Outpatient (OUT) | payer MEDICARE, SELFPAY ==
--- OUTSIDE RECORDS SUMMARY | 2025-09-13 09:59 | XMS_ITS | CCD ---
Author Organization [facility] Care Team Providers Care Laboratory Clerk Name Role Phone Matt Koenig Unavailable MARCUS, DR SLADE Attending Unavailable VALONE, DR SLADE Admitting Unavailable VALONE, DR SLADE Consulting Unavailable VALONE, DR SLADE Primary Care Unavailable KASSIDY, DR KRIS Michaud Consulting Unavailable VALONE, DR SLADE Primary Care Unavailable MARCY, JESUS Admitting Unavailable JESUS VIDAL Attending Unavailable JESUS VIDAL Consulting Unavailable JESUS VIDAL Consulting Unavailable VALONE, DR SLADE Primary Care Unavailable MARCY, JESUS Admitting Unavailable JESUS VIDAL Attending Unavailable ORLA, DR RODRIGUEZ Admitting Unavailable VALONE, DR SLADE Primary Care Unavailable ORAL, DR RODRIGUEZ Attending Unavailable HAY, DR RODRIGUEZ Consulting Unavailable SCHREIBMANFINESSE Consulting Unavailable VALONE, DR SLADE Attending Unavailable VALONE, DR SLADE Consulting Unavailable VALONE, DR SLADE Primary Care Unavailable VALONE, DR SLADE Admitting Unavailable ZIEBER, DR FRANCISCO JAVIER Vaughn Consulting Unavailable MOUKARBRIVERA, DR WILSON Consulting Unavailable VALONE, DR SLADE Primary Care Unavailable KASSIDY, DR KRIS Michaud Consulting Unavailable SAI, MATT Admitting Unavailable OLEXA, MATT Attending Unavailable OLEMYLES, MATT Consulting Unavailable Marcus Bojorquez DO, Charles L Primary Care Provider RONAN VELAZQUEZ JR Primary Care Unavailable ELLA VÁZQUEZ Admitting Unavailable ELLA VÁZQUEZ Attending Unavailable LETTY TOSCANO Consulting Unavailable JENNIFER DENISE Referring Unavailable RONAN VELAZQUEZ JR Primary Care Unavailable RONAN VELAZQUEZ JR Referring Unavailable RONAN VELAZQUEZ JR Primary Care Unavailable RONAN VELAZQUEZ JR Referring Unavailable RONAN VELAZQUEZ JR Primary Care Unavailable Ronan Velazquez MD Primary Care Provider [phone] Ronan Velazquez MD Primary Care Provider CHANTE SANTANA Attending Unavailable CHANTE SANTANA Attending Unavailable JESUS VIDAL Attending Unavailable Medications Current Medications MedicationDrug Class(es)DatesSig (Normalized)Sig (Original)[id number] 200 actuat albuterol 0.09 mg/actuat metered dose inhaler (8 sources)beta2-Adrenergic Agonistalbuterol HFA 90 mcg/act inhaler USE 2 INHALATIONS ORALLY 4 TIMES DAILY DIRECTED Inhalation; Duration: 90 Days ActiveProAir HFA ActiveamLODIPine 5 mg oral tablet (9 sources)Dihydropyridine Calcium Channel Blockertake 1 tablet by mouth once dailyamLODIPine (Norvasc) 5 MG tablet TAKE 1 TABLET DAILY Oral; Duration: 90 Days Activeatorvastatin 40 mg oral tablet (9 sources)HMG-CoA Reductase Inhibitoratorvastatin (Lipitor) 40 MG tablet 40 mg Activebenzonatate 100 mg oral capsule (1 source)Non-narcotic AntitussiveStart: 03-39-8768iqed 1 capsule by mouth three times daily as needed for coughbenzonatate (TESSALON PERLES) 100 mg capsule Take 1 capsule (100 mg total) by mouth 3 (three) timesa day as needed for cough. 20 capsule 01/10/2025 Sluzsl129 actuat budesonide 0.16 mg/actuat / formoterol fumarate 0.0048 mg/actuat / glycopyrrolate 0.009 mg/actuat metered dose inhaler (6 sources)Corticosteroid, beta2-Adrenergic AgonistBreztri Aerosphere 160-9-4.8 MCG/ACT aerosol USE 2 INHALATIONS ORALLY TWICE DAILY Activecanagliflozin / metFORMIN (2 sources)Biguanide, Sodium-Glucose Cotransporter 2 InhibitorInvokamet Active carvedilol 12.5 mg oral tablet (9 sources)alpha-Adrenergic Krzysztof, beta-Adrenergic Blockertake 1 tablet by mouth in the morningcarvedilol (Coreg) 12.5 MG tablet Take 12.5 mg by mouth in the morning and 12.5 mg in the evening. Take with meals. ActiveCinnamon Preparation (2 sources)Non-Standardized Food Allergenic ExtractCinnamon Activeclopidogrel 75 mg oral tablet (9 sources)P2Y12 Platelet Inhibitortake 1 tablet by mouth once dailyclopidogrel (Plavix) 75 MG tablet Take 75 mg by mouth Daily Activedigoxin 0.25 mg oral tablet (3 sources)Cardiac Glycosidetake 1 tablet by mouth in the morningdigoxin (LANOXIN) 250 mcg tablet Take 1 tablet (250 mcg total) by mouth in the morning. ActiveDigoxin Active0.5 ml dulaglutide 3 mg/ml auto-injector (3 sources)GLP-1 Receptor Agonistinject 1.5 mg by subcutaneous injection every weekdulaglutide (TRULICITY) 1.5 mg/0.5 mL pen injector Inject 1.5 mg under the skin once a week. ActiveTrulicity Activeezetimibe 10 mg oral tablet (9 sources)Dietary Cholesterol Absorption Inhibitortake 1 tablet by mouth once dailyezetimibe (Zetia) 10 MG tablet Take 10 mg by mouth Daily ActiveEzetimibe Activefinasteride 5 mg oral tablet (7 sources)5-alpha Reductase Inhibitortake 1 tablet by mouth once daily finasteride (Proscar) 5 MG tablet Take 5 mg by mouth Daily Activefurosemide 20 mg oral tablet (1 source)Loop Diuretictake 1 tablet by mouth twice dailyfurosemide (LASIX) 20 mg tablet Take 1 tablet (20 mg total) by mouth 2 (two) times a day. Active guaiFENesin (2 sources)guaiFENesin ActivehydrOXYzine hydrochloride 25 mg oral tablet (1 source)AntihistamineStart: 43-82-0895rtal 1 tablet by mouth three times daily as needed for anxietyhydrOXYzine (ATARAX) 25 mg tablet Indications: Anxiety about health Take 1 tablet (25 mg total) by mouth 3 (three) times a day as needed for anxiety. 30 tablet 01/10/2025 Activelansoprazole 30 mg delayed release oral capsule (8 sources)Proton Pump Inhibitortake 2 capsules by mouth before mealtime lansoprazole (Prevacid) [address] capsule Take 60 mg by mouth in the morning. Take before meals. Activetake 1 capsule by mouth every twenty-four hours Lansoprazole 30 MG 1 capsule before a meal Orally Once a day Activelinezolid 600 mg oral tablet (1 source)Oxazolidinone Antibacterialtake 1 tablet by mouth in the morning, then take 1 tablet by mouth at bedtimelinezolid (ZYVOX) 600 mg tablet Take 1 tablet (600 mg total) by mouth in the morning and 1 tablet (600 mg total) before bedtime. Activemagnesium oxide 400 mg oral tablet (1 source)Start: 56-00-4522htpg 1 tablet by mouth in the morningmagnesium oxide (MAGOX) 400 mg tablet Take 1 tablet (400 mg total) by mouth in the morning. 10 tablet 01/10/2025 Activemontelukast 10 mg oral tablet (9 sources)Leukotriene Receptor Antagonisttake 1 tablet by mouth in the morning montelukast (Singulair) 10 MG tablet Take 1 tablet by mouth in the morning. ActiveMulti For Him (2 sources)Multi For Him Activenystatin 589766 unt/ml oral suspension (1 source)Polyene Antifungalnystatin (MYCOSTATIN) 100,000 unit/mL suspension Take 5 mL (500,000 Units total) by mouth in the morning and 5 mL (500,000 Units total) at noon and 5 mL (500,000 Units total) in the evening and 5 mL (500,000 Units total) before bedtime. Activeolmesartan medoxomil 40 mg oral tablet (7 sources)Angiotensin 2 Receptor Blockertake 1 tablet by mouth once daily olmesartan (BENIcar) 40 MG tablet Take 40 mg by mouth Daily ActiveOlmesartan Medoxomil-HCTZ (2 sources)Olmesartan Medoxomil-HCTZ Activepantoprazole 40 mg delayed release oral tablet (1 source)Proton Pump InhibitorStart: 92-44-4310pzdk 1 tablet by mouth twice dailypantoprazole (PROTONIX) 40 mg EC tablet Take 1 tablet (40 mg total) by mouth 2 (two) times daily xx9549 and 1500. 60 tablet 1 01/10/2025 Active predniSONE 20 mg oral tablet (1 source)take 1 tablet by mouth in the morningpredniSONE (DELTASONE) 20 mg tablet Take 1 tablet (20 mg total) by mouth in the morning. Activerivaroxaban 20 mg oral tablet (9 sources)Factor Xa Inhibitortake 1 tablet by mouth once dailyXarelto 20 MG tablet Take 20 mg by mouth Daily Activesildenafil (2 sources)Phosphodiesterase 5 InhibitorSildenafil Citrate ActiveSpiriva HandiHaler (2 sources)Spiriva HandiHaler Activetamsulosin hydrochloride 0.4 mg oral capsule (7 sources)alpha-Adrenergic Blockertake 1 capsule by mouth every twenty-four hours at bedtimetamsulosin (Flomax) 0.4 MG 24 hr capsule Take 0.4 mg by mouth at bedtime Activetake 1 capsule by mouth once dailytamsulosin (FLOMAX) 0.4 mg capsule Take 1 capsule (0.4 mg total) by mouth nightly. ActiveZinc (2 sources)Zinc Active Problems Active Problems Problem ClassificationProblemDateDocumented DateEpisodic/ChronicCardiac dysrhythmias (2 sources)Unspecified atrial fibrillation; Translations: [Atrial fibrillation] Onset: 928854-01-6508VzbhmghHjxhxam obstructive pulmonary disease and bronchiectasis (1 source)Chronic obstructive pulmonary disease, unspecified; Translations: [COPD UNSPECIFIED]Onset: 96-50-7150QnyjjibWuhpupauaf heart failure; nonhypertensive (2 sources)Chronic systolic (congestive) heart failure; Translations: [Congestive heart failure]Onset: 852583-63-4312HbnokziHartjkex atherosclerosis and other heart disease (4 sources)Atherosclerotic heart disease of [place] coronary artery without angina pectoris; Translations: [Coronary atherosclerosis]Onset: 12-11-2012 91-50-2965GdynmaeKuibtcqzld and other anemia (1 source)Iron deficiency anemia, unspecified; Translations: [Iron deficiency anemia, unspecified]Onset: 35-48-6961NxniepmtBnockvvb mellitus without complication (2 sources)Type 2 diabetes mellitus; Translations: [Type 2 diabetes mellitus without complications]Onset: 169191-19-1148IsenijyIdotjywyy of lipid metabolism (2 sources)Pure hypercholesterolemia, unspecified; Translations: [Hyperlipidemia]Onset: 541485-27-8143FtapcwxFqmjccyqo hypertension (3 sources)Essential (primary) hypertension; Translations: [Essential hypertension]Onset: 934751-09-8056FsaobkcCveoezthadoycthy hemorrhage (1 source)Hemorrhage of anus and rectum; Translations: [Hemorrhage of anus and rectum]Onset: 84-21-4795HrefydriBgibr valve disorders (2 sources)Nonrheumatic mitral (valve) insufficiency; Translations: [Mitral valve disorder]Onset: 26-79-842651697727-89-4174AqajzaiVovisxkfmipr with complications and secondary hypertension (2 sources)Hypertensive heart disease without heart failure; Translations: [Hypertensive heart disease withoutheart failure]Onset: 91-03-6067KyliqvjRuggxaa and fatigue (3 sources)Asthenia; Translations: [Weakness]Onset: 083601-27-1306Jebwfoyf Miscellaneous mental health disorders (1 source)Other symptoms and signs involving emotional state; Translations: [Other symptoms and signs involving emotional state]Onset: 06-51-1374Bgnpayhu Other circulatory disease (4 sources)Other specified peripheral vascular diseases; Translations: [OTH SPEC PERIPHERAL VASC DISEASES]Onset: 62-31-7769RcmiiuiDaqwa circulatory disease (1 source)Peripheral arterial occlusive disease; Translations: [Disorder of arteries and arterioles, unspecified]Onset: 842479-08-5060OcvzocvZbclo gastrointestinal disorders (1 source)Occult blood in stools; Translations: [Other fecal abnormalities] Onset: 040388-47-6791ZuimusyvDmsjr gastrointestinal disorders (1 source)Other fecal abnormalities; Translations: [Other fecal abnormalities] Onset: 96-59-7450JtnohyvnCleic lower respiratory disease (6 sources)Other forms of dyspnea; Translations: [OTHER FORMS OF DYSPNEA]Onset: 30-26-7650SjpyzsfcVthzl nutritional; endocrine; and metabolic disorders (1 source)Hypoalbuminemia; Translations: [Other disorders of plasma-protein metabolism, not elsewhere classified]Onset: 827428-19-8579CvmszpkZclyv nutritional; endocrine; and metabolic disorders (1 source)Hypomagnesemia; Translations: [Hypomagnesemia]Onset: 4807Loglvcn Other nutritional; endocrine; and metabolic disorders (1 source)Decrease in appetite; Translations: [Anorexia]Onset: 01-07-2025 46-04-9972GhqqugyqSmbor nutritional; endocrine; and metabolic disorders (1 source)Weight decreased; Translations: [Abnormal weight loss]Onset: 000971-01-1071MkctwwykOmnut upper respiratory infections (4 sources)Recurrent sinusitis; Translations: [Chronic sinusitis, unspecified] 50-05-9006SugikfsKjbh-; endo-; and myocarditis; cardiomyopathy (except that caused by tuberculosis or sexually transmitted disease) (1 source)Primary cardiomyopathy; Translations: [Cardiomyopathy, unspecified] Onset: 109115-97-0981QybrhkuRhybjigdcm and visceral atherosclerosis (1 source)Peripheral vascular disease; Translations: [Peripheral vascular disease, unspecified]Onset: 385863-22-5649BvukuyaZzcwvgvyt (except that caused by tuberculosis or sexually transmitted disease) (6 sources)Pneumonia; Translations: [Pneumonia, unspecified organism]Onset: 300337-75-3032GnpczfgcViaaigsgo heart disease (1 source)Pulmonary hypertension, unspecified; Translations: [Other chronic pulmonary heart diseases]Onset: 765528-34-1517KhdicycYijffebt codes; unclassified (1 source)Other specified health status; Translations: [Other specified conditions influencing health status]Onset: 068550-32-4543Nvmazpmk Screening and history of mental health and substance abuse codes (6 sources)Personal history of nicotine dependence; Translations: [Ex-smoker] Onset: 38-84-6831UmlpdnitRxclmcjkwzpd (1 source)EMSOnset: 01-06-2025 Past or Other Problems Problem ClassificationProblemDateDocumented DateEpisodic/ChronicCoronary atherosclerosis and other heart disease (1 source)Presence of aortocoronary bypass graft; Translations: [PRESENCE AORTOCORONARY BYPASS GRAFT]Onset: 54-84-0979CmnzjjwmDboabgrj injury or internal injury (2 sources)Crushing injury of left ring finger, initial encounter; Translations: [Crushing injury of left ringfinger, subsequent encounter]Onset: 10-03-2021 Resolved: 70-12-5470GopvhcfxK Codes: Other specified and classifiable (1 source)Caught, crushed, jammed, or pinched between moving objects, initial encounter; Translations: [CAUGHT CRUSH/PINCH BTWN MOV OBJ INT]Onset: 10-02-2021 EpisodicFracture of upper limb (10 sources)Nondisplaced fracture of distal phalanx of right ring finger, initial encounter for closed fracture; Translations: [Nondisplaced fracture of distal phalanx of right ring finger, subsequent encounter for fracture with routine healing]Onset: 09-30-2021 Resolved: 58-87-1252TvxqxwbqOxta wounds of extremities (2 sources)Laceration without foreign body of left ring finger with damage to nail, initial encounter; Translations: [Laceration without foreign body of left ring finger with damage to nail, subsequent encounter]Onset: 10-03-2021 Resolved: 17-11-2427FwmwysamAxbtg aftercare (1 source)Encounter for removal of suturesOnset: 10-10-2021 Resolved: 07-05-5630XqrmdkcmSaams aftercare (1 source)detention (current) use of anticoagulants; Translations: [MAIL AGENT CURRNT USE ANTICOAGULANTS]Onset: 18-14-7441YrhglxgbXrfsp aftercare (1 source)Other ocean transportation intermediary (current) drug therapy; Translations: [OTH HALFWAY CURRENT DRUG THERAPY]Onset: 34-71-6217QgepdacvLfbxi liver diseases (4 sources)Hepatomegaly, not elsewhere classified; Translations: [HEPATOMEGALY NEC]Onset: 53-38-9512Ekbgerkn Results Test NameValueInterpretationReference KqnauKevrsebn27af 76-47-467520NT is above goal, like him to average less than 130/90. He is on the maximum doses of coreg and olmesartan. Recommend we add hydralazine 25mg BID. He should continue to monitor and let us know if it doesn't improve as we can go up on this dose. Follow-up as planned and bring in BP readings to his follow-up appt. Thank you![facility]37on *We will increase carvedilol to 25mg twice daily to help with better blood pressure control. *Check you blood pressure twice a day, 2 hours after medications and write down your readings. We will call you in able 2 weeks for these readings. *[facility] will call you to schedule your testing - stress test + echocardiogramNormalUniProMedica Defiance Regional HospitalOffice Visiton 08-17-2025 Follow-up [id number] Minnie Jason 1950 M Date Provider Department Center 08/17/2025 JESUS FREEMAN [facility] CARD [facility] Family History Problem Relation Age of Onset Atrial fibrillation Brother Heart failure Brother Coronary artery disease Brother Family Status - Relation Status Age at Mother Father Brother Level of Service:05208 MT OFFICE/OUTPATIENT ESTABLISHED MOD MDM 30 MIN Reason for Visit and Comments: Follow-up [712946] - 1 year Patient denies chest pain, Patient states he had pneumonia in [place] and is still recovering from it which is what is causing his rivero/sob. Atrial Fibrillation [80] Coronary Artery Disease [187] Congestive Heart Failure [127] Hypertension [767512] Hyperlipidemia [182] Valve Disorder [3372] - Mitral regurgitation Peripheral arterial occlusive disease [Other] Cardiomyopathy [104] Edema [[id number]] - Bilateral, more left than right Fatigue [46]NormalGuernsey Memorial HospitalTelephoneon 08-17-2025 [id number] Minnie Jason 1950 M Date Provider Department Center 08/17/2025 895-SERGE SANCHEZ SINDY Rasmussen Family History Problem Relation Age of Onset Atrial fibrillation Brother Heart failure Brother Coronary artery disease Brother Family Status - Relation Status Age at Mother Father BrotherNormParkwood HospitalOrders Onlyon 36-89-7935Afuaez [id number] Minnie Jason 1950 M Date Provider Department Center 08/16/2025 [id number], HISTORICAL SINDY Rasmussen Family History Problem Relation Age of Onset Atrial fibrillation Brother Heart failure Brother Coronary artery disease Brother Family Status - Relation Status Age at Mother Father BrotherUniversity Hospitals Geauga Medical CenterCBC AND AUTO DIFFon 01-27-2025 Anisocytosis Ql (Bld)2+AbnormalNONEProMedica Whittier Hospital Medical CenterComment on above: Performed By: #### COVFLR #### [facility] ([id number]) [address] [place] [address] 19799Mayd form neutrophils/100 WBC (Bld)1.0 %NormalProMedica Whittier Hospital Medical CenterComment on above:Performed By: #### COVFLR #### [facility] ([id number]) [address] [place] [address] 14951CMHU0+AbnormalNONEPLutheran HospitalComment on above: Performed By: #### COVFLR #### [facility] ([id number]) [address] [place] [address] 23125Lvhgcnheczs distribution width (RBC) [Ratio]22.4 %High11.5-15.0 Pro[facility] Hospital Medical CenterComment on above:Performed By: #### COVFLR #### [facility] ([id number]) [address] [place] [address] 89200Ozditgintf (Bld) [Volume fraction]32.4 %Ejg15-27MvmUlkeixMission Regional Medical CenterComment on above:Performed By: #### COVFLR #### [facility] ([id number]) [address] [place] [address] 76664Oijdsnrjaw (Bld) [Mass/Vol]10.1 g/dLLow13.0-17.0Marymount HospitalComment on above:Performed By: #### COVFLR #### [facility] ([id number]) [address] [place] [address] 64420Vmtkicmzxgi (Bld) [#/Vol]0.5 10*3/uLLow1.0-3.5PLutheran HospitalComment on above:Performed By: #### COVFLR #### [facility] ([id number]) [address] [place] [address] 90687Fpyllsckspq/100 WBC (Bld)4.0 %NormalProMission Regional Medical Center Comment on above:Performed By: #### COVFLR #### [facility] ([id number]) [address] [place] [address] 04434TGI (RBC) [Entitic mass]28.3 vnDuxsrd13-24OzqQsgluzMission Regional Medical CenterComment on above:Performed By: #### COVFLR #### [facility] ([id number]) [address] [place] [address] 73921RMJC (RBC) [Mass/Vol]31.2 g/aPQst70-41HgsElaopuMission Regional Medical CenterComment on above:Performed By: #### COVFLR #### [facility] ([id number]) [address] [place] [address] 79341EKX (RBC) [Entitic vol]91 zPEpjazb20-086ClsDuzjwa [facility]remont HospitalComment on above:Performed By: #### COVFLR #### [facility] ([id number]) [address] [place] [address] 54983Swklqmpcf (Bld) [#/Vol]1.2 10*3/uLHigh0-0.9ProMission Regional Medical CenterComment on above:Performed By: #### COVFLR #### [facility] ([id number]) [address] [place] [address] 91145Fnvwkzqlx/100 WBC (Bld)9.0 %NormalMarymount Hospital Comment on above:Performed By: #### COVFLR #### [facility] ([id number]) [address] [place] [address] 65966VMLGUKNDC2.0 %NormalMarymount HospitalComment on above: Performed By: #### COVFLR #### [facility] ([id number]) [address] [place] [address] 39229Wuoagoapyls (Bld) [#/Vol]11.3 10*3/uLHigh1.5-6.6ProMission Regional Medical CenterComment on above:Performed By: #### COVFLR #### [facility] ([id number]) [address] [place] [address] 36650MGVCVTGHX9+AbnormalNONEProMedica Whittier Hospital Medical CenterComment on above:Performed By: #### COVFLR #### [facility] ([id number]) [address] [place] [address], [place] [address]Qfljdcwi mean volume (Bld) [Entitic vol]7.7 fLNormal7-12 ProMedicMiller Children's HospitalComment on above:Performed By: #### COVFLR #### [facility] ([id number]) [address] [place] [address], [place] [address]Nbgkgagrh (Bld) [#/Vol]306 10*3/sYSxlsbj510-238ZdzWcoopv [facility] HospitalComment on above:Performed By: #### COVFLR #### [facility] ([id number]) [address] [place] [address], [place] [address]SILQOBKLXHHSW6+AbnormalNONEProMedica [facility]ittier Hospital Medical CenterComment on above:Performed By: #### COVFLR #### [facility] ([id number]) [address] [place] [address] 36736AGN COUNT3.57 X10E12/LLow4.10-5.70[facility] Comment on above:Performed By: #### COVFLR #### [facility] ([id number]) [address] [place] [address], [place] [address]NTN QCPYYTZWYD36.0 %NormalProMission Regional Medical CenterComment on above:Performed By: #### COVFLR #### [facility] ([id number]) [address] [place] [address], [place] [address]AUA (Bld) [#/Vol]13.1 10*3/uLHigh4.0-11.0Marymount HospitalComment on above:Performed By: #### COVFLR #### [facility] ([id number]) [address] [place] [address], [place] [address]XZO AND AUTO DIFFon 20-19-3990YGCOIGDZ BASOPHIL0.0 X10E9/L Normal0.0-0.2ProMedSharp Coronado HospitalComment on above:Performed By: #### COVFLR #### [facility] ([id number]) [address] [place] [address] 76993ORLBANCO NEUTROPHIL2.6 X10E9/LNormal1.5-6.6ProMission Regional Medical CenterComment on above:Performed By: #### COVFLR #### [facility] ([id number]) [address] [place] [address] 07387Bjphetsbx/100 WBC (Bld)0.3 %NormalMarymount Hospital Comment on above:Performed By: #### COVFLR #### [facility] ([id number]) [address] [place] [address] 40991Xkupplpaduf (Bld) [#/Vol]0.1 10*3/uLNormal0.0-0.4Marymount HospitalComment on above:Performed By: #### COVFLR #### [facility] ([id number]) [address] [place] [address] 91259Nfnzctcrshy/100 WBC (Bld)2.6 %NormalMarymount Hospital Comment on above:Performed By: #### COVFLR #### [facility] ([id number]) [address] [place] [address] 10464Rnxtvtnjpqd distribution width (RBC) [Ratio]20.7 %High11.5-15.0 ProMcrenshaw community hospitala [facility] Medical CenterComment on above:Performed By: #### COVFLR #### [facility] ([id number]) [address] [place] [address] 05904Ggmiqsbbdb (Bld) [Volume fraction]29.5 %Pmf13-35RdoNsggqlMission Regional Medical CenterComment on above:Performed By: #### COVFLR #### [facility] ([id number]) [address] [place] [address] 73492Zayhwgrxzq (Bld) [Mass/Vol]9.6 g/dLLow13.0-17.0Marymount HospitalComment on above:Performed By: #### COVFLR #### [facility] ([id number]) [address] [place] [address] 38098Eiaytgsigwl (Bld) [#/Vol]1.0 10*3/uLNormal1.0-3.5PLutheran HospitalComment on above:Performed By: #### COVFLR #### [facility] ([id number]) [address] [place] [address] 24308Jwyvlewolwh/100 WBC (Bld)22.8 %NormalProMission Regional Medical Center Comment on above:Performed By: #### COVFLR #### [facility] ([id number]) [address] [place] [address] 82771EUO (RBC) [Entitic mass]28.9 koJaysws31-17JarVmqsltMission Regional Medical CenterComment on above:Performed By: #### COVFLR #### [facility] ([id number]) [address] [place] [address] 50388JLYU (RBC) [Mass/Vol]32.6 g/yTQsioxt34-05OneRyzuplMission Regional Medical CenterComment on above:Performed By: #### COVFLR #### [facility] ([id number]) [address] [place] [address] 97473KZA (RBC) [Entitic vol]89 pKSesfbu96-074KnbGwysosMarymount HospitalComment on above:Performed By: #### COVFLR #### [facility] ([id number]) [address] [place] [address] 98387Hlqqiaigy (Bld) [#/Vol]0.6 10*3/uLNormal0-0.9Marymount HospitalComment on above:Performed By: #### COVFLR #### [facility] ([id number]) [address] [place] [address] 40895Jfhkowuym/100 WBC (Bld)14.1 %NormalMarymount Hospital Comment on above:Performed By: #### COVFLR #### [facility] ([id number]) [address] [place] [address] 35583Hhymitlywtq/100 WBC (Bld)60.2 %[facility] Comment on above:Performed By: #### COVFLR #### [facility] ([id number]) [address] [place] [address] 76940Pkwxzaxw mean volume (Bld) [Entitic vol]7.1 fLNormal7-12 Marymount HospitalComment on above:Performed By: #### COVFLR #### [facility] ([id number]) [address] [place] [address] 06010Gyjqdlfdh (Bld) [#/Vol]491 10*3/sFQqzd459-380JboOdvvdbMarymount HospitalComment on above:Performed By: #### COVFLR #### [facility] ([id number]) [address] [place] [address] 26134KBI COUNT3.32 X10E12/LLow4.10-5.70[facility] Comment on above:Performed By: #### COVFLR #### [facility] ([id number]) [address] [place] [address] 99989UMB (Bld) [#/Vol]4.4 10*3/uLNormal4.0-11.0Marymount HospitalComment on above:Performed By: #### COVFLR #### [facility] ([id number]) [address] [place] [address] 05562UBDNBXBI BLOOD COUNTon 69-09-1933Nvkccsetyvw distribution width (RBC) [Ratio]16.4 %High11.5-15.0Marymount HospitalComment on above: Performed By: #### COVFLR #### [facility] ([id number]) [address] [place] [address] 89082Wcgvckpgzw (Bld) [Volume fraction]28.8 %Wzq52-54QufGhpsllMarymount HospitalComment on above:Performed By: #### COVFLR #### [facility] ([id number]) [address] [place] [address] 28833Kezwespghj (Bld) [Mass/Vol]9.5 g/dLLow13.0-17.0Marymount HospitalComment on above:Performed By: #### COVFLR #### [facility] ([id number]) [address] [place] [address] 32601SIN (RBC) [Entitic mass]27.4 iiZurajc24-29XfmWxoqzwMarymount HospitalComment on above:Performed By: #### COVFLR #### [facility] ([id number]) [address] [place] [address] 45108YXAB (RBC) [Mass/Vol]33.1 g/bZTuuksy49-31TyvDqzqprMarymount HospitalComment on above:Performed By: #### COVFLR #### [facility] ([id number]) [address] [place] [address] 31844BMD (RBC) [Entitic vol]83 gKIggtog43-420RxiLgizjtMarymount HospitalComment on above:Performed By: #### COVFLR #### [facility] ([id number]) [address] [place] [address] 13431Nlwdjjaz mean volume (Bld) [Entitic vol]7.9 fLNormal7-12 Marymount HospitalComment on above:Performed By: #### COVFLR #### [facility] ([id number]) [address] [place] [address] 60722Mvejroibr (Bld) [#/Vol]187 10*3/aEFxhmmx096-597DwySrcdrb [facility]ont HospitalComment on above:Performed By: #### COVFLR #### [facility] ([id number]) [address] [place] [address] 58179FYM COUNT3.48 X10E12/LLow4.10-5.70[facility] Comment on above:Performed By: #### COVFLR #### [facility] ([id number]) [address] [place] [address] 85395LUT (Bld) [#/Vol]3.7 10*3/uLLow4.0-11.0Marymount HospitalComment on above:Performed By: #### COVFLR #### [facility] ([id number]) [address] [place] [address] 83335BYXZIGXNLdl 97-71-3712Wcgdpfwns [Mass/Vol]1.6 mg/dLLow1.8-2.6 Mary[facility] HospitalComment on above:Performed By: #### COVFLR #### [facility] ([id number]) [address] [place] [address] 11147QWOHOGGC BLOOD COUNTon 38-21-1865Oqvogtymdbu distribution width (RBC) [Ratio]15.3 %High11.5-15.0Marymount HospitalComment on above: Performed By: #### CBCA, 87914-4, CMP, 62649-4 #### [facility] ([id number]) [address] [place] [address] 11128Rxwimufkxe (Bld) [Volume fraction]25.2 %Sls30-10LgsXypxodMarymount HospitalComment on above:Performed By: #### JOAQUIN, , CMP, 43325-3 #### [facility] ([id number]) [address] [place] [address] 73467Efnhzyquox (Bld) [Mass/Vol]8.7 g/dLLow13.0-17.0Marymount HospitalComment on above:Performed By: #### JOAQUIN, , CMP, 47508-7 #### [facility] ([id number]) [address] [place] [address] 25833HMK (RBC) [Entitic mass]28.0 vwLvjdqc12-41TcvVwnstuMission Regional Medical CenterComment on above:Performed By: #### JOAQUIN, , CMP, 74325-5 #### [facility] ([id number]) [address] [place] [address] 03568HPIZ (RBC) [Mass/Vol]34.6 g/bRKnkbfq01-97UptQwbcgxMission Regional Medical CenterComment on above:Performed By: #### JOAQUIN, , CMP, 21654-9 #### [facility] ([id number]) [address] [place] [address] 87541IHF (RBC) [Entitic vol]81 lXVwvkca69-555NfcFtciue [facility] HospitalComment on above:Performed By: #### JOAQUIN, , CMP, 29136-5 #### [facility] ([id number]) [address] [place] [address] 01222Lopsxjgc mean volume (Bld) [Entitic vol]7.8 fLNormal7-12 Marymount HospitalComment on above:Performed By: #### JOAQUIN, , CMP, 81549-1 #### [facility] ([id number]) [address] [place] [address] 21164Xwgawdvkw (Bld) [#/Vol]71 10*3/xNCdn187-676ZfpZjfwwxMission Regional Medical CenterComment on above:Performed By: #### JOAQUIN, 59155-7, CMP, 35891-0 #### [facility] ([id number]) [address] [place] [address] 03844XGS COUNT3.11 X10E12/LLow4.10-5.70ProMission Regional Medical Center Comment on above:Performed By: #### JOAQUIN, 48711-1, CMP, 21298-2 #### [facility] ([id number]) [address] [place] [address] 39361WQE (Bld) [#/Vol]4.5 10*3/uLNormal4.0-11.0ProMission Regional Medical CenterComment on above:Performed By: #### JOAQUIN, 43707-8, CMP, 38721-0 #### [facility] ([id number]) [address] [place] [address] 05810EGVGSQYAGHYJQ METABOLIC PANELon 25-71-6684Aypuskw [Mass/Vol]2.8 g/dLLow3.2-5.3PLutheran HospitalComment on above:Performed By: #### JOAQUIN, 34806-5, CMP, 71420-4 #### [facility] ([id number]) [address] [place] [address] 87793IJH [Catalytic activity/Vol]62 U/OIhdaet89-299ExuZknhokMission Regional Medical CenterComment on above:Performed By: #### JOAQUIN, 19570-9, CMP, 08681-7 #### [facility] ([id number]) [address] [place] [address] 13087MKY [Catalytic activity/Vol]43 U/LHigh0-40ProMission Regional Medical CenterComment on above:Performed By: #### JOAQUIN, 82317-9, CMP, 53436-0 #### [facility] ([id number]) [address] [place] [address], [place] [address]Fnxph gap [Moles/Vol]5 mmol/LNormal5-15ProMission Regional Medical CenterComment on above:Performed By: #### JOAQUIN, , CMP, 37774-8 #### [facility] ([id number]) [address] [place] [address], [place] 76238GXM [Catalytic activity/Vol]27 U/LNormal0-41ProMission Regional Medical CenterComment on above:Performed By: #### JOAQUIN, , CMP, 57172-7 #### [facility] ([id number]) [address] [place] [address], [place] 58[address]Mzpozvnim [Mass/Vol]0.9 mg/dLNormal0.3-1.2PLutheran HospitalComment on above:Performed By: #### JOAQUIN, , CMP, 62100-7 #### [facility] ([id number]) [address] [place] [address], [place] 57[address]Rweztar [Mass/Vol]7.7 mg/dLLow8.5-10.5PLutheran HospitalComment on above:Performed By: #### JOAQUIN, , CMP, 22058-6 #### [facility] ([id number]) [address] [place] [address], [place] 96[address]Btsuctmb [Moles/Vol]103 mmol/LKxiwst88-145BjoYraxdxMission Regional Medical CenterComment on above:Performed By: #### JOAQUIN, , CMP, 39329-3 #### [facility] ([id number]) [address] [place] [address], [place] 467[address]LX4 [Moles/Vol]23 mmol/JHqwizt87-02HcqFfnrkdLutheran Hospital Comment on above:Performed By: #### JOAQUIN, 89114-6, CMP, 46467-1 #### [facility] ([id number]) [address] [place] [address] 51876Zewsgeoqre [Mass/Vol]0.61 mg/dLLow0.70-1.20ProMission Regional Medical CenterComment on above:Result Comment: METHOD TRACEABLE TO IDMS STANDARD Performed By: #### JOAQUIN, 58702-0, CMP, 18831-0 #### [facility] ([id number]) [address] [place] [address] 50148vTLR (CKD-EPI) NON-RACE DEPENDENT>90Normal>59ProMission Regional Medical CenterComment on above:Result Comment: Reported eGFR is based on the CKD-EPI 2020 equation that does not use a race coefficient.Performed By: #### JOAQUIN, 74343-3, JUVENAL, 27365-8 #### [facility] ([id number]) [address] [place] [address] 07966Tlcrprp [Mass/Vol]105 mg/zOWnnk85-18UkcNdmtzzMission Regional Medical Center Comment on above:Performed By: #### JOAQUIN, 17351-5, CMP, 73991-1 #### [facility] ([id number]) [address] [place] [address] 19589Ndjtxocte [Moles/Vol]3.8 mmol/LNormal3.5-5.0ProMission Regional Medical CenterComment on above:Performed By: #### JOAQUIN, 32626-2, CMP, 16046-4 #### [facility] ([id number]) [address] [place] [address] 56520Ltqeltg [Mass/Vol]4.9 g/dLLow6.0-8.0[facility] Comment on above:Performed By: #### JOAQUIN, 95748-1, CMP, 20767-3 #### [facility] ([id number]) [address] [place], [place] [address]Tjdckn [Moles/Vol]131 mmol/BEqc826-036CqjZbbmvtMission Regional Medical CenterComment on above:Performed By: #### JOAQUIN, 18515-1, CMP, 34209-2 #### [facility] ([id number]) [address] [place] [address] 73518Tyrj nitrogen [Mass/Vol]7 mg/dLNormal5-27ProMission Regional Medical CenterComment on above:Performed By: #### JOAQUIN, 73691-9, CMP, 28179-7 #### [facility] ([id number]) [address] [place] [address] 04182Qnpkfmq Glucometer (BldC) [Mass/Vol]on 11-47-5413Ekyfaiq [Mass/Vol]115 mg/yZEtgc72-58YsmXvsteyMarymount HospitalGlucose [Mass/Vol]102 mg/eZWixp10-07WhuThhbsaMission Regional Medical CenterMAGNESIUMon 11-60-7782Gpkkmrbru [Mass/Vol]1.9 mg/dLNormal1.8-2.6ProMission Regional Medical CenterComment on above: Performed By: #### COVFLR #### [facility] ([id number]) [address] [place] [address] 74171Zoylleuwa [Mass/Vol]1.7 mg/dLLow1.8-2.6ProMission Regional Medical CenterComment on above:Performed By: #### COVFLR #### [facility] ([id number]) [address] [place] [address] 06829CC CHEST 1 VWon 77-60-4435AC CHEST 1 VWXR CHEST 1 VW Clinical History: Pneumonia. Portable [...] by Brendan Rinaldi MD on 01/10/2025 9:13 AMNormalMarymount HospitalCOMPLETE BLOOD COUNTon 51-19-3604Lnvpkshygsv distribution width (RBC) [Ratio]15.4 %High11.5-15.0Marymount HospitalComment on above:Performed By: #### JOAQUIN, , CMP, 31154-2 #### [facility] ([id number]) [address] [place] [address] 63245Nrokikderb (Bld) [Volume fraction]22.1 %Lpb94-59GmfVdqvbsMarymount HospitalComment on above:Performed By: #### JOAQUIN, , CMP, 31330-7 #### [facility] ([id number]) [address] [place] [address] 80197Goxiupgxxw (Bld) [Mass/Vol]7.6 g/dLLow13.0-17.0Marymount HospitalComment on above:Performed By: #### JOAQUIN, , CMP, 27139-8 #### [facility] ([id number]) [address] [place] [address] 92230WAR (RBC) [Entitic mass]28.3 hjTpilzl52-98MvdGrwevoMarymount HospitalComment on above:Performed By: #### CBCHallie, 95134-5, CMP, 03475-5 #### [facility] ([id number]) [address] [place] [address] 44103HBYS (RBC) [Mass/Vol]34.5 g/aSOwcioz81-10RgkHmshbmMarymount HospitalComment on above:Performed By: #### JOAQUIN, 74495-3, CMP, 13494-0 #### [facility] ([id number]) [address] [place] [address] [place] [address]SGU (RBC) [Entitic vol]82 cHPynyhb82-176AviOtzqrb [facility] HospitalComment on above:Performed By: #### JOAQUIN, , CMP, 05474-7 #### [facility] ([id number]) [address] [place] [address] 21834Tlwjekvx mean volume (Bld) [Entitic vol]7.7 fLNormal7-12 ProMPomona Valley Hospital Medical CenterComment on above:Performed By: #### JOAQUIN, , CMP, 33531-5 #### [facility] ([id number]) [address] [place] [address] 94948Eyqyqvwzt (Bld) [#/Vol]64 10*3/jIKbp141-584DgsHnvvqdMission Regional Medical CenterComment on above:Performed By: #### JOAQUIN, , CMP, 94712-4 #### [facility] ([id number]) [address] [place] [address] 70207XPV COUNT2.69 X10E12/LLow4.10-5.70[facility] Comment on above:Performed By: #### JOAQUIN, , CMP, 48445-8 #### [facility] ([id number]) [address] [place] [address] 90954YXK (Bld) [#/Vol]3.8 10*3/uLLow4.0-11.0Marymount HospitalComment on above:Performed By: #### JOAQUIN, , CMP, 03994-6 #### [facility] ([id number]) [address] [place] [address] 74957ZAZFRPVBTTZTA METABOLIC PANELon 47-32-0510Wjngifj [Mass/Vol]2.6 g/dLLow3.2-5.3PLutheran HospitalComment on above:Performed By: #### JOAQUIN, 54439-4, CMP, 50282-7 #### [facility] ([id number]) [address] [place] [address], [place] [address]WIJ [Catalytic activity/Vol]58 U/UTzuyso42-691ZbxActczuMission Regional Medical CenterComment on above:Performed By: #### JOAQUIN, 99340-4, CMP, 72464-1 #### [facility] ([id number]) [address] [place] [address], [place] [address]55[address]ZEG [Catalytic activity/Vol]36 U/LNormal0-40ProMission Regional Medical CenterComment on above:Performed By: #### JOAQUIN, 34579-8, CMP, 41859-4 #### [facility] ([id number]) [address] [place] [address], [place] [address]Didky gap [Moles/Vol]6 mmol/LNormal5-15ProMission Regional Medical CenterComment on above:Performed By: #### JOAQUIN, 53640-1, CMP, 20701-2 #### [facility] ([id number]) [address] [place] [address], [place] 448[address]EMM [Catalytic activity/Vol]23 U/LNormal0-41ProMission Regional Medical CenterComment on above:Performed By: #### JOAQUIN, 42979-9, CMP, 71197-4 #### [facility] ([id number]) [address] [place] [address], [place] [address]Lcrllksgw [Mass/Vol]0.8 mg/dLNormal0.3-1.2PMemorial Hospital Central HospitalComment on above:Performed By: #### JOAQUIN, 59711-4, CMP, 14940-0 #### [facility] ([id number]) [address] [place] [address], [place] [address]Rfyatoe [Mass/Vol]7.4 mg/dLLow8.5-10.5ProMedica Lajas HospitalComment on above:Performed By: #### JOAQUIN, 20284-8, CMP, 64337-8 #### [facility] ([id number]) [address] [place] [address], [place] 00[address]Knqsesbr [Moles/Vol]102 mmol/HTqvzoa76-490HgbSjrlwuMarymount HospitalComment on above:Performed By: #### JOAQUIN, 92203-8, CMP, 79415-2 #### [facility] ([id number]) [address] [place] [address], [place] [address]LG7 [Moles/Vol]22 mmol/JShdnso23-06KcfWklqulLutheran Hospital Comment on above:Performed By: #### JOAQUIN, 54952-2, CMP, 73939-4 #### [facility] ([id number]) [address] [place] [address], [place] [address]Sbetocxnwc [Mass/Vol]0.56 mg/dLLow0.70-1.20Marymount HospitalComment on above:Result Comment: METHOD TRACEABLE TO IDMS STANDARD Performed By: #### JOAQUIN, , CMP, 54198-0 #### [facility] ([id number]) [address] [place] [address], [place] 56868zOGQ (CKD-EPI) NON-RACE DEPENDENT>90Normal>59ProMission Regional Medical CenterComment on above:Result Comment: Reported eGFR is based on the CKD-EPI 2021 equation that does not use a race coefficient.Performed By: #### JOAQUIN, 84592-7, CMP, 25671-8 #### [facility] ([id number]) [address] [place] [address], [place] [address]Vevlccq [Mass/Vol]116 mg/lGTndj56-95QejXeccdqMarymount Hospital Comment on above:Performed By: #### JOAQUIN, 57834-9, CMP, 98090-5 #### [facility] ([id number]) [address] [place] [address] 00295Tykhghxdh [Moles/Vol]3.9 mmol/LNormal3.5-5.0ProMission Regional Medical CenterComment on above:Performed By: #### JOAQUIN, , CMP, 20343-1 #### [facility] ([id number]) [address] [place] [address] 11642Fkcjnbc [Mass/Vol]4.8 g/dLLow6.0-8.0[facility] Comment on above:Performed By: #### JOAQUIN, , CMP, 83409-9 #### [facility] ([id number]) [address] [place] [address] 35433Nmbccv [Moles/Vol]130 mmol/NMvo158-012BugGgfhbyMission Regional Medical CenterComment on above:Performed By: #### JOAQUIN, , CMP, 74428-8 #### [facility] ([id number]) [address] [place] [address] 49097Mvih nitrogen [Mass/Vol]10 mg/dLNormal5-27Marymount HospitalComment on above:Performed By: #### JOAQUIN, , CMP, 99951-8 #### [facility] ([id number]) [address] [place] [address] 07927Evprhka Glucometer (BldC) [Mass/Vol]on 81-58-9948Tpjinlr [Mass/Vol]118 mg/oTFbjk00-91DldCarqbzMarymount HospitalGlucose [Mass/Vol]151 mg/dAUhcc78-62IewUhhglbMission Regional Medical CenterGlucose [Mass/Vol]118 mg/fBNhwa66-79 ProMPomona Valley Hospital Medical CenterHGBon 29-90-1081Ujixnndwad (Bld) [Volume fraction]25.2 %Qix13-95EoeGjoeemMarymount HospitalComment on above:Performed By: #### JOAQUIN, , CMP, 90001-7 #### [facility] ([id number]) [address] [place] [address] 30801Twljbmzqhc (Bld) [Mass/Vol]8.6 g/dLLow13.0-17.0Marymount HospitalComment on above:Performed By: #### JOAQUIN, , CMP, 20584-6 #### [facility] ([id number]) [address] [place] [address] 02119DUKTKQSFNny 84-97-0890Lrerqsjti [Mass/Vol]1.9 mg/dLNormal 1.8-2.6ProMission Regional Medical CenterComment on above:Performed By: #### JOAQUIN, , CMP, 70555-6 #### [facility] ([id number]) [address] [place] [address] 44821Kvpsmrzpi [Mass/Vol]1.8 mg/dLNormal1.8-2.6ProMission Regional Medical CenterComment on above:Performed By: #### JOAQUIN, , CMP, 00176-9 #### [facility] ([id number]) [address] [place] [address] 56105BIGETIXS BLOOD COUNTon 60-34-1010Xeahhowbybm distribution width (RBC) [Ratio]15.5 %High11.5-15.0ProMission Regional Medical CenterComment on above: Performed By: #### JOAQUIN, , CMP, 10502-4 #### [facility] ([id number]) [address] [place] [address] 42370Cwjsanbvqk (Bld) [Volume fraction]25.9 %Avd22-77JwlQtoaubMission Regional Medical CenterComment on above:Performed By: #### JOAQUIN, , CMP, 84296-1 #### [facility] ([id number]) [address] [place] [address] 25671Efjuuydqsl (Bld) [Mass/Vol]9.0 g/dLLow13.0-17.0Marymount HospitalComment on above:Performed By: #### JOAQUIN, , CMP, 53389-2 #### [facility] ([id number]) [address] [place] [address] 88724FJE (RBC) [Entitic mass]28.4 fjQpturb11-69FiqQrnlctMission Regional Medical CenterComment on above:Performed By: #### JOAQUIN, , CMP, 94357-1 #### [facility] ([id number]) [address] [place] [address] 88928VJRZ (RBC) [Mass/Vol]34.8 g/nYFcdxfn01-16DvzGrjvrzMission Regional Medical CenterComment on above:Performed By: #### JOAQUIN, , CMP, 11335-8 #### [facility] ([id number]) [address] [place] [address] 00190CLN (RBC) [Entitic vol]82 wHFimgge82-541OzdUmjlelMarymount HospitalComment on above:Performed By: #### JOAQUIN, , CMP, 93505-1 #### [facility] ([id number]) [address] [place] [address] 54229Qwxdwdpp mean volume (Bld) [Entitic vol]7.6 fLNormal7-12 [facility] HospitalComment on above:Performed By: #### JOAQUIN, , CMP, 57234-5 #### [facility] ([id number]) [address] [place] [address] 21610Etexnafhr (Bld) [#/Vol]83 10*3/eHNjh263-798ZpjBmnhrqMission Regional Medical CenterComment on above:Performed By: #### JOAQUIN, 15156-7, CMP, 66067-2 #### [facility] ([id number]) [address] [place] [address] 57011ZZZ COUNT3.17 X10E12/LLow4.10-5.70[facility] Comment on above:Performed By: #### JOAQUIN, , CMP, 10022-2 #### [facility] ([id number]) [address] [place] [address] 79470ZSA (Bld) [#/Vol]5.5 10*3/uLNormal4.0-11.0ProMission Regional Medical CenterComment on above:Performed By: #### JOAQUIN, , CMP, 53130-7 #### [facility] ([id number]) [address] [place] [address] 23836UZIZTRVXHMPDF METABOLIC PANELon 20-42-6422Zhcckbe [Mass/Vol]3.0 g/dLLow3.2-5.3PLutheran HospitalComment on above:Performed By: #### JOAQUIN, , CMP, 70873-3 #### [facility] ([id number]) [address] [place] [address] 30412BHF [Catalytic activity/Vol]65 U/WQflfmz48-250TsgLccjiwMission Regional Medical CenterComment on above:Performed By: #### JOAQUIN, , CMP, 51474-1 #### [facility] ([id number]) [address] [place] [address] 81514AAM [Catalytic activity/Vol]45 U/LHigh0-40ProMission Regional Medical CenterComment on above:Performed By: #### JOAQUIN, , CMP, 69360-3 #### [facility] ([id number]) [address] [place] [address] 50278Tolnz gap [Moles/Vol]8 mmol/LNormal5-15ProMission Regional Medical CenterComment on above:Performed By: #### JOAQUIN, , CMP, 43656-4 #### [facility] ([id number]) [address] [place] [address] 07342XZM [Catalytic activity/Vol]26 U/LNormal0-41ProMission Regional Medical CenterComment on above:Performed By: #### JOAQUIN, , CMP, 08805-4 #### [facility] ([id number]) [address] [place] [address], [place] [address]Jqvjlffgv [Mass/Vol]1.0 mg/dLNormal0.3-1.2PLutheran HospitalComment on above:Performed By: #### JOAQUIN, , CMP, 64131-2 #### [facility] ([id number]) [address] [place] [address], [place] [address]Vagibff [Mass/Vol]8.0 mg/dLLow8.5-10.5PLutheran HospitalComment on above:Performed By: #### JOAQUIN, , CMP, 17099-6 #### [facility] ([id number]) [address] [place] [address], [place] [address]Zlxrkvqw [Moles/Vol]102 mmol/QVuewda02-333OwlDtulblMission Regional Medical CenterComment on above:Performed By: #### JOAQUIN, , CMP, 85758-4 #### [facility] ([id number]) [address] [place] [address], [place] [address]ZN7 [Moles/Vol]21 mmol/HMxa13-77DkpHhrlqbLutheran Hospital Comment on above:Performed By: #### JOAQUIN, , CMP, 50277-3 #### [facility] ([id number]) [address] [place] [address], [place] [address]Gvluaolazf [Mass/Vol]0.54 mg/dLLow0.70-1.20ProMission Regional Medical CenterComment on above:Result Comment: METHOD TRACEABLE TO IDMS STANDARD Performed By: #### JOAQUIN, 81105-9, JUVENAL, 43435-5 #### [facility] ([id number]) [address] [place] [address] 17125bITF (CKD-EPI) NON-RACE DEPENDENT>90Normal>59ProMission Regional Medical CenterComment on above:Result Comment: Reported eGFR is based on the CKD-EPI 1 equation that does not use a race coefficient.Performed By: #### JOAQUIN , JUVENAL, 43790-6 #### [facility] ([id number]) [address] [place] [address] 07049Uirzdpj [Mass/Vol]104 mg/nBQjzv76-42XznAgbprzMarymount Hospital Comment on above:Performed By: #### JOAQUIN , JUVENAL, 94035-3 #### [facility] ([id number]) [address] [place] [address] 19848Qxysmvpfw [Moles/Vol]3.6 mmol/LNormal3.5-5.0ProMission Regional Medical CenterComment on above:Performed By: #### JOAQUIN , JUVENAL, 70946-0 #### [facility] ([id number]) [address] [place] [address] 12213Illhraq [Mass/Vol]5.5 g/dLLow6.0-8.0[facility] Comment on above:Performed By: #### JOAQUIN, 45252-7, JUVENAL, 07650-7 #### [facility] ([id number]) [address] [place] [address] 61272Vvhnbg [Moles/Vol]131 mmol/WKwm632-235IbxKpkivlMission Regional Medical CenterComment on above:Performed By: #### JOAQUIN 74032-7, JUVENAL, 54073-7 #### [facility] ([id number]) [address] [place] [address] 23621Fcum nitrogen [Mass/Vol]19 mg/dLNormal5-27Marymount HospitalComment on above:Performed By: #### JOAQUIN, , CMP, 36303-0 #### [facility] ([id number]) [address] [place] [address] 37472Cfxhivs Glucometer (BldC) [Mass/Vol]on 89-43-9736Wtfhmpb [Mass/Vol]136 mg/gCPxub11-08WwqXkwrtnMarymount HospitalGlucose [Mass/Vol]112 mg/sRNhuj51-94FziAjeqlnMarymount HospitalHGHonorhealth Scottsd[facility] 83-36-7955Tpxejuzhyd (Bld) [Volume fraction]25.2 %Qzn11-77UhiWcruviMission Regional Medical CenterComment on above:Performed By: #### JOAQUIN, , CMP, 58624-6 #### [facility] ([id number]) [address] [place] [address] 37883Glytglzrqb (Bld) [Mass/Vol]8.2 g/dLLow13.0-17.0Marymount HospitalComment on above:Performed By: #### JOAQUIN, , CMP, 50620-2 #### [facility] ([id number]) [address] [place] [address] 34455VBOYFMEQRfg 76-10-4106Leuqojpwy [Mass/Vol]1.9 mg/dLNormal 1.8-2.6Marymount HospitalComment on above:Performed By: #### JOAQUIN, , CMP, 94168-6 #### [facility] ([id number]) [address] [place] [address] 07175Kvdhyiuqb [Mass/Vol]1.6 mg/dLLow1.8-2.6ProMission Regional Medical CenterComment on above:Performed By: #### CBCA, 97402-3, CMP, 96026-0 #### [facility] ([id number]) [address] [place] [address] 99464XRCOBSCPIip 87-54-1303Idarmwqzq [Moles/Vol]4.0 mmol/LNormal 3.5-5.0ProMission Regional Medical CenterComment on above:Performed By: #### CBCA, 40675-1, CMP, 60197-8 #### [facility] ([id number]) [address] [place] [address] 77412Vxgwelcr Pathologyon 19-43-9578Spafjwnw PathologyNormal Marymount HospitalComment on above:Result Comment: [facility] [address] [place] [address] Surgical Pathology Consultation Patient Name:MINNIE JASON:1950 (Age: 74)Gender:MTaken:01/08/2025Reported:01/14/2025Physician(s):Letty Toscano D.O. ([phone])Copy To: Rec. #:[id number]: #[id number] Final Pathologic Diagnosis 1. Stomach, prepyloric, biopsy: Junctional mucosa with mild reactive changes. No histological evidence of H. pylori infection on routine stain. 2. Stomach, cardia, biopsy: Gastric mucosa with hyperplastic changes. 3. Transverse colon, polypectomy: Tubular adenoma. Report Electronically Signed Out rg/01/14/2025Dennise Stanton MD Interpretation performed at [facility], [address] [place] [address], License number: [id number]. Clinical History Occult blood positive stool R19.5. Gross Description 1. Received in formalin labeled JASON, prepyloric biopsy is a light campos soft tissue bit, 0.4 cm.The specimen is filtered and entirely submitted in a single cassette. (1, ns, [id number],m3) DM. 2. Received in formalin labeled JASON, cardia biopsy are two light campos soft tissue bits, 0.2 cm each. The specimen is filtered and entirely submitted in a single cassette. (1, ns, [id number],m3) DM. 3. Received in formalin labeled JASON, transverse colon polyp is a light campos soft tissue bit, 0.3 cm. The specimen is filtered and entirely submitted in a single cassette. (1, ns, [id number],m3) DM. dm//GR Specimen(s) Received 1: Pre-pyloric biopsy 2: Cardia biopsy 3: Transverse colon polyp x2 Fee Codes(s): 1; 21213 2; 59678 3; 73078S REACTIVE PROTEINon 06-34-2367HTX [Mass/Vol]mg/LNormal0.000-0.744 ProMPomona Valley Hospital Medical CenterComment on above:Performed By: #### CBCA, , CMP, 60248-3 #### [facility] ([id number]) [address] [place] [address] 68000IDNVMOXR BLOOD COUNTon 97-30-9672Zfbivhywkgc distribution width (RBC) [Ratio]15.9 %High11.5-15.0ProMission Regional Medical CenterComment on above: Performed By: #### CMP, , 43137-1, CBC, 1988-02, 42932-1 #### [facility] ([id number]) [address] [place] [address] 85803 #### 2276-4, 34905-7, FEPR #### [facility] ([id number]) [address] [place] [address], [address] [place], [place] [address]Pzkcuaxhyi (Bld) [Volume fraction]26.1 %Rfs40-28JvuMzjklgMission Regional Medical CenterComment on above:Performed By: #### CMP, , 94608-9, CBC, 1988-02, 19092-1 #### [facility] ([id number]) [address] [place] [address] 11038 #### 2276-4, 34234-8, FEPR #### [facility] ([id number]) [address], [address] [place], [place] [address]Uadjmghgpf (Bld) [Mass/Vol]8.9 g/dLLow13.0-17.0ProMission Regional Medical CenterComment on above:Performed By: #### CMP, 02636-8, 16015-8, CBC, 1988-02, 38961-5 #### [facility] ([id number]) [address] [place] [address] 18401 #### 2276-4, 17187-9, FEPR #### [facility] ([id number]) [address], [address] [place], [place] [address]QOQ (RBC) [Entitic mass]28.0 etQkaifn74-48LgwToqsnfMission Regional Medical CenterComment on above:Performed By: #### CMP, 56786-3, 59841-0, CBC, 1988-02, 90706-0 #### [facility] ([id number]) [address] [place] [address] 97912 #### 2276-4, 59243-2, FEPR #### [facility] ([id number]) [address], [address] [place], [place] [address]ZPNZ (RBC) [Mass/Vol]34.0 g/dXPawgfj82-63EshIcnjemMission Regional Medical CenterComment on above:Performed By: #### CMP, 95418-8, 54461-9, CBC, 1988-02, 97784-6 #### [facility] ([id number]) [address] [place] [address] 95209 #### 2276-4, 59787-7, FEPR #### [facility] ([id number]) [address], [address] [place], [place] [address]SNY (RBC) [Entitic vol]83 hUZmfbqr85-480LvgNjsnfe Fremont HospitalComment on above:Performed By: #### JUVENAL, 90200-2, 52203-2, CBC, 1988-02, 79581-8 #### [facility] ([id number]) [address] [place] [address] 56646 #### 2276-4, 40333-5, FEPR #### [facility] ([id number]) [address], [address] [place], [place] [address]Oasalzeh mean volume (Bld) [Entitic vol]7.5 fLNormal7-12 Pro[facility] Hospital Medical CenterComment on above:Performed By: #### JUVENAL, , 60085-9, CBC, 1988-02, 83330-6 #### [facility] ([id number]) [address] [place] [address] 05858 #### 2276-4, 31405-2, FEPR #### [facility] ([id number]) [address], [address] [place], [place] [address]Rnlvyaefv (Bld) [#/Vol]101 10*3/xHWhb419-464XumPruqnhMission Regional Medical CenterComment on above:Performed By: #### JUVENAL, , 35582-6, CBC, 1988-02, 95199-2 #### [facility] ([id number]) [address] [place] [address] 86471 #### 2276-4, 70011-5, FEPR #### [facility] ([id number]) [address], [address] [place], [place] [address]FUG COUNT3.17 X10E12/LLow4.10-5.70[facility] Comment on above:Performed By: #### CMP, , 60234-8, CBC, 1988-02, 20890-6 #### [facility] ([id number]) [address] [place] [address] 63405 #### 2276-4, 34191-1, FEPR #### [facility] ([id number]) [address], [address] [place], [place] [address]BGJ (Bld) [#/Vol]4.5 10*3/uLNormal4.0-11.0ProMission Regional Medical CenterComment on above:Performed By: #### CMP, 22226-0, 45326-5, CBC, 1988-02, 59750-7 #### [facility] ([id number]) [address] [place] [address] 70208 #### 2276-4, 85591-2, FEPR #### [facility] ([id number]) [address], [address] [place], [place] [address]TTOIMMFSRFCYN METABOLIC PANELon 97-96-0483Iztchou [Mass/Vol]2.8 g/dLLow3.2-5.3ProMedica [facility] Hospital Medical CenterComment on above:Performed By: #### CMP, , 14518-6, CBC, 1988-02, 78950-4 #### [facility] ([id number]) [address] [place] [address] 94971 #### 2276-4, 40818-2, FEPR #### [facility] ([id number]) [address], [address] [place], [place] [address]NAF [Catalytic activity/Vol]59 U/IAwtlko61-164ZfcLolqowMission Regional Medical CenterComment on above:Performed By: #### CMP, 75218-9, 62694-8, CBC, 1988-02, 51040-6 #### [facility] ([id number]) [address] [place] [address] 41305 #### 2276-4, 64534-7, FEPR #### [facility] ([id number]) [address], [address] [place], [place] [address]FSS [Catalytic activity/Vol]40 U/LNormal0-40ProMission Regional Medical CenterComment on above:Performed By: #### JUVENAL, 51541-4, 96535-8, CBC, 1988-02, 01018-4 #### [facility] ([id number]) [address] [place] [address] #### 2276-4, 56135-0, FEPR #### [facility] ([id number]) [address], [address] [place], [place] [address]Ihmny gap [Moles/Vol]5 mmol/LNormal5-15ProMission Regional Medical CenterComment on above:Performed By: #### JUVENAL, 68092-8, 26988-3, CBC, 1988-02, 37556-4 #### [facility] ([id number]) [address] [place] [address] 83249 #### 2276-4, 40029-4, FEPR #### [facility] ([id number]) [address], [address] [place], [place] [address]IZS [Catalytic activity/Vol]19 U/LNormal0-41ProMission Regional Medical CenterComment on above:Performed By: #### JUVENAL, 39296-4, 51253-3, CBC, 1988-02, 10828-5 #### [facility] ([id number]) [address] [place] [address] 58491 #### 2276-4, 92071-7, FEPR #### [facility] ([id number]) [address], [address] [place], [place] [address]Hbwagbmsi [Mass/Vol]0.8 mg/dLNormal0.3-1.2Pro[facility] Medical CenterComment on above:Performed By: #### CMP, 31864-3, 22641-6, CBC, 1988-02, 20262-8 #### [facility] ([id number]) [address] [place] [address] 22144 #### 2276-4, 40431-9, FEPR #### [facility] ([id number]) [address], [address] [place], [place] [address]Bkfrmys [Mass/Vol]7.6 mg/dLLow8.5-10.5PLutheran Hospital Comment on above:Performed By: #### CMP, , 29447-5, CBC, 1988-02, 63183-2 #### [facility] ([id number]) [address] [place] [address] 73166 #### 2276-4, 27551-2, FEPR #### [facility] ([id number]) [address], [address] [place], [place] [address]Xtlyocrx [Moles/Vol]103 mmol/FXgnlgq73-313EfuZedglv [facility] Medical CenterComment on above:Performed By: #### CMP, , 13019-3, CBC, 1988-02, 36099-8 #### [facility] ([id number]) [address] [place] [address] 07044 #### 2276-4, 66147-6, FEPR #### [facility] ([id number]) [address], [address] [place], [place] [address]XH6 [Moles/Vol]24 mmol/UKcfkbi45-58RxrPyxbtmLutheran Hospital Comment on above:Performed By: #### CMP, , 18354-2, CBC, 1988-02, 89871-8 #### [facility] ([id number]) [address] [place] [address] 07404 #### 2276-4, 38603-7, FEPR #### [facility] ([id number]) [address], [address] [place], [place] [address]Jrxhfnywxo [Mass/Vol]0.65 mg/dLLow0.70-1.20Marymount HospitalComment on above:Result Comment: METHOD TRACEABLE TO IDMS STANDARD Performed By: #### JUVENAL, 68181-2, 92174-7, CBC, 1988-02, 42880-3 #### [facility] ([id number]) [address] [place] [address] 58243 #### 2276-4, 41168-4, FEPR #### [facility] ([id number]) [address], [address] [place], [place] [address]vABN (CKD-EPI) NON-RACE DEPENDENT>90Normal>59ProMission Regional Medical CenterComment on above:Result Comment: Reported eGFR is based on the CKD-EPI 2020 equation that does not use a race coefficient.Performed By: #### JUVENAL, 76734-9, 00718-8, CBC, , 51145-7 #### [facility] ([id number]) [address] [place] [address] 79813 #### 2276-4, 50838-9, FEPR #### [facility] ([id number]) [address], [address] [place], [place] [address]Mgntzta [Mass/Vol]95 mg/lSXahifw21-63QozMbhluwMission Regional Medical Center Comment on above:Performed By: #### CMP, 06009-4, 08396-5, CBC, 1988-02, 80511-5 #### [facility] ([id number]) [address] [place] [address] 95112 #### 2276-4, 20010-9, FEPR #### [facility] ([id number]) [address], [address] [place], [place] [address]Umlbcdlpg [Moles/Vol]4.1 mmol/LNormal3.5-5.0ProMission Regional Medical CenterComment on above:Performed By: #### JUVENAL, , 62258-7, CBC, 1988-02, 74408-9 #### [facility] ([id number]) [address] [place] [address] 81988 #### 2276-4, 71654-2, FEPR #### [facility] ([id number]) [address], [address] [place], [place] [address]Nabpdsf [Mass/Vol]5.0 g/dLLow6.0-8.0[facility] Comment on above:Performed By: #### JUVENAL, , 34398-1, CBC, 1988-02, 81169-8 #### [facility] ([id number]) [address] [place] [address] 42327 #### 2276-4, 39680-6, FEPR #### [facility] ([id number]) [address] [facility] [address] [place], [place] [address]Dftxkm [Moles/Vol]132 mmol/MTmv410-397LnpWhvgglMarymount Hospital Comment on above:Performed By: #### JUVENAL, , 52117-3, CBC, 1988-02, 17906-9 #### [facility] ([id number]) [address] [place] [address] 60413 #### 2276-4, 89942-4, FEPR #### [facility] ([id number]) [address], [address] [place] [address]Xfmy nitrogen [Mass/Vol]21 mg/dLNormal5-27ProMission Regional Medical CenterComment on above:Performed By: #### JUVENAL, , 88919-8, CBC, 1988-02, 36163-6 #### [facility] ([id number]) [address] [place] [address] 78781 #### 2276-4, 94559-9, FEPR #### [facility] ([id number]) [address] [place] [address], [address] [place], [place] [address]DHFUTYTxm 19-59-1429Qtuxoxe [Mass/Vol]1.3 ng/mLNormal0.8-2.0 Mary[facility] HospitalComment on above:Performed By: #### JOAQUIN, 60971-5, CMP, 72648-6 #### [facility] ([id number]) [address] [place] [address] 21523UVFYBQQGto 00-50-6450Koiqouxi [Mass/Vol]197 ng/yVWanhnm67-301 [facility] HospitalComment on above:Performed By: #### JOAQUIN, 83598-7, CMP, 58900-2 #### [facility] ([id number]) [address] [place] [address] 40779Kgpagnb Glucometer (BldC) [Mass/Vol]on 79-32-8756Lreznzl [Mass/Vol]103 mg/iTKpoe98-60EfdWdsfkfMarymount HospitalGlucose [Mass/Vol]109 mg/wUQkca68-31ZrxXhypovMarymount HospitalGlucose [Mass/Vol]123 mg/eOEpxp27-77 [facility] HospitalGlucose [Mass/Vol]113 mg/jXPoyj36-49LiwSwjebmMarymount HospitalHGBon 72-30-1180Ftnfgdapdd (Bld) [Volume fraction]26.2 %Yax41-50 Mary[facility] HospitalComment on above:Performed By: #### JOAQUIN, 57888-6, CMP, 93081-2 #### [facility] ([id number]) [address] [place] [address] 49[address]Ljlwnqzqon (Bld) [Mass/Vol]9.1 g/dLLow13.0-17.0Marymount HospitalComment on above:Performed By: #### JOAQUIN, 50588-9, CMP, 31838-3 #### [facility] ([id number]) [address] [place] [address] 36737FCCR PROFILEon 72-94-7161Esai [Mass/Vol]196 ug/rROwlifu21-924 ProMPomona Valley Hospital Medical CenterComment on above:Performed By: #### JOAQUIN, 37535-8, CMP, 51359-5 #### [facility] ([id number]) [address] [place] [address] 03882SFKT HLGZJZT710 ug/sZLiwwcu206-705QxzCwyvfyMarymount Hospital Comment on above:Performed By: #### JOAQUIN, 46833-9, CMP, 33892-0 #### [facility] ([id number]) [address] [place] [address] 09080FHUZ FFABGNFIIJ78 % NIUHFGWOEYXpdd54-75YkySmdeqm [facility]ont HospitalComment on above:Performed By: #### JOAQUIN, , CMP, 99824-7 #### [facility] ([id number]) [address] [place] [address] 698[address]FURPIFJMEcb 06-68-0459Mvjmqyzwo [Mass/Vol]1.9 mg/dLNormal 1.8-2.6Marymount HospitalComment on above:Performed By: #### JOAQUIN, , CMP, 20064-5 #### [facility] ([id number]) [address] [place] [address] 76401Xlkzdafvzdr peptide B [Mass/Vol]on 78-22-3125Yfwnnouuqle peptide B (Bld) [Mass/Vol]86 pg/mLNormal<100.0ProMission Regional Medical CenterComment on above:Performed By: #### JOAQUIN, 76775-8, CMP, 42169-0 #### [facility] ([id number]) [address] [place] [address] 26984Uwaaturlnbemf [place] [Mass/Vol]on 07-05-0960SHVCUWZPMGKHD<0.05 Normal<0.05Marymount HospitalComment on above:Result Comment: NOTE <0.50 ng/mL - Low risk of severe sepsis and/or septic shock. <2.00 ng/mL - Recommend retesting within 6-24 hours. >2.00 ng/mL - High risk of sepsis and/or septic shock.Performed By: #### CBCHallie, , CMP, 55862-3 #### [facility] ([id number]) [address] [place] [address] 26973HVR AND AUTO DIFFon 96-60-3849HRWDUYLB BASOPHIL0.0 X10E9/L Normal0.0-0.2ProMedSharp Coronado HospitalComment on above:Performed By: #### CBCHallie, , CMP, 79651-2 #### [facility] ([id number]) [address] [place] [address] 93467QHYCDVKU NEUTROPHIL6.0 X10E9/LNormal1.5-6.6ProMission Regional Medical CenterComment on above:Performed By: #### JOAQUIN, , CMP, 13264-8 #### [facility] ([id number]) [address] [place] [address] 92338Almouupir/100 WBC (Bld)0.4 %NormalProMission Regional Medical Center Comment on above:Performed By: #### CBCHallie, , CMP, 91566-1 #### [facility] ([id number]) [address] [place] [address] 27573Yjqnbjnkquk (Bld) [#/Vol]0.0 10*3/uLNormal0.0-0.4ProMission Regional Medical CenterComment on above:Performed By: #### CBCHallie, , CMP, 00578-2 #### [facility] ([id number]) [address] [place] [address] 46515Rusaayyjvpr/100 WBC (Bld)0.5 %NormalMarymount Hospital Comment on above:Performed By: #### JOAQUIN, , CMP, 90751-9 #### [facility] ([id number]) [address] [place] [address] 86964Hajjparfqyr distribution width (RBC) [Ratio]15.7 %High11.5-15.0 [facility] HospitaledicMiller Children's HospitalComment on above:Performed By: #### JOAQUIN, , CMP, 97730-2 #### [facility] ([id number]) [address] [place] [address] 85439Jyjjhufxhu (Bld) [Volume fraction]26.2 %Laa19-40FqnCertbjMission Regional Medical CenterComment on above:Performed By: #### JOAQUIN, , CMP, 30164-9 #### [facility] ([id number]) [address] [place] [address] 29121Svqclaijza (Bld) [Mass/Vol]8.9 g/dLLow13.0-17.0Mary[facility] HospitalComment on above:Performed By: #### JOAQUIN, , CMP, 32481-9 #### [facility] ([id number]) [address] [place] [address] 88621Qfsxpeehzux (Bld) [#/Vol]0.7 10*3/uLLow1.0-3.5PLutheran HospitalComment on above:Performed By: #### JOAQUIN, , CMP, 17843-3 #### [facility] ([id number]) [address] [place] [address] 53965Tyvmpxvbqvz/100 WBC (Bld)9.3 %[facility] Comment on above:Performed By: #### CBCHallie, 84020-8, CMP, 10811-7 #### [facility] ([id number]) [address] [place] [address] 00208RWL (RBC) [Entitic mass]28.1 ccShbdle20-63DfyEacmgwMission Regional Medical CenterComment on above:Performed By: #### CBCHallie, 76470-3, CMP, 13621-3 #### [facility] ([id number]) [address] [place] [address] 80224OTUZ (RBC) [Mass/Vol]34.0 g/yNVgrrtq97-15BiqYmwtiqMarymount HospitalComment on above:Performed By: #### CBCHallie, 27747-7, CMP, 92871-9 #### [facility] ([id number]) [address] [place] [address] 10855KZG (RBC) [Entitic vol]83 lSPjludq23-449EnrAuqefuMarymount HospitalComment on above:Performed By: #### CBCHallie, 90187-6, CMP, 32600-2 #### [facility] ([id number]) [address] [place] [address] 55790Wwffhupiu (Bld) [#/Vol]0.4 10*3/uLNormal0-0.9Marymount HospitalComment on above:Performed By: #### CBCA, 21139-6, CMP, 75477-7 #### [facility] ([id number]) [address] [place] [address] 31152Gdphscmcm/100 WBC (Bld)5.4 %[facility] Comment on above:Performed By: #### CBCA, 78064-8, CMP, 16373-8 #### [facility] ([id number]) [address] [place] [address], [place] [address]Hdjfzndemvm/100 WBC (Bld)84.4 %NormalMarymount Hospital Comment on above:Performed By: #### JOAQUIN, , CMP, 38032-7 #### [facility] ([id number]) [address] [place] [address] 73794Qgkxxisl mean volume (Bld) [Entitic vol]7.3 fLNormal7-12 ProMPomona Valley Hospital Medical CenterComment on above:Performed By: #### JAOQUIN, , CMP, 92788-8 #### [facility] ([id number]) [address] [place] [address] 19735Lzbivbcbt (Bld) [#/Vol]104 10*3/qKQhy229-192JlmHabgeoMarymount HospitalComment on above:Performed By: #### JOAQUIN, , CMP, 51123-5 #### [facility] ([id number]) [address] [place] [address] 32426ZKX COUNT3.16 X10E12/LLow4.10-5.70[facility] Comment on above:Performed By: #### JOAQUIN, , CMP, 64022-2 #### [facility] ([id number]) [address] [place] [address] 86988RDP (Bld) [#/Vol]7.1 10*3/uLNormal4.0-11.0Marymount HospitalComment on above:Performed By: #### JOAQUIN, 73883-7, CMP, 47975-8 #### [facility] ([id number]) [address] [place] [address] 17043NEKEARJDYUFEQ METABOLIC PANELon 37-97-3408Qzkwmsg [Mass/Vol]2.7 g/dLLow3.2-5.3PLutheran HospitalComment on above:Performed By: #### JOAQUIN, 40930-7, CMP, 76980-6 #### [facility] ([id number]) [address] [place] [address], [place] [address]BFU [Catalytic activity/Vol]61 U/TMnjhvy81-962CyrNmtpugMission Regional Medical CenterComment on above:Performed By: #### JOAQUIN, 80256-6, CMP, 59476-7 #### [facility] ([id number]) [address] [place] [address], [place] [address]AVX [Catalytic activity/Vol]44 U/LHigh0-40ProMission Regional Medical CenterComment on above:Performed By: #### JOAQUIN, 62383-7, CMP, 54554-5 #### [facility] ([id number]) [address] [place] [address] 27161Cclzm gap [Moles/Vol]3 mmol/LLow5-15ProMission Regional Medical Center Comment on above:Performed By: #### JOAQUIN, 33835-6, CMP, 97130-1 #### [facility] ([id number]) [address] [place] [address], [place] [address]UOS [Catalytic activity/Vol]23 U/LNormal0-41ProMission Regional Medical CenterComment on above:Performed By: #### JOAQUIN, 06720-5, CMP, 63733-0 #### [facility] ([id number]) [address] [place] [address] 82284Rwsaluode [Mass/Vol]0.9 mg/dLNormal0.3-1.2PLutheran HospitalComment on above:Performed By: #### JOAQUIN, 08350-4, CMP, 43560-0 #### [facility] ([id number]) [address] [place] [address], [place] [address]Afzgcrz [Mass/Vol]7.6 mg/dLLow8.5-10.5PLutheran HospitalComment on above:Performed By: #### JOAQUIN, 15138-2, CMP, 99000-1 #### [facility] ([id number]) [address] [place] [address], [place] [address]Drvpkuqc [Moles/Vol]104 mmol/ZWjzgtt08-076LjiPjtghsMarymount HospitalComment on above:Performed By: #### JOAQUIN, 68037-2, CMP, 96998-2 #### [facility] ([id number]) [address] [place] [address], [place] [address]TC9 [Moles/Vol]23 mmol/CMxgkpz59-26YqxBznjmhLutheran Hospital Comment on above:Performed By: #### JOAQUIN, 50813-2, CMP, 37524-4 #### [facility] ([id number]) [address] [place] [address], [place] [address]Yoajsbiorq [Mass/Vol]0.70 mg/dLNormal0.70-1.20Marymount HospitalComment on above:Result Comment: METHOD TRACEABLE TO IDMS STANDARD Performed By: #### JOAQUIN, , CMP, 55393-2 #### [facility] ([id number]) [address] [place] [address], [place] [address]oVMH (CKD-EPI) NON-RACE DEPENDENT>90Normal>59ProMission Regional Medical CenterComment on above:Result Comment: Reported eGFR is based on the CKD-EPI 2021 equation that does not use a race coefficient.Performed By: #### JOAQUIN, 63738-4, CMP, 28802-0 #### [facility] ([id number]) [address] [place] [address], [place] [address]Reojxiw [Mass/Vol]167 mg/vUDhse38-52WkmWydbkuMarymount Hospital Comment on above:Performed By: #### JOAQUIN, 54240-5, CMP, 41856-3 #### [facility] ([id number]) [address] [place] [address]Buuabdgjt [Moles/Vol]4.5 mmol/LNormal3.5-5.0ProMission Regional Medical CenterComment on above:Performed By: #### JOAQUIN, , CMP, 93893-9 #### [facility] ([id number]) [address] [place] [address]Vogbgjz [Mass/Vol]5.2 g/dLLow6.0-8.0[facility] Comment on above:Performed By: #### JOAQUIN, , [facility], 96573-7 #### [facility] ([id number]) [address] [place] [address]Cmpmac [Moles/Vol]130 mmol/LQco868-589IzzJceplnMission Regional Medical CenterComment on above:Performed By: #### JOAQUIN, , [facility], 07664-2 #### [facility] ([id number]) [address] [place] [address]Vjwf nitrogen [Mass/Vol]21 mg/dLNormal5-27ProMission Regional Medical CenterComment on above:Performed By: #### JOAQUIN, , [facility], 97048-3 #### [facility] ([id number]) [address] [place] [address] 29798EZQHZVUYJao 36-51-5994Pgvpkgpuq [Mass/Vol]1.9 mg/dLNormal 1.8-2.6ProMission Regional Medical CenterComment on above:Performed By: #### JOAQUIN, , CMP, 54332-1 #### [facility] ([id number]) [address] [place] [address]UQWW/FLU A+B/RSV by NAAT/Molecularon 99-30-4722MAOK/FLU A+B/RSV by NAAT/MolecularFLU A PCR Negative (qualifier value) FLU B [...] operators who are performing tests using either Echelon or Hoard systems and is limited to laboratories that [...] specimen repeat. Fact Sheet for Healthcare Providers: https://www.fda.gov/media/244525/download Fact Sheet for Patients: https://www.fda.gov/media/863456/downloadNormalProMedica Whittier Hospital Medical CenterComment on above:Performed By: #### COVFLR #### [facility] ([id number]) [address] [place] [address], FIRST FLOOR [place], [place] [address]Venuqbsb I.cardiac High sensitivity method [Mass/Vol]on 51 HOUR TROP I, HIGH ZNEOYELTHOK51 ng/LNormal<21ProHolzer Health System HospitalComment on above:Performed By: #### 11177-1 #### [facility] ([id number]) [address] [place] [address], [place] [address]HUIKCYKA I, HIGH FINBPCKYILJ77 ng/LNormal<21ProHolzer Health System HospitalComment on above:Performed By: #### CBCA, 24488-8, CMP, 10379-5 #### [facility] ([id number]) [address] [place] [address]LTB MACROSCOPIC NURon 58-78-2409NMQJSWUVC NURNegativeNormalNEG ProMPomona Valley Hospital Medical CenterComment on above:Performed By: #### NUM #### [facility] ([id number]) [address] [place] [address] [place] [address]SAFVD/HGB NURTraceAbnormalNEGProMission Regional Medical CenterComment on above:Performed By: #### NUM #### [facility] ([id number]) [address] [place] [address] [place] [address]QICFUWZ CHRISTOPH>=1000AbnormalNEGProMission Regional Medical CenterComment on above:Performed By: #### NUM #### [facility] ([id number]) [address] [place] [address], [place] [address]EUQZGMU NUR15 mg/dLAbnormalNEGProMission Regional Medical CenterComment on above:Performed By: #### NUM #### [facility] ([id number]) [address] [place] [address] [place] [address]HJZNGZFZT ESTERASE NURNegativeNormalNEGProMission Regional Medical CenterComment on above:Performed By: #### NUM #### [facility] ([id number]) [address] [place] [address]YDCJJLN NURNegativeNormalNEGMarymount HospitalComment on above:Performed By: #### NUM #### [facility] ([id number]) [address] [place] [address], [place] [address]WH NUR6.7Qcasys8.0-8.5PLutheran HospitalComment on above:Performed By: #### NUM #### [facility] ([id number]) [address] [place] [address] [place] [address]XOFPDGX NURTraceAbnormalNEGMarymount HospitalComment on above:Performed By: #### NUM #### [facility] ([id number]) [address] [place] [address]IUEUXGDI GRAVITY NUR1.669Hvidiw7.003-1.035ProMission Regional Medical CenterComment on above:Performed By: #### NUM #### [facility] ([id number]) [address] [place] [address], [place] [address]ETFCRWAGGNTO NUR0.2 eu/dLNormal<1.1PLutheran Hospital Comment on above:Performed By: #### NUM #### [facility] ([id number]) [address] [place] [address]JQ CHEST 1 VWon 71-62-5036OH CHEST 1 VWXR CHEST 1 VW XR CHEST 1 VW History: Cough. Weakness One view study. Comparison: None Impression: * Airspace disease or infiltrate has developed in the inferior right lung field. This may representpneumonia in the appropriate setting. Sternotomy wires are noted. The cardiac silhouette size is atthe upper limits of normal. Vasculature suggest pulmonary hypertension. There is no pneumothorax. No large effusion. After treatment follow-up imaging is advised. Finalized by Renetta Meng MD on 01/06/2025 5:56 PMNormalMarymount Hospital ECHOCARDIO M/2D COMPLETEon 58-62-5549XISVQKCFEA M/2D COMPLETEPatient: MINNIE JASON Exam Date: 04/23/2022 : 1950 Gender:M Ordering : JESUS VIDAL Admission #: [id number] Family : RONAN Candis VELAZQUEZ D.O. Order #: [id number] CLICK HERE TO VIEW EXAM ECHOCARDIOGRAM REPORT [...] Area(A4C): 25.80 cm2 Left Atrium Systolic Volume(A2C): 10774 mm3 Left Atrium Systolic Volume(A4C): 98098 mm3 Mitral Valve Mitral Valve E-Wave Peak Velocity: 86.40 cm/s Mitral Valve E-Wave Peak Velocity: 111.00 cm/s Right Ventricle Aorta AO Root Diam: 3.20 cm Aortic Valve AoV Area (Peak Chau): 2.07 cm2 Peak Velocity(Antegrade Flow): 98.90 cm/s Peak Gradient(Antegrade Flow): 4 mm[Hg] Tricuspid Valve Pulmonic Valve Peak Velocity: 81.40 cm/s Peak Gradient: 3 mm[Hg] Right Atrium Dictated by: Michael Magallanes M.D. on 04/23/2022 at 12:51 Approved by: Michael Magallanes M.D. on 04/23/2022 at 12:53NormalThSelect Medical Cleveland Clinic Rehabilitation Hospital, Edwin ShawBUNon 70-86-2496Bktj nitrogen [Mass/Vol]14.0 mg/dLNormal9.0-20.0W[facility]-Patterson Medical CenterComment on above:Performed By: #### CREA, BUN #### [facility] [address] [place] [address] Dr. Ruben HicksATININEheriberto 04-61-0895Igpbncjqci [Mass/Vol]0.93 mg/dLNormal 0.66-1.25The [facility] Hospital, Edwin ShawComment on above:Performed By: #### CREA, BUN #### [facility] [address] [place] [address] Dr. Ruben AndersonGFR-AF TURKMEN>60Normal>=60The [facility] Hospital, Edwin ShawComment on above:Performed By: #### CREA, BUN #### [facility] [address] [place] [address] Dr. Ruben AndersonGFR-NON AF TURKMEN>60Normal>=60The [facility]ult[facility] County Health Centerment on above:Performed By: #### CREA, BUN #### [facility] [address] [place] [address] Dr. Ruben CalderaCT ABDOMEN WO/W CONon 57-31-4612IN ABDOMEN WO/W CONEXAMINATION: CT ABDOMEN WO/W CON HISTORY: Liver mass [...] Electronically authenticated by: KRIS YI Date: 2021-11-03 13:47[facility] HospitalXR FINGER MIN 2 VIEWSon 70-01-3369YA FINGER MIN 2 VIEWSEXAM: XR FINGER MIN 2 VIEWS HISTORY: The [...] Electronically authenticated by: FINESSE AMEZCUA Date: 2021-09-30 22:21[facility] HospitalCT LUNG CANCER SCREENINGon 75-09-3055DG LUNG CANCER SCREENING EXAMINATION: CT LUNG CANCER [...] the right lung base may represent scarring, infiltrate/consolidation, or neoplasm. 3. Multiple approximately 1 cm liver lesions inadequately evaluated on today's study; hemangiomas versus cysts versus metastatic disease. Consider CT imaging of the abdomen and pelvis without and with IV contrast. Electronically authenticated by: FRANCISCO JAVIER PATEL Date: 2021-09-19 17:[address] [place], [place] [address]Cardiovascular Lab Reporton 66-54-8256Cgqkgnatyrhdic Lab Report [facility] Patient Name: Minnie Jason [facility] [place] MR #: [id number] Department of Physician: Michael Magallanes M.D. Division of Service Date: 05/10/2020 Cardiology Birthdate: 1950 Adult Cardiovascular Room #: [place] [address] Cardiovascular Laboratory Report INDICATION: The patient is [...] signed informed consent. He was brought to laboratory director in a fasting state. Both groin areas were prepped and draped in usual fashion. Using micropuncture technique and ultrasound guidance, access was obtained in right and left common femoral arteries respectively and inner cannula angiography was performed and access was upsized to a 5-Croatian x 11 cm sheath in each of those vessels after confirming adequate location of the access site. Bilateral lower extremity angiography was performed down to the level of the foot on each side through injections via the access catheters. A 5-Croatian Uni-Flush catheter was advanced to the distal [...] was upsized on each side to a 6-Croatian x 30 cm flexor sheath on the right and a 6-Croatian x 13 cm flexor sheath on the left. The 5-Croatian Uni-Flush catheter was advanced again into the [...] arch. At this time, we advanced a multilith operator 6 mm x 80 mm balloon and used to perform balloon angioplasty in the left common iliac artery and left external iliac artery. This was inflated repeatedly at 10 atmospheres. Additional balloon angioplasty in the left common iliac artery was performed using a multilith operator 8 x 40 mm balloon inflated at [...] using the 8 mm x 40 mm multilith operator balloon inflated in the left common iliac [...] The access sheaths we (more content not included)...NormalThe [facility] Vital Signs Date TimeVital SignValuePerforming MkhpauyqoRwjxtkux64-78-6543 11:46-0400Body mass index (BMI) [Ratio]28.04 kg/m2Tomisha Santana MD Work Phone: noAnne Fogarty Znqhopzpwv63-44-4482 11:46-0400Body gcboyc17.19 kgTomisha Santana MD Work Phone: noms Inbqiookxh39-16-9621 11:02-0400Body .2 cmTekaterina Santana MD Work Phone: noAnne Fogarty Fyvdaxzlte88-72-5056 11:02-0400Body mass index (BMI) [Ratio]27.72 kg/m2Tomisha Santana MD Work Phone: noms Wgyvuparvq13-80-6080 11:02-0400Body njebkl70.29 kgTomisha Santana MD Work Phone: NOJH Ubtaqjfikf83-01-8079 15:30-0500Body wcvhri035.72 cmThomas Olexa Other [employer] Other 12-07-2021 15:30-0500Body mass index (BMI) [Ratio] 30.13 kg/l8Opwtnx Olexa Other [employer] Other 12-07-2021 15:30-0500Body jpglsi73.9 kgThomas Olexa Other [employer] Other Encounters Encounter DateEncounter TypeCare ProviderFacilityStart: 08-30-2025 End: 53-46-3253Zovptxpdw encounterTomisha Santana MD Work Phone: [facility]idget AllergyStart: 08-25-2025 End: 61-38-5053Grjiae flowsheetChante Santana MD Work Phone: [facility] AllergyStart: 08-25-2025 End: 47-38-5145Admwjr flowsJaja Santana MD Work Phone: [facility] AllergyStart: 08-25-2025 End: 41-98-4331enanhoamiiLPZQ E RAMBASEKNot AvailableStart: 08-25-2025 End: 50-96-0894Osgnqz outpatient visit 15 minutesTomisha Santana MD Work Phone: [facility] AllergyComment on above:Recurrent sinus infections (Primary Dx); Recurrent pneumoniaStart: 08-17-2025 End: 45-13-3843otrzvnnrlfWSQSBZY [facility] Hospitaltart: 07-28-2025 End: 52-97-9568Lekmas flowsheetChante Santana MD Work Phone: [facility] AllergyStart: 07-28-2025 End: 21-56-1398Fdhfnj flowsheetChante Santana MD Work Phone: [facility] AllergyStart: 07-28-2025 End: 75-28-6042Uwenvg outpatient new 30 minutesTomisha Santana MD Work Phone: [facility] Bridget AllergyComment on above:Recurrent pneumonia (Primary Dx); Recurrent sinus infectionsStart: 07-28-2025 End: 41-31-6851wiseerxgmzKLRZAtul Mendiola AvailableStart: 01-27-2025 End: 59-12-0207cgbkontbyrYCOEDFE Darius VELAZQUEZ [facility] Hospitaltart: 01-20-2025 End: 91-64-9892wldsedphsnUWELXHZ Darius VELAZQUEZ [facility] Hospitaltart: 01-18-2025 End: 76-64-3062Bgynrrevo encounterLauren Carlosia CMAProMedica Physicians General SurgeryStart: 01-13-2025 End: 13-27-4125cepklbvfwnACLE Anna QUICKOTZERSumma Health Akron Campustart: 01-06-2025 End: 35-15-4446Hsrmmrfqji and management of inpatientCHARLES Darius VELAZQUEZ JR [facility] Campustart: 04-23-2022 End: 10-92-5989pgvqewpnxdVP CHARLES VALONEFacility:C8Sarba: 04-18-2022 End: 94-59-9909kogjnpkdbjKTRBXVW TUCKERFacility:R8Tavnf: 11-03-2021 End: 90-33-1221wxourxfditQT CHARLES VALONEFacility:E3Unpxt: 10-10-2021 End: 60-51-7567kjgqngswlrOS CHARLES VALONENort [employer] Other Start: 49-94-2199Cxsnwi follow up visit related to original pxThomas OlexaFPG [facility] BellevueStart: 10-03-2021 End: 50-04-2648sjxsnxeywdNildyi Olexa Other [facility] [employer] Other Start: 49-65-7882ZIXR visit new patientMatt Gill Ara BellevueStart: 09-30-2021 End: 95-07-0678zysxspobgxBS MICHAEL HAYFacility:Z8Gewqq: 09-19-2021 End: 92-14-3618ofsujijwyyHH RONAN VALONEFacility:H1 Procedures DateProcedureProcedure DetailPerforming ClinicianStart: 45-44-7590Bosrtyfphuv Arlette Porter CMA Plan of Treatment DateCare ActivityDetailAuthorStart: 77-44-9588Jcxejlihx for malignant neoplasm of colonColonoscopyProSt. Vincent Hospital SystemStart: 38-46-8921Yinimnvkiqtw Vaccine: 65+ Years (2 of 2 - PCV)Pneumococcal Vaccine: 65+ Years (2 of 2 - PCV)[facility]OMS HealthcareStart: 99-30-8491Sszfoez ScreeningTobacco ScreeningProSt. Vincent Hospital SystemStart: 10-14-2025 End: 00-82-9074Hjoywdk encounter whsvleeos89/18/2025 11:20 AM EST Office Visit [facility]Ad[facility] [address] [phone] Chante Santana MD [address] [address] NOMAdrien Gill AllergyStart: 08-25-2025 End: 29-62-0663FFBWHNUCDEZYA PNEUMONIA AB (IGG) (23 SEROTYPES)STREPTOCOCCUS PNEUMONIA AB (IGG) (23 SEROTYPES) Lab Routine Recurrent sinus infections Expected: 08/25/2025 (Approximate), Expires: 08/25/2026[facility] Work Phone: Comment on above:Expected: 08/25/2025 (Approximate), Expires: 08/25/2026Start: 08-25-2025 End: 42-67-7197Zjdmizd encounter tytguvtdb44/29/2025 11:40 AM EDT Office Visit [facility] [address] [facility] [address] [place] [phone] Chante Santana MD [address] [facility] [address] [place] [address] NOMAdrien Gill AllergyStart: 07-28-2025 End: 43-04-6762HUK W Auto Differential panel - BloodCBC and differential Lab Routine Recurrent pneumonia Recurrent sinus infections Expected: 07/28/2025 (Approximate), Expires: 07/28/2026NOUT HealthcareComment on above:Expected: 07/28/2025 (Approximate), Expires: 07/28/2026Start: 07-28-2025 End: 65-03-3989Qbjnhprtui / Tetanus Antibody PanelDiphtheria / Tetanus Antibody Panel Lab Routine Recurrent pneumonia Recurrent sinus infections Expected: 07/28/2025 (Approximate), Expires: 07/28/2026NOUT HealthcareComment on above: Expected: 07/28/2025 (Approximate), Expires: 07/28/2026Start: 07-28-2025 End: 09-92-3004AbV [Mass/volume] in Serum or PlasmaIgA Lab Routine Recurrent pneumonia Recurrent sinus infections Expected: 07/28/2025 (Approximate), E xpires: 07/28/2026[facility] HealthcareComment on above:Expected: 07/28/2025 (Approximate), Expires: 07/28/2026Start: 07-28-2025 End: 42-22-2791AcE [Units/volume] in Serum or PlasmaIgE Lab Routine Recurrent pneumonia Recurrent sinus infections Expected: 07/28/2025 (Approximate), E xpires: 07/28/2026N[facility] HealthcareComment on above:Expected: 07/28/2025 (Approximate), Expires: 07/28/2026Start: 07-28-2025 End: 19-20-7801KmO [Mass/volume] in Serum or PlasmaIgG Lab Routine Recurrent pneumonia Recurrent sinus infections Expected: 07/28/2025 (Approximate), E xpires: 07/28/2026[facility] Work Phone: Comment on above:Expected: 07/28/2025 (Approximate), Expires: 07/28/2026Start: 07-28-2025 End: 71-26-4024IeE [Mass/volume] in Serum or PlasmaIgM Lab Routine Recurrent pneumonia Recurrent sinus infections Expected: 07/28/2025 (Approximate), E xpires: 07/28/2026NOMS HealthcareComment on above:Expected: 07/28/2025 (Approximate), Expires: 07/28/2026Start: 07-28-2025 End: 49-66-4801Fgkscei toxoid, IgGTetanus toxoid, IgG Lab Routine Recurrent pneumonia Recurrent sinus infections Expected: 07/28/2025(Approximate), Expires: 07/28/2026N[facility] HealthcareComment on above:Expected: 07/28/2025 (Approximate), Expires: 07/28/2026Start: 07-28-2025 End: 97-77-8767Dypqjnt encounter mpkaoyezt51/01/2025 11:00 AM EDT Office Visit [facility] [address] [phone] Chante Santana MD [address] [address] ArrivedNO Lea AllergyComment on above:ArrivedStart: 72-50-3391VEXPY-19 Vaccine ( season)COVID-19 Vaccine ( season)NOMS HealthcareStart: 42-17-5391Beurikkud vaccinationInfluenza Vaccine (#1)[facility] HealthcareStart: 44-37-1174Hpendkhko vaccinationInfluenza VaccineProSt. Vincent Hospital SystemStart: 22-66-3362Hutt Risk ScreeningFall Risk ScreeningProSt. Vincent Hospital SystemStart: 37-54-3059Grksfhhlxply Vaccine: 65+ Years (1 of 1 - PCV)Pneumococcal Vaccine: 65+ Years (1 of 1 - PCV) NOM HealthcareStart: 45-93-2203TQyK,Tdap and Td Vaccines (1 - Tdap)DTaP,Tdap and Td Vaccines (1 - Tdap)[facility] SystemStart: 97-14-5748Kslomygpzt ScreeningDepression ScreeningECU Health Medical Centertart: 1957 DTaP/Tdap/Td Vaccines (1 - Tdap)DTaP/Tdap/Td Vaccines (1 - Tdap)[facility] STREPTOCOCCUS PNEUMONIA AB (IGG) (23 SEROTYPES)STREPTOCOCCUS PNEUMONIA AB (IGG) (23 SEROTYPES) Lab Routine Recurrent pneumonia Recurrent sinus infections Ordered: 07/28/2025NOUT HealthcareComment on above:Ordered: 07/28/2025 Immunizations Immunization DateImmunizationNotesCare YzdvloelCikprahp24-95-7272rgxqakhmdcng polysaccharide vaccine, 23 valentTodd Max JASSO Work Phone: [facility] CenterZcvpckglqj85-69-7859wfgjdctri virus vaccine, unspecified formulationLauren Venia CMAUniversity Hospitals Lake West Medical Center Payers DatePayer CategoryPayerPolicy [id number] MEDICARE ADVANTAGE [id number] 2024Medicare [facility] MEDIC[facility] [id number] 2024Medicare [id number] [id number] 1960Medicare [id number] 2.840.1.550789.3.579.2. [id number] 2.0.1.675811.3.57[id number] 2.0.1.388443.3.57[id number] 2.840.1.913831.3.57[id number] 2.0.1.615022.3.579.[id number] 2.840.1.346684.3.57[id number] 2.0.1.118378.3.579.[id number] 2.840.1.305633.3.579.2.[id number] 2.0.1.802008.3.57[id number] 2.840.1.837193.3.579.2.830[id number] 2.840.1.421803.3.579.2.558209-42-5164Nnmqgjj61252927 2.840.1.170699.3.579.2.1259 Social History DateTypeDetailFacilityStart: 01-07-2025 End: 69-15-4170Qvv Assigned At BirthNorth [employer] Other Start: 01-07-2025 End: 53-16-3797Krfowgf smoking status NHISEx-smokerUniversity Hospitals Lake West Medical Center History of tobacco useCurrent smokerUniversity Hospitals Lake West Medical CenterHistory of tobacco useCigarette SmokerDayton Osteopathic Hospital SystemStart: 01-07-2025 End: 95-91-4534Vwymuvm use and exposureSmokeless tobacco non-userDayton Osteopathic Hospital SystemStart: 71-16-7797Duqhnzpri beverage intakeEx-drinker (finding) [facility] Centertart: 01-07-2025 End: 89-23-4382Qhrnvif of Social functionUniversity Hospitals Lake West Medical CenterHas the Chatosity, gas, oil, or water SharedBy.co threatened to shut off services in your home in past 12MoNJoint Township District Memorial HospitalAre you now , , , , never or living with a partner?MarriedUniversity Hospitals Lake West Medical CenterHow often to you have a drink containing alcohol?NeverECU Health Medical Centertart: 94-96-0897Emv many standard drinks containing alcohol do you have on a typical day?Patient does not drinkUniversity Hospitals Lake West Medical CenterHow hard is it for you to pay for the very basics like food, housing, medical care, and heatingNot very hardDayton Osteopathic Hospital SystemDo you feel stress - tense, restless, nervous, or anxious, or unable to sleep at night because yourmind is troubled all the time - these days [OSQ]Not at allDayton Osteopathic Hospital SystemStart: 89-37-8652Qvx assigned at birthNot on filePremier Health [facility] Berry Kitchen SystemStart: 20-43-5995UxmEfoe (finding)[facility] Medical CenterTobacco smoking status NHIS Tobacco smoking consumption unknownNOMS Healthcare Goals DatePatient GoalDesired Activity/StatePersonal health goalComment on above: Evaluation of progress towards goal: under assessment Clinical Notes 10-03-2021 to 08-30-2025 Note Date & QlcqXvbqHhgovfob13-84-3044 Telephone encounter Note* Telephone Encounter - Allison Thompson LPN - 08/30/2025 4:11 PM EST Called and spoke to Phong and informed him that he received the pneumovax 23 vaccine on 08/25/2025. He is appreciative and denies further needs at this time. /ss [facility] Work Phone: [phone]) 545-468611-03-2025 Miscellaneous Notes* Telephone Encounter - Allison Thompson LPN - 08/30/2025 4:11 PM EST Called and spoke to Phong and informed him that he received the pneumovax 23 vaccine on 08/25/2025. He is appreciative and denies further needs at this time. /ss documented in this encounterHedrick Medical CenterMmjvlyzpke50-96-3512 History of Present illness Narrative* Chante Santana MD - 08/25/2025 11:40 AM EDT Minnie Jason returns to the office today for follow-up assessment for immunologic evaluation. Henotes that he has been doing well without any respiratory infections. His last episode of pneumoniawas in March. He has been using Breztri BID and this works well for him. He has dyspnea on exertion with walking 50 yards. IgG = 761 IgA = 255 IgM = 55 IgE = 4 Pneumococcal subtiters = 09/19 Diptheria = 0.15 Tet = 0.54 Albuterol Barry tree carvedilol montelukast Pneumonia CXR positive for pneumonia 42 pack years Azithromycin prophylaxis The patient appears comfortable in the office today. Lungs are notable for moderate expiratory wheeze bilaterally. The oral mucosa is pink and healthy without any lesions or ulcers. The palate elevates in the midline. The nasal mucosa is pink and healthy. There is no epistaxis mucopus or nasal polyposis noted. The nasal septum is approximately in the midline. The skin is clear and without lesions, ulcers, or excoriations. IMPRESSION: Recurrent pneumonia - Given the patient's low number of pneumococcal sub-titers suggestive of inadequate humoral immunity against respiratory pathogens, decision was made to perform pneumococcal vaccination which was administered in the office today. The patient was instructed to have pn eumococcal sub-titers drawn in 4 weeks and then follow-up in 2 months to discuss the results or sooner should problems arise. documented in this encounterHedrick Medical [id number] NoteCardiovascular Medicine [facility] SUBJECTIVE Chief Complaint Patient presents with Follow-up 1 year Patient denies chest pain, Patient states he had pneumonia in Nov and is still recovering from it which is what is causing his rivero/sob. Atrial Fibrillation Coronary Artery Disease Congestive Heart Failure Hypertension Hyperlipidemia Valve Disorder Mitral regurgitation Peripheral arterial occlusive disease Cardiomyopathy Edema Bilateral, more left than right Fatigue Minnie Jason is a 75 y.o. male here for routine follow-up. Atrial Fibrillation Past medical history includes atrial fibrillation, CAD, CHF and hyperlipidemia. Coronary Artery Disease Risk factors include hyperlipidemia. His past medical history is significant for CHF. Congestive Heart Failure Associated symptoms include fatigue. His past medical history is significant for CAD. Hypertension Hyperlipidemia Edema Associated symptoms include fatigue. Past medical history is significant for CAD and CHF. Fatigue Associated symptoms include fatigue. PMHx: 1. Atrial fibrillation on anticoagulation with Xarelto 2. 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 Hypertension 4. Hyperlipidemia on atorvastatin 5. COPD 6. PAD s/p Omnilink Elite stent x2 to LLE 04/2020, severe PAD also noted in RLE 08/17/2025 Since last seen, he suffered from PNA. He has been admitted twice this year for this. He c/o increased SOB since then. His activity level has decreased since then. He is participating in cardiac rehab at [facility]. Tolerating this okay. BP at rehab has been controlled, elevated today. He notes they adjusted his medications when he had PNA. He continues to have leg fatigue with heavier exertion. Denies c/o CP, orthopnea, PND, dizziness/LH, palpitations, syncope. 04/21/2024 He states he has been feeling well since last seen. No current routine exercise. BP is mildly elevated today. He gets BLE fatigue and pain with walking longer distances and improves with rest. - This is unchanged for him. His RIVERO is stable. Denies c/o CP, orthopnea, PND, LE edema, dizziness/LH, palpitations, syncope. 03/12/2023 He had his top teeth pulled 2 weeks ago and still on soft food diet, pending getting a partial denture piece. He denies any changes since last seen. His RIVERO is unchanged. He gets BLE fatigue and pain with walking longer distances and improves with rest. Planning to go to [place] this summer to visit son. 03/27/22 He is unsure of his BP at home. He was switched from Pradaxa to Xarelto. C/o bilateral leg fatigue with short exertion. His sx's are primarily in his hips and upper thighs. He gets muscle fatigue if he walks more than 100 ft, improves with rest. He c/o worsened RIVERO compared to a few years ago. He [...] palpitations. Patient Active Problem List Diagnosis A-fib ([facility]/HCC) Atrial fibrillation ([facility]/HCC) CAD (coronary artery disease) Coronary atherosclerosis Chest pain Chronic obstructive lung disease ([facility]/HCC) Congestive heart failure ([facility]/HCC) Dyspnea Essential hypertension Gastroesophageal reflux disease Hyperlipidemia Mitral regurgitation Mitral valve disorder Peripheral arterial occlusive disease Primary cardiomyopathy ([facility]/HCC) Pulmonary hypertension, mild (CMS/HCC) Type 2 diabetes mellitus ([facility]/HCC) Peripheral vascular disease Hx of CABG Failure of outpatient treatment Former smoker Former tobacco use Hypoalbuminemia 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 Occult blood positive stool Pneumonia due to infectious organism Poor appetite Weakness Weight loss Past Medical History: Diagnosis Date Abnormal ECG Arrhythmia Atrial fibrillation (CMS/HCC) CHF (congestive heart failure) (CMS/HCC) COPD (chronic obstructive pulmonary disease) (CMS/HCC) Coronary artery disease Diabetes mellitus (CMS/HCC) GERD (gastroesophageal reflux disease) Heart valve disease Hyperlipidemia Hypertension PAD (peripheral artery disease) Primary cardiomyopathy (CMS/HCC) PVD (peripheral vascular disease) Family History Problem Relation Name Age of Onset Atrial fibrillation Brother Heart failure Brother Coronary artery disease Brother Social History Tobacco Use Smoking status: Former Types: Cigarettes Smokeless tobacco: Never Substance Use Topics Alcohol use: Not Currently Drug use: Never No Known Allergies OBJECTIVE Visit Vitals BP (!) 182/92 (BP Location: Right arm, Patient Position: Sitting) Pulse 81 Ht 1.727 m (5' 8 ) W (more content not included)...[facility]10-01-2025 History of Present illness Narrative* Chante Santana MD - 07/28/2025 11:00 AM EDT Minnie Jason is a very pleasant 75 y.o. year old male who comes to the office today with the chief complaint of concern about immune deficiency due to recurrent infections. Referred by Dr. Ronan Velazquez Patient has a history of recurrent right middle lobe pneumonia treated by Dr. James. Patient also reported to have a history of sepsis as well as diabetes. Patient takes dexamethasone 2 mg daily. He had a 6 month bouth of pneumonia . He was having symptoms of SOB and productive cough. At least once per month he will have an episode of chills and weakness It will tend to last a few days and he will feel slow physically during these episodes. He had CXR that was positive several times for the pneumonia. His CXR on 01/06/25 was positive for pneumonia. He has been low on energy all the time andhas been doing pulmonary rehabilitation. There is no personal history of cancer. He was given Decadron 2 mg per day but is off this at the current time. He smoked from age 17 until age 59. 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 He is on Azithromycin three times per week for prophylaxis. He had a CBC with lymphopenia but was on oral corticosteroid at that time his believes. His Globulin fraction is 2.1 Patient takes Breztri and Ohtuvayre The patient appears comfortable in the office today. Lungs are notable for moderate expiratory wheeze bilaterally. The oral mucosa is pink and healthy without any lesions or ulcers. The palate elevates in the midline. The nasal mucosa is pink and healthy. There is no epistaxis mucopus or nasal polyposis noted. The nasal septum is approximately in the midline. The skin is clear and without lesions, ulcers, or excoriations. IMPRESSION: recurrent pneumonia - Given his recurrent episodes of pneumonia we agreed to obtain a humoral immune survey with immunoglobulin levels CBC with differential and pneumococcal sub titers and have him follow-up in 4 weeks to discuss the results and decide on the possibility of immunologic replacement therapy at that time. documented in this encounterHedrick Medical [id number] Miscellaneous Notes* Telephone Encounter - Arlette Porter CMA - 01/18/2025 9:13 AM EDT ----- Message from Dr. Letty Toscano, sent at 01/18/2025 7:15 AM EDT ----- Please let patient know that he had mild inflammation of the pre-pyloric area of in the stomach andhe should continue taking the pantoprazole as prescribed. He was also noted to have a precancerous polyp which was a tubular adenoma and I would recommend surveillance colonoscopy in 5 years at whichtime he would be 79 if he so desires. Thanks, Dr. Griffin * Telephone Encounter - Yadira Ortiz CMA - 01/18/2025 9:13 AM EDT I spoke to the patients , verified EC. Gave her the results message from DR Toscano. She verbalized complete understanding. documented in this encounterUniversity [facility] Telephone encounter Note* Telephone Encounter - Arlette Porter CMA - 01/18/2025 9:13 AM EDT ----- Message from Dr. Letty Toscano DO sent at 01/18/2025 7:15 AM EDT ----- Please let patient know that he had mild inflammation of the pre-pyloric area of in the stomach andhe should continue taking the pantoprazole as prescribed. He was also noted to have a precancerous polyp which was a tubular adenoma and I would recommend surveillance colonoscopy in 5 years at whichtime he would be 79 if he so desires. ThanksDr. Griffin Scary Mommy [id number] Telephone encounter Note* Telephone Encounter - Yadira Ortiz CMA - 01/18/2025 9:13 AM EDT I spoke to the patients , verified EC. Gave her the results message from DR Toscano. She verbalized complete understanding. [facility] Berry [employer] [id number] NotePROCEDURE: XR HAND RT MIN 3V COMPARISON: 09/30/2021 HISTORY: Fracture of [...] Electronically authenticated by: KRIS YI Date: 2021-10-10 14:09[facility]12-14-2021 Evaluation note* Encounter Date Diagnosis Assessment Notes Treatment Notes Treatment Clinical Notes Sep, Nondisplaced fractur e of distal phalanx of right ring finger, subsequent encounter for fracture with routine healing (ICD-10 - S62.664D) Sep,aceration without foreign body of left ring finger with damage to nail, subsequent encounter (ICD-10 - S61.315D) Sep,rushing injury of left ring finger, subsequent encounter (ICD-10 - S67.195D) Sep,ncounter for removal of sutures (ICD-10 - Z48.02) Patient is progressing well from injury. Sutures removed today under clean conditions, patient tolerated well. Instructed on gentle motion exercises of the finger. Again discussed that patient will likely lose the nail as time goes. Call with questions/concerns. [employer] Other 12-07-2021 Evaluation note* Encounter Date Diagnosis Assessment Notes Treatment Notes Treatment Clinical Notes 07 Dec, 2021 Closed nondisplaced fracture of distal phalanx of right ring finger, initial encounter (ICD-10 - S62.664A) Radiographs reviewed with patient and as a distal phalanx fracture of the right ring finger with associated laceration. Instructed on splinting during any activity where it may be bumped, but may remove splint and dressing while at rest. Applied and instructed on nonstick dressing application.Discussed nail will likely fall off due to trauma and may grow back irregular. Instructed on gentlemotion of the finger when out of splint to decrease stiffness. We will leave sutures intact for 1 more week. Call with questions/concerns. Sep, rushing injury of left ring finger, initial encounter (ICD-10 - S67.195A) Sep,aceration of left ring finger without foreign body with damage to nail, initial encounter (ICD-10 - S61.315A) [employer] Other Evaluation note* Diagnosis Recurrent pneumonia- Primary Pneumonia, organism unspecified Recurrent sinus infections Unspecified sinusitis (chronic) [facility] encounter [facility] Diagnosis Recurrent sinus infections- Primary Unspecified sinusitis (chronic) Recurrent pneumonia Pneumonia, organism unspecified documented in this encounter [facility] general Narrative - Reported* Type Description Date Medical History type II diabetes Medical HistoryCOPDMedical HistoryafibMedical Historyartery diseaseSurgical Historytriple [id number] Historyhernia [id number] Historyheart [id number] Historyilliac [id number] HistorySee Above [employer] Other InstructionsNot on filedocumented in this encounter [facility] Summary Purpose Family History No Family History Records FoundNo Family History Records FoundNo Family History Records FoundNo Family History Records FoundNo Family History Records Found Advance Directives No Advanced Directives Records Found Date ActivatedDate InactivatedComments01/06/2025 11:01 PM01/10/2025 6:03 PM Additional Source Comments (unrecognized sect ion and content) No Status Records FoundNo Status Records FoundNo Status Records FoundNo Status Records FoundNo Status Records Found INFORMATION SOURCE (unrecogn ized section and content) DATE CREATED AUTHOR 02/15/2021 [facility] DATE CREATED AUTHOR AUTHOR'S ORGANIZ ATION 04/27/2022 [facility] DATE CREATED AUTHOR AUTHOR'S ORGANIZ ATION 01/30/2025 [facility] DATE CREATED AUTHOR AUTHOR'S ORGANIZ ATION 08/27/2025 [facility] DATE CREATED AUTHOR AUTHOR'S ORGANIZ ATION 09/04/2025 [facility] REASON FOR VISIT (unrecogniz ed section and content) ReasonCommentsnew patientPt states he had pneumonia in Nov, Dec and Mar. Monthly he breaks out into chills and shakes which leaves him weak.Reason CommentsFollow-upNo surgeries; no hospital stays. Care Teams (unrecognized sec tion and content) Team MemberRelationshipSpecialtyStart DateEnd Date Ronan Velazquez Jr., DO [address] [place] [address] [phone] PCP - GeneralInternal Medicine01/06/25Team MemberRelationshipSpecialtyStart Date End Date Ronan Velazquez MD [address] [place] [id number] PCP - GeneralInternal Medicine04/13/25 MemberRelationshipSpecialtyStart Date End Date Ronan Velazquez MD [address] [place] [id number] PCP - GeneralInternal Medicine04/13/25 MemberRelationshipSpecialtyStart Date End Date Ronan Velazquez MD [address] [place] [phone] PCP - GeneralInternal Medicine04/13/25Te MemberRelationshipSpecialtyStart Date End Date Ronan Velazquez MD [address] [place] [address] [phone] PCP - GeneralInternal Medicine04/13/25Team MemberRelationshipSpecialtyStart Date End Date Ronan Velazquez MD [address] [place], [place] [phone] PCP - GeneralInternal Medicine04/13/25 FOR RECORDS PERTAINING TO PATIENTS WHO ARE [...] BE BASED ON THE PRIMARY CLINICAL RECORDS. [facility]. provides no warranty or guarantee of the accuracy or completeness of information in this document.
--- NOTE | 2025-09-13 10:15 | NM_ITS ---
Patient Name: MINNIE FARIAS MR#: [id number] : 1950 Exam Date: 09/13/2025 Ordering Doctor: JESUS VIDAL CNP RADIOLOGY REPORT PROCEDURE: NM MORAIMA PERF SPECT REST STR COMPARISON: None. INDICATIONS: DYSPNEA ON EXERTION, CORONARY ARTERY DISEASE TECHNIQUE: Exam Description: Stress/Rest one day protocol gated SPECT Rest Imagin.0 mCi Tc-99m Cardiolite IV on 09/13/2025 Stress Imaging 30.6 mCi Tc-99m Cardiolite IV on 09/13/2025 Exercise Protocol: 0.4 mg Lexiscan given IV Heart Rate (bpm): Rest: 66 Max: 8358 PMHR: Blood Pressure: Rest: 177/96 Max: 177/96 Symptoms: Rest and peak stress ECG findings were pending and the EKG portion of the study was pending per attending physician [facility] . For more details please see separate cardiac stress test report. FINDINGS: QUALITY OF STUDY: Adequate PERFUSION DEFECT: LOCATION: Inferior SIZE: Medium SEVERITY: Moderate TYPE: Fixed with adequate contractility and thickening consistent most likely with diaphragmatic attenuation WALL MOTION: Normal LV SIZE: 123 mL. TID / TCD: 1.0 LVEF: Calculated EF 66%. SUMMARY: Normal myocardial perfusion imaging study CONCLUSION: Normal myocardial perfusion stress images without evidence of ischemia or infarction Normal left ventricle systolic function, ejection fraction 66% No transient ischemic dilatation, TID1.0 EKG portion of stress test is reported separately Dictated by: Donte Serrato MD on 09/13/2025 at 17:33 Approved by: Donte Serrato MD on 09/13/2025 at 17:37
[2025-09-13 10:57] LABS: Alanine Aminotransferase 38 U/L (16-63); Albumin Globulin Ratio 1.1; Albumin Level 3.4 g/dL (3.4-5.0); Alkaline Phosphatase 82 U/L (46-116); Anion Gap 11.9; Aspartate Amino Transferase 29 U/L (15-37); Blood Urea Nitrogen 13.0 mg/dL (7.0-18.0); Calcium 8.5 mg/dL (8.5-10.1); Carbon Dioxide 27.1 mmol/L (21.0-32.0); Chloride 107 mmol/L (98-107); Cholesterol 85 mg/dL (<=200); Estimated GFR (African America >60 (>=60 mL/min/1.73m^2); Estimated GFR (Non-African Ame >60 (>=60 mL/min/1.73m^2); Globulin 3.2 g/dL; Glucose 123 mg/dL (74-106); HDL Cholesterol 47 mg/dL (40-60); Potassium 4.0 mmol/L (3.5-5.1); Sodium 142 mmol/L (136-145); Total Protein 6.6 g/dL (6.4-8.2); Triglycerides 46 mg/dL (<=150); VLDL CHOLESTEROL 9.2 mg/dL
--- NOTE | 2025-09-13 11:52 | PC.NURSE ---
Nursing Note Cardiac Stress Test Reviewed: Medication, allergies and patient history reviewed. Stress Test: [x ] Patient tolerated stress test well. [ ] Patient unable to tolerate walking on treadmill. Switched to Lexiscan stress test. [x ] No chest pain noted per patient [ ] Chest pain that resolved prior to leaving stress lab. [x ] No dyspnea noted. [ ] Dyspnea that resolved prior to leaving stress lab. [x ] Patient left stress lab asymptomatic and hemodynamically stable. [ ] Patient taken to the Emergency Room due to non-resolving symptoms following stress test. [ ] Patient achieved target heart rate. [ ] Patient unable to achieve target heart rate. [ ] Aminophylline administered as reversal agent to Lexiscan (Regadenoson). [ ] Nitro administered. Nursing Comments:
[2025-09-13] MEDS: REGADENOSON 0.4 MG/5 ML SYRINGE IV (11:58)
--- NOTE | 2025-09-13 13:00 | CA_ITS ---
Patient Name: MINNIE FARIAS MR#: [id number] : 1950 Exam Date: 09/13/2025 Ordering Doctor: JESUS VIDAL BOILER OR ENGINE OPERATOR ECHOCARDIOGRAM REPORT PROCEDURE: CA ECHO DOPPLER COMPLETE INDICATIONS: Dyspnea on exertion, coronary artery disease, CABGx3, COPD, hypertension, diabetes COMPARISON: None. DESCRIPTION: COMPLETE ECHOCARDIOGRAM Real-time transthoracic echocardiography with 2D, M-mode, spectral and color flow Doppler performed. QUALITY: Technical quality was good. LEFT VENTRICLE: Normal chamber size. Proximal septal moderate hypertrophy (sigmoid septum). Normal left ventricle systolic function without wall motion abnormalities, estimated ejection fraction 60 to 65%. DIASTOLIC: Grade III diastolic dysfunction. ATRIAL SEPTUM: Visually appears intact. LEFT ATRIUM: Severe dilatation. RIGHT ATRIUM: Severe dilatation. RIGHT VENTRICLE: Normal chamber size. Decreased right ventricular systolic function. TRICUSPID VALVE: Normal mobility and thickness. No stenosis with mild regurgitation. Doppler studies reveal moderately (45-60) elevated right sided pressures.RVSP 47 mmHg MITRAL VALVE: Normal mobility and thickness. No evidence of mitral valve stenosis. Mild mitral annular calcification. Moderate mitral regurgitation. AORTIC VALVE: Normal trileaflet appearance. Mildly calcified aortic valve. Normal leaflet mobility. No evidence of aortic valve stenosis. Trivial aortic regurgitation. AORTIC ROOT: Normal diameter and appearance. PULMONIC VALVE: Normal thickness and mobility. No stenosis. Trivial regurgitation. PERICARDIUM: No evidence of pericardial effusion. IVC: IVC is dilated (2.5 cm), does not collapse. PLEURA: CONCLUSION: Sigmoidal septum with moderate basal hypertrophy Normal left ventricle cavity size Normal left ventricular systolic function without wall motion abnormalities, EF estimated to be 60-65% Grade 3 left ventricular diastolic dysfunction Normal right ventricle size but reduced systolic function Moderate pulmonary hypertension, RVSP 47 mmHg Moderate mitral regurgitation Trace aortic insufficiency Biatrial severe dilatation Dilated inferior vena cava with less than 50% respiratory collapse consistent with elevated central venous pressure, RAP 15 mmHg Adult Echocardiography Procedure Report Left Ventricle LVEDD (3.7 - 5.6 cm): 4.37 cm LVESD (2.2 - 4.0 cm): 3.57 cm LVIVS thickness (0.6 - 1.2 cm): 1.54 cm LVPW thickness (0.5 - 1.0 cm): 1.11 cm e': 0.11 m/s E - e': 10.56 LVOT Max Gradient: 2.25 mm[Hg] LVOT Area (cm2): 0.75 m/s Peak Velocity (LVOT): 0.75 m/s Mean Velocity (LVOT): 0.52 m/s LVOT Diameter 1.95 cm Left Ventricular Ejection Fraction: 58.40 % Left Atrium LA Volume Index (2D A2C): 78.89 ml/m2 Left Atrium Systolic Dimension: 5.18 cm Mitral Valve MV E to A Ratio: 2.93 MV Max Gradient: MV Mean Gradient: Mitral Valve A-Wave Peak Velocity: 0.41 m/s Mitral Valve E-Wave Peak Velocity: 1.19 m/s Cardiovascular Orifice Area: Right Ventricle RV Internal Diastolic Dimension: Aorta AO Root Diam: 3.39 cm Ascending Ao Diam: Aortic Valve AoV Area (Peak Chau): 2.12 cm2, 2.12 cm2 AoV Area (VTI): 2.19 cm2, 2.19 cm2 Deceleration [place]: Pressure Half-Time: Peak Velocity(Antegrade Flow): 1.05 m/s Peak Gradient(Antegrade Flow): 4.44 mm[Hg] Mean Velocity(Antegrade Flow): 0.70 m/s Mean Gradient(Antegrade Flow): 2.35 mm[Hg] Velocity Time Integral: 23.80 cm Tricuspid Valve Peak Velocity (Regurgitant Flow): 2.81 m/s Peak Velocity: Pulmonic Valve Mean Gradient: 0.93 mm[Hg] Mean Velocity: 0.45 m/s Peak Velocity: 0.69 m/s Peak Gradient: 1.91 mm[Hg] Right Atrium Right Atrium Systolic Pressure: 69.64 ml, 69.64 ml Dictated by: Donte Serrato MD on 09/13/2025 at 18:40 Approved by: Donte Serrato MD on 09/13/2025 at 18:47
--- NOTE | 2025-09-13 16:40 | PM.STRESS ---
Stress Test Stress Test Allergies Allergy/AdvReac Type Severity Reaction Status Date / Time No Known Drug Allergies Allergy Verified 03/22/25 17:12 Requesting physician: JESUS VIDAL Procedure: Lexiscan nuclear stress test General Information: Reason for Stress Test: [Shortness of breath] Cardiac History and Risk Factors: [Hypertension, prior CAD and CABG] Resting 12 - Lead Electrocardiogram: Resting twelve-lead EKG showed atrial fibrillation with 1 PVC, right axis deviation, nonspecific ST changes. Resting heart rate 76 bpm, resting blood pressure 177/96 mmHg. Lexiscan 0.4 mg was administered intravenously and patient was monitored for few minutes. Peak heart rate 85 bpm which represents 58% of age-predicted maximum heart rate. Peak blood pressure 177/96 mmHg. Patient did not experience chest pain or shortness of breath. EKGs throughout the test did not show significant ST changes, rare PVCs were noted and the patient remained in A-fib Stress Test: Protocol: [Lexiscan] Exercise Capacity: [Not applicable] Blood Pressure Response: [Normal] Rhythm: [A-fib, rare PVCs] ST - Response: [No ST changes] Patient Response: [Normal] Interpretation: Negative Lexiscan EKG stress test for ischemia Nuclear myocardial perfusion stress images result is reported separately Donte Serrato MD, FACC
== END 2025-09-13 09:49 | disposition home or self-care (01) ==
LOC: NM 09:49
PROVIDERS: PCP Internal Medicine; Visit Provider Nurse Practitioner Family
DX: I11.9 Hypertensive heart disease without heart failure (principal); I25.10 Atherosclerotic heart disease of native coronary artery without angina pectoris; R06.09 Other forms of dyspnea
CPT/HCPCS: 36415; 78452; 80053; 80061; 93017; 93306; A9500; J2785

== ENCOUNTER 2025-09-22 07:13 | Outpatient (RCR) | payer MEDICARE, SELFPAY ==
--- NOTE | 2025-05-25 14:15 | CR1_ITS ---
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 Interpretive Statements Patient may continue cardiac rehab as outlined in the treatment plan. Electronically Signed On 06-04-2025 10:21:35 EDT by STEVE BRICEÑO M.D.
--- NOTE | 2025-05-31 11:03 | CR1_ITS ---
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 Interpretive Statements Patient may continue cardiac rehab as outlined in the treatment plan. Electronically Signed On 06-04-2025 10:25:52 EDT by STEVE BRICEÑO M.D.
--- NOTE | 2025-06-21 13:29 | CR1_ITS ---
The [facility] Test Date: 2025-06-21 Pat Name: MINNIE FARIAS Department: Room: - Gender: Male Messenger Office: : 1950 Requested By: STEVE BRICEÑO M.D. Order Number: [id number] Reading MD: Donte Serrato Interpretive Statements Session Date: Electronically Signed On 06-25-2025 13:28:29 EDT by Donte Serrato
--- NOTE | 2025-07-19 08:02 | CR1_ITS ---
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 Order Number: [id number] More MD: STEVE BRICEÑO M.D. Interpretive Statements Patient may continue pulmonary rehab as outlined in the treatment plan. Electronically Signed On 07-19-2025 17:20:46 EDT by STEVE BRICEÑO M.D.
--- NOTE | 2025-08-18 07:32 | CR1_ITS ---
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 Interpretive Statements Patient may continue pulmonary rehab as outlined in the treatment plan. Electronically Signed On 08-19-2025 0:06:55 EDT by STEVE BRICEÑO M.D.
--- NOTE | 2025-09-20 13:28 | CR1_ITS ---
[facility] Test Date: 2025-09-20 Pat Name: MINNIE FARIAS Department: Room: - Gender: Male Cuff Maker: : 1950 Requested By: YANY VELAZQUEZ Order Number: [id number] More MD: STEVE BRICEÑO M.D. Interpretive Statements Patient may continue pulmonary rehab as outlined in the treatment plan. Electronically Signed On 09-20-2025 19:52:25 EST by STEVE BRICEÑO M.D.
--- NOTE | 2025-09-22 13:15 | CR1_ITS ---
[facility] Test Date: 2025-09-22 Pat Name: MINNIE FARIAS Department: Room: - Gender: Male Stamp Pad Maker: : 1950 Requested By: YANY VELAZQUEZ Order Number: [id number] More MD: STEVE BRICEÑO M.D. Interpretive Statements Patient has completed rehab program and have noted outcomes. Electronically Signed On 09-22-2025 19:12:56 EST by STEVE BRICEÑO M.D.
== END 2025-09-22 13:41 | disposition home or self-care (01) ==
LOC: CR 07:13
PROVIDERS: PCP Internal Medicine; Visit Provider Internal Medicine
DX: J44.9 Chronic obstructive pulmonary disease, unspecified (principal)
CPT/HCPCS: 93668; G0239

== ENCOUNTER 2025-10-05 11:52 | Outpatient (OUT) | payer MEDICARE, SELFPAY ==
--- OUTSIDE RECORDS SUMMARY | 2025-10-05 11:58 | XMS_ITS | CCD ---
Author Organization [facility] Care Team Providers Care Housekeeping/Laundry Supervisor Name Role Phone Matt Koenig Unavailable MARCUS, [...] JESUS Admitting Unavailable JESUS VIDAL Attending Unavailable ORAL, DR RODRIGUEZ Admitting Unavailable VALONE, DR SLADE [...] Unavailable Ronan Velazquez MD Primary Care Provider Ronan Velazquez MD Primary Care Provider CHANTE SANTANA Attending Unavailable CHANTE SANTANA Attending Unavailable JESUS VIDAL Attending Unavailable Medications Current Medications MedicationDrug Class(es)DatesSig (Normalized)Sig (Original)[id number] 200 actuat albuterol 0.09 mg/actuat metered dose [...] 100 mg oral capsule (1 source)Non-narcotic AntitussiveStart: 22-62-4457aihl 1 capsule by mouth three times daily as needed for coughbenzonatate (TESSALON PERLES) 100 mg capsule Take 1 capsule (100 mg total) by mouth 3 (three) timesa day as needed for cough. 20 capsule 01/10/2025 [id number] actuat budesonide 0.16 mg/actuat / formoterol fumarate [...] hydrochloride 25 mg oral tablet (1 source)AntihistamineStart: 15-60-9890uuaj 1 tablet by mouth three times daily [...] oxide 400 mg oral tablet (1 source)Start: 65-02-2264ugzq 1 tablet by mouth in the morningmagnesium oxide (MAGOX) 400 mg tablet Take 1 tablet (400 mg total) by mouth in the morning. 10 tablet 01/10/2025 Activemontelukast 10 mg oral tablet (9 sources)Leukotriene Receptor Antagonisttake 1 tablet by mouth in the morning montelukast (Singulair) 10 MG tablet Take 1 tablet by mouth in the morning. ActiveMulti For Him (2 sources)Multi For Him Activenystatin 502627 unt/ml oral suspension (1 source)Polyene Antifungalnystatin (MYCOSTATIN) [...] release oral tablet (1 source)Proton Pump InhibitorStart: 65-43-3817tbdv 1 tablet by mouth twice dailypantoprazole (PROTONIX) 40 mg EC tablet Take 1 tablet (40 mg total) by mouth 2 (two) times daily ir3106 and 1500. 60 tablet 1 01/10/2025 Active [...] sources)Unspecified atrial fibrillation; Translations: [Atrial fibrillation] Onset: 354154-66-9852XytgswbHzvumwj obstructive pulmonary disease and bronchiectasis (1 source)Chronic obstructive pulmonary disease, unspecified; Translations: [COPD UNSPECIFIED]Onset: 74-65-2384TbmywyfQvfaxiqlme heart failure; nonhypertensive (2 sources)Chronic systolic (congestive) heart failure; Translations: [Congestive heart failure]Onset: 618902-74-0014MuwgrwhTxihwcrg atherosclerosis and other heart disease (4 sources)Atherosclerotic heart disease of [place] coronary artery without angina pectoris; Translations: [Coronary atherosclerosis]Onset: 12-11-2012 43-55-7878HpxffouQofggmlaex and other anemia (1 source)Iron deficiency anemia, unspecified; Translations: [Iron deficiency anemia, unspecified]Onset: 05-46-2414YsskwlejXenesoge mellitus without complication (2 sources)Type 2 diabetes mellitus; Translations: [Type 2 diabetes mellitus without complications]Onset: 345406-06-9596UxkbroaCxhueteny of lipid metabolism (2 sources)Pure hypercholesterolemia, unspecified; Translations: [Hyperlipidemia]Onset: 743837-67-0707WgtaeowWaennhvqp hypertension (3 sources)Essential (primary) hypertension; Translations: [Essential hypertension]Onset: 825037-71-9818CfnmchbGvaroslmaowrbvya hemorrhage (1 source)Hemorrhage of anus and rectum; Translations: [Hemorrhage of anus and rectum]Onset: 78-29-9061GbhvrkwkSziuy valve disorders (2 sources)Nonrheumatic mitral (valve) insufficiency; Translations: [Mitral valve disorder]Onset: 73-66-458727290646-17-7868PfkmazzSeumkkpepbvq with complications and secondary hypertension (2 sources)Hypertensive heart disease without heart failure; Translations: [Hypertensive heart disease withoutheart failure]Onset: 04-33-2278XrtvadlEncvozc and fatigue (3 sources)Asthenia; Translations: [Weakness]Onset: 898041-09-3400Vmhueegd Miscellaneous mental health disorders (1 source)Other symptoms and signs involving emotional state; Translations: [Other symptoms and signs involving emotional state]Onset: 14-36-3806Kqmhmnwe Other circulatory disease (4 sources)Other specified peripheral vascular diseases; Translations: [OTH SPEC PERIPHERAL VASC DISEASES]Onset: 13-84-9983JnfmzrhAdfcm circulatory disease (1 source)Peripheral arterial occlusive disease; Translations: [Disorder of arteries and arterioles, unspecified]Onset: 883959-23-0197HufnfrxUxnjf gastrointestinal disorders (1 source)Occult blood in stools; Translations: [Other fecal abnormalities] Onset: 809129-61-0076VaevwapeWuayy gastrointestinal disorders (1 source)Other fecal abnormalities; Translations: [Other fecal abnormalities] Onset: 08-64-7114LlnjojrqErwlv lower respiratory disease (6 sources)Other forms of dyspnea; Translations: [OTHER FORMS OF DYSPNEA]Onset: 21-74-2911FdvhyttvIcazx nutritional; endocrine; and metabolic disorders (1 source)Hypoalbuminemia; Translations: [Other disorders of plasma-protein metabolism, not elsewhere classified]Onset: 122863-82-4339QwoorgyRkpkb nutritional; endocrine; and metabolic disorders (1 source)Hypomagnesemia; Translations: [Hypomagnesemia]Onset: 64-03-2090Xpyturd Other nutritional; endocrine; and metabolic disorders (1 source)Decrease in appetite; Translations: [Anorexia]Onset: 01-07-2025 51-37-7891RcfhggfgBqwku nutritional; endocrine; and metabolic disorders (1 source)Weight decreased; Translations: [Abnormal weight loss]Onset: 694418-82-3522KictqkfgXrwwj upper respiratory infections (4 sources)Recurrent sinusitis; Translations: [Chronic sinusitis, unspecified] 57-38-6647GezdppzFeys-; endo-; and myocarditis; cardiomyopathy (except that caused by tuberculosis or sexually transmitted disease) (1 source)Primary cardiomyopathy; Translations: [Cardiomyopathy, unspecified] Onset: 420502-48-6972MxdnfydOdwiavydsq and visceral atherosclerosis (1 source)Peripheral vascular disease; Translations: [Peripheral vascular disease, unspecified]Onset: 776463-57-9343GmjkpjcEukpbkiuf (except that caused by tuberculosis or sexually transmitted disease) (6 sources)Pneumonia; Translations: [Pneumonia, unspecified organism]Onset: 005933-15-6126IcdfuhwuWrtsfkclt heart disease (1 source)Pulmonary hypertension, unspecified; Translations: [Other chronic pulmonary heart diseases]Onset: 053251-78-8199BxpbudcScvecgdt codes; unclassified (1 source)Other specified health status; Translations: [Other specified conditions influencing health status]Onset: 103444-79-3854Nymrbpdk Screening and history of mental health and substance abuse codes (6 sources)Personal history of nicotine dependence; Translations: [Ex-smoker] Onset: 59-70-0239BmsxmmhzUbezwgurpyps (1 source)EMSOnset: 01-06-2025 Past or Other Problems Problem ClassificationProblemDateDocumented DateEpisodic/ChronicCoronary atherosclerosis and other heart disease (1 source)Presence of aortocoronary bypass graft; Translations: [PRESENCE AORTOCORONARY BYPASS GRAFT]Onset: 15-58-1005YjzewqgzQmqzkkqp injury or internal injury (2 sources)Crushing injury of left ring finger, initial encounter; Translations: [Crushing injury of left ringfinger, subsequent encounter]Onset: 10-03-2021 Resolved: 43-03-2925FvmkdkztE Codes: Other specified and classifiable (1 source)Caught, crushed, jammed, or pinched between moving objects, initial encounter; Translations: [CAUGHT CRUSH/PINCH BTWN MOV OBJ INT]Onset: 10-02-2021 EpisodicFracture of upper limb (10 sources)Nondisplaced fracture of distal phalanx of right ring finger, initial encounter for closed fracture; Translations: [Nondisplaced fracture of distal phalanx of right ring finger, subsequent encounter for fracture with routine healing]Onset: 09-30-2021 Resolved: 91-01-8181VpxdupcuVvcy wounds of extremities (2 sources)Laceration without foreign body of left ring finger with damage to nail, initial encounter; Translations: [Laceration without foreign body of left ring finger with damage to nail, subsequent encounter]Onset: 10-03-2021 Resolved: 82-01-8523QsadnwxfFcvgl aftercare (1 source)Encounter for removal of suturesOnset: 10-10-2021 Resolved: 68-53-0707OchnfqvlZxbes aftercare (1 source)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 He is on the maximum doses of coreg and olmesartan. Recommend we add hydralazine 25mg BID. He should continue to monitor and let us know if it doesn't improve as we can go up on this dose. Follow-up as planned and bring in BP readings to his follow-up appt. Thank you![facility]37on *We will increase carvedilol to 25mg twice daily to help with better blood pressure control. *Check you blood pressure twice a day, 2 hours after medications and write down your readings. We will call you in able 2 weeks for these readings. *[facility] will call you to schedule your testing - stress test + echocardiogramNormalUniGreen Cross HospitalOffice Visiton 08-17-2025 Follow-up [id number] Minnie Jason 1950 M Date Provider Department Center 08/17/2025 JESUS FREEMAN [facility] CARD [facility] Family History Problem Relation Age of Onset Atrial fibrillation Brother Heart failure Brother Coronary artery disease Brother Family Status - Relation Status Age at Mother Father Brother Level of Service:91640 [place] OFFICE/OUTPATIENT ESTABLISHED MOD MDM 30 MIN Reason for Visit and Comments: Follow-up [796612] - 1 year Patient denies chest pain, Patient states he had pneumonia in [place] and is still recovering from it which is what is causing his rivero/sob. Atrial Fibrillation [80] Coronary Artery Disease [187] Congestive Heart Failure [127] Hypertension [633674] Hyperlipidemia [182] Valve Disorder [3372] - Mitral regurgitation Peripheral arterial occlusive disease [Other] Cardiomyopathy [104] Edema [2263738078] - Bilateral, more left than right Fatigue [46]NormalProMedica Defiance Regional HospitalTelephoneon 08-17-2025 [id number] Minnie Jason 1950 M Date Provider Department Center 08/17/2025 895-SERGE SANCHEZ SINDY Rasmussen Family History Problem Relation Age of Onset Atrial fibrillation Brother Heart failure Brother Coronary artery disease Brother Family Status - Relation Status Age at Mother Father BrotherNormOhioHealth Mansfield HospitalOrders Onlyon 15-59-8926Vjfzuo [id number] Minnie Jason 1950 M Date Provider Department Center 08/16/2025 [id number], HISTORICAL SINDY Rasmussen Family History Problem Relation Age of Onset Atrial fibrillation Brother Heart failure Brother Coronary artery disease Brother Family Status - Relation Status Age at Mother Father BrotherParma Community General HospitalCBC AND AUTO DIFFon 01-27-2025 Anisocytosis Ql (Bld)2+AbnormalNONEProMedica Northbay Vacavalley HospitalComment on above: Performed By: #### COVFLR #### [facility] ([id number]) [address] [place] [address] 07761Xibc form neutrophils/100 WBC (Bld)1.0 %NormalProMedica Northbay Vacavalley HospitalComment on above:Performed By: #### COVFLR #### [facility] ([id number]) [address] [place] [address] 40287VSRW4+AbnormalNONEPKindred Hospital LimaComment on above: Performed By: #### COVFLR #### [facility] ([id number]) [address] [place] [address] 37078Vepnwexrbjp distribution width (RBC) [Ratio]22.4 %High11.5-15.0 Pro[facility] Northbay Vacavalley HospitalComment on above:Performed By: #### COVFLR #### [facility] ([id number]) [address] [place] [address] 53354Ljrpwrujxe (Bld) [Volume fraction]32.4 %Awf29-24YurUkozybChristus Good Shepherd Medical Center – MarshallComment on above:Performed By: #### COVFLR #### [facility] ([id number]) [address] [place] [address] 35102Izkvohsvug (Bld) [Mass/Vol]10.1 g/dLLow13.0-17.0K[facility] Behavioral Medical CenterComment on above:Performed By: #### COVFLR #### [facility] ([id number]) [address] [place] [address] 40127Cqwuyrgytty (Bld) [#/Vol]0.5 10*3/uLLow1.0-3.5PKindred Hospital LimaComment on above:Performed By: #### COVFLR #### [facility] ([id number]) [address] [place] [address] 00648Kbfumsjnkii/100 WBC (Bld)4.0 %NormalProChristus Good Shepherd Medical Center – Marshall Comment on above:Performed By: #### COVFLR #### [facility] ([id number]) [address] [place] [address] 87106DLB (RBC) [Entitic mass]28.3 ztKyylrc60-49EjdPfmdqoChristus Good Shepherd Medical Center – MarshallComment on above:Performed By: #### COVFLR #### [facility] ([id number]) [address] [place] [address] 84055MSWH (RBC) [Mass/Vol]31.2 g/mSDlx47-43WerOipndzChristus Good Shepherd Medical Center – MarshallComment on above:Performed By: #### COVFLR #### [facility] ([id number]) [address] [place] [address] 34097YCX (RBC) [Entitic vol]91 pHXhcxmx62-313AfoXkrxbb [facility]remont HospitalComment on above:Performed By: #### COVFLR #### [facility] ([id number]) [address] [place] [address] 22713Gczrgfisf (Bld) [#/Vol]1.2 10*3/uLHigh0-0.9ProChristus Good Shepherd Medical Center – MarshallComment on above:Performed By: #### COVFLR #### [facility] ([id number]) [address] [place] [address] 53603Bueqwwihk/100 WBC (Bld)9.0 %NormalKettering Health Behavioral Medical Center Comment on above:Performed By: #### COVFLR #### [facility] ([id number]) [address] [place] [address] 14524TSTGEUXYR5.0 %NormalKettering Health Behavioral Medical CenterComment on above: Performed By: #### COVFLR #### [facility] ([id number]) [address] [place] [address] 30352Qjgxqpnlqen (Bld) [#/Vol]11.3 10*3/uLHigh1.5-6.6ProChristus Good Shepherd Medical Center – MarshallComment on above:Performed By: #### COVFLR #### [facility] ([id number]) [address] [place] [address] 02845WFQRHPLSB7+AbnormalNONEProMedica Northbay Vacavalley HospitalComment on above:Performed By: #### COVFLR #### [facility] ([id number]) [address] [place] [address], [place] [address]Owyytwmj mean volume (Bld) [Entitic vol]7.7 fLNormal7-12 ProMedicFountain Valley Regional Hospital and Medical CenterComment on above:Performed By: #### COVFLR #### [facility] ([id number]) [address] [place] [address], [place] [address]Vapybnkcn (Bld) [#/Vol]306 10*3/hCOneoyl448-434CumSrrujo [facility]remont HospitalComment on above:Performed By: #### COVFLR #### [facility] ([id number]) [address] [place] [address], [place] [address]CYLIOHMTFNJUA6+AbnormalNONEProMedica Northbay Vacavalley HospitalComment on above:Performed By: #### COVFLR #### [facility] ([id number]) [address] [place] [address] 91081WZQ COUNT3.57 X10E12/LLow4.10-5.70[facility] Comment on above:Performed By: #### COVFLR #### [facility] ([id number]) [address] [place] [address], [place] [address]QST PFFVEETJHW90.0 %NormalProChristus Good Shepherd Medical Center – MarshallComment on above:Performed By: #### COVFLR #### [facility] ([id number]) [address] [place] [address], [place] [address]YDZ (Bld) [#/Vol]13.1 10*3/uLHigh4.0-11.0K[facility] Medical CenterComment on above:Performed By: #### COVFLR #### [facility] ([id number]) [address] [place] [address], [place] [address]FGO AND AUTO DIFFon 79-66-4597GIOUNUSQ BASOPHIL0.0 X10E9/L Normal0.0-0.2ProMedKaiser Permanente Medical CenterComment on above:Performed By: #### COVFLR #### [facility] ([id number]) [address] [place] [address] 83712YSSLYAUI NEUTROPHIL2.6 X10E9/LNormal1.5-6.6ProChristus Good Shepherd Medical Center – MarshallComment on above:Performed By: #### COVFLR #### [facility] ([id number]) [address] [place] [address] 43915Rbhjgexec/100 WBC (Bld)0.3 %NormalKettering Health Behavioral Medical Center Comment on above:Performed By: #### COVFLR #### [facility] ([id number]) [address] [place] [address] 97282Qoyunyopwtz (Bld) [#/Vol]0.1 10*3/uLNormal0.0-0.4K[facility] Behavior[facility] Medical CenterComment on above:Performed By: #### COVFLR #### [facility] ([id number]) [address] [place] [address] 39456Kiulilelgqq/100 WBC (Bld)2.6 %NormalKettering Health Behavioral Medical Center Comment on above:Performed By: #### COVFLR #### [facility] ([id number]) [address] [place] [address] 16154Gezyjchpbmf distribution width (RBC) [Ratio]20.7 %High11.5-15.0 ProMprinceton baptist medical centera Northbay Vacavalley HospitalComment on above:Performed By: #### COVFLR #### [facility] ([id number]) [address] [place] [address] 28771Tzgdlhdmww (Bld) [Volume fraction]29.5 %Zrb98-85DaiEsipdyChristus Good Shepherd Medical Center – MarshallComment on above:Performed By: #### COVFLR #### [facility] ([id number]) [address] [place] [address] 35892Nacikurgnm (Bld) [Mass/Vol]9.6 g/dLLow13.0-17.0K[facility] Medical CenterComment on above:Performed By: #### COVFLR #### [facility] ([id number]) [address] [place] [address] 49268Eubldxdmxvo (Bld) [#/Vol]1.0 10*3/uLNormal1.0-3.5PKindred Hospital LimaComment on above:Performed By: #### COVFLR #### [facility] ([id number]) [address] [place] [address] 10043Vgrkolyydrh/100 WBC (Bld)22.8 %NormalProChristus Good Shepherd Medical Center – [facility] Comment on above:Performed By: #### COVFLR #### [facility] ([id number]) [address] [place] [address] 40107NLB (RBC) [Entitic mass]28.9 niXqehmi38-42MibNensmgChristus Good Shepherd Medical Center – MarshallComment on above:Performed By: #### COVFLR #### [facility] ([id number]) [address] [place] [address] 43633HCIW (RBC) [Mass/Vol]32.6 g/mRDtpcyj22-19CcxJzoimyChristus Good Shepherd Medical Center – MarshallComment on above:Performed By: #### COVFLR #### [facility] ([id number]) [address] [place] [address] 98056PEV (RBC) [Entitic vol]89 wNYcivzr06-052TajWklfwxKettering Health Behavioral Medical CenterComment on above:Performed By: #### COVFLR #### [facility] ([id number]) [address] [place] [address] 51257Quqjopknw (Bld) [#/Vol]0.6 10*3/uLNormal0-0.9K[facility] Medical CenterComment on above:Performed By: #### COVFLR #### [facility] ([id number]) [address] [place] [address] 25051Oielkgvja/100 WBC (Bld)14.1 %NormalKettering Health Behavioral Medical Center Comment on above:Performed By: #### COVFLR #### [facility] ([id number]) [address] [place] [address] 50356Nzuvsoqazia/100 WBC (Bld)60.2 %[facility] Comment on above:Performed By: #### COVFLR #### [facility] ([id number]) [address] [place] [address] 34059Ycstyicj mean volume (Bld) [Entitic vol]7.1 fLNormal7-12 [facility] Medical CenterComment on above:Performed By: #### COVFLR #### [facility] ([id number]) [address] [place] [address] 55677Fosnquosc (Bld) [#/Vol]491 10*3/aJWnex377-274LkrEnxhcmKettering Health Behavioral Medical CenterComment on above:Performed By: #### COVFLR #### [facility] ([id number]) [address] [place] [address] 31673GYZ COUNT3.32 X10E12/LLow4.10-5.70[facility] Comment on above:Performed By: #### COVFLR #### [facility] ([id number]) [address] [place] [address] 73058TFA (Bld) [#/Vol]4.4 10*3/uLNormal4.0-11.0[facility] Medical CenterComment on above:Performed By: #### COVFLR #### [facility] ([id number]) [address] [place] [address] 18022HDQUMHDY BLOOD COUNTon 30-82-1645Mmpodseicun distribution width (RBC) [Ratio]16.4 %High11.5-15.0[facility] Medical CenterComment on above: Performed By: #### COVFLR #### [facility] ([id number]) [address] [place] [address] 75704Kcacnzlbjn (Bld) [Volume fraction]28.8 %Yoi35-64FtwTruxtfKettering Health Behavioral Medical CenterComment on above:Performed By: #### COVFLR #### [facility] ([id number]) [address] [place] [address] 82324Ihbmviaetx (Bld) [Mass/Vol]9.5 g/dLLow13.0-17.0[facility] Medical CenterComment on above:Performed By: #### COVFLR #### [facility] ([id number]) [address] [place] [address] 60535URL (RBC) [Entitic mass]27.4 quLsjmek72-38JfzUzgeflKettering Health Behavioral Medical CenterComment on above:Performed By: #### COVFLR #### [facility] ([id number]) [address] [place] [address] 48960JATA (RBC) [Mass/Vol]33.1 g/xEYylaoh38-68DreCyevzuKettering Health Behavioral Medical CenterComment on above:Performed By: #### COVFLR #### [facility] ([id number]) [address] [place] [address] 69736YYC (RBC) [Entitic vol]83 ePXhgvrn86-611AgaKpmwsdKettering Health Behavioral Medical CenterComment on above:Performed By: #### COVFLR #### [facility] ([id number]) [address] [place] [address] 13171Znaqylfw mean volume (Bld) [Entitic vol]7.9 fLNormal7-12 [facility] Medical CenterComment on above:Performed By: #### COVFLR #### [facility] ([id number]) [address] [place] [address] 67210Rtncksaex (Bld) [#/Vol]187 10*3/jLZdario583-491ZpaCxwbfl [facility] HospitalComment on above:Performed By: #### COVFLR #### [facility] ([id number]) [address] [place] [address] 35517OHH COUNT3.48 X10E12/LLow4.10-5.70[facility] Comment on above:Performed By: #### COVFLR #### [facility] ([id number]) [address] [place] [address] 52960TLT (Bld) [#/Vol]3.7 10*3/uLLow4.0-11.0[facility] Medical CenterComment on above:Performed By: #### COVFLR #### [facility] ([id number]) [address] [place] [address] 50557QMEPRCICBfy 97-34-9618Ycbxiugsr [Mass/Vol]1.6 mg/dLLow1.8-2.6 [facility] Medical CenterComment on above:Performed By: #### COVFLR #### [facility] ([id number]) [address] [place] [address] 56507XVNEHJPI BLOOD COUNTon 83-85-5580Xgrzcvhtuzd distribution width (RBC) [Ratio]15.3 %High11.5-15.0[facility] Medical CenterComment on above: Performed By: #### CBCA, 81854-4, CMP, 38055-6 #### [facility] ([id number]) [address] [place] [address] 83841Eoryfunyez (Bld) [Volume fraction]25.2 %Hjs37-29ScsDucafpKettering Health Behavioral Medical CenterComment on above:Performed By: #### JOAQUIN, , CMP, 35623-6 #### [facility] ([id number]) [address] [place] [address] 53914Vmdxonjosi (Bld) [Mass/Vol]8.7 g/dLLow13.0-17.0[facility] Medical CenterComment on above:Performed By: #### JOAQUIN, , CMP, 87623-1 #### [facility] ([id number]) [address] [place] [address] 21147ETK (RBC) [Entitic mass]28.0 vqPtikbv49-55TohMdcjqfChristus Good Shepherd Medical Center – MarshallComment on above:Performed By: #### JOAQUIN, , CMP, 16846-3 #### [facility] ([id number]) [address] [place] [address] 68482VQJH (RBC) [Mass/Vol]34.6 g/vERhzetu45-10ZcqSkwrvlChristus Good Shepherd Medical Center – MarshallComment on above:Performed By: #### JOAQUIN, , CMP, 44562-2 #### [facility] ([id number]) [address] [place] [address] 72388HHQ (RBC) [Entitic vol]81 qJTeyraf44-740TyeIbmlxu [facility]ont HospitalComment on above:Performed By: #### JOAQUIN, , CMP, 13234-2 #### [facility] ([id number]) [address] [place] [address] 54347Ijlpmzvb mean volume (Bld) [Entitic vol]7.8 fLNormal7-12 [facility] Medical CenterComment on above:Performed By: #### JOAQUIN, , CMP, 55128-1 #### [facility] ([id number]) [address] [place] [address] 19678Fqudfykmu (Bld) [#/Vol]71 10*3/bMDwt055-160BakYbgyktChristus Good Shepherd Medical Center – MarshallComment on above:Performed By: #### JOAQUIN, 91230-7, CMP, 40180-1 #### [facility] ([id number]) [address] [place] [address] 23007TVH COUNT3.11 X10E12/LLow4.10-5.70Pro[facility] Comment on above:Performed By: #### JOAQUIN, 63267-1, CMP, 09578-9 #### [facility] ([id number]) [address] [place] [address] 52697QAF (Bld) [#/Vol]4.5 10*3/uLNormal4.0-11.0ProChrist[facility] Shepherd Medical Center – MarshallComment on above:Performed By: #### JOAQUIN, 00478-3, CMP, 51841-5 #### [facility] ([id number]) [address] [place] [address] 83182USZAOMIGJTARC METABOLIC PANELon 54-73-9618Tozqpkn [Mass/Vol]2.8 g/dLLow3.2-5.3PKindred Hospital LimaComment on above:Performed By: #### JOAQUIN, 72470-4, CMP, 42369-1 #### [facility] ([id number]) [address] [place] [address] 18765OTP [Catalytic activity/Vol]62 U/QDicxei60-956QbkQluoqpChristus Good Shepherd Medical Center – MarshallComment on above:Performed By: #### JOAQUIN, 33239-5, CMP, 77498-2 #### [facility] ([id number]) [address] [place] [address] 60023NCF [Catalytic activity/Vol]43 U/LHigh0-40ProChrist[facility] – MarshallComment on above:Performed By: #### JOAQUIN, 29612-2, CMP, 02398-9 #### [facility] ([id number]) [address] [place] [address], [place] [address]Lcugj gap [Moles/Vol]5 mmol/LNormal5-15ProChrist[facility] – MarshallComment on above:Performed By: #### JOAQUIN, , CMP, 42152-7 #### [facility] ([id number]) [address] [place] [address], [place] 25[address]JZW [Catalytic activity/Vol]27 U/LNormal0-41Pro[facility] – MarshallComment on above:Performed By: #### JOAQUIN, , CMP, 82063-5 #### [facility] ([id number]) [address] [place] [address], [place] [address]Hpygieqsp [Mass/Vol]0.9 mg/dLNormal0.3-1.2PKindred Hospital LimaComment on above:Performed By: #### JOAQUIN, , CMP, 20907-9 #### [facility] ([id number]) [address] [place] [address], [place] [address]Cblbrzc [Mass/Vol]7.7 mg/dLLow8.5-10.5PKindred Hospital LimaComment on above:Performed By: #### JOAQUIN, , CMP, 01874-8 #### [facility] ([id number]) [address] [place] [address], [place] [address]Wmbpchqb [Moles/Vol]103 mmol/SCxseuc71-905GejTrukwjChristus Good Shepherd Medical Center – MarshallComment on above:Performed By: #### JOAQUIN, , CMP, 32819-0 #### [facility] ([id number]) [address] [place] [address], [place] 30117PW1 [Moles/Vol]23 mmol/YMrbfnr95-01AneFqyxqrKindred Hospital Lima Comment on above:Performed By: #### JOAQUIN, 18438-3, CMP, 83621-0 #### [facility] ([id number]) [address] [place] [address] 19512Wvmympyudd [Mass/Vol]0.61 mg/dLLow0.70-1.20ProChrist[facility] Center – MarshallComment on above:Result Comment: METHOD TRACEABLE TO IDMS STANDARD Performed By: #### JOAQUIN, 43738-7, CMP, 21658-7 #### [facility] ([id number]) [address] [place] [address] 94494jKTJ (CKD-EPI) NON-RACE DEPENDENT>90Normal>59ProChrist[facility] Medical Center – MarshallComment on above:Result Comment: Reported eGFR is based on the CKD-EPI 2020 equation that does not use a race coefficient.Performed By: #### JOAQUIN, 12926-7, JUVENAL, 21345-3 #### [facility] ([id number]) [address] [place] [address] 84353Ctvvgfo [Mass/Vol]105 mg/zPNswt83-59InjWmxojkChristus Good Shepherd Medical Center – Marshall Comment on above:Performed By: #### JOAQUIN, 00365-0, CMP, 97286-2 #### [facility] ([id number]) [address] [place] [address] 50035Wnfzluhwq [Moles/Vol]3.8 mmol/LNormal3.5-5.0ProChrist[facility] Center – MarshallComment on above:Performed By: #### JOAQUIN, 26127-1, CMP, 69317-3 #### [facility] ([id number]) [address] [place] [address] 35945Kzohicx [Mass/Vol]4.9 g/dLLow6.0-8.0[facility] Comment on above:Performed By: #### JOAQUIN, 58705-5, CMP, 17153-2 #### [facility] ([id number]) [address], [place] [address]Fgzlge [Moles/Vol]131 mmol/DYek565-416TgvKokkzsChristus Good Shepherd Medical Center – MarshallComment on above:Performed By: #### JOAQUIN, 19165-1, CMP, 43425-6 #### [facility] ([id number]) [address] [place] [address] 44634Agbo nitrogen [Mass/Vol]7 mg/dLNormal5-27ProChrist[facility] Center – MarshallComment on above:Performed By: #### JOAQUIN, 10498-0, CMP, 45562-0 #### [facility] ([id number]) [address] [place] [address] 55961Fdddlvv Glucometer (BldC) [Mass/Vol]on 91-77-1370Blddlnj [Mass/Vol]115 mg/nYIhje55-18LazYuowwtKettering Health Behavioral Medical CenterGlucose [Mass/Vol]102 mg/uGKsfz51-22DihXvxeuqChristus Good Shepherd Medical Center – MarshallMAGNESIUMon 26-92-6291Dqriyifxv [Mass/Vol]1.9 mg/dLNormal1.8-2.6ProChrist[facility] Shepherd Medical Center – MarshallComment on above: Performed By: #### COVFLR #### [facility] ([id number]) [address] [place] [address] 36259Jkohcaaie [Mass/Vol]1.7 mg/dLLow1.8-2.6ProChrist[facility] Center – MarshallComment on above:Performed By: #### COVFLR #### [facility] ([id number]) [address] [place] [address] 71496SM CHEST 1 VWon 89-40-2772RK CHEST 1 VWXR CHEST 1 VW Clinical [...] by Brendan Rinaldi MD on 01/10/2025 9:13 AMNormalKettering Health Behavioral Medical CenterCOMPLETE BLOOD COUNTon 99-14-2491Lmhuzdsoetf distribution width (RBC) [Ratio]15.4 %High11.5-15.0K[facility] Behavioral Medical CenterComment on above:Performed By: #### JOAQUIN, , CMP, 78443-7 #### [facility] ([id number]) [address] [place] [address] 50456Lxbnufsbuh (Bld) [Volume fraction]22.1 %Blv66-22RqvGagykbKettering Health Behavioral Medical CenterComment on above:Performed By: #### JOAQUIN, , CMP, 12199-7 #### [facility] ([id number]) [address] [place] [address] 67989Hqjefkwocd (Bld) [Mass/Vol]7.6 g/dLLow13.0-17.0K[facility] Behavioral Medical CenterComment on above:Performed By: #### JOAQUIN, , CMP, 77205-7 #### [facility] ([id number]) [address] [place] [address] 04498OEC (RBC) [Entitic mass]28.3 wjMoepwl25-89HitInuoxhKettering Health Behavioral Medical CenterComment on above:Performed By: #### CBCHallie, 89105-3, CMP, 30237-6 #### [facility] ([id number]) [address] [place] [address] 00861ZFUN (RBC) [Mass/Vol]34.5 g/uWNebfjp88-96VgqReuhwgKettering Health Behavioral Medical CenterComment on above:Performed By: #### JOAQUIN, 13856-9, CMP, 54070-1 #### [facility] ([id number]) [address] [place] [address] [place] [address]EBG (RBC) [Entitic vol]82 mWYkarle90-882XkoPlwfew [facility]remont HospitalComment on above:Performed By: #### JOAQUIN, , CMP, 95358-9 #### [facility] ([id number]) [address] [place] [address] 82852Ecoyhmao mean volume (Bld) [Entitic vol]7.7 fLNormal7-12 ProMRidgecrest Regional HospitalComment on above:Performed By: #### JOAQUIN, , CMP, 43065-5 #### [facility] ([id number]) [address] [place] [address] 11728Yldtdfade (Bld) [#/Vol]64 10*3/xPHmi034-710DroIkkgwnChristus Good Shepherd Medical Center – MarshallComment on above:Performed By: #### JOAQUIN, , CMP, 51474-6 #### [facility] ([id number]) [address] [place] [address] 58829HUI COUNT2.69 X10E12/LLow4.10-5.70[facility] Comment on above:Performed By: #### JOAQUIN, , CMP, 31258-6 #### [facility] ([id number]) [address] [place] [address] 32075HPG (Bld) [#/Vol]3.8 10*3/uLLow4.0-11.0K[facility]al Medical CenterComment on above:Performed By: #### JOAQUIN, , CMP, 99184-5 #### [facility] ([id number]) [address] [place] [address] 31120EHFFBJGXHFPAN METABOLIC PANELon 56-06-6101Kzreezx [Mass/Vol]2.6 g/dLLow3.2-5.3PKindred Hospital LimaComment on above:Performed By: #### JOAQUIN, 07548-1, CMP, 85772-4 #### [facility] ([id number]) [address] [place] [address], [place] 04[address]MXW [Catalytic activity/Vol]58 U/VMopuxh06-376AewJnkihoChristus Good Shepherd Medical Center – MarshallComment on above:Performed By: #### JOAQUIN, 69283-1, CMP, 59097-2 #### [facility] ([id number]) [address] [place] [address], [place] [address]RDG [Catalytic activity/Vol]36 U/LNormal0-40ProChrist[facility] Center – MarshallComment on above:Performed By: #### JOAQUIN, 66309-7, CMP, 76672-7 #### [facility] ([id number]) [address] [place] [address], [place] [address]Hunvn gap [Moles/Vol]6 mmol/LNormal5-15ProChrist[facility] Center – MarshallComment on above:Performed By: #### JOAQUIN, 72268-5, CMP, 59084-2 #### [facility] ([id number]) [address] [place] [address], [place] [address]UII [Catalytic activity/Vol]23 U/LNormal0-41Pro[facility] – MarshallComment on above:Performed By: #### JOAQUIN, 11477-1, CMP, 65791-4 #### [facility] ([id number]) [address] [place] [address], [place] [address]Bszpjfgqq [Mass/Vol]0.8 mg/dLNormal0.3-1.2PMercy Regional Medical Center HospitalComment on above:Performed By: #### JOAQUIN, 90908-4, CMP, 90708-7 #### [facility] ([id number]) [address] [place] [address], [place] 599[address]Sxwncwn [Mass/Vol]7.4 mg/dLLow8.5-10.5ProMedica Jay HospitalComment on above:Performed By: #### JOAQUIN, 73552-6, CMP, 91529-9 #### [facility] ([id number]) [address] [place] [address], [place] [address]Nipceito [Moles/Vol]102 mmol/URbchsq19-370XbfPnjgfxKettering Health Behavioral Medical CenterComment on above:Performed By: #### JOAQUIN, 20435-0, CMP, 20974-0 #### [facility] ([id number]) [address] [place] [address], [place] 003[address]GU7 [Moles/Vol]22 mmol/YMvcdmz47-50VjgCnbihmKindred Hospital Lima Comment on above:Performed By: #### JOAQUIN, 67060-8, CMP, 31305-3 #### [facility] ([id number]) [address] [place] [address], [place] [address]Gcugjtszii [Mass/Vol]0.56 mg/dLLow0.70-1.20K[facility]al Medical CenterComment on above:Result Comment: METHOD TRACEABLE TO IDMS STANDARD Performed By: #### JOAQUIN, , CMP, 91374-8 #### [facility] ([id number]) [address] [place] [address], [place] [address]rADU (CKD-EPI) NON-RACE DEPENDENT>90Normal>59ProChrist[facility] Center – MarshallComment on above:Result Comment: Reported eGFR is based on the CKD-EPI 2021 equation that does not use a race coefficient.Performed By: #### JOAQUIN, 69375-8, CMP, 54113-8 #### [facility] ([id number]) [address] [place] [address], [place] [address]Zhdyemu [Mass/Vol]116 mg/pGOzwy82-92WflSjcqrgKettering Health Behavioral Medical Center Comment on above:Performed By: #### JOAQUIN, 19534-0, CMP, 75533-4 #### [facility] ([id number]) [address] [place] [address] 83778Tbcwhjerj [Moles/Vol]3.9 mmol/LNormal3.5-5.0ProChrist[facility] Center – MarshallComment on above:Performed By: #### JOAQUIN, , CMP, 97280-6 #### [facility] ([id number]) [address] [place] [address] 29722Wfsunlj [Mass/Vol]4.8 g/dLLow6.0-8.0[facility] Comment on above:Performed By: #### JOAQUIN, , CMP, 58596-2 #### [facility] ([id number]) [address] [place] [address] 97484Xjoqup [Moles/Vol]130 mmol/ELlp153-033PpbClvhszChristus Good Shepherd Medical Center – MarshallComment on above:Performed By: #### JOAQUIN, , CMP, 34952-2 #### [facility] ([id number]) [address] [place] [address] 32111Pcen nitrogen [Mass/Vol]10 mg/dLNormal5-27K[facility] Medical CenterComment on above:Performed By: #### JOAQUIN, , CMP, 88405-0 #### [facility] ([id number]) [address] [place] [address] 12468Xpotkvn Glucometer (BldC) [Mass/Vol]on 54-08-9938Yvogrly [Mass/Vol]118 mg/jEJlin25-77DgrFodlpdKettering Health Behavioral Medical CenterGlucose [Mass/Vol]151 mg/oBNcdb36-94BkrVqouftChristus Good Shepherd Medical Center – MarshallGlucose [Mass/Vol]118 mg/oGUxdm90-03 ProMRidgecrest Regional HospitalHGBon 04-79-3289Ijtkvfjmew (Bld) [Volume fraction]25.2 %Cdr07-52ThfSdqtfqKettering Health Behavioral Medical CenterComment on above:Performed By: #### JOAQUIN, , CMP, 39854-5 #### [facility] ([id number]) [address] [place] [address] 39427Fzjbvphotd (Bld) [Mass/Vol]8.6 g/dLLow13.0-17.0K[facility] Medical CenterComment on above:Performed By: #### JOAQUIN, , CMP, 15669-0 #### [facility] ([id number]) [address] [place] [address] 17055CXMDFVFURua 21-92-7121Tcaujpcdh [Mass/Vol]1.9 mg/dLNormal 1.8-2.6ProChristus [facility] Shepherd Medical Center – MarshallComment on above:Performed By: #### JOAQUIN, , CMP, 11513-4 #### [facility] ([id number]) [address] [place] [address] 34504Frtdxvier [Mass/Vol]1.8 mg/dLNormal1.8-2.6ProChrist[facility] Center – MarshallComment on above:Performed By: #### JOAQUIN, , CMP, 81544-3 #### [facility] ([id number]) [address] [place] [address] 02890RLXITMBK BLOOD COUNTon 18-76-9296Glpfvxlautj distribution width (RBC) [Ratio]15.5 %High11.5-15.0ProChrist[facility] Center – MarshallComment on above: Performed By: #### JOAQUIN, , CMP, 90294-2 #### [facility] ([id number]) [address] [place] [address] 37852Rbkmtcrfjh (Bld) [Volume fraction]25.9 %Sft72-14SfaLvinxqChristus Good Shepherd Medical Center – MarshallComment on above:Performed By: #### JOAQUIN, , CMP, 17071-5 #### [facility] ([id number]) [address] [place] [address] 16135Swijmgmvxr (Bld) [Mass/Vol]9.0 g/dLLow13.0-17.0K[facility] Behavioral Medical CenterComment on above:Performed By: #### JOAQUIN, , CMP, 06653-9 #### [facility] ([id number]) [address] [place] [address] 83964XKH (RBC) [Entitic mass]28.4 bcKytqar99-99OqcWzatexChristus Good Shepherd Medical Center – MarshallComment on above:Performed By: #### JOAQUIN, , CMP, 93310-5 #### [facility] ([id number]) [address] [place] [address] 74787XCCQ (RBC) [Mass/Vol]34.8 g/xLYtdwcv94-51XzmPynuutChristus Good Shepherd Medical Center – MarshallComment on above:Performed By: #### JOAQUIN, , CMP, 08119-5 #### [facility] ([id number]) [address] [place] [address] 56771IBW (RBC) [Entitic vol]82 bNYathas14-748PcyNsadeoKettering Health Behavioral Medical CenterComment on above:Performed By: #### JOAQUIN, , CMP, 65588-2 #### [facility] ([id number]) [address] [place] [address] 10742Svibbvgc mean volume (Bld) [Entitic vol]7.6 fLNormal7-12 [facility] Medical CenterComment on above:Performed By: #### JOAQUIN, , CMP, 50052-6 #### [facility] ([id number]) [address] [place] [address] 36170Pxbvmodiw (Bld) [#/Vol]83 10*3/hAPcu125-141AblZhguwlChristus Good Shepherd Medical Center – MarshallComment on above:Performed By: #### JOAQUIN, 52873-6, CMP, 96707-0 #### [facility] ([id number]) [address] [place] [address] 93478CTQ COUNT3.17 X10E12/LLow4.10-5.70[facility] Comment on above:Performed By: #### JOAQUIN, , CMP, 09130-6 #### [facility] ([id number]) [address] [place] [address] 04317TAJ (Bld) [#/Vol]5.5 10*3/uLNormal4.0-11.0ProChristus [facility] Shepherd Medical Center – MarshallComment on above:Performed By: #### JOAQUIN, , CMP, 17758-4 #### [facility] ([id number]) [address] [place] [address] 70351TWEGVLUKQSMLL METABOLIC PANELon 57-63-9320Lmjfiii [Mass/Vol]3.0 g/dLLow3.2-5.3PKindred Hospital LimaComment on above:Performed By: #### JOAQUIN, , CMP, 85953-9 #### [facility] ([id number]) [address] [place] [address] 45993FMG [Catalytic activity/Vol]65 U/FKpmbct83-344LqsYltbcbChristus Good Shepherd Medical Center – MarshallComment on above:Performed By: #### JOAQUIN, , CMP, 91486-1 #### [facility] ([id number]) [address] [place] [address] 90132PWZ [Catalytic activity/Vol]45 U/LHigh0-40ProChrist[facility] Center – MarshallComment on above:Performed By: #### JOAQUIN, , CMP, 64165-2 #### [facility] ([id number]) [address] [place] [address] 13142Pipky gap [Moles/Vol]8 mmol/LNormal5-15ProChrist[facility] Center – MarshallComment on above:Performed By: #### JOAQUIN, , CMP, 59344-3 #### [facility] ([id number]) [address] [place] [address] 80681HKL [Catalytic activity/Vol]26 U/LNormal0-41ProChrist[facility] Center – MarshallComment on above:Performed By: #### JOAQUIN, , CMP, 52140-0 #### [facility] ([id number]) [address] [place] [address], [place] [address]Jbqbphdhc [Mass/Vol]1.0 mg/dLNormal0.3-1.2PKindred Hospital LimaComment on above:Performed By: #### JOAQUIN, , CMP, 44745-7 #### [facility] ([id number]) [address] [place] [address], [place] [address]Vzhssnl [Mass/Vol]8.0 mg/dLLow8.5-10.5PKindred Hospital LimaComment on above:Performed By: #### JOAQUIN, , CMP, 99602-2 #### [facility] ([id number]) [address] [place] [address], [place] 12453Qbcamfob [Moles/Vol]102 mmol/AIvkexm15-726AkaFhlhaaChristus Good Shepherd Medical Center – MarshallComment on above:Performed By: #### JOAQUIN, , CMP, 26722-3 #### [facility] ([id number]) [address] [place] [address], [place] 43318SZ7 [Moles/Vol]21 mmol/TVqd93-17OegCmuhoyKindred Hospital Lima Comment on above:Performed By: #### JOAQUIN, , CMP, 00953-8 #### [facility] ([id number]) [address] [place] [address], [place] 827[address]Zbrsbblxub [Mass/Vol]0.54 mg/dLLow0.70-1.20ProChristus Good Shepherd Medical Center – MarshallComment on above:Result Comment: METHOD TRACEABLE TO IDMS STANDARD Performed By: #### JOAQUIN, 86118-3, JUVENAL, 50735-6 #### [facility] ([id number]) [address] [place] [address] 40272bZJE (CKD-EPI) NON-RACE DEPENDENT>90Normal>59ProChristus [facility] Shepherd Medical Center – MarshallComment on above:Result Comment: Reported eGFR is based on the CKD-EPI 1 equation that does not use a race coefficient.Performed By: #### JOAQUIN , JUVENAL, 19506-6 #### [facility] ([id number]) [address] [place] [address] 43840Byarhmm [Mass/Vol]104 mg/wNEeal16-87OsuClmltvKettering Health Behavioral Medical Center Comment on above:Performed By: #### JOAQUIN , JUVENAL, 75958-6 #### [facility] ([id number]) [address] [place] [address] 59490Twsaryrcv [Moles/Vol]3.6 mmol/LNormal3.5-5.0ProChristus [facility] Shepherd Medical Center – MarshallComment on above:Performed By: #### JOAQUIN , JUVENAL, 54291-6 #### [facility] ([id number]) [address] [place] [address] 22863Vtidukg [Mass/Vol]5.5 g/dLLow6.0-8.0[facility] Comment on above:Performed By: #### JOAQUIN, 85332-0, JUVEANL, 30415-1 #### [facility] ([id number]) [address] [place] [address] 94590Dbzsvf [Moles/Vol]131 mmol/ATbr456-787MvgQpyafxChristus Good Shepherd Medical Center – MarshallComment on above:Performed By: #### JOAQUIN 79057-9, JUVENAL, 11818-9 #### [facility] ([id number]) [address] [place] [address] 53190Jhod nitrogen [Mass/Vol]19 mg/dLNormal5-27K[facility] Behavioral Medical CenterComment on above:Performed By: #### JOAQUIN, , CMP, 96715-2 #### [facility] ([id number]) [address] [place] [address] 86750Zhisymn Glucometer (BldC) [Mass/Vol]on 57-35-6163Iaruhpg [Mass/Vol]136 mg/aLKizs92-87XrzTtoaxcKettering Health Behavioral Medical CenterGlucose [Mass/Vol]112 mg/dKSwjh24-58HasQeodhiKettering Health Behavioral Medical CenterHGVerde Valley Medical Center 65-51-8878Tmrqqcmvwz (Bld) [Volume fraction]25.2 %Trs88-27GpvUlukooChristus Good Shepherd Medical Center – MarshallComment on above:Performed By: #### JOAQUIN, , CMP, 92041-8 #### [facility] ([id number]) [address] [place] [address] 04462Jcpskymbkm (Bld) [Mass/Vol]8.2 g/dLLow13.0-17.0K[facility] Behavioral Medical CenterComment on above:Performed By: #### JOAQUIN, , CMP, 92465-8 #### [facility] ([id number]) [address] [place] [address] 59018EPEPMVGTKkt 33-36-4793Istpqiihp [Mass/Vol]1.9 mg/dLNormal 1.8-2.6[facility] Medical CenterComment on above:Performed By: #### JOAQUIN, , CMP, 79541-7 #### [facility] ([id number]) [address] [place] [address] 83875Qwjwfojnk [Mass/Vol]1.6 mg/dLLow1.8-2.6ProChristus Good Shepherd Medical Center – MarshallComment on above:Performed By: #### CBCA, 62354-7, CMP, 38775-7 #### [facility] ([id number]) [address] [place] [address] 70070IRIQIGUHSta 39-65-9906Ppnwnbdyj [Moles/Vol]4.0 mmol/LNormal 3.5-5.0ProChristus Good Shepherd Medical Center – MarshallComment on above:Performed By: #### CBCA, 74923-4, CMP, 63886-7 #### [facility] ([id number]) [address] [place] [address] 62894Dlcohpkp Pathologyon 68-59-6388Yqnxhfze PathologyNormal [facility] Medical CenterComment on above:Result Comment: [facility] [address] [place] [address] Surgical Pathology Consultation Patient Name:MINNIE JASON:1950 (Age: 74)Gender:MTaken:01/08/2025Reported:01/14/2025Physician(s):Letty Toscano D.O. ([phone])Copy To: Rec. #:[id number]: #[id number] [phone] Final Pathologic Diagnosis 1. Stomach, prepyloric, biopsy: Junctional mucosa with mild reactive changes. No histological evidence of H. pylori infection on routine stain. 2. Stomach, cardia, biopsy: Gastric mucosa with hyperplastic changes. 3. Transverse colon, polypectomy: Tubular adenoma. Report Electronically Signed Out rg/01/14/2025Dennise Stanton MD Interpretation performed at [facility], [address] [place] [id number], License number: [id number]. Clinical History Occult blood positive stool R19.5. Gross Description 1. Received in formalin labeled JASON, prepyloric biopsy is a light campos soft tissue bit, 0.4 cm.The specimen is filtered and entirely submitted in a single cassette. (1, ns, L89-26629-8,m3) DM. 2. Received in formalin labeled JASON, cardia biopsy are two light campos soft tissue bits, 0.2 cm each. The specimen is filtered and entirely submitted in a single cassette. (1, ns, W51-08069-6,m3) DM. 3. Received in formalin labeled JASON, transverse colon polyp is a light campos soft tissue bit, 0.3 cm. The specimen is filtered and entirely submitted in a single cassette. (1, ns, M70-12015-9,m3) DM. dm//GR Specimen(s) Received 1: Pre-pyloric biopsy 2: Cardia biopsy 3: Transverse colon polyp x2 Fee Codes(s): 1; 51002 2; 06838 3; 21796D REACTIVE PROTEINon 11-50-0645BLP [Mass/Vol]mg/LNormal0.000-0.744 ProMRidgecrest Regional HospitalComment on above:Performed By: #### CBCA, , CMP, 79692-3 #### [facility] ([id number]) [address] [place] [address] 70816BPACRMHI BLOOD COUNTon 02-93-5315Xwhdbbwefrk distribution width (RBC) [Ratio]15.9 %High11.5-15.0ProChrist[facility] – MarshallComment on above: Performed By: #### CMP, , 21927-0, CBC, 1988-02, 89981-4 #### [facility] ([id number]) [address] [place] [address] 85770 #### 2276-4, 76286-8, FEPR #### [facility] ([id number]) [address] [place] [address], [address] [place], [place] [address]Ruasqztfnd (Bld) [Volume fraction]26.1 %Iom34-54PiwEzavchChristus Good Shepherd Medical Center – MarshallComment on above:Performed By: #### CMP, , 62053-7, CBC, 1988-02, 45232-1 #### [facility] ([id number]) [address] [place] [address] 78293 #### 2276-4, 15050-6, FEPR #### [facility] ([id number]) [address], [address] [place], [place] [address]Mboblfoohg (Bld) [Mass/Vol]8.9 g/dLLow13.0-17.0ProChrist[facility] Shepherd [facility] Center – MarshallComment on above:Performed By: #### CMP, 97906-4, 94649-9, CBC, 1988-02, 28599-1 #### [facility] ([id number]) [address] [place] [address] 07705 #### 2276-4, 89527-2, FEPR #### [facility] ([id number]) [address], [address] [place], [place] [address]NVL (RBC) [Entitic mass]28.0 gdXxumrn95-97AcqGhtlwdChristus Good Shepherd Medical Center – MarshallComment on above:Performed By: #### CMP, 84854-3, 28112-2, CBC, 1988-02, 97381-2 #### [facility] ([id number]) [address] [place] [address]85 #### 2276-4, 13449-6, FEPR #### [facility] ([id number]) [address], [address] [place], [place] [address]EAOU (RBC) [Mass/Vol]34.0 g/gSFtkvuu49-41PjxZnihsjChristus Good Shepherd Medical Center – MarshallComment on above:Performed By: #### CMP, 24111-2, 44661-1, CBC, 1988-02, 60898-1 #### [facility] ([id number]) [address] [place] [address] 34374 #### 2276-4, 22075-7, FEPR #### [facility] ([id number]) [address], [address] [place], [place] [address]MBG (RBC) [Entitic vol]83 cAXtmqyn44-644KiwBbsggz Fremont HospitalComment on above:Performed By: #### JUVENAL, 04872-7, 02706-7, CBC, 1988-02, 40344-8 #### [facility] ([id number]) [address] [place] [address] 43358 #### 2276-4, 77880-6, FEPR #### [facility] ([id number]) [address], [address] [place], [place] [address]Preguhcz mean volume (Bld) [Entitic vol]7.5 fLNormal7-12 [facility] Vacavalley HospitalComment on above:Performed By: #### JUVENAL, , 28401-4, CBC, 1988-02, 59304-4 #### [facility] ([id number]) [address] [place] [address] 76974 #### 2276-4, 68354-8, FEPR #### [facility] ([id number]) [address], [address] [place], [place] [address]Tcmsnfmdb (Bld) [#/Vol]101 10*3/hIZhb975-493HmvZhodvjChristus Good Shepherd Medical Center – MarshallComment on above:Performed By: #### JUVENAL, , 58436-0, CBC, 1988-02, 47182-0 #### [facility] ([id number]) [address] [place] [address] 49087 #### 2276-4, 54096-1, FEPR #### [facility] ([id number]) [address], [address] [place], [place] [address]QWR COUNT3.17 X10E12/LLow4.10-5.70[facility] Comment on above:Performed By: #### CMP, , 12865-7, CBC, 1988-02, 58361-2 #### [facility] ([id number]) [address] [place] [address]50 #### 2276-4, 03452-4, FEPR #### [facility] ([id number]) [address], [address] [place], [place] [address]RIR (Bld) [#/Vol]4.5 10*3/uLNormal4.0-11.0ProChrist[facility] – MarshallComment on above:Performed By: #### CMP, 62857-9, 32890-7, CBC, 1988-02, 70988-7 #### [facility] ([id number]) [address] [place] [address] 59200 #### 2276-4, 70713-0, FEPR #### [facility] ([id number]) [address], [address] [place], [place] [address]MURENLCPKHVCL METABOLIC PANELon 20-72-2297Donmabr [Mass/Vol]2.8 g/dLLow3.2-5.3Pro[facility] Vacavalley HospitalComment on above:Performed By: #### CMP, , 79898-3, CBC, 1988-02, 28399-8 #### [facility] ([id number]) [address] [place] [address] 31661 #### 2276-4, 01015-4, FEPR #### [facility] ([id number]) [address], [address] [place], [place] [address]LDO [Catalytic activity/Vol]59 U/NIfxdbd73-460TteGqctnbChristus Good Shepherd Medical Center – MarshallComment on above:Performed By: #### CMP, 69671-8, 58514-5, CBC, 1988-02, 36780-3 #### [facility] ([id number]) [address] [place] [address] 32678 #### 2276-4, 76179-0, FEPR #### [facility] ([id number]) [address], [address] [place], [place] [address]DMW [Catalytic activity/Vol]40 U/LNormal0-40ProChrist[facility] Center – MarshallComment on above:Performed By: #### JUVENAL, 63380-4, 00669-7, CBC, 1988-02, 37090-0 #### [facility] ([id number]) [address] [place] [address] #### 2276-4, 02988-8, FEPR #### [facility] ([id number]) [address], [address] [place], [place] [address]Jrvlz gap [Moles/Vol]5 mmol/LNormal5-15Pro[facility] – MarshallComment on above:Performed By: #### JUVENAL, 79245-6, 88335-3, CBC, 1988-02, 13396-1 #### [facility] ([id number]) [address] [place] [address] 84484 #### 2276-4, 38273-3, FEPR #### [facility] ([id number]) [address], [address] [place], [place] [address]XUA [Catalytic activity/Vol]19 U/LNormal0-41ProChrist[facility] – MarshallComment on above:Performed By: #### JUVENAL, 27337-9, 43925-0, CBC, 1988-02, 28595-5 #### [facility] ([id number]) [address] [place] [address] 61532 #### 2276-4, 64900-7, FEPR #### [facility] ([id number]) [address], [address] [place], [place] [address]Rsmlheadr [Mass/Vol]0.8 mg/dLNormal0.3-1.2[facility] Vacavalley HospitalComment on above:Performed By: #### CMP, 23991-6, 81968-3, CBC, 1988-02, 39385-8 #### [facility] ([id number]) [address] [place] [address] 56680 #### 2276-4, 02033-0, FEPR #### [facility] ([id number]) [address], [address] [place], [place] [address]Fljcvgz [Mass/Vol]7.6 mg/dLLow8.5-10.5PKindred Hospital Lima Comment on above:Performed By: #### CMP, , 68291-5, CBC, 1988-02, 43329-6 #### [facility] ([id number]) [address] [place] [address] 23875 #### 2276-4, 39789-1, FEPR #### [facility] ([id number]) [address], [address] [place], [place] [address]Mztkgpgs [Moles/Vol]103 mmol/QDeefhq28-524RtxYqntca Northbay Vacavalley HospitalComment on above:Performed By: #### CMP, , 80798-4, CBC, 1988-02, 90565-5 #### [facility] ([id number]) [address] [place] [address] 26362 #### 2276-4, 84296-7, FEPR #### [facility] ([id number]) [address], [address] [place], [place] [address]JW1 [Moles/Vol]24 mmol/OGvguqc06-54YysKtgogzKindred Hospital Lima Comment on above:Performed By: #### CMP, , 14407-1, CBC, 1988-02, 12631-9 #### [facility] ([id number]) [address] [place] [address] 31233 #### 2276-4, 38452-2, FEPR #### [facility] ([id number]) [address], [address] [place], [place] [address]Sulwspxkff [Mass/Vol]0.65 mg/dLLow0.70-1.20K[facility] Behavioral Medical CenterComment on above:Result Comment: METHOD TRACEABLE TO IDMS STANDARD Performed By: #### JUVENAL, 35753-9, 91766-6, CBC, 1988-02, 66317-1 #### [facility] ([id number]) [address] [place] [address] 68748 #### 2276-4, 36025-6, FEPR #### [facility] ([id number]) [address], [address] [place], [place] [address]fDWT (CKD-EPI) NON-RACE DEPENDENT>90Normal>59ProChrist[facility] Center – MarshallComment on above:Result Comment: Reported eGFR is based on the CKD-EPI 2020 equation that does not use a race coefficient.Performed By: #### JUVENAL, 20448-9, 87746-9, CBC, , 85641-4 #### [facility] ([id number]) [address] [place] [address] 07073 #### 2276-4, 95397-5, FEPR #### [facility] ([id number]) [address], [address] [place], [place] [address]Pndtatp [Mass/Vol]95 mg/pGJnlnrf87-45LosZkqdzuChristus Good Shepherd Medical Center – Marshall Comment on above:Performed By: #### CMP, 79514-5, 59594-9, CBC, 1988-02, 32532-8 #### [facility] ([id number]) [address] [place] [address] 03985 #### 2276-4, 86088-8, FEPR #### [facility] ([id number]) [address], [address] [place], [place] [address]Esqcxwkwe [Moles/Vol]4.1 mmol/LNormal3.5-5.0Pro[facility] – MarshallComment on above:Performed By: #### JUVENAL, , 58780-3, CBC, 1988-02, 62354-8 #### [facility] ([id number]) [address] [place] [address] 98351 #### 2276-4, 86841-9, FEPR #### [facility] ([id number]) [address], [address] [place], [place] [address]Swjztly [Mass/Vol]5.0 g/dLLow6.0-8.0[facility] Comment on above:Performed By: #### JUVENAL, , 43417-2, CBC, 1988-02, 96179-2 #### [facility] ([id number]) [address] [place] [address] 64404 #### 2276-4, 46284-2, FEPR #### [facility] ([id number]) [address] [place], [place] [address]Cwmpys [Moles/Vol]132 mmol/BSex636-622GarJgxhltKettering Health Behavioral Medical Center Comment on above:Performed By: #### JUVENAL, , 02695-7, CBC, 1988-02, 69704-1 #### [facility] ([id number]) [address] [place] [address] 07620 #### 2276-4, 73683-4, FEPR #### [facility] ([id number]) [address], [address] [place] [address]Retr nitrogen [Mass/Vol]21 mg/dLNormal5-27ProChrist[facility] – MarshallComment on above:Performed By: #### JUVENAL, , 36092-6, CBC, 1988-02, 96021-1 #### [facility] ([id number]) [address] [place] [address] 97397 #### 2276-4, 17493-5, FEPR #### [facility] ([id number]) [address] [place] [address], [address] [place], [place] [address]XNZDWAKge 54-41-6400Yimagnr [Mass/Vol]1.3 ng/mLNormal0.8-2.0 [facility] Medical CenterComment on above:Performed By: #### JOAQUIN, 30211-5, CMP, 41177-9 #### [facility] ([id number]) [address] [place] [address] 81040SJRHFFTYpt 77-89-6223Iszgarir [Mass/Vol]197 ng/xUQbuecr45-793 [facility] Medical CenterComment on above:Performed By: #### JOAQUIN, 07972-5, CMP, 33648-4 #### [facility] ([id number]) [address] [place] [address] 459[address]Pdojert Glucometer (BldC) [Mass/Vol]on 49-73-2889Tlwgsft [Mass/Vol]103 mg/zALzsn40-24ZzqHdwbowKettering Health Behavioral Medical CenterGlucose [Mass/Vol]109 mg/cSVnrp29-76CeiWlavdqKettering Health Behavioral Medical CenterGlucose [Mass/Vol]123 mg/hVHvmu37-92 [facility] Medical CenterGlucose [Mass/Vol]113 mg/xPWzuw93-01BtwLdclogKettering Health Behavioral Medical CenterHGBon 76-43-3401Wwzzkfdkdp (Bld) [Volume fraction]26.2 %Tgd05-07 [facility] Medical CenterComment on above:Performed By: #### JOAQUIN, 53240-2, CMP, 57575-7 #### [facility] ([id number]) [address] [place] [address]Nsshlnunja (Bld) [Mass/Vol]9.1 g/dLLow13.0-17.0[facility] Medical CenterComment on above:Performed By: #### JOAQUIN, 58943-1, CMP, 37296-3 #### [facility] ([id number]) [address] [place] [address] 20578DDKT PROFILEon 40-22-3710Rsap [Mass/Vol]196 ug/aYQfqrkh08-362 ProMRidgecrest Regional HospitalComment on above:Performed By: #### JOAQUIN, 27673-8, CMP, 22150-2 #### [facility] ([id number]) [address] [place] [address] 93740ITDF ZZOKUMX453 ug/bRWxaygj942-770AzuOgbhjyKettering Health Behavioral Medical Center Comment on above:Performed By: #### JOAQUIN, 71460-5, CMP, 54794-8 #### [facility] ([id number]) [address] [place] [address] 97300QVFG MWDQERENEL03 % YBBCFLWBVBVlyr34-60JnfJbrnuu [facility]ont HospitalComment on above:Performed By: #### JOAQUIN, , CMP, 14525-6 #### [facility] ([id number]) [address] [place] [address] 84446SLNJXSAICdd 56-12-1690Msrrpqqlx [Mass/Vol]1.9 mg/dLNormal 1.8-2.6K[facility] Medical CenterComment on above:Performed By: #### JOAQUIN, , CMP, 36953-7 #### [facility] ([id number]) [address] [place] [address] 18775Nqwhgxcanqv peptide B [Mass/Vol]on 81-32-9381Zgimqwihabe peptide B (Bld) [Mass/Vol]86 pg/mLNormal<100.0ProChrist[facility] – MarshallComment on above:Performed By: #### JOAQUIN, 62335-2, CMP, 02321-4 #### [facility] ([id number]) [address] [place] [address] 31795Nqfjdttrxwujg IA [Mass/Vol]on 83-28-1490SMUESZIIQSHFX<0.05 Normal<0.05K[facility] Medical CenterComment on above:Result Comment: NOTE <0.50 ng/mL - Low risk of severe sepsis and/or septic shock. <2.00 ng/mL - Recommend retesting within 6-24 hours. >2.00 ng/mL - High risk of sepsis and/or septic shock.Performed By: #### CBCHallie, , CMP, 56089-0 #### [facility] ([id number]) [address] [place] [address] 29331BFP AND AUTO DIFFon 31-54-5643XJCECUVP BASOPHIL0.0 X10E9/L Normal0.0-0.2ProMedKaiser Permanente Medical CenterComment on above:Performed By: #### CBCHallie, , CMP, 21861-6 #### [facility] ([id number]) [address] [place] [address] 83711BMVYZEIK NEUTROPHIL6.0 X10E9/LNormal1.5-6.6Pro[facility] – MarshallComment on above:Performed By: #### JOAQUIN, , CMP, 25729-1 #### [facility] ([id number]) [address] [place] [address] 02834Fxfeoobtw/100 WBC (Bld)0.4 %NormalProChristus Good Shepherd Medical Center – Marshall Comment on above:Performed By: #### CBCHallie, , CMP, 59332-9 #### [facility] ([id number]) [address] [place] [address] 09723Hmhoxgmpona (Bld) [#/Vol]0.0 10*3/uLNormal0.0-0.4Pro[facility] – MarshallComment on above:Performed By: #### CBCHallie, , CMP, 37427-5 #### [facility] ([id number]) [address] [place] [address] 73838Pxppsevdtah/100 WBC (Bld)0.5 %NormalKettering Health Behavioral Medical Center Comment on above:Performed By: #### JOAQUIN, , CMP, 84280-8 #### [facility] ([id number]) [address] [place] [address] 98353Sgoxnpiziyb distribution width (RBC) [Ratio]15.7 %High11.5-15.0 [facility] HospitaledicFountain Valley Regional Hospital and Medical CenterComment on above:Performed By: #### JOAQUIN, , CMP, 50262-3 #### [facility] ([id number]) [address] [place] [address] 74647Gxmfpzinzu (Bld) [Volume fraction]26.2 %Eij11-61QqwYhpumhChristus Good Shepherd Medical Center – MarshallComment on above:Performed By: #### JOAQUIN, , CMP, 56285-1 #### [facility] ([id number]) [address] [place] [address] 42641Jjeqdnektl (Bld) [Mass/Vol]8.9 g/dLLow13.0-17.0[facility] Medical CenterComment on above:Performed By: #### JOAQUIN, , CMP, 31948-0 #### [facility] ([id number]) [address] [place] [address] 84[address]Jyqteanszyk (Bld) [#/Vol]0.7 10*3/uLLow1.0-3.5PKindred Hospital LimaComment on above:Performed By: #### JOAQUIN, , CMP, 28674-3 #### [facility] ([id number]) [address] [place] [address] 87029Bcyypkvlpci/100 WBC (Bld)9.3 %[facility] Comment on above:Performed By: #### CBCHallie, 36127-1, CMP, 96181-8 #### [facility] ([id number]) [address] [place] [address] 28049LIM (RBC) [Entitic mass]28.1 oyNdqerd03-53GxvKplbhxChristus Good Shepherd Medical Center – MarshallComment on above:Performed By: #### CBCHallie, 51224-4, CMP, 60405-2 #### [facility] ([id number]) [address] [place] [address] 41834NERD (RBC) [Mass/Vol]34.0 g/fTPpkdyb59-64PzfBjozubKettering Health Behavioral Medical CenterComment on above:Performed By: #### CBCHallie, 39233-6, CMP, 76867-7 #### [facility] ([id number]) [address] [place] [address] 92207BZU (RBC) [Entitic vol]83 eZWltcrb74-900FrmOoukwuKettering Health Behavioral Medical CenterComment on above:Performed By: #### CBCHallie, 79555-7, CMP, 82665-2 #### [facility] ([id number]) [address] [place] [address] 21483Fegrybiac (Bld) [#/Vol]0.4 10*3/uLNormal0-0.9[facility] Medical CenterComment on above:Performed By: #### CBCA, 04936-2, CMP, 59123-3 #### [facility] ([id number]) [address] [place] [address] 61596Xikeosawt/100 WBC (Bld)5.4 %[facility] Comment on above:Performed By: #### CBCA, 61230-2, CMP, 50180-4 #### [facility] ([id number]) [address] [place] [address], [place] [address]Vbmaqfgjzwc/100 WBC (Bld)84.4 %NormalKettering Health Behavioral Medical Center Comment on above:Performed By: #### JOAQUIN, , CMP, 84068-1 #### [facility] ([id number]) [address] [place] [address] 56550Arkvikan mean volume (Bld) [Entitic vol]7.3 fLNormal7-12 ProMRidgecrest Regional HospitalComment on above:Performed By: #### JOAQUIN, , CMP, 46667-2 #### [facility] ([id number]) [address] [place] [address] 42520Lscgldrin (Bld) [#/Vol]104 10*3/oTCla837-332KcxIailyqKettering Health Behavioral Medical CenterComment on above:Performed By: #### JOAQUIN, , CMP, 61266-8 #### [facility] ([id number]) [address] [place] [address] 30045MMP COUNT3.16 X10E12/LLow4.10-5.70[facility] Comment on above:Performed By: #### JOAQUIN, , CMP, 88242-6 #### [facility] ([id number]) [address] [place] [address] 63384NUW (Bld) [#/Vol]7.1 10*3/uLNormal4.0-11.0[facility] Medical CenterComment on above:Performed By: #### JOAQUIN, 72962-7, CMP, 64213-5 #### [facility] ([id number]) [address] [place] [address] 38935TVXRRMAFDDCMC METABOLIC PANELon 90-53-7235Miomtse [Mass/Vol]2.7 g/dLLow3.2-5.3PKindred Hospital LimaComment on above:Performed By: #### JOAQUIN, 03365-7, CMP, 69600-8 #### [facility] ([id number]) [address] [place] [address], [place] [address]RBJ [Catalytic activity/Vol]61 U/NUeenfh43-878TcvYwzyrdChristus Good Shepherd Medical Center – MarshallComment on above:Performed By: #### JOAQUIN, 79832-6, CMP, 14714-9 #### [facility] ([id number]) [address] [place] [address], [place] [address]OJV [Catalytic activity/Vol]44 U/LHigh0-40ProChristus [facility] Center – MarshallComment on above:Performed By: #### JOAQUIN, 46995-5, CMP, 06274-9 #### [facility] ([id number]) [address] [place] [address] 61387Bnlxo gap [Moles/Vol]3 mmol/LLow5-15Pro[facility] Comment on above:Performed By: #### JOAQUIN, 76722-1, CMP, 02946-6 #### [facility] ([id number]) [address] [place] [address], [place] [address]EDQ [Catalytic activity/Vol]23 U/LNormal0-41ProChrist[facility] Center – MarshallComment on above:Performed By: #### JOAQUIN, 83015-4, CMP, 75129-4 #### [facility] ([id number]) [address] [place] [address] 45008Sohxojres [Mass/Vol]0.9 mg/dLNormal0.3-1.2PKindred Hospital LimaComment on above:Performed By: #### JOAQUIN, 27512-0, CMP, 15867-4 #### [facility] ([id number]) [address] [place] [address], [place] [address]Wxziagj [Mass/Vol]7.6 mg/dLLow8.5-10.5PKindred Hospital LimaComment on above:Performed By: #### JOAQUIN, 89698-0, CMP, 07679-7 #### [facility] ([id number]) [address] [place] [address], [place] [address]Xxtbjcyb [Moles/Vol]104 mmol/UAgxesa78-933GhfHtkgpzKettering Health Behavioral Medical CenterComment on above:Performed By: #### JOAQUIN, 10290-7, CMP, 95835-8 #### [facility] ([id number]) [address] [place] [address], [place] [address]AE7 [Moles/Vol]23 mmol/ESwezna76-18EkmUlvaqgKindred Hospital Lima Comment on above:Performed By: #### JOAQUIN, 15302-3, CMP, 27763-7 #### [facility] ([id number]) [address] [place] [address], [place] [address]Qvghxvvehv [Mass/Vol]0.70 mg/dLNormal0.70-1.20K[facility]tering Health Behavioral Medical CenterComment on above:Result Comment: METHOD TRACEABLE TO IDMS STANDARD Performed By: #### JOAQUIN, , CMP, 25890-0 #### [facility] ([id number]) [address] [place] [address], [place] [address]lVLL (CKD-EPI) NON-RACE DEPENDENT>90Normal>59ProChrist[facility] Shepherd Medical Center – MarshallComment on above:Result Comment: Reported eGFR is based on the CKD-EPI 2021 equation that does not use a race coefficient.Performed By: #### JOAQUIN, 71462-2, CMP, 72439-5 #### [facility] ([id number]) [address] [place] [address], [place] [address]Ihhovjh [Mass/Vol]167 mg/qACxvv77-95LlgMnvrdzKettering Health Behavioral Medical Center Comment on above:Performed By: #### JOAQUIN, 86307-2, CMP, 31010-8 #### [facility] ([id number]) [address] [place] [address]Pskdbahyv [Moles/Vol]4.5 mmol/LNormal3.5-5.0ProChrist[facility] Center – MarshallComment on above:Performed By: #### JOAQUIN, , CMP, 35547-3 #### [facility] ([id number]) [address] [place] [address]6778Oytzuwx [Mass/Vol]5.2 g/dLLow6.0-8.0[facility] Comment on above:Performed By: #### JOAQUIN, , [facility], 24409-2 #### [facility] ([id number]) [address] [place] [address] 99120Rbvrhz [Moles/Vol]130 mmol/PFwo574-285UmwWourhdChristus Good Shepherd Medical Center – MarshallComment on above:Performed By: #### JOAQUIN, , [facility], 26117-5 #### [facility] ([id number]) [address] [place] [address] 24889Nfuv nitrogen [Mass/Vol]21 mg/dLNormal5-27ProChrist[facility] – MarshallComment on above:Performed By: #### JOAQUIN, , [facility], 09076-4 #### [facility] ([id number]) [address] [place] [address] 19960UJLCVENFLvp 95-13-4030Duumbbeat [Mass/Vol]1.9 mg/dLNormal 1.8-2.6ProChrist[facility] Center – MarshallComment on above:Performed By: #### JOAQUIN, , CMP, 34281-4 #### [facility] ([id number]) [address] [place] [address] 29703KXAC/FLU A+B/RSV by NAAT/Molecularon 07-38-6946JHCM/FLU A+B/RSV by NAAT/MolecularFLU A PCR Negative (qualifier [...] operators who are performing tests using either [employer] or [employer] systems and is limited to laboratories that [...] specimen repeat. Fact Sheet for Healthcare Providers: https://www.fda.gov/media/917367/download Fact Sheet for Patients: https://www.fda.gov/media/785799/downloadNormalProMedica Northbay Vacavalley HospitalComment on above:Performed By: #### COVFLR #### [facility] ([id number]) [address] [place] [address], FIRST FLOOR [place], [place] [address]Eyoukszb I.cardiac High sensitivity method [Mass/Vol]on 51 HOUR TROP I, HIGH JGHFEEPBDHN70 ng/LNormal<21ProThe Surgical Hospital At Southwoods HospitalComment on above:Performed By: #### 48529-3 #### [facility] ([id number]) [address] [place] [address], [place] [address]RKIEXCPK I, HIGH DFQKZTUOBHK03 ng/LNormal<21ProThe Surgical Hospital At Southwoods HospitalComment on above:Performed By: #### CBCA, 86291-9, CMP, 35588-8 #### [facility] ([id number]) [address] [place] [address] 00008HZR MACROSCOPIC NURon 83-84-3492RFIVPBZXR NURNegativeNormalNEG ProMRidgecrest Regional HospitalComment on above:Performed By: #### NUM #### [facility] ([id number]) [address] [place] [address] [place] 55353IIILP/HGB NURTraceAbnormalNEGProChristus Good Shepherd Medical Center – MarshallComment on above:Performed By: #### NUM #### [facility] ([id number]) [address] [place] [address] [place] [address]148LRPMPKS CHRISTOPH>=1000AbnormalNEGProChristus Good Shepherd Medical Center – MarshallComment on above:Performed By: #### NUM #### [facility] ([id number]) [address] [place] [address], [place] [address]NNNTXFS NUR15 mg/dLAbnormalNEGProChristus Good Shepherd Medical Center – MarshallComment on above:Performed By: #### NUM #### [facility] ([id number]) [address] [place] [address] [place] [address]EXDFRPQMU ESTERASE NURNegativeNormalNEGProChristus Good Shepherd Medical Center – MarshallComment on above:Performed By: #### NUM #### [facility] ([id number]) [address] [place] [address] 26264XAQWSNR NURNegativeNormalNEGKettering Health Behavioral Medical CenterComment on above:Performed By: #### NUM #### [facility] ([id number]) [address] [place] [address], [place] [address]SG NUR6.9Eendbt2.0-8.5PKindred Hospital LimaComment on above:Performed By: #### NUM #### [facility] ([id number]) [address] [place] [address] [place] [address]JGWSQET NURTraceAbnormalNEGKettering Health Behavioral Medical CenterComment on above:Performed By: #### NUM #### [facility] ([id number]) [address] [place] [address] 10727UDEHFSQL GRAVITY NUR1.018Shsiaj5.003-1.035ProChristus Good Shepherd Medical Center – MarshallComment on above:Performed By: #### NUM #### [facility] ([id number]) [address] [place] [address], [place] [address]ZUOAGQGDDNPY NUR0.2 eu/dLNormal<1.1PKindred Hospital Lima Comment on above:Performed By: #### NUM #### [facility] ([id number]) [address] [place] [address]104YS CHEST 1 VWon 30-00-0848YI CHEST 1 VWXR CHEST 1 VW XR [...] by Renetta Meng MD on 01/06/2025 5:56 PMNormalKettering Health Behavioral Medical Center ECHOCARDIO M/2D COMPLETEon 49-33-1974ORCIFLWZVI M/2D COMPLETEPatient: MINNIE JASON Exam Date: 04/23/2022 : 1950 Gender:M Ordering : JESUS VIDAL Admission #: [id number] Family : RONAN Candis VELAZQUEZ D.O. Order #: [id number] CLICK HERE TO VIEW EXAM ECHOCARDIOGRAM REPORT [...] Area(A4C): 25.80 cm2 Left Atrium Systolic Volume(A2C): 67374 mm3 Left Atrium Systolic Volume(A4C): 16971 mm3 Mitral Valve Mitral Valve E-Wave Peak [...] by: Michael Magallanes M.D. on 04/23/2022 at 12:53NormalThMercy Health St. Anne HospitalBUNon 76-18-8365Eqsl nitrogen [Mass/Vol]14.0 mg/dLNormal9.0-20.0Ohiohealth Berger HospitalComment on above:Performed By: #### CREA, BUN #### [facility] [address] [place] [address] Dr. Ruben HicksATININEheriberto 11-19-4979Htwfatoyfh [Mass/Vol]0.93 mg/dLNormal 0.66-1.25The [facility] HospitalComment on above:Performed By: #### CREA, BUN #### [facility] [address] [place] [address] Dr. Ruben AndersonGFR-AF CAMEROONIAN>60Normal>=60The [facility] Community HospitalComment on above:Performed By: #### CREA, BUN #### [facility] [address] [place] [address] Dr. Ruben AndersonGFR-NON AF CAMEROONIAN>60Normal>=60The Summa Health Barberton Campusment on above:Performed By: #### CREA, BUN #### [facility] [address] [place] [address] Dr. Ruben CalderaCT ABDOMEN WO/W CONon 69-21-6911VH ABDOMEN WO/W CONEXAMINATION: CT ABDOMEN WO/W CON [...] Electronically authenticated by: KRIS YI Date: 2021-11-03 13:47[facility] Brent[facility] HospitalXR FINGER MIN 2 VIEWSon 35-57-8233HF FINGER MIN 2 VIEWSEXAM: XR FINGER MIN [...] Electronically authenticated by: FINESSE AMEZCUA Date: 2021-09-30 22:21[facility] Brent[facility] HospitalCT LUNG CANCER SCREENINGon 17-34-9965EW LUNG CANCER SCREENING EXAMINATION: CT LUNG CANCER [...] authenticated by: FRANCISCO JAVIER PATEL Date: 2021-09-19 17:[address] [place], [place] [address]Cardiovascular Lab Reporton 22-24-0464Qffqrhhotqczje Lab Report [facility] Patient Name: Minnie Jason [facility] MR #: [id number] Department of Physician: Michael Magallanes M.D. Division of Service Date: 05/10/2020 Cardiology Birthdate: 1950 Adult Cardiovascular Room #: [place] [address] Cardiovascular Laboratory Report INDICATION: The patient is [...] signed informed consent. He was brought to garage laborer in a fasting state. Both groin areas were prepped and draped in usual fashion. Using micropuncture technique and ultrasound guidance, access was obtained in right and left common femoral arteries respectively and inner cannula angiography was performed and access was upsized to a 5-Wolof x 11 cm sheath in each of those vessels after confirming adequate location of the access site. Bilateral lower extremity angiography was performed down to the level of the foot on each side through injections via the access catheters. A 5-Wolof Uni-Flush catheter was advanced to the distal [...] was upsized on each side to a 6-Wolof x 30 cm flexor sheath on the right and a 6-Wolof x 13 cm flexor sheath on the left. The 5-Wolof Uni-Flush catheter was advanced again into the [...] arch. At this time, we advanced a digital marketing program manager 6 mm x 80 mm balloon and used to perform balloon angioplasty in the left common iliac artery and left external iliac artery. This was inflated repeatedly at 10 atmospheres. Additional balloon angioplasty in the left common iliac artery was performed using a digital marketing program manager 8 x 40 mm balloon inflated at [...] using the 8 mm x 40 mm digital marketing program manager balloon inflated in the left common iliac [...] access sheaths we (more content not included)...NormalThe [facility] Vital Signs Date TimeVital SignValuePerforming OozegxzihCiixuijw34-33-0187 11:46-0400Body mass index (BMI) [Ratio]28.04 kg/m2Tomisha Santana MD Work Phone: noFrontstart Bmyymyvqzf69-79-5539 11:46-0400Body zjycnt05.19 kgTomisha Santana MD Work Phone: noms Lwvmvpcwcd19-98-2762 11:02-0400Body kereum977.2 cmTekaterina Santana MD Work Phone: noFrontstart Rbccadzeiv41-22-6756 11:02-0400Body mass index (BMI) [Ratio]27.72 kg/m2Tomisha Santana MD Work Phone: noms Tgjjmzfapq49-26-5366 11:02-0400Body qtaero27.29 kgTomisha Santana MD Work Phone: NOUQ Rfvbklocmk86-37-1654 15:30-0500Body whtlit771.72 cmThomas Olexa Other [employer] Other 12-07-2021 15:30-0500Body mass index (BMI) [Ratio] 30.13 kg/e2Ylmqes Olexa Other [employer] Other 12-07-2021 15:30-0500Body spzjir68.9 kgThomas Olexa Other [employer] Other Encounters Encounter DateEncounter TypeCare ProviderFacilityStart: 08-30-2025 End: 67-37-0529Ieuftlaqx encounterTomisha Santana MD Work Phone: [facility] AllergyStart: 08-25-2025 End: 52-76-9861Uedvoq flowsheetChante Santana MD Work Phone: [facility] AllergyStart: 08-25-2025 End: 64-97-6053Xohlxy flowsJaja Santana MD Work Phone: [facility] AllergyStart: 08-25-2025 End: 91-36-9826djviwfuxhoPZQH E RAMBASEKNot AvailableStart: 08-25-2025 End: 50-28-6785Intdln outpatient visit 15 minutesTomisha Santana MD Work Phone: [facility] AllergyComment on above:Recurrent sinus infections (Primary Dx); Recurrent pneumoniaStart: 08-17-2025 End: 86-53-7280gxojylvceiGWVSLTH [facility]leness Hospitaltart: 07-28-2025 End: 23-48-4394Boemya flowsheetChante Santana MD Work Phone: [facility]ergyStart: 07-28-2025 End: 63-43-4653Qfzsrr flowsheetChante Santana MD Work Phone: [facility]idget AllergyStart: 07-28-2025 End: 17-13-7480Iczmdq outpatient new 30 minutesTomisha Santana MD Work Phone: [facility] Bridget AllergyComment on above:Recurrent pneumonia (Primary Dx); Recurrent sinus infectionsStart: 07-28-2025 End: 67-32-3492cfoetumrphDGWVAtul Mnediola AvailableStart: 01-27-2025 End: 74-29-6714clfzqdjxibSFPLUTO Darius VELAZQUEZ [facility]ertart: 01-20-2025 End: 26-04-6349ualdjrrkdmUQCCSLW Darius VELAZQUEZ [facility]ertart: 01-18-2025 End: 56-09-5295Eqeznldhj encounterLauren Carlosia CMAProMedica Physicians General SurgeryStart: 01-13-2025 End: 77-68-5384uduivzwxhdZTXQ Anna QUICKOTZERFostoria City Hospitaltart: 01-06-2025 End: 09-31-7817Ojhydhdrhr and management of inpatientCHARLES Darius VELAZQUEZ JR [facility] Hospitaltart: 04-23-2022 End: 22-48-3158qmuvcajkiwVQ CHARLES VALONEFacility:V9Acjzr: 04-18-2022 End: 86-32-7811sqspodcrfbNNCZMTQ TUCKERFacility:I7Fhnbw: 11-03-2021 End: 02-87-7350hxgsuyrmfmYH CHARLES VALONEFacility:D7Eayhq: 10-10-2021 End: 74-21-2232qbprrdcnasJG CHARLES VALONENort [employer] Other Start: 62-46-4020Nmlvxc follow up visit related to original pxThomas OlexaFPG [facility] BellevueStart: 10-03-2021 End: 64-66-1035ubbrxgphuqNlmnkp Olexa Other Nocox monett [employer] Other Start: 37-45-2416XPMS visit new patientMatt Gill Ara BellevueStart: 09-30-2021 End: 68-03-6247jmstsjanleVP MICHAEL HAYFacility:C0Pcjao: 09-19-2021 End: 84-12-5902qpwjwxlmlfSX RONAN VALONEFacility:H1 Procedures DateProcedureProcedure DetailPerforming ClinicianStart: 96-65-3515Spznrtrnzvc Arlette Porter CMA Plan of Treatment DateCare ActivityDetailAuthorStart: 26-36-1564Hcwjqukmx for malignant neoplasm of colonColonoscopyProMercy Health St. Elizabeth [facility]man Hospital SystemStart: 51-34-8314Fajiryumdeoa Vaccine: 65+ Years (2 of 2 - PCV)Pneumococcal Vaccine: 65+ Years (2 of 2 - PCV)[facility] HealthcareStart: 83-94-9250Bafesie ScreeningTobacco ScreeningProMercy Health St. Elizabeth Boardman Hospital SystemStart: 10-14-2025 End: 85-99-9341Vrsoxbh encounter tqadjgtcw24/18/2025 11:20 AM EST Office Visit [facility] [address] [phone] Chante Santana MD [address] [address] NOMAdrien Gill AllergyStart: 08-25-2025 End: 56-02-4492YRCLIBJYFGXXM PNEUMONIA AB (IGG) (23 SEROTYPES)STREPTOCOCCUS PNEUMONIA AB (IGG) (23 SEROTYPES) Lab Routine Recurrent sinus infections Expected: 08/25/2025 (Approximate), Expires: 08/25/2026[facility] Work Phone: Comment on above:Expected: 08/25/2025 (Approximate), Expires: 08/25/2026Start: 08-25-2025 End: 04-65-4251Wjtvmkk encounter /29/2025 11:40 AM EDT Office Visit [facility] [address] [facility] [address] [place] [phone] Chante Santana MD [address] [facility] [address] [place] [address] NOMAdrien Gill AllergyStart: 07-28-2025 End: 44-80-6248JWL W Auto Differential panel - BloodCBC and differential Lab Routine Recurrent pneumonia Recurrent sinus infections Expected: 07/28/2025 (Approximate), Expires: 07/28/2026[facility] HealthcareComment on above:Expected: 07/28/2025 (Approximate), Expires: 07/28/2026Start: 07-28-2025 End: 69-83-9571Bwauewofjo / Tetanus Antibody PanelDiphtheria / Tetanus Antibody Panel Lab Routine Recurrent pneumonia Recurrent sinus infections Expected: 07/28/2025 (Approximate), Expires: 07/28/2026[facility] HealthcareComment on above: Expected: 07/28/2025 (Approximate), Expires: 07/28/2026Start: 07-28-2025 End: 94-04-1401KmA [Mass/volume] in Serum or PlasmaIgA Lab Routine Recurrent pneumonia Recurrent sinus infections Expected: 07/28/2025 (Approximate), E xpires: 07/28/2026[facility] HealthcareComment on above:Expected: 07/28/2025 (Approximate), Expires: 07/28/2026Start: 07-28-2025 End: 27-40-9797OxG [Units/volume] in Serum or PlasmaIgE Lab Routine Recurrent pneumonia Recurrent sinus infections Expected: 07/28/2025 (Approximate), E xpires: 07/28/2026[facility] HealthcareComment on above:Expected: 07/28/2025 (Approximate), Expires: 07/28/2026Start: 07-28-2025 End: 23-68-3618WhF [Mass/volume] in Serum or PlasmaIgG Lab Routine Recurrent pneumonia Recurrent sinus infections Expected: 07/28/2025 (Approximate), E xpires: 07/28/2026[facility] Work Phone: Comment on above:Expected: 07/28/2025 (Approximate), Expires: 07/28/2026Start: 07-28-2025 End: 41-88-5102FhF [Mass/volume] in Serum or PlasmaIgM Lab Routine Recurrent pneumonia Recurrent sinus infections Expected: 07/28/2025 (Approximate), E xpires: 07/28/2026[facility] HealthcareComment on above:Expected: 07/28/2025 (Approximate), Expires: 07/28/2026Start: 07-28-2025 End: 67-74-0841Ielkcyh toxoid, IgGTetanus toxoid, IgG Lab Routine Recurrent pneumonia Recurrent sinus infections Expected: 07/28/2025(Approximate), Expires: 07/28/2026[facility] HealthcareComment on above:Expected: 07/28/2025 (Approximate), Expires: 07/28/2026Start: 07-28-2025 End: 31-30-5452Nrjvfjy encounter pjfushxje14/01/2025 11:00 AM EDT Office Visit [facility] [address] [phone] Chante Santana MD [address] [address] ArrivedNO Montrose AllergyComment on above:ArrivedStart: 02-53-9709DYHAZ-19 Vaccine ( season)COVID-19 Vaccine ( season)[facility] HealthcareStart: 46-31-8960Cmjlqfbeo vaccinationInfluenza Vaccine (#1)[facility] HealthcareStart: 85-30-2541Yxcsdpcaz vaccinationInfluenza VaccineProMercy Health St. Elizabeth [facility] Hospital SystemStart: 48-90-5535Sbfw Risk ScreeningFall Risk ScreeningProMercy Health St. Elizabeth [facility] SystemStart: 12-51-7981Hxyjrbjjhwfw Vaccine: 65+ Years (1 of 1 - PCV)Pneumococcal Vaccine: 65+ Years (1 of 1 - PCV) NOM HealthcareStart: 71-70-3456NVeJ,Tdap and Td Vaccines (1 - Tdap)DTaP,Tdap and Td Vaccines (1 - Tdap)[facility] SystemStart: 95-13-1000Fctxpgujdm ScreeningDepression ScreeningAtrium Health Wake Forest Baptist Wilkes Medical Centertart: 1957 DTaP/Tdap/Td Vaccines (1 - Tdap)DTaP/Tdap/Td Vaccines (1 - Tdap)[facility] STREPTOCOCCUS PNEUMONIA AB (IGG) (23 SEROTYPES)STREPTOCOCCUS PNEUMONIA AB (IGG) (23 SEROTYPES) Lab Routine Recurrent pneumonia Recurrent sinus infections Ordered: 07/28/2025[facility] HealthcareComment on above:Ordered: 07/28/2025 Immunizations Immunization DateImmunizationNotesCare FsuyzrkaNterpieg36-13-8872svhepqeyclgh polysaccharide vaccine, 23 valentTodd Max JASSO Work Phone: [facility] Medical CenterQpeauhpjke66-03-6941nrrfvjszq virus vaccine, unspecified formulationLauren Venia CMATrinity Health System East Campus Payers DatePayer CategoryPayerPolicy [id number] MEDICARE ADVANTAGE [id number] 2024Medicare [facility] MEDICARE [id number] 2024Medicare [id number] [id number] 1960Medicare [id number] 2.840.1.822635.3.579.2. [id number] 2.0.1.682883.3.57[id number] 2.0.1.645263.3.57[id number] 2.840.1.479430.3.57[id number] 2.0.1.722232.3.57[id number] 2.840.1.730603.3.57[id number] 2.0.1.952606.3.57[id number] 2.840.1.136167.3.57[id number] 2.0.1.982218.3.57[id number] 2.840.1.224440.3.57[id number] 2.840.1.397206.3.57[id number] 2.840.1.634733.3.579.2.1259 Social History DateTypeDetailFacilityStart: 01-07-2025 End: 19-45-2046Rxb Assigned At BirthNorth [employer] Other Start: 01-07-2025 End: 65-45-2985Lyxefsd smoking status NHISEx-smokerTrinity Health System East Campus History of tobacco useCurrent smokerTrinity Health System East CampusHistory of tobacco useCigarette SmokerLutheran Hospital SystemStart: 01-07-2025 End: 67-80-1293Yejegea use and exposureSmokeless tobacco non-userLutheran Hospital SystemStart: 29-30-5706Czlzyzbeg beverage intakeEx-drinker (finding) [facility] Centertart: 01-07-2025 End: 97-48-3707Gyksyaf of Social functionTrinity Health System East CampusHas the Shoutly, gas, oil, or water [employer] threatened to shut off services in your home in past 12MoNOhioHealth Berger HospitalAre you now , , , , never or living with a partner?MarriedTrinity Health System East CampusHow often to you have a drink containing alcohol?NeverAtrium Health Wake Forest Baptist Wilkes Medical Centertart: 55-11-5870Sts many standard drinks containing alcohol do you have on a typical day?Patient does not drinkTrinity Health System East CampusHow hard is it for you to pay for the very basics like food, housing, medical care, and heatingNot very hardLutheran Hospital SystemDo you feel stress - tense, restless, nervous, or anxious, or unable to sleep at night because yourmind is troubled all the time - these days [OSQ]Not at allLutheran Hospital SystemStart: 61-94-2509Eoc assigned at birthNot on filePaulding County Hospital MxBiodevices SystemStart: 81-18-6542NnuUhbo (finding)Tr[facility] Health System East CampusTobacco smoking status NHIS Tobacco smoking consumption unknownNOMS Healthcare Goals DatePatient GoalDesired Activity/StatePersonal health goalComment on above: Evaluation of progress towards goal: under assessment Clinical Notes 10-03-2021 to 08-30-2025 Note Date & AjhsSvmgZuymwoca73-11-2746 Telephone encounter Note* Telephone Encounter - Allison Thompson LPN - 08/30/2025 4:11 PM EST Called and spoke to Phong and informed him that he received the pneumovax 23 vaccine on 08/25/2025. He is appreciative and denies further needs at this time. /ss [facility] Work Phone: [phone] 824-800311-03-2025 Miscellaneous Notes* Telephone Encounter - Allison Thompson LPN - 08/30/2025 4:11 PM EST Called and spoke to Phong and informed him that he received the pneumovax 23 vaccine on 08/25/2025. He is appreciative and denies further needs at this time. /ss documented in this encounterSaint John's Breech Regional Medical CenterZariojdemp85-74-8725 History of Present illness Narrative* Chante Santana [...] sooner should problems arise. documented in this encounterSaint John's Breech Regional Medical CenterFgkydmqlwq87-09-7038 NoteCardiovascular Medicine [facility] SUBJECTIVE Chief Complaint Patient presents with Follow-up [...] PCI in 2018 to LAD and OM, PULMONARY FELLOW RCA 3. Hypertension 4. Hyperlipidemia on atorvastatin 5. COPD 6. PAD s/p Omnilink Elite stent x2 to LLE 04/2020, severe PAD also noted in RLE 08/17/2025 Since last seen, he suffered from PNA. He has been admitted twice this year for this. He c/o increased SOB since then. His activity level has decreased since then. He is participating in cardiac rehab at [facility]. Tolerating this okay. BP at rehab has [...] improves with rest. Planning to go to [place] this summer to visit son. 03/27/22 He [...] palpitations. Patient Active Problem List Diagnosis A-fib ([facility]/HCC) Atrial fibrillation ([facility]/HCC) CAD (coronary artery disease) Coronary atherosclerosis Chest pain Chronic obstructive lung disease ([facility]/HCC) Congestive heart failure ([facility]/HCC) Dyspnea Essential hypertension Gastroesophageal reflux disease Hyperlipidemia Mitral regurgitation Mitral valve disorder Peripheral arterial occlusive disease Primary cardiomyopathy ([facility]/HCC) Pulmonary hypertension, mild (CMS/HCC) Type 2 diabetes mellitus ([facility]/HCC) Peripheral vascular disease Hx of CABG Failure of outpatient treatment Former smoker Former tobacco use 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 [...] therapy at that time. documented in this encounterSaint John's Breech Regional Medical CenterRxvctebbtl21-57-6335 Miscellaneous Notes* Telephone Encounter - Arlette Porter [...] She verbalized complete understanding. documented in this encounterTrinity Health System East Campus03-24-2025 Telephone encounter Note* Telephone Encounter - Arlette [...] 79 if he so desires. ThanksDr. Griffin Matchbin Plmnbr19-44-4339 Telephone encounter Note* Telephone Encounter - Yadira Ortiz CMA - 01/18/2025 9:13 AM EDT I spoke to the patients , verified EC. Gave her the results message from DR Toscano. She verbalized complete understanding. [facility] [employer] Kndopp10-15-9782 NotePROCEDURE: XR HAND RT MIN 3V COMPARISON: [...] Electronically authenticated by: KRIS YI Date: 2021-10-10 14:09[facility]12-14-2021 Evaluation note* Encounter Date Diagnosis Assessment Notes [...] nail as time goes. Call with questions/concerns. [employer] Other 12-07-2021 Evaluation note* Encounter Date Diagnosis [...] to nail, initial encounter (ICD-10 - S61.315A) [employer] Other Evaluation note* Diagnosis Recurrent pneumonia- Primary Pneumonia, organism unspecified Recurrent sinus infections Unspecified sinusitis (chronic) documented in this encounter [facility] HealthcareEvaluation note* Diagnosis Recurrent sinus infections- Primary Unspecified sinusitis (chronic) Recurrent pneumonia Pneumonia, organism unspecified documented in this encounter [facility] HealthcareHistory general Narrative - Reported* Type Description Date Medical History type II diabetes Medical HistoryCOPDMedical HistoryafibMedical Historyartery diseaseSurgical Historytriple pvbybh9355Vhdyrwth Historyhernia vneoas1403Kcvtmbad Historyheart sbejo4488Hpvymqtl Historyilliac drcgx3228Ndgktaxxcjeszwt HistorySee Above [employer] Other InstructionsNot on filedocumented in this encounter [facility] Summary Purpose Family History No [...] and content) DATE CREATED AUTHOR 02/15/2021 [facility] DATE CREATED AUTHOR AUTHOR'S ORGANIZ ATION 04/27/2022 [facility] DATE CREATED AUTHOR AUTHOR'S ORGANIZ ATION 01/30/2025 [facility] DATE CREATED AUTHOR AUTHOR'S ORGANIZ ATION 08/27/2025 [facility] DATE CREATED AUTHOR AUTHOR'S ORGANIZ ATION 09/04/2025 [facility] REASON FOR VISIT (unrecogniz ed section and content) ReasonCommentsnew patientPt states he had pneumonia in Nov, Dec and Mar. Monthly he breaks out into chills and shakes which leaves him weak.Reason CommentsFollow-upNo surgeries; no hospital stays. Care Teams (unrecognized sec tion and content) Team MemberRelationshipSpecialtyStart DateEnd Date Ronan Velazquez Jr., DO [address] [place] [address] [phone] PCP - GeneralInternal Medicine01/06/25Team MemberRelationshipSpecialtyStart Date End Date Ronan Velazquez MD [address] [place] [address] PCP - GeneralInternal Medicine04/13/25 MemberRelationshipSpecialtyStart Date End Date Ronan Velazquez MD [address] [place] [address] PCP - GeneralInternal Medicine04/13/25 MemberRelationshipSpecialtyStart Date End Date Ronan Velazquez MD [address] [place] [address] PCP - GeneralInternal Medicine04/13/25Te MemberRelationshipSpecialtyStart Date End Date Ronan Velazquez MD [address] [place] [address] [phone] PCP - GeneralInternal Medicine04/13/25Team MemberRelationshipSpecialtyStart Date End Date Ronan Velazquez MD [address] [place], [place] [phone] PCP - GeneralInternal Medicine04/13/25 FOR RECORDS PERTAINING [...] BE BASED ON THE PRIMARY CLINICAL RECORDS. [employer] [facility]. provides no warranty or guarantee of the accuracy or completeness of information in this document.
[2025-10-05 13:09] LABS: Anion Gap 13.3; Blood Urea Nitrogen 12.0 mg/dL (7.0-18.0); Calcium 8.8 mg/dL (8.5-10.1); Carbon Dioxide 26.0 mmol/L (21.0-32.0); Chloride 105 mmol/L (98-107); Estimated GFR (African America >60 (>=60 mL/min/1.73m^2); Estimated GFR (Non-African Ame >60 (>=60 mL/min/1.73m^2); Glucose 127 mg/dL (74-106); Potassium 4.3 mmol/L (3.5-5.1); Sodium 140 mmol/L (136-145)
== END 2025-10-05 11:53 | disposition home or self-care (01) ==
LOC: LAB 11:55
PROVIDERS: PCP Internal Medicine; Visit Provider Nurse Practitioner Family
DX: I11.0 Hypertensive heart disease with heart failure (principal); J32.9 Chronic sinusitis, unspecified
CPT/HCPCS: 36415; 80048

== ENCOUNTER 2025-10-05 11:57 | Outpatient (OUT) | payer MEDICARE, SELFPAY ==
--- OUTSIDE RECORDS SUMMARY | 2025-10-05 12:03 | XMS_ITS | CCD ---
Author Organization [facility] Care Team Providers Care Grill Chef Name Role Phone Matt Koenig Unavailable MARCUS, [...] Provider Ronan Velazquez MD Primary Care Provider [phone] CHANTE SANTANA Attending Unavailable CHANTE SANTANA Attending Unavailable JESUS VIDAL Attending Unavailable Medications Current Medications MedicationDrug Class(es)DatesSig (Normalized)Sig (Original)[id number] 200 actuat albuterol 0.09 mg/actuat metered dose [...] 100 mg oral capsule (1 source)Non-narcotic AntitussiveStart: 97-57-1449ripe 1 capsule by mouth three times daily as needed for coughbenzonatate (TESSALON PERLES) 100 mg capsule Take 1 capsule (100 mg total) by mouth 3 (three) timesa day as needed for cough. 20 capsule 01/10/2025 Cpvlzp440 actuat budesonide 0.16 mg/actuat / formoterol fumarate [...] hydrochloride 25 mg oral tablet (1 source)AntihistamineStart: 29-48-8092giyt 1 tablet by mouth three times daily [...] oxide 400 mg oral tablet (1 source)Start: 64-83-1356bnnz 1 tablet by mouth in the morningmagnesium oxide (MAGOX) 400 mg tablet Take 1 tablet (400 mg total) by mouth in the morning. 10 tablet 01/10/2025 Activemontelukast 10 mg oral tablet (9 sources)Leukotriene Receptor Antagonisttake 1 tablet by mouth in the morning montelukast (Singulair) 10 MG tablet Take 1 tablet by mouth in the morning. ActiveMulti For Him (2 sources)Multi For Him Activenystatin 281111 unt/ml oral suspension (1 source)Polyene Antifungalnystatin (MYCOSTATIN) [...] release oral tablet (1 source)Proton Pump InhibitorStart: 03-95-4870ttpy 1 tablet by mouth twice dailypantoprazole (PROTONIX) 40 mg EC tablet Take 1 tablet (40 mg total) by mouth 2 (two) times daily lb4663 and 1500. 60 tablet 1 01/10/2025 Active [...] sources)Unspecified atrial fibrillation; Translations: [Atrial fibrillation] Onset: 221586-33-4024BpxsiziExbtnip obstructive pulmonary disease and bronchiectasis (1 source)Chronic obstructive pulmonary disease, unspecified; Translations: [COPD UNSPECIFIED]Onset: 80-55-6413TpgtyglCjhmsazvxw heart failure; nonhypertensive (2 sources)Chronic systolic (congestive) heart failure; Translations: [Congestive heart failure]Onset: 263870-32-4024CggqipkPvxaahib atherosclerosis and other heart disease (4 sources)Atherosclerotic heart disease of [place] coronary artery without angina pectoris; Translations: [Coronary atherosclerosis]Onset: 12-11-2012 83-58-2366IkinmkzSbzzeqhbcz and other anemia (1 source)Iron deficiency anemia, unspecified; Translations: [Iron deficiency anemia, unspecified]Onset: 22-79-5907SbqbhmrfIcdkbvrr mellitus without complication (2 sources)Type 2 diabetes mellitus; Translations: [Type 2 diabetes mellitus without complications]Onset: 292714-38-4070VgxdijkMuivhrgvi of lipid metabolism (2 sources)Pure hypercholesterolemia, unspecified; Translations: [Hyperlipidemia]Onset: 485242-48-4545RgmfpxbPxcaeambp hypertension (3 sources)Essential (primary) hypertension; Translations: [Essential hypertension]Onset: 186338-31-1580OiptnlnQhojkfbuxslpneko hemorrhage (1 source)Hemorrhage of anus and rectum; Translations: [Hemorrhage of anus and rectum]Onset: 69-75-3887UtnsertjTlddt valve disorders (2 sources)Nonrheumatic mitral (valve) insufficiency; Translations: [Mitral valve disorder]Onset: 55-87-157233541653-80-8663SxcagofYwzhcvoorqga with complications and secondary hypertension (2 sources)Hypertensive heart disease without heart failure; Translations: [Hypertensive heart disease withoutheart failure]Onset: 02-20-8216KymepsmPfjxrjz and fatigue (3 sources)Asthenia; Translations: [Weakness]Onset: 802262-96-6834Knsffkpc Miscellaneous mental health disorders (1 source)Other symptoms and signs involving emotional state; Translations: [Other symptoms and signs involving emotional state]Onset: 73-66-0140Bkawungw Other circulatory disease (4 sources)Other specified peripheral vascular diseases; Translations: [OTH SPEC PERIPHERAL VASC DISEASES]Onset: 55-07-9147HuorvwdDtovn circulatory disease (1 source)Peripheral arterial occlusive disease; Translations: [Disorder of arteries and arterioles, unspecified]Onset: 433068-26-4700QnraxdjDvnwk gastrointestinal disorders (1 source)Occult blood in stools; Translations: [Other fecal abnormalities] Onset: 550004-64-4107XeumjvkbNvhxq gastrointestinal disorders (1 source)Other fecal abnormalities; Translations: [Other fecal abnormalities] Onset: 30-50-0997AokpwaeoQgrye lower respiratory disease (6 sources)Other forms of dyspnea; Translations: [OTHER FORMS OF DYSPNEA]Onset: 24-54-5777IhwkyargXfrxz nutritional; endocrine; and metabolic disorders (1 source)Hypoalbuminemia; Translations: [Other disorders of plasma-protein metabolism, not elsewhere classified]Onset: 990231-04-0688GazknekMtphi nutritional; endocrine; and metabolic disorders (1 source)Hypomagnesemia; Translations: [Hypomagnesemia]Onset: 39-45-3841Lycdplv Other nutritional; endocrine; and metabolic disorders (1 source)Decrease in appetite; Translations: [Anorexia]Onset: 01-07-2025 74-59-9189UlpbcbxlThhlp nutritional; endocrine; and metabolic disorders (1 source)Weight decreased; Translations: [Abnormal weight loss]Onset: 609796-07-1638UmapdczrQjglf upper respiratory infections (4 sources)Recurrent sinusitis; Translations: [Chronic sinusitis, unspecified] 20-33-8229UuhmdjtRfwe-; endo-; and myocarditis; cardiomyopathy (except that caused by tuberculosis or sexually transmitted disease) (1 source)Primary cardiomyopathy; Translations: [Cardiomyopathy, unspecified] Onset: 845313-19-7021RaltxyhAscxgloreb and visceral atherosclerosis (1 source)Peripheral vascular disease; Translations: [Peripheral vascular disease, unspecified]Onset: 202812-41-7937NzmevscFgljuhghc (except that caused by tuberculosis or sexually transmitted disease) (6 sources)Pneumonia; Translations: [Pneumonia, unspecified organism]Onset: 716790-47-0442XmrmxmtwSpbjpxolt heart disease (1 source)Pulmonary hypertension, unspecified; Translations: [Other chronic pulmonary heart diseases]Onset: 313254-21-6831VijoituHizsvipa codes; unclassified (1 source)Other specified health status; Translations: [Other specified conditions influencing health status]Onset: 181073-69-0029Xqesoydi Screening and history of mental health and substance abuse codes (6 sources)Personal history of nicotine dependence; Translations: [Ex-smoker] Onset: 86-40-0403TgmujtsiWngkjxuetndn (1 source)EMSOnset: 01-06-2025 Past or Other Problems Problem ClassificationProblemDateDocumented DateEpisodic/ChronicCoronary atherosclerosis and other heart disease (1 source)Presence of aortocoronary bypass graft; Translations: [PRESENCE AORTOCORONARY BYPASS GRAFT]Onset: 35-51-0644VqhyolhfFbhahlqe injury or internal injury (2 sources)Crushing injury of left ring finger, initial encounter; Translations: [Crushing injury of left ringfinger, subsequent encounter]Onset: 10-03-2021 Resolved: 73-00-4392UfhyxekxM Codes: Other specified and classifiable (1 source)Caught, crushed, jammed, or pinched between moving objects, initial encounter; Translations: [CAUGHT CRUSH/PINCH BTWN MOV OBJ INT]Onset: 10-02-2021 EpisodicFracture of upper limb (10 sources)Nondisplaced fracture of distal phalanx of right ring finger, initial encounter for closed fracture; Translations: [Nondisplaced fracture of distal phalanx of right ring finger, subsequent encounter for fracture with routine healing]Onset: 09-30-2021 Resolved: 31-71-9084XrvbffdbIndk wounds of extremities (2 sources)Laceration without foreign body of left ring finger with damage to nail, initial encounter; Translations: [Laceration without foreign body of left ring finger with damage to nail, subsequent encounter]Onset: 10-03-2021 Resolved: 98-95-7970SmmkvqwaGucyi aftercare (1 source)Encounter for removal of suturesOnset: 10-10-2021 Resolved: 89-60-5584NdppgkoaZzfbp aftercare (1 source)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 He is on the maximum doses of coreg and olmesartan. Recommend we add hydralazine 25mg BID. He should continue to monitor and let us know if it doesn't improve as we can go up on this dose. Follow-up as planned and bring in BP readings to his follow-up appt. Thank you![facility]37on *We will increase carvedilol to 25mg twice daily to help with better blood pressure control. *Check you blood pressure twice a day, 2 hours after medications and write down your readings. We will call you in able 2 weeks for these readings. *[facility] will call you to schedule your testing - stress test + echocardiogramNormalUniWayne HealthCare Main CampusOffice Visiton 08-17-2025 Follow-up [id number] Minnie Jason 1950 M Date Provider Department Center 08/17/2025 JESUS FREEMAN BH CARD [facility] Family History Problem Relation Age of Onset Atrial fibrillation Brother Heart failure Brother Coronary artery disease Brother Family Status - Relation Status Age at Mother Father Brother Level of Service:19541 OK OFFICE/OUTPATIENT ESTABLISHED MOD MDM 30 MIN Reason for Visit and Comments: Follow-up [518189] - 1 year Patient denies chest pain, Patient states he had pneumonia in [place] and is still recovering from it which is what is causing his rivero/sob. Atrial Fibrillation [80] Coronary Artery Disease [187] Congestive Heart Failure [127] Hypertension [411686] Hyperlipidemia [182] Valve Disorder [3372] - Mitral regurgitation Peripheral arterial occlusive disease [Other] Cardiomyopathy [104] Edema [7090761336] - Bilateral, more left than right Fatigue [46]NormalMercy Health Willard HospitalTelephoneon 08-17-2025 [id number] Minnie Jason 1950 M Date Provider Department Center 08/17/2025 895-SERGE SANCHEZ SINDY Rasmussen Family History Problem Relation Age of Onset Atrial fibrillation Brother Heart failure Brother Coronary artery disease Brother Family Status - Relation Status Age at Mother Father BrotherNormCleveland Clinic Union HospitalOrders Onlyon 55-75-9396Rokgem [id number] Minnie Jason 1950 M Date Provider Department Center 08/16/2025 [id number], HISTORICAL SINDY Rasmussen Family History Problem Relation Age of Onset Atrial fibrillation Brother Heart failure Brother Coronary artery disease Brother Family Status - Relation Status Age at Mother Father BrotherOhioHealth Southeastern Medical CenterCBC AND AUTO DIFFon 01-27-2025 Anisocytosis Ql (Bld)2+AbnormalNONEProMedica Jacobs Medical CenterComment on above: Performed By: #### COVFLR #### [facility] ([id number]) [address] [place] [address] 81831Rory form neutrophils/100 WBC (Bld)1.0 %NormalProMedica Jacobs Medical CenterComment on above:Performed By: #### COVFLR #### [facility] ([id number]) [address] [place] [address] 37005DODJ7+AbnormalNONEPKeenan Private HospitalComment on above: Performed By: #### COVFLR #### [facility] ([id number]) [address] [place] [address] 77225Pffhdrvvpcx distribution width (RBC) [Ratio]22.4 %High11.5-15.0 ProMedica Jacobs Medical CenterComment on above:Performed By: #### COVFLR #### [facility] ([id number]) [address] [place] [address] 59022Opbtbzngtl (Bld) [Volume fraction]32.4 %Guv00-09PqcHwtpphAdventhealth Central TexasComment on above:Performed By: #### COVFLR #### [facility] ([id number]) [address] [place] [address] 85721Zeblqsopoh (Bld) [Mass/Vol]10.1 g/dLLow13.0-17.0[facility] HospitalComment on above:Performed By: #### COVFLR #### [facility] ([id number]) [address] [place] [address] 80300Gvtyoypuppz (Bld) [#/Vol]0.5 10*3/uLLow1.0-3.5PKeenan Private HospitalComment on above:Performed By: #### COVFLR #### [facility] ([id number]) [address] [place] [address] 11797Kqniatscdyd/100 WBC (Bld)4.0 %NormalProAdventhealth Central Texas Comment on above:Performed By: #### COVFLR #### [facility] ([id number]) [address] [place] [address] 79400FWW (RBC) [Entitic mass]28.3 ssXmzpzi27-42PgnXezjfgAdventhealth Central TexasComment on above:Performed By: #### COVFLR #### [facility] ([id number]) [address] [place] [address] 71329DKVK (RBC) [Mass/Vol]31.2 g/rLEji09-44PktGznjcsAdventhealth Central TexasComment on above:Performed By: #### COVFLR #### [facility] ([id number]) [address] [place] [address] 44700NCA (RBC) [Entitic vol]91 aSOjuqbk38-908LzxOrenhn Fremont HospitalComment on above:Performed By: #### COVFLR #### [facility] ([id number]) [address] [place] [address] 97860Rstlzemrw (Bld) [#/Vol]1.2 10*3/uLHigh0-0.9ProAdventhealth Central TexasComment on above:Performed By: #### COVFLR #### [facility] ([id number]) [address] [place] [address] 75187Avlrroyfo/100 WBC (Bld)9.0 %NormalCleveland Clinic Union Hospital Comment on above:Performed By: #### COVFLR #### [facility] ([id number]) [address] [place] [address] 29093YYDAQXWKN7.0 %NormalCleveland Clinic Union HospitalComment on above: Performed By: #### COVFLR #### [facility] ([id number]) [address] [place] [address] 51565Dvxiyrthzso (Bld) [#/Vol]11.3 10*3/uLHigh1.5-6.6ProAdventhealth Central TexasComment on above:Performed By: #### COVFLR #### [facility] ([id number]) [address] [place] [address] 60140DRLYDAZTL9+AbnormalNONEProMedica Jacobs Medical CenterComment on above:Performed By: #### COVFLR #### [facility] ([id number]) [address] [place] [address], [place] [address]Pbjnjfzp mean volume (Bld) [Entitic vol]7.7 fLNormal7-12 ProMedicUCSF Medical CenterComment on above:Performed By: #### COVFLR #### [facility] ([id number]) [address] [place] [address], [place] [address]Vgsulbxda (Bld) [#/Vol]306 10*3/aBTzphfk564-321RlyLtfpvt Fremont HospitalComment on above:Performed By: #### COVFLR #### [facility] ([id number]) [address] [place] [address], [place] [address]FRTREPFLIRHIG0+AbnormalNONEProMedica Jacobs Medical CenterComment on above:Performed By: #### COVFLR #### [facility] ([id number]) [address] [place] [address] 17346ZTC COUNT3.57 X10E12/LLow4.10-5.70[facility] Comment on above:Performed By: #### COVFLR #### [facility] ([id number]) [address] [place] [address], [place] [address]ADW GMXXYQBRCU59.0 %NormalProAdventhealth Central TexasComment on above:Performed By: #### COVFLR #### [facility] ([id number]) [address] [place] [address], [place] [address]WHI (Bld) [#/Vol]13.1 10*3/uLHigh4.0-11.0[facility] HospitalComment on above:Performed By: #### COVFLR #### [facility] ([id number]) [address] [place] [address], [place] [address]QYZ AND AUTO DIFFon 35-63-3684BBVFLQJZ BASOPHIL0.0 X10E9/L Normal0.0-0.2ProMedSanta Marta HospitalComment on above:Performed By: #### COVFLR #### [facility] ([id number]) [address] [place] [address] 03045YFAWLETW NEUTROPHIL2.6 X10E9/LNormal1.5-6.6ProAdventhealth Central TexasComment on above:Performed By: #### COVFLR #### [facility] ([id number]) [address] [place] [address] 34670Tlupqxkvw/100 WBC (Bld)0.3 %NormalCleveland Clinic Union Hospital Comment on above:Performed By: #### COVFLR #### [facility] ([id number]) [address] [place] [address] 91119Uncsgkausst (Bld) [#/Vol]0.1 10*3/uLNormal0.0-0.4[facility] HospitalComment on above:Performed By: #### COVFLR #### [facility] ([id number]) [address] [place] [address] 14771Dqnykxyjpby/100 WBC (Bld)2.6 %NormalCleveland Clinic Union Hospital Comment on above:Performed By: #### COVFLR #### [facility] ([id number]) [address] [place] [address] 74460Ckriielkcpq distribution width (RBC) [Ratio]20.7 %High11.5-15.0 ProMcoosa valley medical centera Jacobs Medical CenterComment on above:Performed By: #### COVFLR #### [facility] ([id number]) [address] [place] [address] 47075Cgqxkvjbqb (Bld) [Volume fraction]29.5 %Noi32-73VwfCkgpqkAdventhealth Central TexasComment on above:Performed By: #### COVFLR #### [facility] ([id number]) [address] [place] [address] 48730Mfgjfaijfp (Bld) [Mass/Vol]9.6 g/dLLow13.0-17.0[facility] HospitalComment on above:Performed By: #### COVFLR #### [facility] ([id number]) [address] [place] [address] 99344Cjzxmroprul (Bld) [#/Vol]1.0 10*3/uLNormal1.0-3.5PKeenan Private HospitalComment on above:Performed By: #### COVFLR #### [facility] ([id number]) [address] [place] [address] 17751Vtpwppaepzp/100 WBC (Bld)22.8 %NormalProAdventhealth Central [place] Comment on above:Performed By: #### COVFLR #### [facility] ([id number]) [address] [place] [address] 13779AFV (RBC) [Entitic mass]28.9 zeXxntks98-49BtfRertumAdventhealth Central TexasComment on above:Performed By: #### COVFLR #### [facility] ([id number]) [address] [place] [address] 06627TLWU (RBC) [Mass/Vol]32.6 g/rJVowngv11-16KehDvoqcsAdventhealth Central TexasComment on above:Performed By: #### COVFLR #### [facility] ([id number]) [address] [place] [address] 21549YCC (RBC) [Entitic vol]89 vPRoeytd77-842HppMrpdksCleveland Clinic Union HospitalComment on above:Performed By: #### COVFLR #### [facility] ([id number]) [address] [place] [address] 75366Mgvibsjic (Bld) [#/Vol]0.6 10*3/uLNormal0-0.9[facility] HospitalComment on above:Performed By: #### COVFLR #### [facility] ([id number]) [address] [place] [address] 23491Oukihydwl/100 WBC (Bld)14.1 %NormalCleveland Clinic Union Hospital Comment on above:Performed By: #### COVFLR #### [facility] ([id number]) [address] [place] [address] 53535Theoyzuugjr/100 WBC (Bld)60.2 %[facility] Comment on above:Performed By: #### COVFLR #### [facility] ([id number]) [address] [place] [address] 15892Hkyamajs mean volume (Bld) [Entitic vol]7.1 fLNormal7-12 [facility] HospitalComment on above:Performed By: #### COVFLR #### [facility] ([id number]) [address] [place] [address] 98384Mfkzrwfcr (Bld) [#/Vol]491 10*3/bNBmva720-049LnfSwtotvCleveland Clinic Union HospitalComment on above:Performed By: #### COVFLR #### [facility] ([id number]) [address] [place] [address] 29358MDS COUNT3.32 X10E12/LLow4.10-5.70[facility] Comment on above:Performed By: #### COVFLR #### [facility] ([id number]) [address] [place] [address] 14805PLJ (Bld) [#/Vol]4.4 10*3/uLNormal4.0-11.0[facility] HospitalComment on above:Performed By: #### COVFLR #### [facility] ([id number]) [address] [place] [address] 41766KJOKRJYU BLOOD COUNTon 42-87-3627Tohlqsibbrq distribution width (RBC) [Ratio]16.4 %High11.5-15.0[facility] HospitalComment on above: Performed By: #### COVFLR #### [facility] ([id number]) [address] [place] [address] 83700Egdyjhxcyn (Bld) [Volume fraction]28.8 %Zyc31-90RkpGknbkvCleveland Clinic Union HospitalComment on above:Performed By: #### COVFLR #### [facility] ([id number]) [address] [place] [address] 82989Hcabfwnnar (Bld) [Mass/Vol]9.5 g/dLLow13.0-17.0[facility] HospitalComment on above:Performed By: #### COVFLR #### [facility] ([id number]) [address] [place] [address] 03861EAM (RBC) [Entitic mass]27.4 xsKmbihy44-21EqfDykburCleveland Clinic Union HospitalComment on above:Performed By: #### COVFLR #### [facility] ([id number]) [address] [place] [address] 92149QXBW (RBC) [Mass/Vol]33.1 g/cGLurcjc60-11HuwGegnotCleveland Clinic Union HospitalComment on above:Performed By: #### COVFLR #### [facility] ([id number]) [address] [place] [address] 44363SIQ (RBC) [Entitic vol]83 zNSmeodm94-198OlbUbbjatCleveland Clinic Union HospitalComment on above:Performed By: #### COVFLR #### [facility] ([id number]) [address] [place] [address] 14792Yvbuebrj mean volume (Bld) [Entitic vol]7.9 fLNormal7-12 [facility] HospitalComment on above:Performed By: #### COVFLR #### [facility] ([id number]) [address] [place] [address] 92051Ktemsbkze (Bld) [#/Vol]187 10*3/gMXayvqi619-299DuuShhclf Fremont HospitalComment on above:Performed By: #### COVFLR #### [facility] ([id number]) [address] [place] [address] 17565IOZ COUNT3.48 X10E12/LLow4.10-5.70[facility] Comment on above:Performed By: #### COVFLR #### [facility] ([id number]) [address] [place] [address] 23489BXN (Bld) [#/Vol]3.7 10*3/uLLow4.0-11.0[facility] HospitalComment on above:Performed By: #### COVFLR #### [facility] ([id number]) [address] [place] [address] 50890FKNUHLAGPhc 11-62-7585Xngdhdccr [Mass/Vol]1.6 mg/dLLow1.8-2.6 [facility] HospitalComment on above:Performed By: #### COVFLR #### [facility] ([id number]) [address] [place] [address] 61493JXCQSBTJ BLOOD COUNTon 31-88-7650Dajdmjuwine distribution width (RBC) [Ratio]15.3 %High11.5-15.0[facility] HospitalComment on above: Performed By: #### CBCA, 49221-6, CMP, 77072-5 #### [facility] ([id number]) [address] [place] [address] 47022Xfhsmzgejg (Bld) [Volume fraction]25.2 %Utg26-42HueVncbviCleveland Clinic Union HospitalComment on above:Performed By: #### JOAQUIN, , CMP, 30493-6 #### [facility] ([id number]) [address] [place] [address] 72089Ruvkrhhzdj (Bld) [Mass/Vol]8.7 g/dLLow13.0-17.0[facility] HospitalComment on above:Performed By: #### JOAQUIN, , CMP, 57098-5 #### [facility] ([id number]) [address] [place] [address] 47737LXK (RBC) [Entitic mass]28.0 arGiqfiu43-91XprQuoecxAdventhealth Central TexasComment on above:Performed By: #### JOAQUIN, , CMP, 02773-3 #### [facility] ([id number]) [address] [place] [address] 42182EHXS (RBC) [Mass/Vol]34.6 g/lWCgvgji86-05UbiTjteszAdventhealth Central TexasComment on above:Performed By: #### JOAQUIN, , CMP, 90857-8 #### [facility] ([id number]) [address] [place] [address] 07662MPS (RBC) [Entitic vol]81 sPJonkzi28-002ByeTbsumm Fremont HospitalComment on above:Performed By: #### JOAQUIN, , CMP, 59782-2 #### [facility] ([id number]) [address] [place] [address] 93858Hbfhkpfm mean volume (Bld) [Entitic vol]7.8 fLNormal7-12 [facility] HospitalComment on above:Performed By: #### JOAQUIN, , CMP, 60268-1 #### [facility] ([id number]) [address] [place] [address] 41367Uxpthpbiv (Bld) [#/Vol]71 10*3/oKFle956-054FffDahkecAdventhealth Central TexasComment on above:Performed By: #### JOAQUIN, 28004-9, CMP, 86722-0 #### [facility] ([id number]) [address] [place] [address] 67139FUE COUNT3.11 X10E12/LLow4.10-5.70ProAdventhealth Central [place] Comment on above:Performed By: #### JOAQUIN, 80922-6, CMP, 04158-6 #### [facility] ([id number]) [address] [place] [address] [id number] (Bld) [#/Vol]4.5 10*3/uLNormal4.0-11.0ProAdventhealth Central TexasComment on above:Performed By: #### JOAQUIN, 37095-3, CMP, 82127-5 #### [facility] ([id number]) [address] [place] [address] [id number] METABOLIC PANELon 77-70-4161Cfekevn [Mass/Vol]2.8 g/dLLow3.2-5.3PKeenan Private HospitalComment on above:Performed By: #### JOAQUIN, 23035-2, CMP, 64931-5 #### [facility] ([id number]) [address] [place] [address] [id number] [Catalytic activity/Vol]62 U/INqnecr91-018YjlLwhxbfAdventhealth Central TexasComment on above:Performed By: #### JOAQUIN, 85127-9, CMP, 95635-1 #### [facility] ([id number]) [address] [place] [address] 46626LGJ [Catalytic activity/Vol]43 U/LHigh0-40ProAdventhealth Central TexasComment on above:Performed By: #### JOAQUIN, 93939-8, CMP, 44291-3 #### [facility] ([id number]) [address] [place] [address], [place] [address]Avhgd gap [Moles/Vol]5 mmol/LNormal5-15ProAdventhealth Central TexasComment on above:Performed By: #### JOAQUIN, , CMP, 82312-1 #### [facility] ([id number]) [address] [place] [address], [place] [address]PRL [Catalytic activity/Vol]27 U/LNormal0-41ProAdventhealth Central TexasComment on above:Performed By: #### JOAQUIN, , CMP, 26658-6 #### [facility] ([id number]) [address] [place] [address], [place] [address]Heaiykkoa [Mass/Vol]0.9 mg/dLNormal0.3-1.2PKeenan Private HospitalComment on above:Performed By: #### JOAQUIN, , CMP, 05819-6 #### [facility] ([id number]) [address] [place] [address], [place] [address]Fjqhdkn [Mass/Vol]7.7 mg/dLLow8.5-10.5PKeenan Private HospitalComment on above:Performed By: #### JOAQUIN, , CMP, 80128-8 #### [facility] ([id number]) [address] [place] [address], [place] [address]Lbrhkllk [Moles/Vol]103 mmol/MCmnntw68-698LjoFiccmjAdventhealth Central TexasComment on above:Performed By: #### JOAQUIN, , CMP, 90785-5 #### [facility] ([id number]) [address] [place] [address], [place] [address]GH3 [Moles/Vol]23 mmol/ECnqmas86-14UhdFxmwgkKeenan Private Hospital Comment on above:Performed By: #### JOAQUIN, 78876-4, CMP, 04865-3 #### [facility] ([id number]) [address] [place] [address] 37767Buxoccynbc [Mass/Vol]0.61 mg/dLLow0.70-1.20ProAdventhealth Central TexasComment on above:Result Comment: METHOD TRACEABLE TO IDMS STANDARD Performed By: #### JOAQUIN, 68357-5, CMP, 16768-0 #### [facility] ([id number]) [address] [place] [address] 84568kTXO (CKD-EPI) NON-RACE DEPENDENT>90Normal>59ProAdventhealth Central TexasComment on above:Result Comment: Reported eGFR is based on the CKD-EPI 2020 equation that does not use a race coefficient.Performed By: #### JOAQUIN, 83875-8, JUVENAL, 69237-3 #### [facility] ([id number]) [address] [place] [address] 00498Qsjtqhs [Mass/Vol]105 mg/rGHxeh83-84XlaElwwtdAdventhealth Central Texas Comment on above:Performed By: #### JOAQUIN, 97842-9, CMP, 69131-9 #### [facility] ([id number]) [address] [place] [address] 18734Xfaodnvow [Moles/Vol]3.8 mmol/LNormal3.5-5.0ProAdventhealth Central TexasComment on above:Performed By: #### JOAQUIN, 85807-8, CMP, 75490-3 #### [facility] ([id number]) [address] [place] [address] 61084Vvghfdu [Mass/Vol]4.9 g/dLLow6.0-8.0[facility] Comment on above:Performed By: #### JOAQUIN, 37169-3, CMP, 29756-0 #### [facility] ([id number]) [address], [place] [address]Ezhjnq [Moles/Vol]131 mmol/KSsa404-889HepYpdeisAdventhealth Central TexasComment on above:Performed By: #### JOAQUIN, 81356-9, CMP, 64926-8 #### [facility] ([id number]) [address] [place] [address] 25036Vfrj nitrogen [Mass/Vol]7 mg/dLNormal5-27ProAdventhealth Central TexasComment on above:Performed By: #### JOAQUIN, 78937-4, CMP, 89001-1 #### [facility] ([id number]) [address] [place] [address] 51083Rtanmaz Glucometer (BldC) [Mass/Vol]on 13-27-6522Uqairyk [Mass/Vol]115 mg/oLDspt21-79GxhArcprsCleveland Clinic Union HospitalGlucose [Mass/Vol]102 mg/wPRdvv83-08XbdPphzheAdventhealth Central TexasMAGNESIUMon 32-55-0781Kywjrmoxc [Mass/Vol]1.9 mg/dLNormal1.8-2.6ProAdventhealth Central TexasComment on above: Performed By: #### COVFLR #### [facility] ([id number]) [address] [place] [address] 94272Spvmacpuy [Mass/Vol]1.7 mg/dLLow1.8-2.6ProAdventhealth Central TexasComment on above:Performed By: #### COVFLR #### [facility] ([id number]) [address] [place] [address] 74688ZE CHEST 1 VWon 52-79-5375LZ CHEST 1 VWXR CHEST 1 VW Clinical [...] by Brendan Rinaldi MD on 01/10/2025 9:13 AMNormalCleveland Clinic Union HospitalCOMPLETE BLOOD COUNTon 55-60-1603Xoighuvhhzf distribution width (RBC) [Ratio]15.4 %High11.5-15.0[facility] HospitalComment on above:Performed By: #### JOAQUIN, , CMP, 45999-7 #### [facility] ([id number]) [address] [place] [address] 74998Mhwhcuxnbr (Bld) [Volume fraction]22.1 %Hea89-20KeoSoobepCleveland Clinic Union HospitalComment on above:Performed By: #### JOAQUIN, , CMP, 77286-5 #### [facility] ([id number]) [address] [place] [address] 25050Tzurdaoxmu (Bld) [Mass/Vol]7.6 g/dLLow13.0-17.0[facility] HospitalComment on above:Performed By: #### JOAQUIN, , CMP, 41955-8 #### [facility] ([id number]) [address] [place] [address] 19617LJY (RBC) [Entitic mass]28.3 dqLpbvnp37-32SogTvssdmCleveland Clinic Union HospitalComment on above:Performed By: #### CBCHallie, 92003-5, CMP, 82298-3 #### [facility] ([id number]) [address] [place] [address] 98275RUEM (RBC) [Mass/Vol]34.5 g/zCNatrkk55-79IszJnfyngCleveland Clinic Union HospitalComment on above:Performed By: #### JOAQUIN, 87849-5, CMP, 80179-4 #### [facility] ([id number]) [address] [place] [address] [place] [address]QRQ (RBC) [Entitic vol]82 pNXsnhod64-231GuhTtqlch Fremont HospitalComment on above:Performed By: #### JOAQUIN, , CMP, 28250-2 #### [facility] ([id number]) [address] [place] [address] 76935Qsxkgiyp mean volume (Bld) [Entitic vol]7.7 fLNormal7-12 ProMWest Hills Regional Medical CenterComment on above:Performed By: #### JOAQUIN, , CMP, 75869-1 #### [facility] ([id number]) [address] [place] [address] 28260Ukfhbetek (Bld) [#/Vol]64 10*3/uRDyg795-750BuqZsxmmdAdventhealth Central TexasComment on above:Performed By: #### JOAQUIN, , CMP, 84214-0 #### [facility] ([id number]) [address] [place] [address] 76921SON COUNT2.69 X10E12/LLow4.10-5.70[facility] Comment on above:Performed By: #### JOAQUIN, , CMP, 95849-7 #### [facility] ([id number]) [address] [place] [address] 39083CCD (Bld) [#/Vol]3.8 10*3/uLLow4.0-11.0[facility] HospitalComment on above:Performed By: #### JOAQUIN, , CMP, 77505-2 #### [facility] ([id number]) [address] [place] [address] 95263WTXMQOOEAQSVR METABOLIC PANELon 64-92-2199Ffxemdt [Mass/Vol]2.6 g/dLLow3.2-5.3PKeenan Private HospitalComment on above:Performed By: #### JOAQUIN, 31898-8, CMP, 16515-7 #### [facility] ([id number]) [address] [place] [address], [place] [address]OZF [Catalytic activity/Vol]58 U/NBlcaaf27-641GidRzybsxAdventhealth Central TexasComment on above:Performed By: #### JOAQUIN, 04610-7, CMP, 80861-4 #### [facility] ([id number]) [address] [place] [address], [place] [address]UDL [Catalytic activity/Vol]36 U/LNormal0-40ProAdventhealth Central TexasComment on above:Performed By: #### JOAQUIN, 73666-7, CMP, 35986-1 #### [facility] ([id number]) [address] [place] [address], [place] [address]Alkms gap [Moles/Vol]6 mmol/LNormal5-15ProAdventhealth Central TexasComment on above:Performed By: #### JOAQUIN, 57160-4, CMP, 32766-2 #### [facility] ([id number]) [address] [place] [address], [place] [address]TCJ [Catalytic activity/Vol]23 U/LNormal0-41ProAdventhealth Central TexasComment on above:Performed By: #### JOAQUIN, 34626-8, CMP, 20906-8 #### [facility] ([id number]) [address] [place] [address], [place] [address]Jrydsavdp [Mass/Vol]0.8 mg/dLNormal0.3-1.2PMiddle Park Medical Center - Granby HospitalComment on above:Performed By: #### JOAQUIN, 54015-8, CMP, 30573-5 #### [facility] ([id number]) [address] [place] [address], [place] [address]Zgmekrb [Mass/Vol]7.4 mg/dLLow8.5-10.5ProMedica Bienville HospitalComment on above:Performed By: #### JOAQUIN, 68326-5, CMP, 72919-7 #### [facility] ([id number]) [address] [place] [address], [place] [address]Dknzyebi [Moles/Vol]102 mmol/VRlicmy90-143PbnEuzdqkCleveland Clinic Union HospitalComment on above:Performed By: #### JOAQUIN, 64498-0, CMP, 98550-0 #### [facility] ([id number]) [address] [place] [address], [place] [address]CP0 [Moles/Vol]22 mmol/TWddmvv77-52TufQssrkeKeenan Private Hospital Comment on above:Performed By: #### JOAQUIN, 58912-3, CMP, 71453-3 #### [facility] ([id number]) [address] [place] [address], [place] [address]Mivzzwtsmr [Mass/Vol]0.56 mg/dLLow0.70-1.20[facility] HospitalComment on above:Result Comment: METHOD TRACEABLE TO IDMS STANDARD Performed By: #### JOAQUIN, , CMP, 31037-5 #### [facility] ([id number]) [address] [place] [address], [place] [address]xALZ (CKD-EPI) NON-RACE DEPENDENT>90Normal>59ProAdventhealth Central TexasComment on above:Result Comment: Reported eGFR is based on the CKD-EPI 2021 equation that does not use a race coefficient.Performed By: #### JOAQUIN, 04984-4, CMP, 39519-6 #### [facility] ([id number]) [address] [place] [address], [place] [address]Gditnbq [Mass/Vol]116 mg/nWSagg05-86LceBtlfnoCleveland Clinic Union Hospital Comment on above:Performed By: #### JOAQUIN, 63873-7, CMP, 42745-9 #### [facility] ([id number]) [address] [place] [address] 01364Pufhcyhln [Moles/Vol]3.9 mmol/LNormal3.5-5.0ProAdventhealth Central TexasComment on above:Performed By: #### JOAQUIN, , CMP, 96765-8 #### [facility] ([id number]) [address] [place] [address] 32721Mltvowv [Mass/Vol]4.8 g/dLLow6.0-8.0[facility] Comment on above:Performed By: #### JOAQUIN, , CMP, 27519-2 #### [facility] ([id number]) [address] [place] [address] 58786Gfhfli [Moles/Vol]130 mmol/OTeg118-744UtuEebatqAdventhealth Central TexasComment on above:Performed By: #### JOAQUIN, , CMP, 02371-3 #### [facility] ([id number]) [address] [place] [address] 47893Zrvc nitrogen [Mass/Vol]10 mg/dLNormal5-27[facility] HospitalComment on above:Performed By: #### JOAQUIN, , CMP, 39926-3 #### [facility] ([id number]) [address] [place] [address] 02019Vmuzxhz Glucometer (BldC) [Mass/Vol]on 05-65-0480Mmqhvkh [Mass/Vol]118 mg/bMWelr80-24KzqPqfjtyCleveland Clinic Union HospitalGlucose [Mass/Vol]151 mg/nFRput50-36CbjTcsvgeAdventhealth Central TexasGlucose [Mass/Vol]118 mg/wZCxqu06-10 ProMWest Hills Regional Medical CenterHGBon 19-92-4946Xrvvckmqjq (Bld) [Volume fraction]25.2 %Jso39-45TunNfktynCleveland Clinic Union HospitalComment on above:Performed By: #### JOAQUIN, , CMP, 40811-9 #### [facility] ([id number]) [address] [place] [address] 85652Rorvvmxwcy (Bld) [Mass/Vol]8.6 g/dLLow13.0-17.0[facility] HospitalComment on above:Performed By: #### JOAQUIN, , CMP, 64407-3 #### [facility] ([id number]) [address] [place] [address] 77930AESTDDUQOwr 24-41-1157Zesbozlhs [Mass/Vol]1.9 mg/dLNormal 1.8-2.6ProAdventhealth Central TexasComment on above:Performed By: #### JOAQUIN, , CMP, 57562-1 #### [facility] ([id number]) [address] [place] [address] 39492Gozmelpvs [Mass/Vol]1.8 mg/dLNormal1.8-2.6ProAdventhealth Central TexasComment on above:Performed By: #### JOAQUIN, , CMP, 72876-5 #### [facility] ([id number]) [address] [place] [address] 67247TEMOCFID BLOOD COUNTon 11-92-6301Ffrtdrckcgi distribution width (RBC) [Ratio]15.5 %High11.5-15.0ProAdventhealth Central TexasComment on above: Performed By: #### JOAQUIN, , CMP, 64209-9 #### [facility] ([id number]) [address] [place] [address] 22033Flaizuebzk (Bld) [Volume fraction]25.9 %Zzp44-53KgdPfnamtAdventhealth Central TexasComment on above:Performed By: #### JOAQUIN, , CMP, 77670-8 #### [facility] ([id number]) [address] [place] [address] 78568Nuvvpapgbv (Bld) [Mass/Vol]9.0 g/dLLow13.0-17.0[facility] HospitalComment on above:Performed By: #### JOAQUIN, , CMP, 36941-1 #### [facility] ([id number]) [address] [place] [address] 83336DFE (RBC) [Entitic mass]28.4 shZpjscp35-54JhqStbmwkAdventhealth Central TexasComment on above:Performed By: #### JOAQUIN, , CMP, 47165-8 #### [facility] ([id number]) [address] [place] [address] 60640EVRW (RBC) [Mass/Vol]34.8 g/nOXvousm68-94OkzLejorkAdventhealth Central TexasComment on above:Performed By: #### JOAQUIN, , CMP, 25548-5 #### [facility] ([id number]) [address] [place] [address] 28489ZDO (RBC) [Entitic vol]82 vUFshxxk10-971XlpAevhlqCleveland Clinic Union HospitalComment on above:Performed By: #### JOAQUIN, , CMP, 29172-6 #### [facility] ([id number]) [address] [place] [address] 50507Ffqqyylx mean volume (Bld) [Entitic vol]7.6 fLNormal7-12 [facility] HospitalComment on above:Performed By: #### JOAQUIN, , CMP, 60852-3 #### [facility] ([id number]) [address] [place] [address] 96898Ocagpofgx (Bld) [#/Vol]83 10*3/oYIcq207-980GvlIysfqmAdventhealth Central TexasComment on above:Performed By: #### JOAQUIN, 14494-9, CMP, 59650-5 #### [facility] ([id number]) [address] [place] [address] 95656CJN COUNT3.17 X10E12/LLow4.10-5.70[facility] Comment on above:Performed By: #### JOAQUIN, , CMP, 76385-6 #### [facility] ([id number]) [address] [place] [address] 33368GXS (Bld) [#/Vol]5.5 10*3/uLNormal4.0-11.0ProAdventhealth Central TexasComment on above:Performed By: #### JOAQUIN, , CMP, 26269-5 #### [facility] ([id number]) [address] [place] [address] 32398LPGZBNFUEMIQA METABOLIC PANELon 15-75-2303Jdhbxmc [Mass/Vol]3.0 g/dLLow3.2-5.3PKeenan Private HospitalComment on above:Performed By: #### JOAQUIN, , CMP, 58373-0 #### [facility] ([id number]) [address] [place] [address] 72547WWH [Catalytic activity/Vol]65 U/SNaijmr19-691NybObnnyaAdventhealth Central TexasComment on above:Performed By: #### JOAQUIN, , CMP, 54785-1 #### [facility] ([id number]) [address] [place] [address] 30958MZB [Catalytic activity/Vol]45 U/LHigh0-40ProAdventhealth Central TexasComment on above:Performed By: #### JOAQUIN, , CMP, 25835-7 #### [facility] ([id number]) [address] [place] [address] 87131Ppibz gap [Moles/Vol]8 mmol/LNormal5-15ProAdventhealth Central TexasComment on above:Performed By: #### JOAQUIN, , CMP, 94091-8 #### [facility] ([id number]) [address] [place] [address] 69610QKU [Catalytic activity/Vol]26 U/LNormal0-41ProAdventhealth Central TexasComment on above:Performed By: #### JOAQUIN, , CMP, 03036-5 #### [facility] ([id number]) [address] [place] [address], [place] [address]Elpamyppt [Mass/Vol]1.0 mg/dLNormal0.3-1.2PKeenan Private HospitalComment on above:Performed By: #### JOAQUIN, , CMP, 60342-4 #### [facility] ([id number]) [address] [place] [address], [place] [address]Zyndzvo [Mass/Vol]8.0 mg/dLLow8.5-10.5PKeenan Private HospitalComment on above:Performed By: #### JOAQUIN, , CMP, 07027-0 #### [facility] ([id number]) [address] [place] [address], [place] [address]Ybtwylio [Moles/Vol]102 mmol/AUrrmlg56-466HnbEqfazgAdventhealth Central TexasComment on above:Performed By: #### JOAQUIN, , CMP, 22590-5 #### [facility] ([id number]) [address] [place] [address], [place] [address]HQ5 [Moles/Vol]21 mmol/ULsk73-99MjaUjpmnkKeenan Private Hospital Comment on above:Performed By: #### JOAQUIN, , CMP, 70036-2 #### [facility] ([id number]) [address] [place] [address], [place] [address]Nsnwnxnunv [Mass/Vol]0.54 mg/dLLow0.70-1.20ProAdventhealth Central TexasComment on above:Result Comment: METHOD TRACEABLE TO IDMS STANDARD Performed By: #### JOAQUIN, 02300-0, JUVENAL, 89869-2 #### [facility] ([id number]) [address] [place] [address] 63298bTOJ (CKD-EPI) NON-RACE DEPENDENT>90Normal>59ProAdventhealth Central TexasComment on above:Result Comment: Reported eGFR is based on the CKD-EPI 1 equation that does not use a race coefficient.Performed By: #### JOAQUIN , JUVENAL, 19941-5 #### [facility] ([id number]) [address] [place] [address] 47591Pabjcbp [Mass/Vol]104 mg/gUZtns64-35SigOkiptpCleveland Clinic Union Hospital Comment on above:Performed By: #### JOAQUIN , JUVENAL, 30241-4 #### [facility] ([id number]) [address] [place] [address] 94289Esttpjyjw [Moles/Vol]3.6 mmol/LNormal3.5-5.0ProAdventhealth Central TexasComment on above:Performed By: #### JOAQUIN , JUVENAL, 50639-6 #### [facility] ([id number]) [address] [place] [address] 13564Dcyiwqz [Mass/Vol]5.5 g/dLLow6.0-8.0[facility] Comment on above:Performed By: #### JOAQUIN, 67593-0, JUVENAL, 23009-3 #### [facility] ([id number]) [address] [place] [address] 24724Ulrdjn [Moles/Vol]131 mmol/OTqy110-881EfnGngjadAdventhealth Central TexasComment on above:Performed By: #### JOAQUIN 18916-0, JUVENAL, 55391-1 #### [facility] ([id number]) [address] [place] [address] 10447Ghyx nitrogen [Mass/Vol]19 mg/dLNormal5-27[facility] HospitalComment on above:Performed By: #### JOAQUIN, , CMP, 26719-8 #### [facility] ([id number]) [address] [place] [address] 99332Mzghntf Glucometer (BldC) [Mass/Vol]on 34-34-7466Jtpqnej [Mass/Vol]136 mg/vJVovv68-75GoiRrelboCleveland Clinic Union HospitalGlucose [Mass/Vol]112 mg/fDFogk26-40LorQqostoCleveland Clinic Union HospitalHGHonorhealth Scottsd[facility] 67-92-1704Fbgnqnjpmb (Bld) [Volume fraction]25.2 %Yvx48-72TgyHuprgdAdventhealth Central TexasComment on above:Performed By: #### JOAQUIN, , CMP, 97286-2 #### [facility] ([id number]) [address] [place] [address] 97982Cobrtilako (Bld) [Mass/Vol]8.2 g/dLLow13.0-17.0[facility] HospitalComment on above:Performed By: #### JOAQUIN, , CMP, 71068-0 #### [facility] ([id number]) [address] [place] [address] 40445ZCAGGSUPNue 03-12-6335Melgxouew [Mass/Vol]1.9 mg/dLNormal 1.8-2.6[facility] HospitalComment on above:Performed By: #### JOAQUIN, , CMP, 31880-1 #### [facility] ([id number]) [address] [place] [address] 70580Rnpordups [Mass/Vol]1.6 mg/dLLow1.8-2.6ProAdventhealth Central TexasComment on above:Performed By: #### CBCA, 19610-0, CMP, 99563-1 #### [facility] ([id number]) [address] [place] [address] 53790FKBUXDUZTse 78-39-2252Wjhtcpztz [Moles/Vol]4.0 mmol/LNormal 3.5-5.0ProAdventhealth Central TexasComment on above:Performed By: #### CBCA, 66118-8, CMP, 12504-2 #### [facility] ([id number]) [address] [place] [address] 78491Qjunlokj Pathologyon 84-03-7604Fglowibi PathologyNormal [facility] HospitalComment on above:Result Comment: [facility] [address] [place] [address] Surgical Pathology Consultation Patient Name:MINNIE JASON:1950 (Age: 74)Gender:MTaken:01/08/2025Reported:01/14/2025Physician(s):Letty Toscano D.O. ([phone])Copy To: Rec. #:[id number]: #[id number] Final Pathologic Diagnosis 1. Stomach, prepyloric, biopsy: Junctional mucosa with mild reactive changes. No histological evidence of H. pylori infection on routine stain. 2. Stomach, cardia, biopsy: Gastric mucosa with hyperplastic changes. 3. Transverse colon, polypectomy: Tubular adenoma. Report Electronically Signed Out rg/01/14/2025Dennise Stanton MD Interpretation performed at [facility], [address] [place] [address], License number: [id number]. Clinical History Occult blood positive stool R19.5. Gross Description 1. Received in formalin labeled JASON, prepyloric biopsy is a light campos soft tissue bit, 0.4 cm.The specimen is filtered and entirely submitted in a single cassette. (1, ns, [id number],m3) DM. 2. Received in formalin labeled JASON, cardia biopsy are two light campos soft tissue bits, 0.2 cm each. The specimen is filtered and entirely submitted in a single cassette. (1, ns, [id number],m3) DM. 3. Received in formalin labeled JASON, transverse colon polyp is a light campos soft tissue bit, 0.3 cm. The specimen is filtered and entirely submitted in a single cassette. (1, ns, U31-59460-1,m3) DM. dm//GR Specimen(s) Received 1: Pre-pyloric biopsy 2: Cardia biopsy 3: Transverse colon polyp x2 Fee Codes(s): 1; 81021 2; 75666 3; 75180T REACTIVE PROTEINon 59-51-8167YSQ [Mass/Vol]mg/LNormal0.000-0.744 ProMWest Hills Regional Medical CenterComment on above:Performed By: #### CBCA, , CMP, 90950-0 #### [facility] ([id number]) [address] [place] [address]UHURAHWZ BLOOD COUNTon 30-82-7930Pufbgakwegn distribution width (RBC) [Ratio]15.9 %High11.5-15.0ProAdventhealth Central TexasComment on above: Performed By: #### CMP, , 99640-9, CBC, 1988-02, 27518-2 #### [facility] ([id number]) [address] [place] [address] #### 2276-4, 28488-3, FEPR #### [facility] ([id number]) [address] [place] [address], [address] [place], [place] [address]Uzxtdhohcw (Bld) [Volume fraction]26.1 %Urz67-76HkwZtjlamAdventhealth Central TexasComment on above:Performed By: #### CMP, , 92322-2, CBC, 1988-02, 28069-8 #### [facility] ([id number]) [address] [place] [address] #### 2276-4, 03490-4, FEPR #### [facility] ([id number]) [address], [address] [place], [place] [address]Zmafrvgcjk (Bld) [Mass/Vol]8.9 g/dLLow13.0-17.0ProAdventhealth Central TexasComment on above:Performed By: #### CMP, 97074-7, 58095-2, CBC, 1988-02, 90002-8 #### [facility] ([id number]) [address] [place] [address] #### 2276-4, 51095-6, FEPR #### [facility] ([id number]) [address], [address] [place], [place] [address]FUY (RBC) [Entitic mass]28.0 gwVjtdua84-96JxkCpljucAdventhealth Central TexasComment on above:Performed By: #### CMP, 46595-4, 10999-0, CBC, 1988-02, 80962-4 #### [facility] ([id number]) [address] [place] [address] #### 2276-4, 92649-4, FEPR #### [facility] ([id number]) [address], [address] [place], [place] [address]QDXQ (RBC) [Mass/Vol]34.0 g/lUOcxcov56-66JgyXgfqlaAdventhealth Central TexasComment on above:Performed By: #### CMP, 25669-9, 32300-0, CBC, 1988-02, 63458-1 #### [facility] ([id number]) [address] [place] [address] #### 2276-4, 26457-1, FEPR #### [facility] ([id number]) [address], [address] [place], [place] [address]MCR (RBC) [Entitic vol]83 tOBjtgjp16-705PxpLfeigr Fremont HospitalComment on above:Performed By: #### JUVENAL, 08529-3, 66212-3, CBC, 1988-02, 69310-7 #### [facility] ([id number]) [address] [place] [address] #### 2276-4, 97404-9, FEPR #### [facility] ([id number]) [address], [address] [place], [place] [address]Lhlpigry mean volume (Bld) [Entitic vol]7.5 fLNormal7-12 [facility] Jacobs Medical CenterComment on above:Performed By: #### JUVENAL, , 03857-3, CBC, 1988-02, 06695-9 #### [facility] ([id number]) [address] [place] [address] #### 2276-4, 42587-8, FEPR #### [facility] ([id number]) [address], [address] [place], [place] [address]Qxvgkmeqw (Bld) [#/Vol]101 10*3/lNRfa156-503AyyCykwdxAdventhealth Central TexasComment on above:Performed By: #### JUVENAL, , 88184-7, CBC, 1988-02, 78241-2 #### [facility] ([id number]) [address] [place] [address] #### 2276-4, 78668-8, FEPR #### [facility] ([id number]) [address], [address] [place], [place] [address]FVF COUNT3.17 X10E12/LLow4.10-5.70[facility] Comment on above:Performed By: #### CMP, , 24617-0, CBC, 1988-02, 16469-0 #### [facility] ([id number]) [address] [place] [address]75 #### 2276-4, 86431-1, FEPR #### [facility] ([id number]) [address], [address] [place], [place] [address]SQX (Bld) [#/Vol]4.5 10*3/uLNormal4.0-11.0ProAdventhealth Central TexasComment on above:Performed By: #### CMP, 24865-2, 57371-0, CBC, 1988-02, 02981-7 #### [facility] ([id number]) [address] [place] [address]1950 #### 2276-4, 78951-5, FEPR #### [facility] ([id number]) [address], [address] [place], [place] [address]WEZHUPHFKQHQH METABOLIC PANELon 37-53-5619Kvhhqau [Mass/Vol]2.8 g/dLLow3.2-5.3ProMedica Jacobs Medical CenterComment on above:Performed By: #### CMP, , 40187-0, CBC, 1988-02, 40917-8 #### [facility] ([id number]) [address] [place] [address] 80211 #### 2276-4, 45258-7, FEPR #### [facility] ([id number]) [address], [address] [place], [place] [address]ALW [Catalytic activity/Vol]59 U/XUqrjec39-805VsfOologhAdventhealth Central TexasComment on above:Performed By: #### CMP, 49897-0, 18401-3, CBC, 1988-02, 50371-2 #### [facility] ([id number]) [address] [place] [address] 66849 #### 2276-4, 46530-7, FEPR #### [facility] ([id number]) [address], [address] [place], [place] [address]GIY [Catalytic activity/Vol]40 U/LNormal0-40ProAdventhealth Central TexasComment on above:Performed By: #### JUVENAL, 57091-9, 61131-0, CBC, 1988-02, 69273-2 #### [facility] ([id number]) [address] [place] [address] #### 2276-4, 07243-5, FEPR #### [facility] ([id number]) [address], [address] [place], [place] [address]Gkaoc gap [Moles/Vol]5 mmol/LNormal5-15ProAdventhealth Central TexasComment on above:Performed By: #### JUVENAL, 61101-2, 13156-1, CBC, 1988-02, 95705-8 #### [facility] ([id number]) [address] [place] [address] 76337 #### 2276-4, 09817-9, FEPR #### [facility] ([id number]) [address], [address] [place], [place] [address]RDH [Catalytic activity/Vol]19 U/LNormal0-41ProAdventhealth Central TexasComment on above:Performed By: #### JUVENAL, 17986-0, 87091-6, CBC, 1988-02, 35526-1 #### [facility] ([id number]) [address] [place] [address] 17782 #### 2276-4, 87453-3, FEPR #### [facility] ([id number]) [address], [address] [place], [place] [address]Fqjdbbecg [Mass/Vol]0.8 mg/dLNormal0.3-1.2ProMedica Jacobs Medical CenterComment on above:Performed By: #### CMP, 78757-2, 77308-2, CBC, 1988-02, 45313-3 #### [facility] ([id number]) [address] [place] [address] 07872 #### 2276-4, 74851-7, FEPR #### [facility] ([id number]) [address], [address] [place], [place] [address]Amciidv [Mass/Vol]7.6 mg/dLLow8.5-10.5PKeenan Private Hospital Comment on above:Performed By: #### CMP, , 78371-0, CBC, 1988-02, 24824-2 #### [facility] ([id number]) [address] [place] [address] 61627 #### 2276-4, 73537-3, FEPR #### [facility] ([id number]) [address], [address] [place], [place] [address]Didcvoit [Moles/Vol]103 mmol/QFnlgzy89-475TceGyxvwx Jacobs Medical CenterComment on above:Performed By: #### CMP, , 27296-1, CBC, 1988-02, 00249-0 #### [facility] ([id number]) [address] [place] [address] 08705 #### 2276-4, 06584-5, FEPR #### [facility] ([id number]) [address], [address] [place], [place] [address]VB1 [Moles/Vol]24 mmol/CQbqmmq71-35SlcYzocexKeenan Private Hospital Comment on above:Performed By: #### CMP, , 60156-7, CBC, 1988-02, 59617-6 #### [facility] ([id number]) [address] [place] [address] 49727 #### 2276-4, 35428-0, FEPR #### [facility] ([id number]) [address], [address] [place], [place] [address]Eyrrypqjhf [Mass/Vol]0.65 mg/dLLow0.70-1.20C[facility] Clinic Union HospitalComment on above:Result Comment: METHOD TRACEABLE TO IDMS STANDARD Performed By: #### JUVENAL, 76972-9, 77089-4, CBC, 1988-02, 18699-2 #### [facility] ([id number]) [address] [place] [address] #### 2276-4, 75086-7, FEPR #### [facility] ([id number]) [address], [address] [place], [place] [address]cMPB (CKD-EPI) NON-RACE DEPENDENT>90Normal>59ProAdventhealth Central TexasComment on above:Result Comment: Reported eGFR is based on the CKD-EPI 2020 equation that does not use a race coefficient.Performed By: #### JUVENAL, 06523-2, 94906-3, CBC, , 44033-0 #### [facility] ([id number]) [address] [place] [address] 55123 #### 2276-4, 18121-2, FEPR #### [facility] ([id number]) [address], [address] [place], [place] [address]Glodjxu [Mass/Vol]95 mg/wBUwmwkg09-63UksUyvuxpAdventhealth Central Texas Comment on above:Performed By: #### CMP, 25696-5, 11342-2, CBC, 1988-02, 63546-2 #### [facility] ([id number]) [address] [place] [address] 02766 #### 2276-4, 03780-8, FEPR #### [facility] ([id number]) [address], [address] [place], [place] [address]Eohvyxvii [Moles/Vol]4.1 mmol/LNormal3.5-5.0ProAdventhealth Central TexasComment on above:Performed By: #### JUVENAL, , 04030-3, CBC, 1988-02, 85809-8 #### [facility] ([id number]) [address] [place] [address] 45163 #### 2276-4, 29327-2, FEPR #### [facility] ([id number]) [address], [address] [place], [place] [address]Tmhmirh [Mass/Vol]5.0 g/dLLow6.0-8.0[facility] Comment on above:Performed By: #### JUVENAL, , 97139-5, CBC, 1988-02, 95352-2 #### [facility] ([id number]) [address] [place] [address]131 #### 2276-4, 10354-6, FEPR #### [facility] ([id number]) [address] [facility], [address] [place], [place] [address]Jtogvj [Moles/Vol]132 mmol/QGew730-947ZdnUcsimiCleveland Clinic Union Hospital Comment on above:Performed By: #### JUVENAL, , 73543-5, CBC, 1988-02, 46978-7 #### [facility] ([id number]) [address] [place] [address] 69[address] #### 2276-4, 12551-5, FEPR #### [facility] ([id number]) [address], [address] [place] [address]Iiao nitrogen [Mass/Vol]21 mg/dLNormal5-27ProAdventhealth Central TexasComment on above:Performed By: #### JUVENAL, , 90167-5, CBC, 1988-02, 68937-1 #### [facility] ([id number]) [address] [place] [address] 13158 #### 2276-4, 80130-7, FEPR #### [facility] ([id number]) [address] [place] [address], [address] [place], [place] [address]QOVIIEIac 46-19-7237Gddxgat [Mass/Vol]1.3 ng/mLNormal0.8-2.0 [facility] HospitalComment on above:Performed By: #### JOAQUIN, 39729-0, CMP, 78334-6 #### [facility] ([id number]) [address] [place] [address]MKLLPTKAyt 74-86-3835Ctjtgeap [Mass/Vol]197 ng/cXVpgrkb66-727 [facility] HospitalComment on above:Performed By: #### JOAQUIN, 55536-1, CMP, 14898-4 #### [facility] ([id number]) [address] [place] [address] 44[address]Utvfcwo Glucometer (BldC) [Mass/Vol]on 82-00-9135Qzmxbyw [Mass/Vol]103 mg/xYSmbw78-63TrxMzywoxCleveland Clinic Union HospitalGlucose [Mass/Vol]109 mg/rCJehm18-53EzoNhlyalCleveland Clinic Union HospitalGlucose [Mass/Vol]123 mg/hCDgua98-34 [facility] HospitalGlucose [Mass/Vol]113 mg/dIXoac44-61PabDhewcwCleveland Clinic Union HospitalHGBon 29-92-3928Iurmuubqvy (Bld) [Volume fraction]26.2 %Ggm39-50 [facility] HospitalComment on above:Performed By: #### JOAQUIN, 34932-9, CMP, 25227-6 #### [facility] ([id number]) [address] [place] [address] 27216Izhamoqjxq (Bld) [Mass/Vol]9.1 g/dLLow13.0-17.0[facility] HospitalComment on above:Performed By: #### JOAQUIN, 20506-0, CMP, 71336-2 #### [facility] ([id number]) [address] [place] [address] 41879VWQY PROFILEon 99-17-3108Aotk [Mass/Vol]196 ug/ePSyvnmy90-030 ProMWest Hills Regional Medical CenterComment on above:Performed By: #### JOAQUIN, 30234-6, CMP, 72799-7 #### [facility] ([id number]) [address] [place] [address] 01866WTIX OFYAUGJ629 ug/uENivmju405-563ZolZszpngCleveland Clinic Union Hospital Comment on above:Performed By: #### JOAQUIN, 37464-1, CMP, 26662-6 #### [facility] ([id number]) [address] [place] [address] 18837TWDK QJRREKHBRX35 % AQKLGHYQGWRtdl23-22ZreIbtmfd [facility]remont HospitalComment on above:Performed By: #### JOAQUIN, , CMP, 44749-2 #### [facility] ([id number]) [address] [place] [address] 835[address]PTLECEIROys 16-41-0814Lstykwdbr [Mass/Vol]1.9 mg/dLNormal 1.8-2.6[facility] Union HospitalComment on above:Performed By: #### JOAQUIN, , CMP, 23714-8 #### [facility] ([id number]) [address] [place] [address] 715[address]Unisumsqwvq peptide B [Mass/Vol]on 18-91-7170Lhuiobnovrx peptide B (Bld) [Mass/Vol]86 pg/mLNormal<100.0ProAdventhealth Central TexasComment on above:Performed By: #### JOAQUIN, 46216-9, CMP, 19178-9 #### [facility] ([id number]) [address] [place] [address] 08754Darxjaiucihoo IA [Mass/Vol]on 32-92-7738DMTGYDBZMOQVO<0.05 Normal<0.05C[facility] Clinic Union HospitalComment on above:Result Comment: NOTE <0.50 ng/mL - Low risk of severe sepsis and/or septic shock. <2.00 ng/mL - Recommend retesting within 6-24 hours. >2.00 ng/mL - High risk of sepsis and/or septic shock.Performed By: #### CBCHallie, , CMP, 32724-3 #### [facility] ([id number]) [address] [place] [address] 728[address]YOC AND AUTO DIFFon 89-55-5714NEOWNNTB BASOPHIL0.0 X10E9/L Normal0.0-0.2ProMedSanta Marta HospitalComment on above:Performed By: #### CBCHallie, , CMP, 41316-4 #### [facility] ([id number]) [address] [place] [address] 54455YKPSEWLK NEUTROPHIL6.0 X10E9/LNormal1.5-6.6ProAdventhealth Central TexasComment on above:Performed By: #### JOAQUIN, , CMP, 03227-0 #### [facility] ([id number]) [address] [place] [address] 48164Pybxuaqcp/100 WBC (Bld)0.4 %NormalProAdventhealth Central Texas Comment on above:Performed By: #### CBCHallie, , CMP, 85094-3 #### [facility] ([id number]) [address] [place] [address] 95070Eyszvxlpahz (Bld) [#/Vol]0.0 10*3/uLNormal0.0-0.4ProAdventhealth Central TexasComment on above:Performed By: #### CBCHallie, , CMP, 40027-4 #### [facility] ([id number]) [address] [place] [address] 10337Gzxfpntnwky/100 WBC (Bld)0.5 %NormalCleveland Clinic Union Hospital Comment on above:Performed By: #### JOAQUIN, , CMP, 15594-8 #### [facility] ([id number]) [address] [place] [address] 70870Ltvixfbkulw distribution width (RBC) [Ratio]15.7 %High11.5-15.[address] [facility] Board[facility] HospitaledicUCSF Medical CenterComment on above:Performed By: #### JOAQUIN, , CMP, 21005-4 #### [facility] ([id number]) [address] [place] [address] 88546Mukjytehpx (Bld) [Volume fraction]26.2 %Zwq73-77EngRvhimhAdventhealth Central TexasComment on above:Performed By: #### JOAQUIN, , CMP, 26688-8 #### [facility] ([id number]) [address] [place] [address] 49508Ubhdetglra (Bld) [Mass/Vol]8.9 g/dLLow13.0-17.0[facility] HospitalComment on above:Performed By: #### JOAQUIN, , CMP, 85137-3 #### [facility] ([id number]) [address] [place] [address] 52025Ecfdvztvsfq (Bld) [#/Vol]0.7 10*3/uLLow1.0-3.5PKeenan Private HospitalComment on above:Performed By: #### JOAQUIN, , CMP, 43346-7 #### [facility] ([id number]) [address] [place] [address] 88340Mvpbzcbnfxt/100 WBC (Bld)9.3 %[facility] Comment on above:Performed By: #### CBCHallie, 46588-6, CMP, 43552-4 #### [facility] ([id number]) [address] [place] [address] 70481LCE (RBC) [Entitic mass]28.1 zpLhnqor83-71TpxJmghvmAdventhealth Central TexasComment on above:Performed By: #### CBCHallie, 82032-8, CMP, 11102-6 #### [facility] ([id number]) [address] [place] [address] 72097FFMM (RBC) [Mass/Vol]34.0 g/dTJczjnb83-58ZeoLwarbeCleveland Clinic Union HospitalComment on above:Performed By: #### CBCHallie, 85664-7, CMP, 22995-6 #### [facility] ([id number]) [address] [place] [address] 45275KXL (RBC) [Entitic vol]83 kFSoixfb89-883CjrLfmgvjCleveland Clinic Union HospitalComment on above:Performed By: #### CBCHallie, 43399-1, CMP, 73379-3 #### [facility] ([id number]) [address] [place] [address] 61976Tpuebgpkl (Bld) [#/Vol]0.4 10*3/uLNormal0-0.9C[facility] Union HospitalComment on above:Performed By: #### CBCA, 21406-7, CMP, 81630-6 #### [facility] ([id number]) [address] [place] [address] 96125Rhnymtlsc/100 WBC (Bld)5.4 %[facility] Comment on above:Performed By: #### CBCA, 46896-8, CMP, 84262-1 #### [facility] ([id number]) [address] [place] [address], [place] [address]Lupvlsivltq/100 WBC (Bld)84.4 %NormalCleveland Clinic Union Hospital Comment on above:Performed By: #### JOAQUIN, , CMP, 15181-2 #### [facility] ([id number]) [address] [place] [address] 63880Jaeafrzk mean volume (Bld) [Entitic vol]7.3 fLNormal7-12 ProMWest Hills Regional Medical CenterComment on above:Performed By: #### JOAQUIN, , CMP, 30820-2 #### [facility] ([id number]) [address] [place] [address] 89242Winqfymyl (Bld) [#/Vol]104 10*3/yZJwd742-572SkeYxaydpCleveland Clinic Union HospitalComment on above:Performed By: #### JOAQUIN, , CMP, 97379-8 #### [facility] ([id number]) [address] [place] [address] 26178ZGP COUNT3.16 X10E12/LLow4.10-5.70[facility] Comment on above:Performed By: #### JOAQUIN, , CMP, 86535-1 #### [facility] ([id number]) [address] [place] [address] 04658APH (Bld) [#/Vol]7.1 10*3/uLNormal4.0-11.0[facility] HospitalComment on above:Performed By: #### JOAQUIN, 39060-8, CMP, 35939-6 #### [facility] ([id number]) [address] [place] [address] 08000GZJZDSXKQIBVN METABOLIC PANELon 92-91-5006Mkpdkcv [Mass/Vol]2.7 g/dLLow3.2-5.3PKeenan Private HospitalComment on above:Performed By: #### JOAQUIN, 11300-9, CMP, 95847-8 #### [facility] ([id number]) [address] [place] [address], [place] [address]DZB [Catalytic activity/Vol]61 U/OVczkzb85-644EsfMdblneAdventhealth Central TexasComment on above:Performed By: #### JOAQUIN, 59848-9, CMP, 82023-3 #### [facility] ([id number]) [address] [place] [address], [place] [address]LUJ [Catalytic activity/Vol]44 U/LHigh0-40ProAdventhealth Central TexasComment on above:Performed By: #### JOAQUIN, 26643-6, CMP, 93793-0 #### [facility] ([id number]) [address] [place] [address] 75213Hauto gap [Moles/Vol]3 mmol/LLow5-15Pro[facility] [place] Comment on above:Performed By: #### JOAQUIN, 74135-3, CMP, 24897-4 #### [facility] ([id number]) [address] [place] [address], [place] [address]IUJ [Catalytic activity/Vol]23 U/LNormal0-41ProAdventhealth Central TexasComment on above:Performed By: #### JOAQUIN, 99081-9, CMP, 97944-6 #### [facility] ([id number]) [address] [place] [address] 066[address]Bhlnfvfiu [Mass/Vol]0.9 mg/dLNormal0.3-1.2PKeenan Private HospitalComment on above:Performed By: #### JOAQUIN, 05779-8, CMP, 53192-1 #### [facility] ([id number]) [address] [place] [address], [place] [address]Pqxtmvc [Mass/Vol]7.6 mg/dLLow8.5-10.5PKeenan Private HospitalComment on above:Performed By: #### JOAQUIN, 02480-4, CMP, 46617-6 #### [facility] ([id number]) [address] [place] [address], [place] [address]Leowiyqk [Moles/Vol]104 mmol/UFonntt48-421MwuGdpsvyCleveland Clinic Union HospitalComment on above:Performed By: #### JOAQUIN, 74084-8, CMP, 71248-6 #### [facility] ([id number]) [address] [place] [address], [place] [address]GQ4 [Moles/Vol]23 mmol/BLemnyo24-30MjvTaoarvKeenan Private Hospital Comment on above:Performed By: #### JOAQUIN, 11233-9, CMP, 66902-0 #### [facility] ([id number]) [address] [place] [address], [place] [address]Ofkoihosdu [Mass/Vol]0.70 mg/dLNormal0.70-1.20[facility] HospitalComment on above:Result Comment: METHOD TRACEABLE TO IDMS STANDARD Performed By: #### JOAQUIN, , CMP, 47248-7 #### [facility] ([id number]) [address] [place] [address], [place] [address]vFMT (CKD-EPI) NON-RACE DEPENDENT>90Normal>59ProAdventhealth Central TexasComment on above:Result Comment: Reported eGFR is based on the CKD-EPI 2021 equation that does not use a race coefficient.Performed By: #### JOAQUIN, 77966-2, CMP, 79778-6 #### [facility] ([id number]) [address] [place] [address], [place] [address]Luqxgba [Mass/Vol]167 mg/cOLset07-23ByjRybzpwCleveland Clinic Union Hospital Comment on above:Performed By: #### JOAQUIN, 80763-2, CMP, 94344-6 #### [facility] ([id number]) [address] [place] [address] 16733Hamptaujt [Moles/Vol]4.5 mmol/LNormal3.5-5.0ProAdventhealth Central TexasComment on above:Performed By: #### JOAQUIN, , CMP, 57181-4 #### [facility] ([id number]) [address] [place] [address] 949[address]Ncehdso [Mass/Vol]5.2 g/dLLow6.0-8.0[facility] Comment on above:Performed By: #### JOAQUIN, , [facility], 40749-5 #### [facility] ([id number]) [address] [place] [address] 67304Volvfg [Moles/Vol]130 mmol/HNta471-462WlbRsyocqAdventhealth Central TexasComment on above:Performed By: #### JOAQUIN, , [facility], 64763-3 #### [facility] ([id number]) [address] [place] [address] 63525Gzmn nitrogen [Mass/Vol]21 mg/dLNormal5-27ProAdventhealth Central TexasComment on above:Performed By: #### JOAQUIN, , [facility], 48327-4 #### [facility] ([id number]) [address] [place] [address] 563[address]IKZISDBFRyw 41-25-6431Tqhojltxf [Mass/Vol]1.9 mg/dLNormal 1.8-2.6ProAdventhealth Central TexasComment on above:Performed By: #### JOAQUIN, , CMP, 46396-8 #### [facility] ([id number]) [address] [place] [address] 49469PQJO/FLU A+B/RSV by NAAT/Molecularon 16-54-0522VZWP/FLU A+B/RSV by NAAT/MolecularFLU A PCR Negative (qualifier [...] operators who are performing tests using either [employer] or [employer] systems and is limited to laboratories that [...] specimen repeat. Fact Sheet for Healthcare Providers: https://www.fda.gov/media/483618/download Fact Sheet for Patients: https://www.fda.gov/media/515352/downloadNormalProMedica Jacobs Medical CenterComment on above:Performed By: #### COVFLR #### [facility] ([id number]) [address] [place] [address], FIRST [address]LO[address] [place], [place] [address]Tgiqosps I.cardiac High sensitivity method [Mass/Vol]on 51 HOUR TROP I, HIGH UZYTEZYZYKI44 ng/LNormal<21ProGreene Memorial Hospital HospitalComment on above:Performed By: #### 22443-8 #### [facility] ([id number]) [address] [place] [address], [place] [address]AFXBXFNX I, HIGH ZFKLWIHEZDB42 ng/LNormal<21ProGreene Memorial Hospital HospitalComment on above:Performed By: #### CBCA, 73273-0, CMP, 29231-0 #### [facility] ([id number]) [address] [place] [address] 36428LHB MACROSCOPIC NURon 98-80-0320GGBTIFLGP NURNegativeNormalNEG ProMWest Hills Regional Medical CenterComment on above:Performed By: #### NUM #### [facility] ([id number]) [address] [place] [address] [place] [address]ZGIAE/HGB NURTraceAbnormalNEGProAdventhealth Central TexasComment on above:Performed By: #### NUM #### [facility] ([id number]) [address] [place] [address] [place] [address]MDQEODV CHRISTOPH>=1000AbnormalNEGProAdventhealth Central TexasComment on above:Performed By: #### NUM #### [facility] ([id number]) [address] [place] [address], [place] [address]VCRUAGG NUR15 mg/dLAbnormalNEGProAdventhealth Central TexasComment on above:Performed By: #### NUM #### [facility] ([id number]) [address] [place] [address] [place] [address]NFGBWLGBF ESTERASE NURNegativeNormalNEGProAdventhealth Central TexasComment on above:Performed By: #### NUM #### [facility] ([id number]) [address] [place] [address]WCZURKS NURNegativeNormalNEGCleveland Clinic Union HospitalComment on above:Performed By: #### NUM #### [facility] ([id number]) [address] [place] [address], [place] [address]PS NUR6.8Omtmpg8.0-8.5PKeenan Private HospitalComment on above:Performed By: #### NUM #### [facility] ([id number]) [address] [place] [address] [place] [address]CDAALPQ NURTraceAbnormalNEGCleveland Clinic Union HospitalComment on above:Performed By: #### NUM #### [facility] ([id number]) [address] [place] [address]FQLPXCKZ GRAVITY NUR1.466Ahcosp6.003-1.035ProAdventhealth Central TexasComment on above:Performed By: #### NUM #### [facility] ([id number]) [address] [place] [address], [place] [address]YDIIQTGPSZCP NUR0.2 eu/dLNormal<1.1PKeenan Private Hospital Comment on above:Performed By: #### NUM #### [facility] ([id number]) [address] [place] [address]ZN CHEST 1 VWon 45-50-0589MI CHEST 1 VWXR CHEST 1 VW XR [...] by Renetta Meng MD on 01/06/2025 5:56 PMNormalCleveland Clinic Union Hospital ECHOCARDIO M/2D COMPLETEon [id number] M/2D COMPLETEPatient: MINNIE JASON Exam Date: 04/23/2022 : 1950 Gender:M Ordering : JESUS VIDAL Admission #: [id number] Family : RONAN Candis VELAZQUEZ D.O. Order #: [id number] CLICK HERE TO VIEW EXAM ECHOCARDIOGRAM REPORT [...] Area(A4C): 25.80 cm2 Left Atrium Systolic Volume(A2C): 42853 mm3 Left Atrium Systolic Volume(A4C): 58657 mm3 Mitral Valve Mitral Valve E-Wave Peak [...] by: Michael Magallanes M.D. on 04/23/2022 at 12:53NormalThAultman Orrville HospitalBUNon 48-58-6948Tzeb nitrogen [Mass/Vol]14.0 mg/dLNormal9.0-20.0K[facility]tering Health DaytonComment on above:Performed By: #### CREA, BUN #### [facility] [address] [place] [address] Dr. Ruben HicksATININEheriberto 13-37-4747Sraisfjezl [Mass/Vol]0.93 mg/dLNormal 0.66-1.25The Miami Valley HospitalComment on above:Performed By: #### CREA, BUN #### [facility] [address] [place] [address] Dr. Ruben AndersonGFR-AF ANDORRAN>60Normal>=60The Miami Valley HospitalComment on above:Performed By: #### CREA, BUN #### [facility] [address] [place] [address] Dr. Ruben AndersonGFR-NON AF ANDORRAN>60Normal>=60The [facility] System West Campusment on above:Performed By: #### CREA, BUN #### [facility] [address] [place] [address] Dr. Ruben CalderaCT ABDOMEN WO/W CONon 50-33-8836UV ABDOMEN WO/W CONEXAMINATION: CT ABDOMEN WO/W CON [...] Electronically authenticated by: KRIS YI Date: 2021-11-03 13:47[facility] HospitalXR FINGER MIN 2 VIEWSon 11-14-3145OS FINGER MIN 2 VIEWSEXAM: XR FINGER MIN [...] Electronically authenticated by: FINESSE AMEZCUA Date: 2021-09-30 22:21[facility] HospitalCT LUNG CANCER SCREENINGon 07-23-2907LO LUNG CANCER SCREENING EXAMINATION: CT LUNG CANCER [...] authenticated by: FRANCISCO JAVIER PATEL Date: 2021-09-19 17:[address] [place], [place] [address]Cardiovascular Lab Reporton [id number] Lab Report [facility] Patient Name: Minnie Jason [facility] Hallie MR #: [id number] Department of Physician: Michael Magallanes M.D. Division of Service Date: 05/10/2020 Cardiology Birthdate: 1950 Adult Cardiovascular Room #: [place] [address] Cardiovascular Laboratory Report INDICATION: The patient is [...] informed consent. He was brought to laboratory equipment installer in a fasting state. Both groin areas were prepped and draped in usual fashion. Using micropuncture technique and ultrasound guidance, access was obtained in right and left common femoral arteries respectively and inner cannula angiography was performed and access was upsized to a 5-Setswana x 11 cm sheath in each of those vessels after confirming adequate location of the access site. Bilateral lower extremity angiography was performed down to the level of the foot on each side through injections via the access catheters. A 5-Setswana Uni-Flush catheter was advanced to the distal [...] was upsized on each side to a 6-Setswana x 30 cm flexor sheath on the right and a 6-Setswana x 13 cm flexor sheath on the left. The 5-Setswana Uni-Flush catheter was advanced again into the [...] arch. At this time, we advanced a textile colorist formulator 6 mm x 80 mm balloon and used to perform balloon angioplasty in the left common iliac artery and left external iliac artery. This was inflated repeatedly at 10 atmospheres. Additional balloon angioplasty in the left common iliac artery was performed using a textile colorist formulator 8 x 40 mm balloon inflated at [...] using the 8 mm x 40 mm textile colorist formulator balloon inflated in the left common iliac [...] access sheaths we (more content not included)...NormalThe [facility] Vital Signs Date TimeVital SignValuePerforming SunwvreafFrhkdmck07-40-7320 11:46-0400Body mass index (BMI) [Ratio]28.04 kg/m2Tomisha Santana MD Work Phone: [employer] Qrfvtzfklx44-24-8548 11:46-0400Body dfhude31.19 kgTomisha Santana MD Work Phone: noms Jclepigokv73-40-6987 11:02-0400Body upvstk013.2 cmTekaterina Santana MD Work Phone: [employer] Odxiaxxelh64-34-8066 11:02-0400Body mass index (BMI) [Ratio]27.72 kg/m2Tomisha Santana MD Work Phone: noms Bkwrbtlxph07-36-7291 11:02-0400Body ndsiuo62.29 kgTomisha Santana MD Work Phone: NORN Dnvjdllcgy03-70-6724 15:30-0500Body euqsyv294.72 cmThomas Olexa Other [employer] Other 12-07-2021 15:30-0500Body mass index (BMI) [Ratio] 30.13 kg/k7Ynspyp Olexa Other [employer] Other 12-07-2021 15:30-0500Body djlpyp37.9 kgThomas Olexa Other [employer] Other Encounters Encounter DateEncounter TypeCare ProviderFacilityStart: 08-30-2025 End: 44-16-1404Wpeovqkqr encounterTomisha Santana MD Work Phone: [facility] AllergyStart: 08-25-2025 End: 37-89-6376Sgbilh flowsheetChante Santana MD Work Phone: [facility] [place] AllergyStart: 08-25-2025 End: 44-14-9260Vuhfnp flowsJaja Santnaa MD Work Phone: [facility] AllergyStart: 08-25-2025 End: 89-78-1696gitsitgvzzBDSK E RAMBASEKNot AvailableStart: 08-25-2025 End: 28-82-5926Ewwtbd outpatient visit 15 minutesTomisha Santana MD Work Phone: [facility] [place] AllergyComment on above:Recurrent sinus infections (Primary Dx); Recurrent pneumoniaStart: 08-17-2025 End: 12-13-8623xyffkauefjHSCVXSN [facility] Hospitaltart: 07-28-2025 End: 42-55-1806Twyeog flowsheetChante Santaan MD Work Phone: [facility] [place] AllergyStart: 07-28-2025 End: 18-33-5546Dskufz flowsheetChante Santana MD Work Phone: [facility] AllergyStart: 07-28-2025 End: 11-84-5441Vyprzv outpatient new 30 minutesTomisha Santana MD Work Phone: [facility] AllergyComment on above:Recurrent pneumonia (Primary Dx); Recurrent sinus infectionsStart: 07-28-2025 End: 56-86-9331dnucfywbbcTBMRAtul Mendiola AvailableStart: 01-27-2025 End: 25-95-2220wbtmcdsyabBCFBYDX Draius VELAZQUEZ [facility] Hospitaltart: 01-20-2025 End: 81-42-1588dwffnulyrbCQWYDCC Darius VELAZQUEZ [facility] Hospitaltart: 01-18-2025 End: 20-20-4434Cfvmyokwb encounterLauren Carlosia CMAProMedica Physicians General SurgeryStart: 01-13-2025 End: 25-92-8680meesvacyrnLHAW Anna QUICKOTZERUniversity Hospitals St. John Medical Centertart: 01-06-2025 End: 51-06-4698Pijmevmraq and management of inpatientCHARLES Darius VELAZQUEZ JR [facility] Centertart: 04-23-2022 End: 10-60-9822hagjjxwfewKX CHARLES VALONEFacility:Z9Dlstz: 04-18-2022 End: 15-49-9104xjcwfacmfuRHGLEBP TUCKERFacility:A8Ipadr: 11-03-2021 End: 78-70-8813agznhteoecAC CHARLES VALONEFacility:G2Onhwn: 10-10-2021 End: 60-36-5393jctnhsjnybTD CHARLES VALONENort [employer] Other Start: 32-23-5886Kbunnc follow up visit related to original pxThomas OlexaFPG [place] [facility] [place]vueStart: 10-03-2021 End: 71-17-4333fwiizpriisZbhbii Olexa Other [facility] [employer] Other Start: 61-91-6976UQKZ visit new patientMatt Gill Ara BellevueStart: 09-30-2021 End: 24-82-8001phccoirrwgXC MICHAEL HAYFacility:J4Jgnra: 09-19-2021 End: 07-14-2526swuqigdxpvPG RONAN VALONEFacility:H1 Procedures DateProcedureProcedure DetailPerforming ClinicianStart: 97-02-0835Biwojderaty Arlette Porter CMA Plan of Treatment DateCare ActivityDetailAuthorStart: 56-38-0300Xqwqvlgau for malignant neoplasm of colonColonoscopyProVan Wert County Hospital SystemStart: 99-99-1714Onwcxsjhplkm Vaccine: 65+ Years (2 of 2 - PCV)Pneumococcal Vaccine: 65+ Years (2 of 2 - PCV)[facility] HealthcareStart: 88-07-3696Bmejykx ScreeningTobacco ScreeningProVan Wert County Hospital SystemStart: 10-14-2025 End: 10-91-0169Wvuadin encounter hcombezct16/18/2025 11:20 AM EST Office Visit [facility] [address] [phone] Chante Santana MD [address] [address] NOMAdrien Gill AllergyStart: 08-25-2025 End: 62-41-0310BJVJYTIXIIQFL PNEUMONIA AB (IGG) (23 SEROTYPES)STREPTOCOCCUS PNEUMONIA AB (IGG) (23 SEROTYPES) Lab Routine Recurrent sinus infections Expected: 08/25/2025 (Approximate), Expires: 08/25/2026[facility] Work Phone: Comment on above:Expected: 08/25/2025 (Approximate), Expires: 08/25/2026Start: 08-25-2025 End: 70-48-2863Zdpbaoe encounter hofhgkyni91/29/2025 11:40 AM EDT Office Visit [facility] [address] [facility] [address] [place] [phone] Chante Santana MD [address] [facility] [address] [place] [address] NOMAdiren Gill AllergyStart: 07-28-2025 End: 17-88-5844ZTN W Auto Differential panel - BloodCBC and differential Lab Routine Recurrent pneumonia Recurrent sinus infections Expected: 07/28/2025 (Approximate), Expires: 07/28/2026NOUT HealthcareComment on above:Expected: 07/28/2025 (Approximate), Expires: 07/28/2026Start: 07-28-2025 End: 38-84-0753Kxlwmznxrf / Tetanus Antibody PanelDiphtheria / Tetanus Antibody Panel Lab Routine Recurrent pneumonia Recurrent sinus infections Expected: 07/28/2025 (Approximate), Expires: 07/28/2026NOUT HealthcareComment on above: Expected: 07/28/2025 (Approximate), Expires: 07/28/2026Start: 07-28-2025 End: 87-27-1585VfZ [Mass/volume] in Serum or PlasmaIgA Lab Routine Recurrent pneumonia Recurrent sinus infections Expected: 07/28/2025 (Approximate), E xpires: 07/28/2026[facility] HealthcareComment on above:Expected: 07/28/2025 (Approximate), Expires: 07/28/2026Start: 07-28-2025 End: 96-42-8765GwY [Units/volume] in Serum or PlasmaIgE Lab Routine Recurrent pneumonia Recurrent sinus infections Expected: 07/28/2025 (Approximate), E xpires: 07/28/2026N[facility] HealthcareComment on above:Expected: 07/28/2025 (Approximate), Expires: 07/28/2026Start: 07-28-2025 End: 00-15-1705NiN [Mass/volume] in Serum or PlasmaIgG Lab Routine Recurrent pneumonia Recurrent sinus infections Expected: 07/28/2025 (Approximate), E xpires: 07/28/2026[facility] Work Phone: Comment on above:Expected: 07/28/2025 (Approximate), Expires: 07/28/2026Start: 07-28-2025 End: 29-66-8345XkM [Mass/volume] in Serum or PlasmaIgM Lab Routine Recurrent pneumonia Recurrent sinus infections Expected: 07/28/2025 (Approximate), E xpires: 07/28/2026NOMS HealthcareComment on above:Expected: 07/28/2025 (Approximate), Expires: 07/28/2026Start: 07-28-2025 End: 86-84-9206Gmhgofq toxoid, IgGTetanus toxoid, IgG Lab Routine Recurrent pneumonia Recurrent sinus infections Expected: 07/28/2025(Approximate), Expires: 07/28/2026[facility] HealthcareComment on above:Expected: 07/28/2025 (Approximate), Expires: 07/28/2026Start: 07-28-2025 End: 91-67-3001Mnkocda encounter hfqmoawac52/01/2025 11:00 AM EDT Office Visit [facility] [address] [phone] Chante Santana MD [address] [address] ArrivedNO [place] AllergyComment on above:ArrivedStart: 64-50-5151QYSSV-19 Vaccine ( season)COVID-19 Vaccine ( season)[facility] HealthcareStart: 29-78-7820Dqfbpuyef vaccinationInfluenza Vaccine (#1)[facility] HealthcareStart: 49-60-3998Hnedbwvyo vaccinationInfluenza VaccineProVan Wert County Hospital SystemStart: 52-05-8204Vqdi Risk ScreeningFall Risk ScreeningProVan Wert County Hospital SystemStart: 53-95-2280Qoeofdesmdyo Vaccine: 65+ Years (1 of 1 - PCV)Pneumococcal Vaccine: 65+ Years (1 of 1 - PCV) NOM HealthcareStart: 93-16-6658IPrY,Tdap and Td Vaccines (1 - Tdap)DTaP,Tdap and Td Vaccines (1 - Tdap)[facility] SystemStart: 53-41-7853Talckkivpw ScreeningDepression ScreeningAtrium Health Providencetart: 1957 DTaP/Tdap/Td Vaccines (1 - Tdap)DTaP/Tdap/Td Vaccines (1 - Tdap)[facility] STREPTOCOCCUS PNEUMONIA AB (IGG) (23 SEROTYPES)STREPTOCOCCUS PNEUMONIA AB (IGG) (23 SEROTYPES) Lab Routine Recurrent pneumonia Recurrent sinus infections Ordered: 07/28/2025NOUT HealthcareComment on above:Ordered: 07/28/2025 Immunizations Immunization DateImmunizationNotesCare FafvwzevUvwcwtun32-48-1236wjpoppyxdsir polysaccharide vaccine, 23 valentTodd Max JASSO Work Phone: [facility] CenterQwttakpxnw11-48-0393uuqitupbl virus vaccine, unspecified formulationLauren Venia CMAWilson Health Payers DatePayer CategoryPayerPolicy [id number] MEDICARE ADVANTAGE [id number] 2024Medicare [facility] [id number] 2024Medicare [id number] [id number] 1960Medicare [id number] 2.840.1.109562.3.579.2. [id number] 2.0.1.439819.3.57[id number] 2.0.1.907796.3.57[id number] 2.840.1.607733.3.57[id number] 2.0.1.396990.3.57[id number] 2.840.1.824305.3.57[id number] 2.0.1.856481.3.57[id number] 2.840.1.613470.3.57[id number] 2.0.1.892841.3.57[id number] 2.840.1.977338.3.57[id number] 2.840.1.032017.3.57[id number] 2.840.1.424604.3.579.2.1259 Social History DateTypeDetailFacilityStart: 01-07-2025 End: 56-01-8081Fxg Assigned At BirthNorth [employer]™ [employer] Other Start: 01-07-2025 End: 27-62-2138Htgfejy smoking status NHISEx-smokerWilson Health History of tobacco useCurrent smokerWilson HealthHistory of tobacco useCigarette SmokerThe [facility] SystemStart: 01-07-2025 End: 58-42-0637Ljbdlju use and exposureSmokeless tobacco non-userThe [facility] SystemStart: 79-93-0948Duclmuocv beverage intakeEx-drinker (finding) [facility] Providencetart: 01-07-2025 End: 00-97-0767Pbvvimo of Social functionWilson HealthHas the [employer], gas, oil, or water Intean Poalroath Rongroeurng threatened to shut off services in your home in past 12MoNFulton County Health CenterAre you now , , , , never or living with a partner?MarriedWilson HealthHow often to you have a drink containing alcohol?NeverAtrium Health Providencetart: 64-17-2952Huy many standard drinks containing alcohol do you have on a typical day?Patient does not drinkWilson HealthHow hard is it for you to pay for the very basics like food, housing, medical care, and heatingNot very hardThe [facility] Hospital SystemDo you feel stress - tense, restless, nervous, or anxious, or unable to sleep at night because yourmind is troubled all the time - these days [OSQ]Not at allThe [facility] SystemStart: 53-93-5316Iku assigned at birthNot on fileMemorial Health System [facility] VisualShare SystemStart: 80-41-7123RcxFntw (finding)Wilson HealthTobacco smoking status NHIS Tobacco smoking consumption unknownNOMS Healthcare Goals DatePatient GoalDesired Activity/StatePersonal health goalComment on above: Evaluation of progress towards goal: under assessment Clinical Notes 10-03-2021 to 08-30-2025 Note Date & TdyvSzdkJgsbwrxf03-09-3795 Telephone encounter Note* Telephone Encounter - Allison Thompson LPN - 08/30/2025 4:11 PM EST Called and spoke to Phong and informed him that he received the pneumovax 23 vaccine on 08/25/2025. He is appreciative and denies further needs at this time. /ss [facility] Work Phone: [phone]) 917-229311-03-2025 Miscellaneous Notes* Telephone Encounter - Allison Thompson LPN - 08/30/2025 4:11 PM EST Called and spoke to Phong and informed him that he received the pneumovax 23 vaccine on 08/25/2025. He is appreciative and denies further needs at this time. /ss documented in this encounterSaint John's Regional Health CenterPwuiimxldr43-46-1154 History of Present illness Narrative* Chante Santana [...] problems arise. 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 Hypertension 4. Hyperlipidemia on atorvastatin 5. COPD 6. PAD s/p Omnilink Elite stent x2 to LLE 04/2020, severe PAD also noted in RLE 08/17/2025 Since last seen, he suffered from PNA. He has been admitted twice this year for this. He c/o increased SOB since then. His activity level has decreased since then. He is participating in cardiac rehab at [facility]. Tolerating this okay. BP at rehab [...] improves with rest. Planning to go to [place] this summer to visit son. 03/27/22 He [...] palpitations. Patient Active Problem List Diagnosis A-fib ([facility]/HCC) Atrial fibrillation ([facility]/HCC) CAD (coronary artery disease) Coronary atherosclerosis Chest pain Chronic obstructive lung disease ([facility]/HCC) Congestive heart failure ([facility]/HCC) Dyspnea Essential hypertension Gastroesophageal reflux disease Hyperlipidemia Mitral regurgitation Mitral valve disorder Peripheral arterial occlusive disease Primary cardiomyopathy ([facility]/HCC) Pulmonary hypertension, mild (CMS/HCC) Type 2 diabetes mellitus ([facility]/HCC) Peripheral vascular disease Hx of CABG Failure of outpatient treatment Former smoker Former tobacco use 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 He [...] that time. documented in this encounterSaint John's Regional Health CenterKnogcykmif81-97-4774 Miscellaneous Notes* Telephone Encounter - Arlette Porter [...] She verbalized complete understanding. documented in this encounterWilson Health03-24-2025 Telephone encounter Note* Telephone Encounter - Arlette [...] 79 if he so desires. ThanksDr. Griffin [employer] Fzfedr32-00-5474 Telephone encounter Note* Telephone Encounter - Yadira Ortiz CMA - 01/18/2025 9:13 AM EDT I spoke to the patients , verified EC. Gave her the results message from DR Toscano. She verbalized complete understanding. [facility] [employer] Bcumjw03-73-3408 NotePROCEDURE: XR HAND RT MIN 3V COMPARISON: [...] Electronically authenticated by: KRIS YI Date: 2021-10-10 14:09[facility]12-14-2021 Evaluation note* Encounter Date Diagnosis Assessment Notes [...] nail as time goes. Call with questions/concerns. [employer] Other 12-07-2021 Evaluation note* Encounter Date Diagnosis [...] to nail, initial encounter (ICD-10 - S61.315A) [employer] Other Evaluation note* Diagnosis Recurrent pneumonia- Primary Pneumonia, organism unspecified Recurrent sinus infections Unspecified sinusitis (chronic) documented in this encounter [facility] HealthcareEvaluation note* Diagnosis Recurrent sinus infections- Primary Unspecified sinusitis (chronic) Recurrent pneumonia Pneumonia, organism unspecified documented in this encounter [facility]S HealthcareHistory general Narrative - Reported* Type Description Date Medical History type II diabetes Medical HistoryCOPDMedical HistoryafibMedical Historyartery diseaseSurgical Historytriple [id number] Historyhernia [id number] Historyheart ufnad8425Rtpgzkpy Historyilliac [id number] HistorySee Above [employer] Other InstructionsNot on filedocumented in this encounter [facility] Summary Purpose Family History No [...] and content) DATE CREATED AUTHOR 02/15/2021 [facility] DATE CREATED AUTHOR AUTHOR'S ORGANIZ ATION 04/27/2022 [facility] DATE CREATED AUTHOR AUTHOR'S ORGANIZ ATION 01/30/2025 [facility] DATE CREATED AUTHOR AUTHOR'S ORGANIZ ATION 08/27/2025 [facility] DATE CREATED AUTHOR AUTHOR'S ORGANIZ ATION 09/04/2025 [facility] REASON FOR VISIT (unrecogniz ed section and content) ReasonCommentsnew patientPt states he had pneumonia in Nov, Dec and Mar. Monthly he breaks out into chills and shakes which leaves him weak.Reason CommentsFollow-upNo surgeries; no hospital stays. Care Teams (unrecognized sec tion and content) Team MemberRelationshipSpecialtyStart DateEnd Date Ronan Velazquez Jr., DO [address] [place] [address] [phone] PCP - GeneralInternal Medicine01/06/25Team MemberRelationshipSpecialtyStart Date End Date Ronan Velazquez MD [address] [place] [phone] PCP - GeneralInternal Medicine04/13/25 MemberRelationshipSpecialtyStart Date End Date Ronan Velazquez MD [address] [place] [phone] PCP - GeneralInternal Medicine04/13/25 MemberRelationshipSpecialtyStart Date End Date Ronan Velazquez MD [address] [place] [phone] PCP - GeneralInternal Medicine04/13/25Te MemberRelationshipSpecialtyStart Date End Date Ronan Velazquez MD [address] [place] [address] [phone] PCP - GeneralInternal Medicine04/13/25Team MemberRelationshipSpecialtyStart Date End Date Ronan Velazquez MD [address] [place], [place] [phone] PCP - GeneralInternal Medicine04/13/25 FOR RECORDS PERTAINING [...] BE BASED ON THE PRIMARY CLINICAL RECORDS. [facility]. provides no warranty or guarantee of the accuracy or completeness of information in this document.
[2025-10-08 12:09] LABS: Pneumo Ab Type 17 (17F)* 2.8 ug/mL (>1.3); Pneumo Ab Type 2* 0.6 ug/mL (>1.3); Pneumo Ab Type 22 (22F)* 2.5 ug/mL (>1.3); Pneumo Ab Type 34 (10A)* 42.1 ug/mL (>1.3); Pneumo Ab Type 43 (11A)* 4.4 ug/mL (>1.3); Pneumo Ab Type 5* 26.4 ug/mL (>1.3); Pneumo Ab Type 54 (15B)* 13.7 ug/mL (>1.3)
== END 2025-10-05 11:58 | disposition home or self-care (01) ==
LOC: LAB 11:59
PROVIDERS: PCP Internal Medicine
DX: J32.9 Chronic sinusitis, unspecified (principal)
CPT/HCPCS: 36415